=== PATIENT | male | born 1980 | race Caucasian/White ===

== ENCOUNTER 2020-04-19 18:21 | Inpatient (IN) | payer OTHER ==
[~2020-04-19] VITALS: Ht 175.3 cm; Wt 99.3 kg
--- NOTE | 2020-04-19 18:51 | NUR ---
RT AT BEDSIDE. PATIENT PLACED ON 40L/100 VAPOTHERM, 15 NRB
[2020-04-19] MEDS ORDERED: DEXAMETHASONE 10MG/ML PF INJ IV SCH (19:00)
[2020-04-19] MEDS ORDERED: ACETAMINOPHEN 325 MG TAB PO ONE (19:00)
[2020-04-19 19:18] LABS: BASOPHILS % 0.3 % (0.0-1.0); EOSINOPHILS # (AUTO) 0.1 (0.0-0.4); EOSINOPHILS % 0.4 % (0.0-6.0); HEMATOCRIT 47.2 % (38.2-49.6); HEMOGLOBIN 15.6 g/dL (14.0-18.0); LYMPHOCYTES # (AUTO) 0.5 (1.0-3.2); MEAN CORPUSCULAR HEMOGLOBIN 27.5 pg (28-32); MEAN CORPUSCULAR HGB CONC 33.1 g/dL (31-35); MEAN CORPUSCULAR VOLUME 83.2 fL (81-99); MONOCYTES # (AUTO) 0.4 (0.2-0.8); MONOCYTES % 2.9 % (4.4-11.3); NEUTROPHILS # (AUTO) 11.8 (2.1-6.9); NEUTROPHILS % 90.2 % (38.7-80.0); PLATELET COUNT 222 x10e3/uL (140-360); RED BLOOD COUNT 5.67 x10e6/uL (4.3-5.7); RED CELL DISTRIBUTION WIDTH 14.5 % (11.7-14.4)
[2020-04-19] MEDS: CEFTRIAXONE SOD 1 GM/NS 50 ML 50 ML IV SCH (19:20)
[2020-04-19] MEDS ORDERED: DEXAMETHASONE SOD PHOS 10 MG/1 ML VIAL ONE (19:23)
[2020-04-19 19:27] LABS: INR 0.98; PROTHROMBIN TIME 13.6 seconds (11.9-14.5)
[2020-04-19 19:28] LABS: PARTIAL THROMBOPLASTIN TIME 28.3 seconds (23.8-35.5)
[2020-04-19] MEDS ORDERED: LORAZEPAM INJ 2 MG/ML VIAL IV ONE (19:30)
--- NOTE | 2020-04-19 19:30 | Emergency Department Note ---
History of Present Illnes History of Present Illness Chief Complaint: COVID PUI History of Present Illness This is a 40 year old male sob x 2 days progressively getting recently around cousin who is covid (+) arrived via ems o2 sat 78% on 15l nrb respiratory called right away for vapotherm pt diabetic per ems bs 350 c/o muscle aches, chills, and cough . 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 Any updates have been documented here. Past Medical History Recent Fever: No Clinical Suspicion of Infectio: Yes New/Unexplained Change in Ment: No Past Medical History: Diabetes, Anxiety Past Surgical History: None Social History Smoking Cessation: Former smoker Counseling Performed: No Alcohol Use: None Any Illegal Drug Use: No Physically hurt or threatened: No Family History Family history of heart diseas: No Other family history HTN,DM Other Any Pre-Existing Lines (PICC,: No Review of Systems Review of Systems Constitutional: Reports as per HPI EENTM: Reports no symptoms Cardiovascular: Reports no symptoms Respiratory: Reports as per HPI Gastrointestinal: Reports no symptoms Genitourinary: Reports no symptoms Musculoskeletal: Reports no symptoms Integumentary: Reports no symptoms Neurological: Reports no symptoms Psychological: Reports no symptoms Endocrine: Reports no symptoms Hematological/Lymphatic: Reports no symptoms Physical Exam Related Data Allergies: Coded Allergies: No Known Allergies (Unverified , 04/19/20) Triage Vital Signs Vital Signs Date Time Temp Pulse Resp B/P (MAP) Pulse Ox O2 Delivery O2 Flow Rate FiO2 04/19/20 18:26 98.0 124 28 118/77 78 Non-Rebreather 15.0 Vital signs reviewed: Yes Physical Exam CONSTITUTIONAL Constitutional: Present well-developed, Present well-nourished HENT HENT: Present normocephalic, Present atraumatic, Present oropharynx clear/moist, Present nose normal HENT L/R: Present left ext ear normal, Present right ext ear normal EYES Eyes: Reports PERRL, Reports conjunctivae normal NECK Neck: Present ROM normal PULMONARY Pulmonary: Present breath sounds normal, Present respiratory distress (TACHYPNIC RR 30), Present rhonchi (DIFFUSE) CARDIOVASCULAR Cardiovascular: Present regular rhythm, Present heart sounds normal, Present capillary refill normal, Present tachycardia (120) GASTROINTESTINAL Abdominal: Present soft, Present nontender, Present bowel sounds normal GENITOURINARY Genitourinary: Present exam deferred SKIN Skin: Present warm, Present dry MUSCULOSKELETAL Musculoskeletal: Present ROM normal NEUROLOGICAL Neurological: Present alert, Present oriented x 3, Present no gross motor or sensory deficits PSYCHOLOGICAL Psychological: Present mood/affect normal, Present judgement normal Results Laboratory Result Diagram: 04/19/20 1848 Laboratory Laboratory Tests Test 04/19/20 18:58 04/19/20 18:48 White Blood Count 13.04 x10e3/uL (4.8-10.8) Red Blood Count 5.67 x10e6/uL (4.3-5.7) Hemoglobin 15.6 g/dL (14.0-18.0) Hematocrit 47.2 % (38.2-49.6) Mean Corpuscular Volume 83.2 fL (81-99) Mean Corpuscular Hemoglobin 27.5 pg (28-32) Mean Corpuscular Hemoglobin Concent 33.1 g/dL (31-35) Red Cell Distribution Width 14.5 % (11.7-14.4) Platelet Count 222 x10e3/uL (140-360) Neutrophils (%) (Auto) 90.2 % (38.7-80.0) Lymphocytes (%) (Auto) 4.0 % (18.0-39.1) Monocytes (%) (Auto) 2.9 % (4.4-11.3) Eosinophils (%) (Auto) 0.4 % (0.0-6.0) Basophils (%) (Auto) 0.3 % (0.0-1.0) Neutrophils # (Auto) 11.8 (2.1-6.9) Lymphocytes # (Auto) 0.5 (1.0-3.2) Monocytes # (Auto) 0.4 (0.2-0.8) Eosinophils # (Auto) 0.1 (0.0-0.4) Basophils # (Auto) 0.0 (0.0-0.1) Absolute Immature Granulocyte (auto 0.29 x10e3/uL (0-0.1) Prothrombin Time 13.6 seconds (11.9-14.5) Prothromb Time International Ratio 0.98 Activated Partial Thromboplast Time 28.3 seconds (23.8-35.5) Sodium Level 135 mmol/L (136-145) Potassium Level 4.5 mmol/L (3.5-5.1) Chloride Level 99 mmol/L (98-107) Carbon Dioxide Level 18 mmol/L (22-29) Anion Gap 22.5 mmol/L (8-16) Blood Urea Nitrogen 18 mg/dL (7-26) Creatinine 1.33 mg/dL (0.72-1.25) Estimat Glomerular Filtration Rate 60 ML/MIN (60-) BUN/Creatinine Ratio 14 (6-25) Glucose Level 279 mg/dL (74-118) Calcium Level 9.2 mg/dL (8.4-10.2) Total Bilirubin 1.0 mg/dL (0.2-1.2) Aspartate Amino Transf (AST/SGOT) 93 IU/L (5-34) Alanine Aminotransferase (ALT/SGPT) 63 IU/L (0-55) Alkaline Phosphatase 149 IU/L (40-150) Total Protein 7.6 g/dL (6.5-8.1) Albumin 3.0 g/dL (3.5-5.0) Globulin 4.6 g/dL (2.3-3.5) Albumin/Globulin Ratio 0.7 (0.8-2.0) Laboratory Tests Test 04/19/20 18:58 04/19/20 18:48 White Blood Count 13.04 x10e3/uL (4.8-10.8) Red Blood Count 5.67 x10e6/uL (4.3-5.7) Hemoglobin 15.6 g/dL (14.0-18.0) Hematocrit 47.2 % (38.2-49.6) Mean Corpuscular Volume 83.2 fL (81-99) Mean Corpuscular Hemoglobin 27.5 pg (28-32) Mean Corpuscular Hemoglobin Concent 33.1 g/dL (31-35) Red Cell Distribution Width 14.5 % (11.7-14.4) Platelet Count 222 x10e3/uL (140-360) Neutrophils (%) (Auto) 90.2 % (38.7-80.0) Lymphocytes (%) (Auto) 4.0 % (18.0-39.1) Monocytes (%) (Auto) 2.9 % (4.4-11.3) Eosinophils (%) (Auto) 0.4 % (0.0-6.0) Basophils (%) (Auto) 0.3 % (0.0-1.0) Neutrophils # (Auto) 11.8 (2.1-6.9) Lymphocytes # (Auto) 0.5 (1.0-3.2) Monocytes # (Auto) 0.4 (0.2-0.8) Eosinophils # (Auto) 0.1 (0.0-0.4) Basophils # (Auto) 0.0 (0.0-0.1) Absolute Immature Granulocyte (auto 0.29 x10e3/uL (0-0.1) Lab results reviewed: Yes Procedures 12 Lead ECG Interpretation ECG Interpretation : ECG: ECG 1 Drencher: Interpreted by ED physician Date: Apr 19, 2020 Time: 19:59 Rhythm: sinus tachycardia Rate: tachycardia BPM: 118 QRS axis: normal ST segments normal: Yes T waves normal: Yes Other findings: no other findings Clinical Impression: dysrhythmia - atrial (SINUS TACHYCARDIA O/W NOMRAL EKG) Critical Care Time Total Critical Care Time (min): 31 Critcal care necessary due to: respiratory failure Critcal care time spent by me: develop tx plan w patient/surrogate, discussion w consultants, discussion w primary provider, interpret cardiac output measures, evaluation patient response to tx, examination of patient, obtaining hx from patient/surrogate, order/perform tx or interventions, order/review laboratory studies, order/review radiographic studies, pulse oximetry, re-evaluation of patient condition Assessment & Plan Medical Decision Making [facility] PT WITH SOB, HYPOXIA AND COVID EXPOSURE OXYGEN SATURATION 78% ON 15 L NR, PLACE ON VAPO THERM 40LPM FIO2 100% OXYGEN SATURATION NOW 94%, rr 30 CBC, CMP, BLOOD CULTURE, CXR, EKG, CARDIAC ENZYMES ORDERED TO EVAL FOR PNEUMONIA, MYOCARDIAL INFARCTION, ELECTROLYTE ABNORMALITY ROCEPHIN 1 GRAM IV ORDERED ZITHROMAX 500 MG IV ORDERED ATIVAN 0.5 MG IV ORDERED (FOR PT'S ANXIETY) TYLENOL 975 MG PO ORDERED DEXAMETHASONE 6 MG IV ORDERED I SPOKE WITH DR WALKER, DR BONILLA AND LEFT A MESSAGE FOR DR PATTERSON Assessment & Plan Final Impression: (1) Viral pneumonia (2) Hypoxemia requiring supplemental oxygen (3) COVID-19 Depart Disposition: ADMITTED Last Vital Signs Date Time Temp Pulse Resp B/P (MAP) Pulse Ox O2 Delivery O2 Flow Rate FiO2 04/19/20 18:26 98.0 124 28 118/77 78 Non-Rebreather 15.0 Medications in the ED Acetaminophen 975 mg ONCE ONCE PO ; Start 04/19/20 at 19:00; Stop 04/19/20 at 19:15; Status DC Ceftriaxone Sodium 50 ml @ 100 mls/hr Q24H IV ; Start 04/19/20 at 19:00; Stop 04/26/20 at 18:59 Azithromycin 250 ml @ 250 mls/hr Q24H IV ; Start 04/19/20 at 20:00; Stop 04/26/20 at 19:59 Dexamethasone Sodium Phosphate 6 mg Q24H IV ; Start 04/19/20 at 19:00; Stop 04/26/20 at 18:59 Dexamethasone Sodium Phosphate 10 mg STK-MED ONCE .ROUTE ; Start 04/19/20 at 19:23; Stop 04/19/20 at 19:16; Status DC Lorazepam 0.5 mg ONCE ONCE IV ; Start 04/19/20 at 19:30; Stop 04/19/20 at 19:31; Status LUCINDA WEINBERG MD Apr 19, 2020 19:30
--- NOTE | 2020-04-19 19:41 | Diagnostic Imaging Report ---
EXAMINATION: CHEST SINGLE (PORTABLE) INDICATION: ^Y ^SOB, POSSIBLE COVID, HYPOXIA ^[id number] ^1910 ^Y COMPARISON: None FINDINGS: TUBES and LINES: None. LUNGS: Perihilar peribronchial hazy opacity with more diffuse hazy opacity in the bilateral lungs worrisome for multifocal pneumonia. PLEURA: No pleural effusion or pneumothorax. HEART AND MEDIASTINUM: The cardiomediastinal silhouette is unremarkable. BONES AND SOFT TISSUES: No acute osseous lesion. Soft tissues are unremarkable. UPPER ABDOMEN: No free air under the diaphragm. IMPRESSION: Perihilar peribronchial hazy opacity with more diffuse hazy opacity in the bilateral lungs worrisome for multifocal pneumonia. Signed by: Dr. Sameer Barnes M.D. on 04/19/2020 7:37 PM
[2020-04-19] MEDS: AZITHROMYCIN 500MG/NS 250 ML 250 ML IV SCH (19:57)
[2020-04-19] MEDS ORDERED: DEXTROSE 50% SYRINGE 50 ML IV PRN (20:00)
[2020-04-19] MEDS ORDERED: SODIUM CHLORIDE FLUSH 10 ML SYR INJ PRN (20:00)
[2020-04-19] MEDS ORDERED: ONDANSETRON HCL INJ 2MG/ML 2ML 2 MG/ML VIAL IV PRN ×2 (20:00→20:15)
[2020-04-19 20:02] LABS: ALBUMIN/GLOBULIN RATIO 0.7 (0.8-2.0); ANION GAP 22.5 mmol/L (8-16); CALCIUM 9.2 mg/dL (8.4-10.2); CREATININE, SERUM 1.33 mg/dL (0.72-1.25); POTASSIUM 4.5 mmol/L (3.5-5.1)
[2020-04-19] MEDS ORDERED: SODIUM CHLORIDE 0.9% 1000ML 1,000 ML IV ONE (20:15)
[2020-04-19] MEDS ORDERED: ZOLPIDEM TARTRATE 5 MG TAB PO PRN (20:15)
[2020-04-19] MEDS ORDERED: DEXMEDETOMIDINE 200MCG/NS 50ML 50 ML IV PRN (20:15)
[2020-04-19] MEDS ORDERED: HYDROCODONE/CHLORPHENIRAMINE 5 ML LIQCR PO PRN (20:30)
[2020-04-19 20:31] LABS: CREATINE KINASE MB 0.6 ng/mL (0-5.0)
[2020-04-19] MEDS: INSULIN REGULAR, HUMAN 100 UNIT/1 ML 3ML VIAL SQ SCH (20:37)
--- NOTE | 2020-04-19 20:41 | Consultation ---
DATE OF CONSULTATION: Pulmonary Critical Care Consultation CHIEF COMPLAINT: Dyspnea and cough. HISTORY OF PRESENT ILLNESS: The patient is a 40-year-old man. He has a history of diabetes, but does not require insulin. He reports dyspnea and cough for 2 days. He feels short of breath. He has noted some fevers. He does not complain of chest pain. He has no nausea or vomiting. PAST MEDICAL HISTORY: 1. Diabetes. 2. No prior history of asthma. 3. No prior heart problems. PAST SURGICAL HISTORY: The patient denies any prior surgical history. ALLERGIES: NO KNOWN DRUG ALLERGIES. FAMILY HISTORY: Noncontributory. REVIEW OF SYSTEMS: The patient has some fevers. There is no headache. He has no neck pain. He is not having any sore throat. He has no glandular swelling. He has no chest pain. He does have some cough. He has some dyspnea. He has no abdominal pain. He has no nausea or vomiting. He has no leg swelling. PHYSICAL EXAMINATION: VITAL SIGNS: The blood pressure is 122/80, saturation is 95% on Vapotherm at 40 L with 100% FiO2. His heart rate is 122. HEENT: Shows no facial swelling or erythema. CARDIAC: Reveals regular rate and rhythm with normal S1, S2. LUNGS: Auscultation of lungs reveals rhonchorous breath sounds bilaterally. There is no wheezing. ABDOMEN: Soft, nontender. There is no rebound or guarding. EXTREMITIES: Shows no leg edema or calf tenderness. There is no cyanosis or clubbing. SKIN: Shows no rashes. NEUROLOGICAL: Shows no focal abnormalities. LABORATORY DATA: BUN to creatinine ratio is 18 to 1.33. Sodium is 138 and the carbon dioxide is 18 with a chloride of 99. He has an increased anion gap of 20. The AST is 93 and the ALT is 63. Albumin is 3.0. White blood cell count is 13 and hemoglobin is 15.6. The platelet count is 222. RADIOGRAPHIC DATA: Chest x-ray shows perihilar hazy opacities worrisome for multifocal pneumonia. IMPRESSION: 1. Acute respiratory failure. 2. Viral pneumonia and COVID-19 infection. 3. Diabetes. 4. Acute kidney injury. 5. Tachycardia. PLAN: 1. Continue Vapotherm. 2. Judicious use of IV fluids with repeat creatinine tomorrow. 3. Monitor and control blood sugars closely. 4. Zithromax and Rocephin. 5. Dexamethasone. 6. The patient should be a good candidate for remdesivir since he has only been sick 2 to 3 days. 7. Lovenox. MD JOSE Feliz/SERGIO /[id number]
[2020-04-19] MEDS: ENOXAPARIN SOD INJ 40 MG/0.4 ML SYR SC SCH (21:12)
[2020-04-19 21:30] VITALS: BP 119/105
[2020-04-19 21:40] VITALS: BP 119/105
[2020-04-19 22:00] VITALS: BP 99/72
--- NOTE | 2020-04-19 22:59 | NUR ---
infectious disease consultation pATIENT CURRENTLY THE INTENSIVE CARE UNIT pATIENT HAD NO SHORTNESS OF BREATH AND COUGH WHICH ARE FOR 2 DAYS The patient is a 40-year-old man. He has a history of diabetes, but does not require insulin. He reports dyspnea and cough for 2 days. He feels short of breath. He has noted some fevers. He does not complain of chest pain. He has no nausea or vomiting. PAST MEDICAL HISTORY: 1. Diabetes. 2. No prior history of asthma. 3. No prior heart problems. PAST SURGICAL HISTORY: The patient denies any prior surgical history. ALLERGIES: NO KNOWN DRUG ALLERGIES. FAMILY HISTORY: Noncontributory. REVIEW OF SYSTEMS: The patient has some fevers. There is no headache. He has no neck pain. He is not having any sore throat. He has no glandular swelling. He has no chest pain. He does have some cough. He has some dyspnea. He has no abdominal pain. He has no nausea or vomiting. He has no leg swelling. hIS PHYSICAL EXAMINATION CURRENTLY ALERT ORIENTED DOES NOT SEEM TO BE IN ACUTE DISTRESS WITH VITALS STABLE AFEBRILE heent NORMOCEPHALIC NOT PROTECTED NECK SUPPLE NO jvd NO VAGINAL THYROMEGALY CHEST FEW CRACKLES HEART AT REST TO A SOFT bOSTON PRESENT WITH REDUCTION DID NOT GIVE A SKIN RASH IMPRESSION SEPSIS ON ADMISSION THE SPELLED FAILURE COVID 19 rESPIRATORY FAILURE ACUTE KIDNEY INJURY POSSIBLY DEHYDRATION rOCEPHIN 2 G DAILY FOR 5 DAYS zITHROMAX AND 5 G DAILY FOR 3 DAYS dECADRON 6 MG DAILY FOR 10 DAYS lOVENOX 0.5 G/KG EVERY 12 HOURS. PATIENT TO BE IN ISOLATION FOR 20 DAYS dISCUSSED WITH THE PATIENT ABOUT RMZV HE IS AWARE THAT IS STILL INVESTIGATIONAL DRUG THAT fda APPROVED WITH USING EMERGENCY NEED TO INPATIENT WITH cOVID 19 FAX WAS DISCUSSED WITH THE PATIENT IS STILL IN THE LUNGS WITH ACUTE RENAL FAILURE AND WHAT TO WATCH HIM OVERNIGHT AFEBRILE IN THE MORNING WILL OFFER TO HIM
[2020-04-19 23:00] VITALS: BP 133/92
[2020-04-20] VITALS (26 sets, daily range): BP systolic 83–148; BP diastolic 56–100
[2020-04-20] MEDS ORDERED: ESCITALOPRAM OX20 MG PO (00:57)
[2020-04-20] MEDS ORDERED: SIMVASTATIN40 MG PO (00:57)
[2020-04-20] MEDS ORDERED: B-121000 MC1 PO (00:57)
[2020-04-20] MEDS ORDERED: CLONAZEPAM0.5 MG PO (00:57)
[2020-04-20] MEDS ORDERED: VYVANSE30 MG PO (00:57)
[2020-04-20] MEDS ORDERED: INVOKAMET XR 51 EAC1 PO (00:57)
[2020-04-20] MEDS ORDERED: DEXTROAMP-AMPHE10 M1 PO (00:57)
[2020-04-20 05:41] LABS: ABG HCO3 20 mmol/L (22-26); ABG PCO2 31 mmHg (35-45); ABG PO2 34 mmHg (80-105)
[2020-04-20 06:54] LABS: BASOPHILS # (AUTO) 0.1 (0.0-0.1); BASOPHILS % 0.5 % (0.0-1.0); HEMOGLOBIN 15.1 g/dL (14.0-18.0); LYMPHOCYTES # (AUTO) 1.1 (1.0-3.2); LYMPHOCYTES % 8.9 % (18.0-39.1); MEAN CORPUSCULAR HEMOGLOBIN 27.2 pg (28-32); MEAN CORPUSCULAR HGB CONC 32.8 g/dL (31-35); MEAN CORPUSCULAR VOLUME 82.7 fL (81-99); MONOCYTES # (AUTO) 0.5 (0.2-0.8); MONOCYTES % 3.7 % (4.4-11.3); NEUTROPHILS # (AUTO) 10.4 (2.1-6.9); NEUTROPHILS % 84.2 % (38.7-80.0); PLATELET COUNT 239 x10e3/uL (140-360); RED BLOOD COUNT 5.56 x10e6/uL (4.3-5.7); RED CELL DISTRIBUTION WIDTH 14.4 % (11.7-14.4)
--- NOTE | 2020-04-20 07:23 | NUR ---
pt transfered from Er around 2129. plan of care discussed. encourage pt to prone self. pt was non complaint. pt desat to the 80's when not in the prone position.
[2020-04-20 07:27] LABS: ALBUMIN 2.8 g/dL (3.5-5.0); ALBUMIN/GLOBULIN RATIO 0.6 (0.8-2.0); ANION GAP 17.3 mmol/L (8-16); CALCIUM 9.3 mg/dL (8.4-10.2); CREATININE, SERUM 1.41 mg/dL (0.72-1.25); POTASSIUM 5.3 mmol/L (3.5-5.1)
[2020-04-20 07:45] LABS: CREATINE KINASE MB 1.1 ng/mL (0-5.0)
[2020-04-20] MEDS: ENOXAPARIN SOD INJ 40 MG/0.4 ML SYR SC SCH ×2 (09:00→20:37)
--- NOTE | 2020-04-20 11:03 | Progress Note ---
DATE: SUBJECTIVE: The patient is still on a Vapotherm at 40 L with 100% FiO2 as well as a non-rebreather. He received 1 L of fluid yesterday and appears slightly more comfortable. He is unable to lie in a prone position. He says the non-rebreather is making him claustrophobic. PHYSICAL EXAMINATION: VITAL SIGNS: The patient is afebrile. The blood pressure is 110/75 and the saturation is 92%. The respiratory rate is in the mid 20s. HEENT: No facial swelling or erythema. LYMPHATIC: No submandibular, cervical, or supraclavicular adenopathy. CARDIAC: Regular rate and rhythm with normal S1, S2. LUNGS: Auscultation of lungs reveals rhonchorous breath sounds bilaterally. There is no wheezing. ABDOMEN: Soft, nontender. There is no rebound or guarding. EXTREMITIES: No leg edema or calf tenderness. There is no cyanosis or clubbing. SKIN: No rashes. NEUROLOGICAL: No focal abnormalities. LABORATORY DATA: White blood cell count is 12.3 and hemoglobin is 15.1. The platelet count is 239. The BUN to creatinine ratio is 31 to 1.4 and the potassium is 5.3. Albumin is 2.8. RADIOGRAPHIC DATA: Chest x-ray shows bilateral infiltrates. IMPRESSION: 1. Acute respiratory failure. 2. Viral pneumonia and coronavirus disease-19 infection. 3. Diabetes. 4. Acute kidney injury. PLAN: 1. Continue IV hydration. 2. Continue Vapotherm with 100% non-rebreather, was superimposed. 3. Continue to monitor and control blood sugars closely. 4. Await COVID-19 testing. 5. The patient should also have HIV testing and a CD4 count, because he is severely lymophenic on his peripheral smear. This is inconsistent with COVID. 6. Continue to monitor creatinine. 7. Serum ketones and urinalysis are pending. 8. Lovenox. 9. Case discussed with the nursing staff, Respiratory, and patient. Greater than 35 minutes in direct critical care time. Tomi Vizcarra MD [facility]/MODL /[id number]
[2020-04-20] MEDS: INSULIN REGULAR, HUMAN 100 UNIT/1 ML 3ML VIAL SQ SCH ×3 (12:15→20:41)
[2020-04-20] MEDS ORDERED: LIDOCAINE HCL 2% LOCAL 20 ML VIAL ONE (13:26)
[2020-04-20 13:34] LABS: CREATINE KINASE MB 1.8 ng/mL (0-5.0)
[2020-04-20] MEDS ORDERED: LORAZEPAM 0.5 MG TAB PO PRN (14:00)
[2020-04-20 14:07] LABS: HIV 1&2 AB SCREEN NON-REACTIVE (NONREACTIVE)
[2020-04-20] MEDS ORDERED: FUROSEMIDE INJ 10 MG/ML 2 ML VIAL IV ONE (14:30)
[2020-04-20] MEDS: ASCORBIC ACID 500 MG TAB PO SCH (17:00)
[2020-04-20] MEDS ORDERED: SODIUM CHLORIDE 0.9% 1000ML 1,000 ML ONE ×2 (17:37→21:42)
--- NOTE | 2020-04-20 18:14 | NUR ---
patient not voided today shift. notified dr. nichols. bladder scan residual 615ml. pt does not want catherization and wants to attempt to void on his own. encourage him to void.
[2020-04-20] MEDS ORDERED: SODIUM CHLORIDE 0.9% 1000ML 1,000 ML IV ONE (18:30)
--- NOTE | 2020-04-20 20:07 | History and Physical ---
CHIEF COMPLAINT: Cough, congestion, and fever. HISTORY OF PRESENT ILLNESS: This is a 40-year-old male with a history of ADHD, anxiety, comes into the ED with complaints of cough, congestion, fever, ongoing for the last 3-4 days. The patient was found to have COVID-19 pneumonia here positive in the hospital. The patient is requiring significant amount of oxygen. He is on a non-rebreather on high-flow oxygen. Currently in the ICU. The patient was seen and evaluated in the ER by the ER physician as well as a Pulmonary Critical Care. The patient was very hypoxic on admission and was taken straight to the ICU for close evaluation and monitoring. The patient's COVID-19 was positive. The patient reports there was some sick contacts, but he was not told they had coronavirus. He reports only cough, congestion and some subjective fever for the last days. No chest pain. The patient was seen and evaluated at bedside in the ICU. He is currently doing well with no other issues at this time. REVIEW OF SYSTEMS: Pertinent positive cough, congestion and fever. The rest of 14-point review of systems are reviewed with the patient and are negative. ALLERGIES: NO KNOWN DRUG ALLERGIES. HOME MEDICATIONS: 1. Clonazepam, vitamin B12. 2. He takes Adderall, Vyvanse. 3. Invokamet XR mg one tablet every 24 hours. 4. Citalopram. 5. Simvastatin. PAST MEDICAL HISTORY: Depression, anxiety, ADHD, diabetes, and hyperlipidemia. PAST SURGICAL HISTORY: Reports none. FAMILY HISTORY: Hypertension, diabetes. SOCIAL HISTORY: No drugs. No alcohol. Does not smoke. Good social support. PHYSICAL EXAMINATION: VITAL SIGNS: Temperature is 98.8, pulse 67, respiratory rate is 34, blood pressure is 110/75, and his pulse ox is 92%. He is on a non-rebreather and high-flow oxygen. GENERAL: Not in acute distress. Alert, oriented x3. Cooperative on examination. HEENT: Head is normocephalic and atraumatic. Eyes; pupils are equal, round, and reactive to light bilaterally. Extraocular movements are intact bilaterally. NECK: Supple. Good range of motion. Throat, no evidence of erythema or exudate in the posterior pharynx. Has poor dentition. PULMONARY: He does have some decreased breath sounds with some crackles. He has a high-flow oxygen and on a non-rebreather. CARDIOVASCULAR: Positive S1, S2. No murmurs, rubs, or gallops appreciated. ABDOMEN: Soft, nontender, nondistended to palpation. Bowel sounds are present. MUSCULOSKELETAL: Strength is 5/5 throughout. No evidence of any muscle deficits on examination. No weakness appreciated. NEUROLOGIC: Cranial nerves 2 through 12 grossly intact. No evidence of any neurological deficits on exam. SKIN: Intact. Warm to touch. Good cap refill. PSYCHIATRIC: Normal affect and mood. EXTREMITIES: No edema. Good range of motion throughout. LABORATORY DATA: White count is 12.3, hemoglobin 15, hematocrit 46, platelets of 239. Coagulation PT 13, INR 0.9, APTT 28. Chemistry; sodium 136, potassium is 5.3, chloride 102, bicarbonate 22, anion gap of 17, BUN is 31, creatinine is 1.41, glucose was 309. Hemoglobin A1c 9.8, calcium is 9.3, total bilirubin is 0.6, AST 71, ALT 57, alkaline phosphatase 140. His troponins are 0.03. His albumin is 2.8. CD4 count is pending. Serology; coronavirus was positive. The antibodies for HIV are all pending. Microbiology; blood cultures are pending. IMAGING STUDIES: Chest x-ray shows peribronchial hazy opacity with more diffuse hazy opacity in the bilateral lungs worrisome for multifocal pneumonia. IMPRESSION: 1. Coronavirus disease pneumonia with underlying acute respiratory distress. 2. Type 2 diabetes. 3. Viral pneumonia secondary to coronavirus. 4. Acute kidney injury with mild hyperkalemia. PLAN: At this time, the patient is being treated for coronavirus disease. He is in the ICU on high-flow and non-rebreather. He is on IV steroids. He is on antibiotics with Rocephin and azithromycin as well as vitamin supplements. We will restart all home medications except for the Ativan, which I am concerned restarting that since he is on significant amount of oxygen which can cause some respiratory issues. The patient is in agreement, he will let me know if he has any kind of anxiety issues, which we can restart. Put on Lovenox for DVT prophylaxis. Heart healthy diet. Give Lasix 20 mg IV one for mild hyperkalemia. Otherwise, we will continue same plan of care and monitor very closely. The patient is very sick. He is in critical condition. The patient is opting against intubation, but at some point if he continues at this current rate, he will likely need to be intubated. MD JIMMY Walls/SERGIO /[id number]
[2020-04-20] MEDS: SIMVASTATIN 40 MG TAB PO SCH (20:33)
[2020-04-20] MEDS: CEFTRIAXONE SOD 1 GM/NS 50 ML 50 ML IV SCH (20:33)
[2020-04-20] MEDS: DEXAMETHASONE SOD PHOS INJ 4 MG/ML VIAL IV SCH (20:33)
[2020-04-20] MEDS: AZITHROMYCIN 500MG/NS 250 ML 250 ML IV SCH (20:33)
[2020-04-20 20:37] LABS: BILIRUBIN,URINE 1+ (NEGATIVE); CLARITY,URINE SL CLOUDY (CLEAR); COLOR,URINE YELLOW (YELLOW); KETONES,URINE 1+ (NEGATIVE); LEUKOCYTE ESTERASE ,URINE NEGATIVE (NEGATIVE); NITRITE,URINE NEGATIVE (NEGATIVE); PROTEIN,URINE DIPSTICK 2+ (NEGATIVE); URINE UROBILINOGEN 1 mg/dL (0.2 - 1)
[2020-04-20 20:46] LABS: BACTERIA,URINE MANY /HPF; EPITHELIAL CELLS,URINE FEW /LPF; TRANSITIONAL EPI CELLS,URINE FEW
--- NOTE | 2020-04-20 20:52 | Operative Report ---
DATE OF PROCEDURE: SURGEON: Tomi Vizcarra MD PROCEDURE: Central line placement under ultrasound guidance. PREOPERATIVE DIAGNOSES: Diabetes, dehydration and coronavirus disease-19. POSTOPERATIVE DIAGNOSES: Diabetes, dehydration and coronavirus disease-19. CONSENT: Consent was obtained from the patient. ANESTHESIA: 1% lidocaine. DESCRIPTION OF PROCEDURE: The patient was placed in the supine position. The right groin was prepped sterilely with chlorhexidine. A full length sterile drape, sterile gown, sterile gloves, and sterile mask were used. An ultrasound machine was used to locate the right femoral vein. The skin was anesthetized with 1% lidocaine. The femoral vein was then cannulated under direct visualization with a 16-gauge needle. A wire was passed through the needle and a dilator was used to open the skin. A triple-lumen catheter was then passed over the wire by the Seldinger technique. All the ports flushed. COMPLICATIONS: None. ESTIMATED BLOOD LOSS: None. Tomi Vizcarra MD [facility]/MODL /[id number]
[2020-04-20] MEDS ORDERED: MELATONIN 5 MG TABLET PO PRN (21:00)
[2020-04-20] MEDS ORDERED: INSULIN GLARGINE 100 UNITS/ML VIAL SQ SCH (21:00)
[2020-04-20] MEDS ORDERED: REMDESIVIR 200MG/NS 100ML 200 MG in SODIUM CHLORIDE 0.9% 100 ML 100 ML IV ONE (21:00)
[2020-04-20] MEDS ORDERED: PROPOFOL IV EMULSION 10MG/ML 100 ML ONE (21:50)
--- NOTE | 2020-04-20 22:02 | Diagnostic Imaging Report ---
EXAMINATION: CHEST SINGLE (PORTABLE) INDICATION: S/P INTUBATION COMPARISON: Chest radiograph 04-19-2020. FINDINGS: The right lateral hemithorax is partially excluded from the [id number]. TUBES and LINES: Interval intubation, the ET tube terminates 5.1 cm above the eulogio. LUNGS: Increasing bilateral diffuse left greater than right airspace opacities. PLEURA: Small left pleural effusion. No pneumothorax. HEART AND MEDIASTINUM: The cardiomediastinal silhouette is mildly enlarged. BONES AND SOFT TISSUES: No acute osseous lesion. Soft tissues are unremarkable. UPPER ABDOMEN: No free air under the diaphragm. IMPRESSION: Increasing bilateral diffuse opacities, compatible with multifocal pneumonia, possibly with superimposed pulmonary edema. Signed by: Dr. Patience Pettit MD on 04/20/2020 9:59 PM
[2020-04-20 22:12] LABS: ABG PCO2 51 mmHg (35-45); ABG PH 7.14 (7.35-7.45); ABG PO2 30 mmHg (80-105)
[2020-04-20 22:13] LABS: ABG HCO3 19 mmol/L (22-26); ABG TCO2 20
--- NOTE | 2020-04-20 22:17 | Progress Note ---
DATE: SUBJECTIVE: Hipolito is a 40-year-old, who have history of diabetes mellitus. The patient comes in with 2 days history of shortness of breath, getting progressively worse. The patient is being admitted. PHYSICAL EXAMINATION: GENERAL: He is currently alert. VITAL SIGNS: Stable, currently afebrile. HEENT: Not icteric. NECK: Supple. CHEST: Clear. HEART: S1 and S2. No murmur. ABDOMEN: Soft. IMPRESSION: COVID-19, sepsis, respiratory failure, acute kidney injury. We will give him remdesivir. Continue with Vapotherm as ordered. We will follow. MD KATIE Morales/MODL /[id number]
[2020-04-21] VITALS (16 sets, daily range): BP systolic 92–107; BP diastolic 60–73
[2020-04-21] MEDS ORDERED: FENTANYL CITRATE INJ 2,000 MCG in SODIUM CHLORIDE 0.9% 250ML 210 ML IV PRN (00:15)
[2020-04-21] MEDS ORDERED: MIDAZOLAM HCL 50 MG in SODIUM CHLORIDE 0.9% 100 ML 90 ML IV PRN (00:15)
[2020-04-21] MEDS ORDERED: PROPOFOL IV EMULSION 10 MG/ML 50 ML VIAL IV PRN (00:15)
--- NOTE | 2020-04-21 01:34 | Diagnostic Imaging Report ---
Exam: KUB -one view Clinical History: Verification of NG tube placement. Comparison: Chest radiograph 04-20-2020. Findings/Impression: Limited portable radiograph of the upper abdomen. Enteric tube terminates in the distal stomach, the side port is below the GE junction. Bowel gas pattern is nonspecific. No evidence of pneumoperitoneum. Please refer to prior chest radiograph for details of intrathoracic findings. Signed by: Dr. Patience Pettit MD on 04/21/2020 1:31 AM
[2020-04-21] MEDS: FENTANYL 2000MCG/NS 250 250 ML IV PRN ×2 (03:52→11:44)
[2020-04-21 04:37] LABS: ABG HCO3 22 mmol/L (22-26); ABG PCO2 51 mmHg (35-45); ABG PH 7.25 (7.35-7.45); ABG PO2 246 mmHg (80-105); ABG TCO2 24
[2020-04-21 05:21] LABS: ANION GAP 14.9 mmol/L (8-16); BLOOD UREA NITROGEN 40 mg/dL (7-26); BUN/CREATININE RATIO 47 (6-25); CARBON DIOXIDE 17 mmol/L (22-29); CHLORIDE 112 mmol/L (98-107); CREATININE, SERUM 0.86 mg/dL (0.72-1.25); EST GLOMERULAR FILTRATION RATE > 60 ML/MIN (60-); GLUCOSE 274 mg/dL (74-118); POTASSIUM 4.9 mmol/L (3.5-5.1); SODIUM 139 mmol/L (136-145)
[2020-04-21 05:22] LABS: CALCIUM 6.6 mg/dL (8.4-10.2)
[2020-04-21] MEDS: MIDAZOLAM HCL 5MG/ML 10ML VIAL 100 ML IV PRN ×3 (06:51→18:06)
[2020-04-21] MEDS: INSULIN REGULAR, HUMAN 100 UNIT/1 ML 3ML VIAL SQ SCH (08:41)
[2020-04-21] MEDS ORDERED: ESCITALOPRAM OXALATE 10 MG TAB PO SCH (09:00)
[2020-04-21] MEDS ORDERED: NON-FORMULARY MEDICATION (Escitalopram Oxalate 20 MG) PO SCH (09:00)
--- NOTE | 2020-04-21 09:25 | Diagnostic Imaging Report ---
EXAMINATION: CHEST SINGLE (PORTABLE) INDICATION: Decreased breath sounds COMPARISON: Chest radiograph 04/20/2020 FINDINGS: LINES/TUBES:Endotracheal tube terminates 5 cm above the eulogio. Enteric tube projects below the diaphragm with tip not visualized. EKG leads overlie the chest. LUNGS:The lung volumes are low. Unchanged bilateral lower lung airspace opacities. PLEURA:No pleural effusion or pneumothorax. MEDIASTINUM:The cardiomediastinal silhouette appears normal in size and shape. BONES/SOFT TISSUES:No acute osseous injury. ABDOMEN:No free air under the diaphragm. IMPRESSION: No significant interval change. Signed by: Gilberto Soto MD on 04/21/2020 9:22 AM
[2020-04-21] MEDS ORDERED: DEXTROSE 50% SYRINGE 50 ML IV PRN (09:45)
--- NOTE | 2020-04-21 09:45 | Operative Report ---
DATE OF PROCEDURE: SURGEON: Tomi Vizcarra MD PROCEDURE: Radial arterial line under ultrasound guidance. PREOPERATIVE DIAGNOSIS: Respiratory failure. POSTOPERATIVE DIAGNOSIS: Respiratory failure. CONSENT: Consent was obtained from the patient. ANESTHESIA: The patient was on Versed and fentanyl at the time of the procedure. PROCEDURE IN DETAIL: The left wrist was prepped sterilely with chlorhexidine. A sterile drape, sterile gown, and sterile mask were used. An ultrasound machine was used to locate the radial artery. The radial artery was cannulated under direct visualization with a 20-gauge needle. A wire was passed through the needle and a 20-gauge catheter was passed over the wire by the Seldinger technique. There was good blood return and an arterial waveform. COMPLICATIONS: None. ESTIMATED BLOOD LOSS: None. Tomi Vizcarra MD H/MODL /[id number]
--- NOTE | 2020-04-21 10:41 | Progress Note ---
DATE: Pulmonary/Critical Care Progress Note SUBJECTIVE: The patient was intubated emergently late last night. He is now on a PRVC mode of ventilation. He is on Versed at 10 mg as well as fentanyl at 200 mcg. OBJECTIVE: VITAL SIGNS: The patient is afebrile. The blood pressure is 105/62, saturation is 100%. He is on a PRVC at a rate of 30 with a tidal volume of 390 and FiO2 of 90%. His PEEP is set at 16. GENERAL: He has an oral endotracheal tube. He has a nasogastric tube. HEENT: Shows no facial swelling or erythema. CARDIAC: Reveals regular rate and rhythm with normal S1 and S2. LUNGS: Auscultation of lungs reveals crackles at the bases. There is no wheezing. ABDOMEN: Soft and nontender. There is no rebound or guarding. EXTREMITIES: Shows no leg edema or calf tenderness. There is no cyanosis or clubbing. SKIN: Shows no rashes. NEUROLOGICAL: Shows no focal abnormalities. The patient is sedated. LABORATORY DATA: White blood cell count is 12.33, hemoglobin is 15.1. BUN to creatinine ratio is 40 to 0.86 and the carbon dioxide is 17. Blood sugars are 224 to 274. RADIOGRAPHIC DATA: Chest x-ray shows bilateral opacities. IMPRESSION: 1. Acute respiratory failure. 2. Viral pneumonia and COVID-19 infection. 3. Diabetes. 4. Acute kidney injury. 5. Metabolic acidosis. PLAN: 1. The patient will begin rocuronium in addition to Versed and fentanyl. 2. Continue current ventilator settings and monitor the ABGs. 3. Begin enteral feedings. 4. Insulin drip. 5. Continue dexamethasone. 6. Continue antibiotics. 7. Case discussed with nightshift nursing, dayshift nursing, rapid response team, Internal Medicine, Infectious Disease, and family. Greater than 35 minutes in direct critical care time apart from any procedures performed. Tomi Vizcarra MD [facility]/MODL /[id number]
[2020-04-21] MEDS: ZINC SULFATE 220 MG CAP PO SCH (11:25)
[2020-04-21] MEDS: ENOXAPARIN SOD INJ 40 MG/0.4 ML SYR SC SCH ×2 (11:25→20:30)
[2020-04-21] MEDS: ROCURONIUM BROMIDE 250 MG in SODIUM CHLORIDE 0.9% 250ML 225 ML IV SCH ×2 (11:25→18:18)
[2020-04-21] MEDS: ASCORBIC ACID 500 MG TAB PO SCH ×2 (11:25→18:18)
--- NOTE | 2020-04-21 12:23 | NUR ---
ORDER RECEIVED FOR TRANSFER TO [facility]. CALL TO PT'S MOTHER; JOSE MARINA, @ [phone] TO DISCUSS CHOICE. STATES SHE HAD SPOKEN W DR BONILLA AND WAS OK W TRANSFER TO [facility]. CHOICE LETTER WAS SIGNED AND MOT INITIATED. CALL TO [facility] @ [phone]. SPOKE W MARTHA. STATES THEY ARE ON [employer] DIVERSION AT THIS TIME. CALL TO DR. BONILLA @ [phone]. LEFT CALL BACK INFO W ANSWERING SERVICE.
[2020-04-21] MEDS ORDERED: CALCIUM GLUCONATE 10% INJ 9.3 MEQ in SODIUM CHLORIDE 0.9% 100 ML 100 ML IV ONE (14:15)
--- NOTE | 2020-04-21 14:22 | NUR ---
this is infectious disease progress note Patient seen and examined events noted discuss the medical team at length discussed with the mother at length time spent almost more 1 hour Patient is intubated overnight is currently on a ventilator and sedated he patient was intubated emergently late last night. He is now on a PRVC mode of ventilation. He is on Versed at 10 mg as well as fentanyl at 200 mcg. OBJECTIVE: VITAL SIGNS: The patient is afebrile. The blood pressure is 105/62, saturation is 100%. He is on a PRVC at a rate of 30 with a tidal volume of 390 and FiO2 of 90%. His PEEP is set at 16. GENERAL: He has an oral endotracheal tube. He has a nasogastric tube. HEENT: Shows no facial swelling or erythema. CARDIAC: Reveals regular rate and rhythm with normal S1 and S2. LUNGS: Auscultation of lungs reveals crackles at the bases. There is no wheezing. ABDOMEN: Soft and nontender. There is no rebound or guarding. EXTREMITIES: Shows no leg edema or calf tenderness. There is no cyanosis or clubbing. SKIN: Shows no rashes. NEUROLOGICAL: Shows no focal abnormalities. The patient is sedated. LABORATORY DATA: White blood cell count is 12.33, hemoglobin is 15.1. BUN to creatinine ratio is 40 to 0.86 and the carbon dioxide is 17. Blood sugars are 224 to 274. RADIOGRAPHIC DATA: Chest x-ray shows bilateral opacities. IMPRESSION: 1. Acute respiratory failure. 2. Viral pneumonia and COVID-19 infection. 3. Diabetes. 4. Acute kidney injury. 5. Metabolic acidosis. PLAN: rmzv will be DC'd is not recommended for patient who is intubated We will try convalescent plasma discussed with the mother at length and she understand its still investigational start the process will give when available Continue with supportive care 1. The patient will begin rocuronium in addition to Versed and fentanyl. 2. Continue current ventilator settings and monitor the ABGs. 3. Begin enteral feedings. 4. Insulin drip. 5. Continue dexamethasone. 6. Continue antibiotics. discussed with medical team at length
[2020-04-21] MEDS: INSULIN REGULAR, HUMAN 3ML VL 100 UNIT in SODIUM CHLORIDE 0.9% 100 ML IV SCH ×4 (16:40→20:31)
--- NOTE | 2020-04-21 18:49 | Progress Note ---
DATE: 04/21/2020 Medicine Progress Note SUBJECTIVE: The patient decompensated overnight, requiring intubation. The patient is now intubated on a mechanical ventilator. I spoke with Pulmonary already. PHYSICAL EXAMINATION: VITAL SIGNS: Temperature 100.4, pulse 62, respiratory rate is 33, blood pressure 109/65 on art line. He is 100% on mechanical ventilator. GENERAL: Intubated and sedated. PULMONARY: Intubated and sedated. CARDIOVASCULAR: Positive S1, S2. No murmurs, rubs, or gallops appreciated. ABDOMEN: Soft, nondistended, nontender to palpation. Bowel sounds present. MUSCULOSKELETAL: Unable to assess. He is sedated. NEUROLOGIC: Sedated. SKIN: Intact. Warm to touch. Good cap refill. EXTREMITIES: No edema. Good range of motion throughout. LABORATORY DATA: Labs show white count was 12.3, hemoglobin 15, hematocrit is 46, platelets of 239. Chemistry; sodium 139, potassium is 4.9, chloride 112, bicarb 17, anion gap of 14, BUN is 40, creatinine is 0.86, glucose is 274. Calcium is corrected is 7.8. Glucose level still elevated. HIV panel was nonreactive. MICROBIOLOGY: Blood cultures x2 no growth today. DIAGNOSTIC STUDIES: Abdominal x-ray shows bowel gas pattern. No evidence of pneumoperitoneum. He does have an enteric tube in place in the distal stomach. Chest x-ray was negative. IMPRESSION: 1. Acute respiratory failure secondary to coronavirus disease-19 pneumonia, now intubated on a mechanical ventilator. 2. Type 2 diabetes. 3. Viral pneumonia secondary to coronavirus. 4. Acute kidney injury with mild hyperkalemia. 5. Hypocalcemia. PLAN: At this time, the patient is now intubated, sedated, being managed by Pulmonary Critical Care. The patient decompensated last night requiring intubation. We will continue with antibiotics, steroids, vitamin supplements. As for his diabetes, we are going to insert on insulin drip as per recommendations by Pulmonary Critical Care. His labs; his electrolytes are improved. His potassium is better. Put on Lovenox for DVT prophylaxis. The patient is very ill. He is in critical condition. We will continue to follow with the rest of the consultants. We will replace with 2 g calcium gluconate of calcium. Jiries S Dahu, MD [facility]/SERGIO /[id number]
[2020-04-21] MEDS ORDERED: HEPARIN SOD/SOD CHLORIDE 1,000 ML IV PRN (20:00)
[2020-04-21] MEDS: DEXAMETHASONE SOD PHOS INJ 4 MG/ML VIAL IV SCH (20:30)
[2020-04-21] MEDS: SIMVASTATIN 40 MG TAB PO SCH (20:30)
[2020-04-21] MEDS: CEFTRIAXONE SOD 1 GM/NS 50 ML 50 ML IV SCH (20:40)
[2020-04-21 20:54] LABS: ABG HCO3 24 mmol/L (22-26); ABG PCO2 54 mmHg (35-45); ABG PH 7.26 (7.35-7.45); ABG PO2 86 mmHg (80-105)
[2020-04-21 20:55] LABS: ABG TCO2 26
[2020-04-21] MEDS ORDERED: REMDESIVIR 100MG/NS 100ML 100 MG in SODIUM CHLORIDE 0.9% 100 ML 100 ML IV SCH (21:00)
[2020-04-21] MEDS: AZITHROMYCIN 500MG/NS 250 ML 250 ML IV SCH (21:34)
--- NOTE | 2020-04-21 21:42 | NUR ---
per reports from Danyel TAYLOR, patient will get Plasma transfusion but there is no order, called and left a message to dr Krishnamurthy, to clarify the order. awaiting for call back.
--- NOTE | 2020-04-21 22:32 | NUR ---
dr Krishnamurthy called back, orders received and carried out.
[2020-04-22] VITALS (23 sets, daily range): BP systolic 96–130; BP diastolic 61–113
[2020-04-22] MEDS: INSULIN REGULAR, HUMAN 3ML VL 100 UNIT in SODIUM CHLORIDE 0.9% 100 ML IV SCH ×6 (00:21→20:25)
[2020-04-22] MEDS: MIDAZOLAM HCL 5MG/ML 10ML VIAL 100 ML IV PRN ×3 (00:29→21:11)
[2020-04-22] MEDS: FENTANYL 2000MCG/NS 250 250 ML IV PRN ×2 (05:16→23:06)
[2020-04-22 05:17] LABS: BASOPHILS # (AUTO) 0.1 (0.0-0.1); BASOPHILS % 0.5 % (0.0-1.0); HEMATOCRIT 42.2 % (38.2-49.6); LYMPHOCYTES # (AUTO) 1.4 (1.0-3.2); LYMPHOCYTES % 9.8 % (18.0-39.1); MEAN CORPUSCULAR HEMOGLOBIN 27.4 pg (28-32); MEAN CORPUSCULAR HGB CONC 30.8 g/dL (31-35); MEAN CORPUSCULAR VOLUME 88.8 fL (81-99); MONOCYTES # (AUTO) 0.7 (0.2-0.8); MONOCYTES % 4.8 % (4.4-11.3); NEUTROPHILS # (AUTO) 11.1 (2.1-6.9); NEUTROPHILS % 79.9 % (38.7-80.0); PLATELET COUNT 155 x10e3/uL (140-360); RED BLOOD COUNT 4.75 x10e6/uL (4.3-5.7); RED CELL DISTRIBUTION WIDTH 15.1 % (11.7-14.4)
[2020-04-22 05:41] LABS: ALANINE AMINOTRANSFERASE 42 IU/L (0-55); ALBUMIN 2.4 g/dL (3.5-5.0); ALBUMIN/GLOBULIN RATIO 0.7 (0.8-2.0); ALKALINE PHOSPHATASE 111 IU/L (40-150); ANION GAP 12.8 mmol/L (8-16); BLOOD UREA NITROGEN 39 mg/dL (7-26); BUN/CREATININE RATIO 43 (6-25); CALCIUM 7.9 mg/dL (8.4-10.2); CARBON DIOXIDE 24 mmol/L (22-29); CHLORIDE 113 mmol/L (98-107); EST GLOMERULAR FILTRATION RATE > 60 ML/MIN (60-); GLUCOSE 127 mg/dL (74-118); POTASSIUM 4.8 mmol/L (3.5-5.1); SODIUM 145 mmol/L (136-145)
--- NOTE | 2020-04-22 07:04 | Diagnostic Imaging Report ---
EXAMINATION: CHEST SINGLE (PORTABLE) INDICATION: Respiratory failure. COMPARISON: Chest radiograph 04/21/2020 FINDINGS: LINES/TUBES: Endotracheal tube and enteric tube are unchanged. Overlying EKG leads. LUNGS: Decreased bilateral lower lung airspace opacities. Interval increase in lung volumes. PLEURA:No pleural effusion or pneumothorax. MEDIASTINUM:The cardiomediastinal silhouette appears normal in size and shape. BONES/SOFT TISSUES:No acute osseous injury. ABDOMEN:No free air under the diaphragm. IMPRESSION: Decreased bilateral airspace opacities, compatible with multifocal pneumonia, possibly with superimposed pulmonary edema. Lines and tubes as above. No pneumothorax. Signed by: Dr. Patience Pettit MD on 04/22/2020 7:00 AM
[2020-04-22 08:08] LABS: ANISOCYTOSIS SLIGHT; LYMPHOCYTES % (MANUAL) 9 % (19-48); MONOCYTES % (MANUAL) 4 % (3.4-9.0); MYELOCYTES % (MANUAL) 1 % (0-0); NEUTROPHILS % (MANUAL) 86 % (40-74); PLATELET ESTIMATE ADEQUATE; PLATELET MORPHOLOGY COMMENT NORMAL; RBC MORPHOLOGY COMMENT NORMAL
--- NOTE | 2020-04-22 08:31 | NUR ---
RECEIVED CALL BACK FROM DR. BONILLA. STATES HE ONLY WANTS [facility]. INFORMED THEY WERE ON [employer] DIVERSION.
[2020-04-22] MEDS ORDERED: VECURONIUM BROMIDE FOR INJ 20 MG VIAL ONE (09:16)
[2020-04-22] MEDS ORDERED: SUCCINYLCHOLINE CHLORIDE 20 MG/ML 10ML VIAL ONE (09:16)
[2020-04-22] MEDS ORDERED: MIDAZOLAM HCL 2 MG/2 ML VIAL ONE (09:16)
[2020-04-22] MEDS ORDERED: ETOMIDATE 40 MG/ 20ML VIAL IV ONE (09:16)
[2020-04-22] MEDS ORDERED: WATER STERILE 10 ML VIAL ONE (09:16)
[2020-04-22] MEDS ORDERED: EPINEPHRINE HCL 1:1000 1ML 1 MG/ML AMP ONE (09:16)
[2020-04-22 09:27] LABS: ABG PCO2 43 mmHg (35-45); ABG PH 7.32 (7.35-7.45); ABG PO2 72 mmHg (80-105)
[2020-04-22 09:28] LABS: ABG HCO3 22 mmol/L (22-26)
[2020-04-22] MEDS: ZINC SULFATE 220 MG CAP PO SCH (10:38)
[2020-04-22] MEDS: ASCORBIC ACID 500 MG TAB PO SCH ×2 (10:38→17:35)
--- NOTE | 2020-04-22 12:21 | Progress Note ---
DATE: SUBJECTIVE: The patient was started on an insulin drip. He has also received additional fluids. He remains on mechanical ventilation. He is on a PRVC mode of ventilation at a rate of 30 with a tidal volume of 410 and a FiO2 of 60%. His PEEP is set at 14. He is receiving enteral feedings. PHYSICAL EXAMINATION: VITAL SIGNS: The blood pressure is now 98/71, saturations in the mid 90s. The heart rate is 60. HEENT: No facial swelling or erythema. There is a nasogastric tube. There is an oral endotracheal tube. CARDIAC: Regular rate and rhythm with normal S1, S2. LUNGS: Auscultation of lungs reveals rhonchorous breath sounds bilaterally. There is no wheezing. ABDOMEN: Soft, nontender. There is no rebound or guarding. EXTREMITIES: No leg edema or calf tenderness. There is no cyanosis or clubbing. SKIN: No rashes. NEUROLOGICAL: No focal abnormalities. LABORATORY DATA: White blood cell count is 13.9, hemoglobin is 13. The platelet count is 155. The BUN to creatinine ratio is 39 to 0.9. Other electrolytes are within normal limits. Albumin is 2.4. RADIOGRAPHIC DATA: Chest x-ray shows bilateral infiltrates. IMPRESSION: 1. Acute respiratory failure. 2. Viral pneumonia and coronavirus disease-19 infection. 3. Diabetes. 4. Acute kidney injury. 5. Metabolic acidosis. PLAN: 1. Continue rocuronium along with Versed and fentanyl. 2. Continue current ventilator settings and monitor ABGs. 3. Continue enteral feedings. 4. Insulin drip. 5. Complete dexamethasone. 6. Complete antibiotics. 7. Case discussed with nursing staff, Respiratory, Infectious Disease, and Internal Medicine. Greater than 35 minutes in direct critical care time. Toim Vizcarra MD [facility]/MODL /[id number]
--- NOTE | 2020-04-22 15:34 | Progress Note ---
DATE: 04/22/2020 Medicine Progress Note SUBJECTIVE: The patient is still intubated. No overnight events. PHYSICAL EXAMINATION: VITAL SIGNS: Temperature is 98.7, pulse 60, respiratory rate is 30, blood pressure 98/71, and pulse ox 97% on mechanical ventilator. GENERAL: Intubated and sedated. PULMONARY: Intubated and sedated. CARDIOVASCULAR: Positive S1 and S2. No murmurs, rubs, or gallops appreciated. ABDOMEN: Soft, nondistended, and nontender to palpation. Bowel sounds present. MUSCULOSKELETAL: Unable to assess. He is intubated. NEUROLOGIC: Intubated and sedated. SKIN: Intact. Warm to touch. Good cap refill. LABORATORY FINDINGS: Show white count 13.9, hemoglobin 13, hematocrit is 42, and platelets of 155. Chemistry; sodium 145, potassium 4.8, chloride 113, bicarb 24, anion gap of 12, BUN is 39, creatinine is 0.9, and glucose is 127. Blood cultures, no growth to date. IMPRESSION: 1. Acute respiratory failure secondary to coronavirus-19 pneumonia, now intubated on a mechanical ventilator. 2. Type 2 diabetes. 3. Viral pneumonia secondary to coronavirus. 4. Acute kidney injury with mild hyperkalemia-resolved. 5. Hypocalcemia-resolved. PLAN: At this time, the patient maintained to be intubated and sedated, being managed by Pulmonary Critical Care on mechanical ventilator. He continues with steroids, antibiotics, and vitamin supplements. His sugars are much improved. We will continue to monitor very closely. He is on Lovenox for DVT prophylaxis. We will continue same plan of care. Discussed plan of care with consultants. MD JIMMY Walls/SERGIO /[id number]
[2020-04-22] MEDS: REMDESIVIR 100MG/NS 100ML 100 MG in SODIUM CHLORIDE 0.9% 100 ML 100 ML IV SCH (17:31)
[2020-04-22] MEDS: ENOXAPARIN SOD INJ 40 MG/0.4 ML SYR SC SCH ×2 (17:35→21:33)
[2020-04-22] MEDS: CEFTRIAXONE SOD 1 GM/NS 50 ML 50 ML IV SCH (19:36)
[2020-04-22] MEDS: DEXAMETHASONE SOD PHOS INJ 4 MG/ML VIAL IV SCH (19:37)
--- NOTE | 2020-04-22 19:40 | NUR ---
went to lab to brain picker plasma but its not ready. awaiting for lab to call for the next Plasma bag to be ready.
--- NOTE | 2020-04-22 20:00 | Progress Note ---
DATE: SUBJECTIVE: The patient remains in intensive care unit. This is day #3. He remains on a ventilator, this is day #2. LABORATORY DATA: Reviewed. His cultures are negative. His white count is 13.9, hemoglobin 13. Sodium 145, potassium 4.8, creatinine 0.9. HEENT: Not icteric. NECK: Supple. CHEST: Clear crackles. HEART: S1, S2. No murmur. ABDOMEN: Soft. IMPRESSION: Respiratory failure, coronavirus disease 2019, diabetes mellitus. Continue dexamethasone, azithromycin, Rocephin as ordered. Remdesivir, we finished a course. He seems to be slightly better. We will get convalescent plasma also. Discussed with the family and his brother. MD KATIE Morales/MODL /[id number]
[2020-04-22] MEDS: AZITHROMYCIN 500MG/NS 250 ML 250 ML IV SCH (20:14)
[2020-04-22] MEDS: SIMVASTATIN 40 MG TAB PO SCH (21:33)
[2020-04-22] MEDS ORDERED: SODIUM CHLORIDE 0.9% 250ML 250 ML ONE (22:53)
[2020-04-23] VITALS (24 sets, daily range): BP systolic 101–155; BP diastolic 63–80
[2020-04-23] MEDS: INSULIN REGULAR, HUMAN 3ML VL 100 UNIT in SODIUM CHLORIDE 0.9% 100 ML IV SCH ×6 (00:14→20:25)
[2020-04-23] MEDS: ROCURONIUM BROMIDE 250 MG in SODIUM CHLORIDE 0.9% 250ML 225 ML IV SCH ×3 (01:03→16:50)
[2020-04-23] MEDS: MIDAZOLAM HCL 5MG/ML 10ML VIAL 100 ML IV PRN ×4 (02:10→18:39)
[2020-04-23] MEDS: FENTANYL 2000MCG/NS 250 250 ML IV PRN ×2 (06:09→20:51)
[2020-04-23] MEDS: ENOXAPARIN SOD INJ 40 MG/0.4 ML SYR SC SCH ×2 (09:01→20:51)
[2020-04-23] MEDS: ZINC SULFATE 220 MG CAP PO SCH (09:01)
[2020-04-23] MEDS: ASCORBIC ACID 500 MG TAB PO SCH ×2 (09:01→17:03)
[2020-04-23 09:41] LABS: ABG HCO3 23 mmol/L (22-26); ABG PCO2 44 mmHg (35-45); ABG PH 7.33 (7.35-7.45); ABG PO2 80 mmHg (80-105)
[2020-04-23] MEDS: REMDESIVIR 100MG/NS 100ML 100 MG in SODIUM CHLORIDE 0.9% 100 ML 100 ML IV SCH (14:00)
--- NOTE | 2020-04-23 15:24 | Progress Note ---
DATE: Medicine Progress Note SUBJECTIVE: The patient is still intubated. He is on FiO2 of 60%, PEEP of 14. LABORATORY DATA: CBC; white count was 13, hemoglobin 13, hematocrit 42, and platelets 155. Chemistry; none today. MICROBIOLOGY: Blood cultures no growth. IMAGING STUDIES: Nothing new. PHYSICAL EXAMINATION: VITAL SIGNS: Temperature is 99.1, pulse 63, respiratory rate 30, blood pressure was 122/75, pulse ox 93%. He is on a mechanical ventilator. GENERAL: Intubated and sedated. CARDIOVASCULAR: Positive S1, S2. No murmurs, rubs, or gallops appreciated. ABDOMEN: Soft, nondistended, nontender to palpation. Bowel sounds present. PULMONARY: He is intubated and sedated. MUSCULOSKELETAL: Unable to assess. NEUROLOGIC: Unable to assess. SKIN: Intact. Warm to touch. Good cap refill. EXTREMITIES: No edema appreciated. IMPRESSION: 1. Acute respiratory failure secondary to coronavirus pneumonia, now intubated on a mechanical ventilator. 2. Type 2 diabetes. 3. Viral pneumonia secondary to coronavirus. 4. Acute kidney injury with mild hyperkalemia-resolved. 5. Hypocalcemia-resolved. PLAN: At this time, the patient is intubated and sedated. He is on steroids, antibiotics, and vitamin supplements. Pulmonary Critical Care and ID are following. His glucose levels are much improved. Get a.m. labs. He is on Lovenox for DVT prophylaxis. Continue to follow with the rest of the consultants. MD JIMMY Walls/MODL /[id number]
--- NOTE | 2020-04-23 15:34 | NUR ---
Nutrition Intervention Note RD Recommendation(s) for Physician: -Recommend modifying tube feeding to Vital AF 1.2 @ goal rate of 65 mL/hr (provides 1872 kcal, 117 g protein) Water flushes/fluid management per MD Plan of Care: RD following, monitoring for tolerance and adequacy Nutrition reason for involvement: enteral nutrition RD Assessment (04/23/20) Pt is a 40 year old male admitted with COVID-19, hypoxemia, and viral pneumonia. Pt was intubated and tube feedings were started. Unable to obtain nutrition history at this time and there are no previous weights in chart. Tube feed recommendations provided. Will continue to monitor. Principal Problems/Diagnoses: COVID-19, hypoxemia, and viral pneumonia PMH: Depression, anxiety, ADHD, diabetes, and hyperlipidemia I/O: 3350/1375 GI: round, distended abdomen Skin: no pressure ulcers noted Labs: (04/22) Na 145, K 4.8, BUN 39, Cr 0.90, Glu 127, Ca 7.9 Meds: zinc sulfate, vitamin C, fentanyl, rocuronium, insulin, antibiotic, dexmethasone, propofol PRN, zofra Ht: 69 inches Wt: 233 lbs BMI: 34.4 kg/m2 IBW: 160 lbs Malnutrition Evaluation (04/23/20) Unable to assess. Will re-evaluate at follow-up as appropriate. Nutrition Prescription (Diet Order): Glucerna 1.2 @ 20 mL/hr Estimated Nutritional Needs: 7656-9079 calories/day (22-25 kcal/kg IBW) 109-145 g protein/day (1.5-2 g pro/kg IBW) Diet Adequacy: Not meeting calorie needs, Not meeting protein needs Tolerance: Tolerance pending Diet Education Needs Assessment: Diet education not indicated, pt is intubated Nutrition Care Level: moderate Nutrition Diagnosis: Inadequate oral intake related to respiratory failure/mechanical ventilation as evidenced by pt requiring enteral nutrition. Goal: Patient will meet 75-100% of estimated needs by follow up Progress: N/A Interventions: -Composition, Rate, Route, Recommended Modifications Monitoring/Evaluation: -Total energy intake, Total protein intake, Formula/Solution, Prescription medication, Weight change Signed: Teri Ferris, RD, LD
--- NOTE | 2020-04-23 17:01 | NUR ---
he patient is still intubated. He is on FiO2 of 60%, PEEP of 14. LABORATORY DATA: CBC; white count was 13, hemoglobin 13, hematocrit 42, and platelets 155. Chemistry; none today. MICROBIOLOGY: Blood cultures no growth. IMAGING STUDIES: Nothing new. PHYSICAL EXAMINATION: VITAL SIGNS: Temperature is 99.1, pulse 63, respiratory rate 30, blood pressure was 122/75, pulse ox 93%. He is on a mechanical ventilator. GENERAL: Intubated and sedated. CARDIOVASCULAR: Positive S1, S2. No murmurs, rubs, or gallops appreciated. ABDOMEN: Soft, nondistended, nontender to palpation. Bowel sounds present. PULMONARY: He is intubated and sedated. MUSCULOSKELETAL: Unable to assess. NEUROLOGIC: Unable to assess. SKIN: Intact. Warm to touch. Good cap refill. EXTREMITIES: No edema appreciated. IMPRESSION: 1. Acute respiratory failure secondary to coronavirus pneumonia, now intubated on a mechanical ventilator. 2. Type 2 diabetes. 3. Viral pneumonia secondary to coronavirus. 4. Acute kidney injury with mild hyperkalemia-resolved. 5. Hypocalcemia-resolved.[id number]
--- NOTE | 2020-04-23 18:10 | Progress Note ---
DATE: Pulmonary Critical Care Progress Note SUBJECTIVE: The patient is now sedated. He is on Versed and fentanyl as well as rocuronium. He has a feeding tube in place and is receiving enteral feedings as well as free water. He remains on a PRVC mode of ventilation at a rate of 28 with a tidal volume of 410 and FiO2 of 60%. His PEEP is set at 14. OBJECTIVE: VITAL SIGNS: Blood pressure is 119/65, saturation is 96%, the pulse is 78. HEENT: Shows no facial swelling or erythema. CARDIAC: Reveals regular rate and rhythm with normal S1 and S2. LUNGS: Auscultation of lungs is rhonchorous breath sounds bilaterally. There is no wheezing. ABDOMEN: Soft, nontender. There is no rebound or guarding. EXTREMITIES: Shows no leg edema or calf tenderness. There is no cyanosis or clubbing. SKIN: Shows no rashes. NEUROLOGICAL: Shows no focal abnormalities. LABORATORY DATA: BUN to creatinine ratio is 39 to 0.9. Other electrolytes are within normal limits. White blood cell count is 13.9. Hemoglobin is 13. RADIOGRAPHIC DATA: Chest x-ray shows bilateral infiltrates. IMPRESSION: 1. Acute respiratory failure. 2. Viral pneumonia and COVID-19 infection. 3. Diabetes. 4. Acute kidney injury. 5. Metabolic acidosis. PLAN: 1. Continue rocuronium along with Versed and fentanyl. 2. Continue current ventilator settings and monitor ABGs. 3. Enteral feedings. 4. Insulin drip. 5. Complete dexamethasone. 6. Complete antibiotics. 7. Case discussed with nursing staff, mother, Respiratory, Infectious Disease, and Internal Medicine. Greater than 35 minutes in direct critical care time. Tomi Vizcarra MD [facility]/MODL /[id number]
--- NOTE | 2020-04-23 19:00 | Progress Note ---
DATE: SUBJECTIVE: This is a day #4 and the patient remains intubated and sedated. The patient did receive a convalescent plasma use a day. PHYSICAL EXAMINATION: GENERAL: Currently intubated and sedated. VITAL SIGNS: Stable, afebrile. HEENT: Normocephalic. NECK: Supple. CHEST: Crackles. HEART: S1 and S2. ABDOMEN: Soft. IMPRESSION: COVID-19, respiratory failure, status post Remdesivir, status post convalescent plasma. Continue Decadron. Continue with antibiotic and continue Lovenox. We will follow. MD KATIE Morales/SERGIO /[id number]
[2020-04-23] MEDS: PROPOFOL IV EMULSION 10MG/ML 100ML BTL IV PRN ×2 (19:45→20:26)
[2020-04-23] MEDS: CEFTRIAXONE SOD 1 GM/NS 50 ML 50 ML IV SCH (20:24)
[2020-04-23] MEDS: AZITHROMYCIN 500MG/NS 250 ML 250 ML IV SCH (20:51)
[2020-04-23] MEDS: SIMVASTATIN 40 MG TAB PO SCH (20:51)
[2020-04-23 21:28] LABS: ABG HCO3 26 mmol/L (22-26); ABG PCO2 57 mmHg (35-45); ABG PH 7.26 (7.35-7.45); ABG PO2 72 mmHg (80-105); ABG TCO2 27
[2020-04-23] MEDS: DEXAMETHASONE SOD PHOS INJ 4 MG/ML VIAL IV SCH (22:18)
[2020-04-23 22:21] LABS: BASOPHILS # (AUTO) 0.1 (0.0-0.1); BASOPHILS % 0.7 % (0.0-1.0); EOSINOPHILS % 0.1 % (0.0-6.0); HEMATOCRIT 41.4 % (38.2-49.6); HEMOGLOBIN 12.5 g/dL (14.0-18.0); LYMPHOCYTES # (AUTO) 1.2 (1.0-3.2); MEAN CORPUSCULAR HEMOGLOBIN 27.3 pg (28-32); MEAN CORPUSCULAR HGB CONC 30.2 g/dL (31-35); MEAN CORPUSCULAR VOLUME 90.4 fL (81-99); MONOCYTES # (AUTO) 1.3 (0.2-0.8); MONOCYTES % 6.3 % (4.4-11.3); NEUTROPHILS # (AUTO) 15.9 (2.1-6.9); NEUTROPHILS % 78.8 % (38.7-80.0); PLATELET COUNT 171 x10e3/uL (140-360); RED BLOOD COUNT 4.58 x10e6/uL (4.3-5.7); RED CELL DISTRIBUTION WIDTH 15.1 % (11.7-14.4)
[2020-04-23 22:39] LABS: ALANINE AMINOTRANSFERASE 131 IU/L (0-55); ALBUMIN 2.3 g/dL (3.5-5.0); ALBUMIN/GLOBULIN RATIO 0.7 (0.8-2.0); ALKALINE PHOSPHATASE 102 IU/L (40-150); ANION GAP 11.6 mmol/L (8-16); BLOOD UREA NITROGEN 26 mg/dL (7-26); BUN/CREATININE RATIO 33 (6-25); CALCIUM 7.4 mg/dL (8.4-10.2); CARBON DIOXIDE 23 mmol/L (22-29); CHLORIDE 113 mmol/L (98-107); CREATININE, SERUM 0.79 mg/dL (0.72-1.25); EST GLOMERULAR FILTRATION RATE > 60 ML/MIN (60-); GLUCOSE 177 mg/dL (74-118); POTASSIUM 4.6 mmol/L (3.5-5.1); SODIUM 143 mmol/L (136-145)
[2020-04-24] VITALS (27 sets, daily range): BP systolic 108–210; BP diastolic 58–109
[2020-04-24] MEDS: INSULIN REGULAR, HUMAN 3ML VL 100 UNIT in SODIUM CHLORIDE 0.9% 100 ML IV SCH ×6 (03:17→23:57)
[2020-04-24] MEDS: ROCURONIUM BROMIDE 250 MG in SODIUM CHLORIDE 0.9% 250ML 225 ML IV SCH ×2 (03:30→08:33)
[2020-04-24] MEDS: FENTANYL 2000MCG/NS 250 250 ML IV PRN ×3 (03:30→17:44)
[2020-04-24] MEDS: MIDAZOLAM HCL 5MG/ML 10ML VIAL 100 ML IV PRN ×4 (05:09→22:31)
[2020-04-24 05:20] LABS: BASOPHILS # (AUTO) 0.1 (0.0-0.1); BASOPHILS % 0.7 % (0.0-1.0); HEMATOCRIT 40.7 % (38.2-49.6); HEMOGLOBIN 12.4 g/dL (14.0-18.0); LYMPHOCYTES # (AUTO) 0.8 (1.0-3.2); MEAN CORPUSCULAR HEMOGLOBIN 27.5 pg (28-32); MEAN CORPUSCULAR HGB CONC 30.5 g/dL (31-35); MEAN CORPUSCULAR VOLUME 90.2 fL (81-99); MONOCYTES # (AUTO) 0.9 (0.2-0.8); MONOCYTES % 5.5 % (4.4-11.3); NEUTROPHILS # (AUTO) 13.4 (2.1-6.9); NEUTROPHILS % 79.3 % (38.7-80.0); PLATELET COUNT 178 x10e3/uL (140-360); RED BLOOD COUNT 4.51 x10e6/uL (4.3-5.7)
[2020-04-24 05:38] LABS: ALANINE AMINOTRANSFERASE 150 IU/L (0-55); ALBUMIN 2.3 g/dL (3.5-5.0); ALBUMIN/GLOBULIN RATIO 0.7 (0.8-2.0); ALKALINE PHOSPHATASE 104 IU/L (40-150); ANION GAP 12.1 mmol/L (8-16); BLOOD UREA NITROGEN 21 mg/dL (7-26); BUN/CREATININE RATIO 29 (6-25); CALCIUM 7.5 mg/dL (8.4-10.2); CARBON DIOXIDE 26 mmol/L (22-29); CHLORIDE 111 mmol/L (98-107); CREATININE, SERUM 0.73 mg/dL (0.72-1.25); EST GLOMERULAR FILTRATION RATE > 60 ML/MIN (60-); GLUCOSE 187 mg/dL (74-118); POTASSIUM 5.1 mmol/L (3.5-5.1); SODIUM 144 mmol/L (136-145)
[2020-04-24] MEDS: ENOXAPARIN SOD INJ 40 MG/0.4 ML SYR SC SCH ×2 (08:33→19:38)
[2020-04-24] MEDS: ASCORBIC ACID 500 MG TAB PO SCH ×2 (08:33→16:59)
[2020-04-24] MEDS: ZINC SULFATE 220 MG CAP PO SCH (08:33)
[2020-04-24] MEDS: PROPOFOL IV EMULSION 10MG/ML 100ML BTL IV PRN ×2 (08:34→16:06)
[2020-04-24 09:29] LABS: ABG HCO3 29 mmol/L (22-26); ABG PCO2 58 mmHg (35-45); ABG PH 7.31 (7.35-7.45); ABG PO2 190 mmHg (80-105)
[2020-04-24] MEDS: REMDESIVIR 100MG/NS 100ML 100 MG in SODIUM CHLORIDE 0.9% 100 ML 100 ML IV SCH (13:30)
--- NOTE | 2020-04-24 14:39 | Progress Note ---
DATE: Pulmonary Critical Care Progress Note SUBJECTIVE: The patient is currently on mechanical ventilation. He is on a PRVC mode of ventilation rate of 28 with a tidal volume of 410. His FiO2 is set at 60%. His PEEP is set at 14. He is on Versed at 8 mg as well as fentanyl at 300 mcg and propofol at 20. He has an NG tube in place and has been receiving enteral feedings. He is on an insulin drip at 2 units an hour. PHYSICAL EXAMINATION: VITAL SIGNS: The patient is afebrile. The blood pressure is 109/60, saturation is 100% on the above settings. His pulse is 65. HEENT: Shows no facial swelling or erythema. There is an oral endotracheal tube in place. LYMPHATIC: Shows no submandibular, cervical or supraclavicular adenopathy. CARDIAC: Reveals regular rate and rhythm with normal S1 and S2. LUNGS: Auscultation of lungs reveals rhonchorous breath sounds bilaterally. There is no wheezing. ABDOMEN: Soft, nontender. There is no rebound or guarding. EXTREMITIES: Shows no leg edema or calf tenderness. There is no cyanosis or clubbing. SKIN: Shows no rashes. NEUROLOGIC: Shows no focal abnormalities. LABORATORY DATA: White blood cell count is 16.9, hemoglobin is 12.4. The platelet count is 179. BUN to creatinine ratio is 21 to 0.73. The other electrolytes are within normal limits. AST is 116 and ALT is 150. Albumin is 2.3. IMPRESSION: 1. Acute respiratory failure. 2. Viral pneumonia and coronavirus disease-19 infection. 3. Diabetes. 4. Acute kidney injury. 5. Metabolic acidosis. PLAN: 1. Continue current ventilator settings. Monitor ABG. 2. Continue enteral feedings. 3. Wean insulin drip. 4. Complete dexamethasone. 5. Complete remdesivir. 6. Continue antibiotics. 7. The [facility]. 8. Case discussed with administration, family, Infectious Disease, and Internal Medicine. Greater than 35 minutes in direct critical care time. Tomi Vizcarra MD LM/MODL /[id number]
--- NOTE | 2020-04-24 15:34 | Progress Note ---
DATE: 04/24/2020 Medicine Progress Note SUBJECTIVE: The patient is intubated and sedated. He has improving oxygenation while his ABG looks good. He is in a prone position. PHYSICAL EXAMINATION: VITAL SIGNS: Temperature is 99.8, pulse 63, respiratory rate is 28, blood pressure 109/60, pulse ox 100%, he is on a mechanical ventilator. FiO2 at 60%. GENERAL: Intubated and sedated. PULMONARY: Intubated and sedated. CARDIOVASCULAR: Positive S1 and S2. No murmurs, rubs, or gallops appreciated. ABDOMEN: Soft, nondistended, and nontender to palpation. Bowel sounds present. MUSCULOSKELETAL: Unable to assess. NEUROLOGIC: Unable to assess. SKIN: Intact. Warm to touch. Good cap refill. EXTREMITIES: No edema appreciated. LABORATORY DATA: White count 16.9, hemoglobin 12, hematocrit 40, platelets of 178. Chemistry; sodium 144, potassium 5.1, chloride 111, bicarb 26, anion gap of 12, BUN is 21, creatinine 0.73, glucose is 187, calcium is 7.5, AST 116, ALT 150. IMPRESSION: 1. Acute respiratory failure secondary to coronavirus pneumonia, now intubated on a mechanical ventilator. 2. Type 2 diabetes. 3. Viral pneumonia secondary to coronavirus. 4. Acute kidney injury with mild hyperkalemia. 5. Hypocalcemia. PLAN: At this time, the patient is intubated and sedated on a mechanical ventilator. He is on steroids, antibiotics and vitamin supplements. His ABG seems to be much improved. We will monitor very closely. Pulmonary Critical Care and ID are following. Glucose is better. Get morning labs. Lovenox for DVT prophylaxis. Follow with the rest of the consultants. MD JIMMY Walls/MODL /[id number]
--- NOTE | 2020-04-24 16:28 | NUR ---
VITAL SIGNS: Temperature is 99.8, pulse 63, respiratory rate is 28, blood pressure 109/60, pulse ox 100%, he is on a mechanical ventilator. FiO2 at 60%. GENERAL: Intubated and sedated. PULMONARY: Intubated and sedated. CARDIOVASCULAR: Positive S1 and S2. No murmurs, rubs, or gallops appreciated. ABDOMEN: Soft, nondistended, and nontender to palpation. Bowel sounds present. MUSCULOSKELETAL: Unable to assess. NEUROLOGIC: Unable to assess. SKIN: Intact. Warm to touch. Good cap refill. EXTREMITIES: No edema appreciated. LABORATORY DATA: White count 16.9, hemoglobin 12, hematocrit 40, platelets of 178. Chemistry; sodium 144, potassium 5.1, chloride 111, bicarb 26, anion gap of 12, BUN is 21, creatinine 0.73, glucose is 187, c [id number]
--- NOTE | 2020-04-24 17:35 | Progress Note ---
DATE: SUBJECTIVE: Mr. Agrawal is getting better today, slowly weaning him down. Discussed with medical team. PHYSICAL EXAMINATION: GENERAL: Intubated and sedated. VITAL SIGNS: Stable. HEENT: Not icteric. NECK: Supple. CHEST: clear. LABORATORY DATA: His white count down to 16.9, hemoglobin 12. Sodium 144, potassium 5.1. IMPRESSION: 1. Respiratory failure. 2. Coronavirus disease 2019. 3. Diabetes mellitus. 4. Acute kidney injury. From Infectious Disease point of view, continue with treatment as ordered. We will follow. MD KATIE Morales/MODL /[id number]
[2020-04-24] MEDS: DEXAMETHASONE SOD PHOS INJ 4 MG/ML VIAL IV SCH (19:37)
[2020-04-24] MEDS: SIMVASTATIN 40 MG TAB PO SCH (19:38)
[2020-04-24] MEDS: CEFTRIAXONE SOD 1 GM/NS 50 ML 50 ML IV SCH (19:38)
[2020-04-24] MEDS ORDERED: HYDRALAZINE HCL 20 MG/ML VIAL IV STA (20:01)
[2020-04-24] MEDS ORDERED: HYDRALAZINE HCL 20 MG/ML VIAL ONE (20:09)
[2020-04-24] MEDS: AZITHROMYCIN 500MG/NS 250 ML 250 ML IV SCH (20:38)
--- NOTE | 2020-04-24 23:11 | Diagnostic Imaging Report ---
EXAMINATION: CHEST SINGLE (PORTABLE) INDICATION: Respiratory failure. Covid-19 COMPARISON: Chest radiograph 04/22/2020 FINDINGS: LINES/TUBES: Endotracheal tube with distal tip approximately 4.0 centimeters proximal to the eulogio. Enteric tube distal portion appears to extend below the diaphragm, however, not well visualized due to underpenetration. LUNGS:Redemonstration of increased density of the bilateral hemithoraces, with sparing of the right midlung, without significant change. PLEURA:No pleural effusion or pneumothorax. MEDIASTINUM:The cardiomediastinal silhouette appears normal in size and shape. BONES/SOFT TISSUES:No acute osseous injury. ABDOMEN:No free air under the diaphragm. IMPRESSION: No significant interval change. Signed by: Dr. King Austin M.D. on 04/24/2020 11:08 PM
[2020-04-25] VITALS (28 sets, daily range): BP systolic 102–199; BP diastolic 53–92
[2020-04-25] MEDS: FENTANYL 2000MCG/NS 250 250 ML IV PRN ×4 (00:29→20:12)
[2020-04-25] MEDS: ACETAMINOPHEN 325 MG TAB PO PRN (00:50)
[2020-04-25] MEDS: PROPOFOL IV EMULSION 10MG/ML 100ML BTL IV PRN ×4 (00:51→20:12)
[2020-04-25] MEDS: ROCURONIUM BROMIDE 250 MG in SODIUM CHLORIDE 0.9% 250ML 225 ML IV SCH (01:48)
[2020-04-25] MEDS: MIDAZOLAM HCL 5MG/ML 10ML VIAL 100 ML IV PRN ×5 (03:29→23:55)
[2020-04-25 05:05] LABS: BASOPHILS # (AUTO) 0.1 (0.0-0.1); BASOPHILS % 0.5 % (0.0-1.0); EOSINOPHILS % 0.1 % (0.0-6.0); HEMATOCRIT 38.4 % (38.2-49.6); HEMOGLOBIN 11.8 g/dL (14.0-18.0); LYMPHOCYTES # (AUTO) 0.6 (1.0-3.2); LYMPHOCYTES % 3.5 % (18.0-39.1); MEAN CORPUSCULAR HEMOGLOBIN 27.3 pg (28-32); MEAN CORPUSCULAR HGB CONC 30.7 g/dL (31-35); MEAN CORPUSCULAR VOLUME 88.9 fL (81-99); MONOCYTES # (AUTO) 0.8 (0.2-0.8); MONOCYTES % 4.8 % (4.4-11.3); NEUTROPHILS # (AUTO) 14.1 (2.1-6.9); NEUTROPHILS % 82.9 % (38.7-80.0); PLATELET COUNT 199 x10e3/uL (140-360); RED BLOOD COUNT 4.32 x10e6/uL (4.3-5.7); RED CELL DISTRIBUTION WIDTH 14.8 % (11.7-14.4)
[2020-04-25 05:26] LABS: ALANINE AMINOTRANSFERASE 144 IU/L (0-55); ALBUMIN 2.2 g/dL (3.5-5.0); ALBUMIN/GLOBULIN RATIO 0.7 (0.8-2.0); ALKALINE PHOSPHATASE 103 IU/L (40-150); ANION GAP 10.8 mmol/L (8-16); BLOOD UREA NITROGEN 19 mg/dL (7-26); BUN/CREATININE RATIO 26 (6-25); CALCIUM 7.4 mg/dL (8.4-10.2); CARBON DIOXIDE 28 mmol/L (22-29); CHLORIDE 108 mmol/L (98-107); CREATININE, SERUM 0.74 mg/dL (0.72-1.25); EST GLOMERULAR FILTRATION RATE > 60 ML/MIN (60-); GLUCOSE 172 mg/dL (74-118); MAGNESIUM 2.2 MG/DL (1.3-2.1); PHOSPHORUS 3.8 MG/DL (2.3-4.7); POTASSIUM 4.8 mmol/L (3.5-5.1); SODIUM 142 mmol/L (136-145)
[2020-04-25] MEDS: ZINC SULFATE 220 MG CAP PO SCH (08:18)
[2020-04-25] MEDS: ENOXAPARIN SOD INJ 40 MG/0.4 ML SYR SC SCH ×2 (08:18→20:03)
[2020-04-25] MEDS: ASCORBIC ACID 500 MG TAB PO SCH ×2 (08:18→16:09)
--- NOTE | 2020-04-25 10:46 | Progress Note ---
DATE: SUBJECTIVE: The patient is now on PRVC at a rate of 28 with the tidal volume of 410. His PEEP is set at 13 and his FiO2 is 50%. He is on Versed and fentanyl along with rocuronium. He is on enteral feedings. PHYSICAL EXAMINATION: VITAL SIGNS: Blood pressure is 107/57, saturation is 97%, and pulse is 61. HEENT: Shows no facial swelling or erythema. LYMPHATIC: Shows no submandibular, cervical, or supraclavicular adenopathy. CARDIAC: Reveals regular rate and rhythm with normal S1 and S2. LUNGS: Auscultation of lungs reveals crackles at the bases. There is no wheezing. ABDOMEN: Soft and nontender. There is no rebound or guarding. EXTREMITIES: Show no leg edema or calf tenderness. There is no cyanosis or clubbing. LABORATORY DATA: White blood cell count is 16.8, hemoglobin is 11.8, and platelet count is 199. BUN to creatinine ratio is 19 and 0.74. Other electrolytes are within normal limits. RADIOGRAPHIC DATA: Chest x-ray shows no interval change. IMPRESSION: 1. Acute respiratory failure. 2. Viral pneumonia and coronavirus disease 2019 infection. 3. Diabetes. 4. Metabolic acidosis. PLAN: 1. Stop rocuronium. 2. Continue ventilator settings and monitor ABG. Wean PEEP. 3. Continue enteral feedings. 4. Wean off insulin drip. 5. Complete remdesivir. 6. Complete dexamethasone. 7. Complete antibiotics. 8. Case discussed with mother. She does not want transfer to [facility] [place] at this time. 9. Case was also discussed with nursing, Respiratory, Internal Medicine, Infectious Disease, and administration. Greater than 35 minutes in direct critical care time. Tomi Vizcarra MD [facility]/MODL /[id number]
[2020-04-25] MEDS: REMDESIVIR 100MG/NS 100ML 100 MG in SODIUM CHLORIDE 0.9% 100 ML 100 ML IV SCH (13:10)
--- NOTE | 2020-04-25 15:43 | Progress Note ---
DATE: SUBJECTIVE: Mr. Agrawal is slightly better. He remains on the ventilator, but I reviewed his lab data as well as his vital signs. PHYSICAL EXAMINATION: GENERAL: Currently, intubated and sedated. VITAL SIGNS: Stable. Afebrile. HEENT: He is not icteric. NECK: Supple. CHEST: Clear. HEART: S1, S2. ABDOMEN: Soft. IMPRESSION: Respiratory failure, viral pneumonia, diabetes mellitus, seems to be getting better. Hopefully, he could be weaned on the vent until he continued to improve. Discussed with the medical team. We will follow. Continue plan as ordered. MD KATIE Morales/MODL /[id number]
[2020-04-25 16:54] LABS: ABG HCO3 29 mmol/L (22-26); ABG PCO2 48 mmHg (35-45); ABG PH 7.39 (7.35-7.45); ABG PO2 82 mmHg (80-105); ABG TCO2 30
[2020-04-25] MEDS: INSULIN REGULAR, HUMAN 3ML VL 100 UNIT in SODIUM CHLORIDE 0.9% 100 ML IV SCH ×2 (17:25)
--- NOTE | 2020-04-25 18:04 | Progress Note ---
DATE: 04/25/2020 Medicine Progress Note SUBJECTIVE: The patient is still intubated, still requiring significant amount of oxygen now. He is desaturating during my evaluation. PHYSICAL EXAMINATION: VITAL SIGNS: Temperature is 100, pulse 62, respiratory rate is 20, blood pressure 102/53, pulse ox 87% on mechanical ventilator. GENERAL: Intubated and sedated. CARDIOVASCULAR: Positive S1 and S2. No murmurs, rubs, or gallops appreciated. PULMONARY: Intubated and sedated. ABDOMEN: Soft, nondistended, and nontender to palpation. MUSCULOSKELETAL: Unable to assess. NEUROLOGIC: Unable to assess. SKIN: Intact. Warm to touch. Good cap refill. PSYCHIATRIC: Normal affect and mood. EXTREMITIES: He does have some edema, unable to assess anything else. LABORATORY FINDINGS: Show white count 16.9, hemoglobin 11.8, hematocrit 38, platelets of 199. Chemistry; sodium 142, potassium 4.8, chloride 108, bicarb 20, anion gap of 10, BUN is 19, creatinine 0.74, glucose 172. Urinalysis noted. MICROBIOLOGY: Blood culture no growth today. IMAGING STUDIES: Chest x-ray, no significant interval change. IMPRESSION: 1. Acute respiratory failure secondary to coronavirus pneumonia, intubated, sedated, now in a prone position. 2. Type 2 diabetes. 3. Viral pneumonia secondary to coronavirus. 4. Acute kidney injury with mild hyperkalemia. 5. Hypocalcemia-resolved. PLAN: At this time, patient is intubated, sedated on a mechanical ventilator, requiring a little bit more oxygen today. He is in a prone position. He is on steroids, antibiotics and vitamin supplements. Pulmonary Critical Care and ID are following. Appreciate their assistance on this case. Get morning labs. Lovenox for DVT prophylaxis. Follow with the rest of consultants. MD JIMMY Walls/MODL /[id number]
[2020-04-25] MEDS: DEXAMETHASONE SOD PHOS INJ 4 MG/ML VIAL IV SCH (20:02)
[2020-04-25] MEDS: CEFTRIAXONE SOD 1 GM/NS 50 ML 50 ML IV SCH (20:02)
[2020-04-25] MEDS: SIMVASTATIN 40 MG TAB PO SCH (20:03)
[2020-04-25] MEDS ORDERED: SODIUM CHLORIDE 0.9% 1000ML 1,000 ML ONE (20:42)
[2020-04-25] MEDS: AZITHROMYCIN 500MG/NS 250 ML 250 ML IV SCH (20:52)
[2020-04-25] MEDS: HYDRALAZINE HCL 20 MG/ML VIAL IV PRN (20:53)
--- NOTE | 2020-04-25 21:53 | NUR ---
CALLED TO NOTIFY DR WALKER ABOUT CONCERN OVER FACT THAT PT BP NOW FOR 2 NIGHTS IN A ROW HAS ELEVATED UP TO 200 SYSTOLIC RANGE AND TACHY AT 140S HR WHEN GETTING ROCEPHIN ANTIBIOTIC IV. PT WAS GIVEN HYDRALAZINE IV FOR BP BUT PT ALSO DESAT TO 85 O2 SAT WELL, RT IN THE ROOM WITH PT AT THIS TIME O2 % CHANGED FROM 60% TO 90%. DR WALKER ORDERED THE ROCEPHIN TO BE DISCONTINUED AND HE WOULD SPEAK WITH DR PATTERSON ABOUT IT TOMORROW. WILL CONT TO MONITOR.
[2020-04-26] VITALS (24 sets, daily range): BP systolic 109–131; BP diastolic 51–77
[2020-04-26] MEDS: FENTANYL 2000MCG/NS 250 250 ML IV PRN ×3 (02:22→18:37)
[2020-04-26] MEDS: PROPOFOL IV EMULSION 10MG/ML 100ML BTL IV PRN ×3 (02:46→21:17)
--- NOTE | 2020-04-26 03:00 | NUR ---
PATIENT'S MUNROE CATHETER COLLECTION BAG CHANGED, LARGE AMOUNTS OF SEDIMENT IN THE URINE. WILL CONT TO MONITOR.
[2020-04-26] MEDS: MIDAZOLAM HCL 5MG/ML 10ML VIAL 100 ML IV PRN ×3 (04:57→17:06)
[2020-04-26 04:59] LABS: BILIRUBIN,URINE NEGATIVE (NEGATIVE); CLARITY,URINE CLEAR (CLEAR); COLOR,URINE YELLOW (YELLOW); KETONES,URINE 1+ (NEGATIVE); LEUKOCYTE ESTERASE ,URINE NEGATIVE (NEGATIVE); NITRITE,URINE NEGATIVE (NEGATIVE); PROTEIN,URINE DIPSTICK TRACE (NEGATIVE)
[2020-04-26 05:01] LABS: BACTERIA,URINE FEW /HPF; EPITHELIAL CELLS,URINE FEW /LPF
[2020-04-26 05:04] LABS: BASOPHILS # (AUTO) 0.1 (0.0-0.1); BASOPHILS % 0.5 % (0.0-1.0); EOSINOPHILS % 0.1 % (0.0-6.0); HEMATOCRIT 35.9 % (38.2-49.6); HEMOGLOBIN 11.6 g/dL (14.0-18.0); LYMPHOCYTES # (AUTO) 0.6 (1.0-3.2); LYMPHOCYTES % 3.4 % (18.0-39.1); MEAN CORPUSCULAR HEMOGLOBIN 29.4 pg (28-32); MEAN CORPUSCULAR HGB CONC 32.3 g/dL (31-35); MEAN CORPUSCULAR VOLUME 91.1 fL (81-99); MONOCYTES # (AUTO) 0.6 (0.2-0.8); MONOCYTES % 3.8 % (4.4-11.3); NEUTROPHILS # (AUTO) 14.2 (2.1-6.9); NEUTROPHILS % 84.3 % (38.7-80.0); PLATELET COUNT 212 x10e3/uL (140-360); RED BLOOD COUNT 3.94 x10e6/uL (4.3-5.7); RED CELL DISTRIBUTION WIDTH 17.1 % (11.7-14.4)
[2020-04-26 05:33] LABS: INR 1.13; PROTHROMBIN TIME 15.1 seconds (11.9-14.5)
[2020-04-26 05:37] LABS: ALANINE AMINOTRANSFERASE 135 IU/L (0-55); ALBUMIN/GLOBULIN RATIO 0.6 (0.8-2.0); ALKALINE PHOSPHATASE 109 IU/L (40-150); ANION GAP 11.7 mmol/L (8-16); BLOOD UREA NITROGEN 21 mg/dL (7-26); BUN/CREATININE RATIO 29 (6-25); CALCIUM 7.6 mg/dL (8.4-10.2); CARBON DIOXIDE 27 mmol/L (22-29); CHLORIDE 109 mmol/L (98-107); CREATININE, SERUM 0.73 mg/dL (0.72-1.25); EST GLOMERULAR FILTRATION RATE > 60 ML/MIN (60-); GLUCOSE 171 mg/dL (74-118); POTASSIUM 4.7 mmol/L (3.5-5.1); SODIUM 143 mmol/L (136-145)
--- NOTE | 2020-04-26 06:19 | Diagnostic Imaging Report ---
EXAMINATION: CHEST SINGLE (PORTABLE) INDICATION: Respiratory failure. Covid-19 COMPARISON: Chest radiograph 04/24/2020 FINDINGS: LINES/TUBES: Endotracheal tube with distal tip approximately 3.6 centimeters proximal to the eulogio. Enteric tube distal portion appears to extend below the diaphragm, however, not well visualized due to underpenetration. LUNGS:Redemonstration of increased density of the bilateral hemithoraces, with sparing of the right midlung, with increase in the right lower lobe with obscuration of the right hemidiaphragm. PLEURA: Right pleural effusion. No pneumothorax. MEDIASTINUM:The cardiomediastinal silhouette appears normal in size and shape. BONES/SOFT TISSUES:No acute osseous injury. ABDOMEN:No free air under the diaphragm. IMPRESSION: Redemonstration of bilateral patchy airspace disease, with increased consolidation in the right lower lobe. Signed by: Dr. King Austin M.D. on 04/26/2020 6:15 AM
[2020-04-26 07:22] LABS: LYMPHOCYTES % (MANUAL) 2 % (19-48); METAMYELOCYTES % (MANUAL) 1 % (0-0); MONOCYTES % (MANUAL) 3 % (3.4-9.0); MYELOCYTES % (MANUAL) 1 % (0-0); NEUTROPHILS % (MANUAL) 93 % (40-74)
[2020-04-26 07:23] LABS: ANISOCYTOSIS SLIGHT; PLATELET ESTIMATE ADEQUATE; PLATELET MORPHOLOGY COMMENT NORMAL; RBC MORPHOLOGY COMMENT NORMAL
[2020-04-26 07:58] LABS: ABG HCO3 28 mmol/L (22-26); ABG PCO2 41 mmHg (35-45); ABG PH 7.44 (7.35-7.45); ABG PO2 103 mmHg (80-105); ABG TCO2 29
[2020-04-26] MEDS: ENOXAPARIN SOD INJ 40 MG/0.4 ML SYR SC SCH ×2 (08:34→20:59)
[2020-04-26] MEDS: ZINC SULFATE 220 MG CAP PO SCH (08:34)
[2020-04-26] MEDS: ASCORBIC ACID 500 MG TAB PO SCH ×2 (08:34→17:03)
[2020-04-26] MEDS: FUROSEMIDE INJ 10 MG/ML 4 ML VIAL IV SCH ×2 (08:52→20:58)
--- NOTE | 2020-04-26 09:06 | Progress Note ---
DATE: Pulmonary Critical Care Progress Note SUBJECTIVE: The patient is still on Versed 10 and fentanyl at 300 along with propofol 25. He is on a PRVC mode of ventilation, rate of 28 with a tidal volume of 410. The FiO2 is set at 60% and PEEP is set 12. OBJECTIVE: VITAL SIGNS: Blood pressure is 116/64, saturation is 96%. HEENT: No facial swelling or erythema. LYMPHATIC: No submandibular, cervical, or supraclavicular adenopathy. CARDIAC: Regular rate and rhythm with normal S1, S2. LUNGS: Auscultation of lungs reveals crackles at the bases. There is no wheezing. ABDOMEN: Soft, nontender. There is no rebound or guarding. EXTREMITIES: 1 to 2+ leg edema. LABORATORY DATA: White blood cell count is 16.7, hemoglobin is 11.6, and platelet count is 212. BUN to creatinine ratio is 21 to 0.73. The other electrolytes are within normal limits. Albumin is 2. RADIOGRAPHIC DATA: Chest x-ray shows patchy bilateral airspace disease. IMPRESSION: 1. Acute respiratory failure. 2. Viral pneumonia and coronavirus disease-19 infection. 3. Diabetes. 4. Fluid overload. PLAN: 1. Begin Lasix today with albumin. 2. Wean sedation. MRSA will be decreased to 7 and fentanyl will be decreased to 200. 3. Continue current ventilator settings. 4. Continue enteral feedings. 5. Wean off insulin drip. 6. Complete dexamethasone. 7. Complete remdesivir. 8. Complete antibiotics. Case discussed with Respiratory, nursing, Internal Medicine, and Infectious Disease. Greater than 35 minutes in direct critical care time. Tomi Vizcarra MD [facility]/MODL /[id number]
[2020-04-26] MEDS ORDERED: ALBUMIN 25% 25GM 100ML 0.25 GM/ML BTL IV SCH (12:00)
[2020-04-26] MEDS: ALBUMIN 25% 12.5GM 50ML 100 ML IV SCH ×3 (12:51→23:26)
--- NOTE | 2020-04-26 17:19 | Progress Note ---
DATE: SUBJECTIVE: Mr. Agrawal remains in intensive care unit intubated, but I discussed the case with Critical Care and the medical team. He seems to be slightly better on the current choice of care. LABORATORY DATA: His lab also noted white count 16.7, hemoglobin 11. Sodium 143, potassium 4.3, creatinine 0.73. IMPRESSION: Respiratory failure, coronavirus disease-19, diabetes mellitus. Continue anticoagulation. Continue to DC azithromycin. DC antibiotic. Status post remdesivir. Continue to wean the patient as ordered. MD KATIE Morales/MODL /[id number]
[2020-04-26] MEDS: SIMVASTATIN 40 MG TAB PO SCH (20:59)
[2020-04-26] MEDS: INSULIN REGULAR, HUMAN 3ML VL 100 UNIT in SODIUM CHLORIDE 0.9% 100 ML IV SCH ×4 (21:34→23:59)
--- NOTE | 2020-04-26 23:40 | Progress Note ---
DATE: 04/26/2020 Medicine Progress Note SUBJECTIVE: The patient is still intubated, but his oxygen requirement is decreasing. He is actually improving today. PHYSICAL EXAMINATION: VITAL SIGNS: Temperature is 99.2, pulse 62, respiratory rate is 28, and blood pressure 112/69. He was saturating during my evaluation approximately 98% on a mechanical ventilator. GENERAL: Intubated and sedated. PULMONARY: Intubated and sedated. CARDIOVASCULAR: Positive S1 and S2. No murmurs, rubs, or gallops appreciated. GI: Abdomen is soft, nondistended, and nontender to palpation. Bowel sounds present. MUSCULOSKELETAL: Unable to assess. NEUROLOGIC: Unable to assess. SKIN: Intact, warm to touch. Good cap refill. EXTREMITIES: No edema appreciated. LABORATORY FINDINGS: White count 16.7, hemoglobin 11.6, hematocrit 36, and platelets of 212. Chemistry; sodium 143, potassium is 4.7, chloride 109, bicarb 27, anion gap of 11, BUN 21, creatinine 0.73. LFTs noted. MICROBIOLOGY: Blood cultures no growth. Urine cultures are pending. DIAGNOSTIC STUDIES: Chest x-ray this morning still shows bilateral patchy airspace disease with increased consolidation in the right lower lobe. IMPRESSION: 1. Acute respiratory failure secondary to coronavirus pneumonia, intubated and sedated in a prone position. 2. Type 2 diabetes. 3. Viral pneumonia secondary to Coronavirus. 4. Acute kidney injury-resolved. 5. Hypocalcemia-resolved. PLAN: At this time, the patient's requirement for oxygen has decreased. He is still on a mechanical ventilator. We will continue prone positioning, steroids, antibiotics and vitamin supplements. Pulmonary Critical Care and ID are following very closely. Get morning labs. Lovenox for DVT prophylaxis. He is still in critical condition in the ICU. MD JIMMY Walls/MODL /[id number]
[2020-04-27] VITALS (25 sets, daily range): BP systolic 113–147; BP diastolic 59–85
[2020-04-27] MEDS: PROPOFOL IV EMULSION 10MG/ML 100ML BTL IV PRN ×4 (01:19→22:30)
[2020-04-27] MEDS: INSULIN REGULAR, HUMAN 3ML VL 100 UNIT in SODIUM CHLORIDE 0.9% 100 ML IV SCH ×2 (04:51)
[2020-04-27] MEDS: FENTANYL 2000MCG/NS 250 250 ML IV PRN ×2 (04:55→21:45)
[2020-04-27 05:08] LABS: BASOPHILS % 0.2 % (0.0-1.0); EOSINOPHILS # (AUTO) 0.2 (0.0-0.4); EOSINOPHILS % 1.1 % (0.0-6.0); HEMATOCRIT 35.3 % (38.2-49.6); LYMPHOCYTES # (AUTO) 1.2 (1.0-3.2); LYMPHOCYTES % 7.3 % (18.0-39.1); MEAN CORPUSCULAR HEMOGLOBIN 27.6 pg (28-32); MEAN CORPUSCULAR HGB CONC 31.2 g/dL (31-35); MEAN CORPUSCULAR VOLUME 88.7 fL (81-99); MONOCYTES # (AUTO) 0.7 (0.2-0.8); MONOCYTES % 4.4 % (4.4-11.3); NEUTROPHILS # (AUTO) 13.2 (2.1-6.9); NEUTROPHILS % 80.6 % (38.7-80.0); PLATELET COUNT 292 x10e3/uL (140-360); RED BLOOD COUNT 3.98 x10e6/uL (4.3-5.7); RED CELL DISTRIBUTION WIDTH 14.6 % (11.7-14.4)
[2020-04-27 05:33] LABS: ALANINE AMINOTRANSFERASE 101 IU/L (0-55); ALBUMIN 2.8 g/dL (3.5-5.0); ALBUMIN/GLOBULIN RATIO 0.9 (0.8-2.0); ALKALINE PHOSPHATASE 95 IU/L (40-150); ANION GAP 11.7 mmol/L (8-16); BLOOD UREA NITROGEN 24 mg/dL (7-26); BUN/CREATININE RATIO 32 (6-25); CALCIUM 7.9 mg/dL (8.4-10.2); CARBON DIOXIDE 28 mmol/L (22-29); CHLORIDE 106 mmol/L (98-107); CREATININE, SERUM 0.75 mg/dL (0.72-1.25); EST GLOMERULAR FILTRATION RATE > 60 ML/MIN (60-); GLUCOSE 113 mg/dL (74-118); POTASSIUM 3.7 mmol/L (3.5-5.1); SODIUM 142 mmol/L (136-145)
[2020-04-27 07:37] LABS: BAND NEUTROPHILS % (MANUAL) 1 %; LYMPHOCYTES % (MANUAL) 8 % (19-48); MONOCYTES % (MANUAL) 6 % (3.4-9.0); MYELOCYTES % (MANUAL) 3 % (0-0); NEUTROPHILS % (MANUAL) 82 % (40-74)
[2020-04-27 07:38] LABS: ANISOCYTOSIS SLIGHT; PLATELET ESTIMATE ADEQUATE; RBC MORPHOLOGY COMMENT NORMAL
[2020-04-27 07:39] LABS: LARGE PLATELETS FEW; PLATELET MORPHOLOGY COMMENT RARE EDTA CLUMPING
[2020-04-27] MEDS: MIDAZOLAM HCL 5MG/ML 10ML VIAL 100 ML IV PRN ×4 (07:45→19:17)
[2020-04-27] MEDS: FUROSEMIDE INJ 10 MG/ML 4 ML VIAL IV SCH ×2 (08:13→20:00)
[2020-04-27] MEDS: ZINC SULFATE 220 MG CAP PO SCH (08:13)
[2020-04-27] MEDS: ASCORBIC ACID 500 MG TAB PO SCH ×2 (08:13→16:41)
[2020-04-27] MEDS ORDERED: ROCURONIUM BROMIDE 10 MG/ML 5ML VIAL IV STA (08:27)
[2020-04-27 08:39] LABS: ABG HCO3 28 mmol/L (22-26); ABG PCO2 42 mmHg (35-45); ABG PH 7.43 (7.35-7.45); ABG PO2 90 mmHg (80-105); ABG TCO2 29
[2020-04-27] MEDS ORDERED: PROPOFOL IV EMULSION 100 ML IV ONE ×3 (09:26→22:40)
[2020-04-27] MEDS: ROCURONIUM BROMIDE 250 MG in SODIUM CHLORIDE 0.9% 250ML 225 ML IV SCH (09:48)
[2020-04-27] MEDS: DEXAMETHASONE SOD PHOS INJ 4 MG/ML VIAL IV SCH (11:43)
[2020-04-27] MEDS: VANCOMYCIN 1GM/NS 250 ML 250 ML IV SCH ×2 (11:44→22:27)
--- NOTE | 2020-04-27 12:19 | Progress Note ---
DATE: SUBJECTIVE: The patient is now in the prone position. He has received Lasix and has been negative over a L in the past 24 hours. He remains on a PRVC mode of ventilation at a rate of 28 with tidal volume of 400 and FiO2 of 60%. His PEEP is set at 14. He is on Versed and fentanyl as well as low-dose propofol. He is also on low-dose rocuronium. PHYSICAL EXAMINATION: VITAL SIGNS: The blood pressure is 147/71 and saturation is 96%. The heart rate is 104. He is on a current ventilator settings. HEENT: No facial swelling or erythema. There is no oral endotracheal tube. There is a nasogastric feeding tube. CARDIAC: Regular rate and rhythm with normal S1, S2. LUNGS: Auscultation of lungs reveals rhonchorous breath sounds bilaterally. There is no wheezing. ABDOMEN: Soft, nontender. There is no rebound or guarding. EXTREMITIES: No leg edema or calf tenderness. There is no cyanosis or clubbing. SKIN: No rashes. NEUROLOGICAL: The patient to be sedated and paralyzed. LABORATORY DATA: Blood gases 7.43, 42, 90, and 28. BUN to creatinine ratio is normal. The other electrolytes are within normal limits. The albumin is 2.8. The hemoglobin is 11 and white blood cell count is 16.35. The platelet count is 292. RADIOGRAPHIC DATA: Chest x-ray shows bilateral opacities. IMPRESSION: 1. Acute respiratory failure. 2. Viral pneumonia and coronavirus disease-19 infection. 3. Diabetes. 4. Fluid overload. PLAN: 1. Continue ventilation in the prone position. 2. Continue Lasix. 3. Continue Versed and fentanyl. Taper off rocuronium and propofol. 4. Continue insulin drip. 5. Continue enteral feedings. 6. Complete dexamethasone and remdesivir. 7. Complete antibiotics. 8. Case discussed with Respiratory, terminal superintendent nursing, dayshift nursing, administration, family, and Infectious Disease. Greater than 35 minutes in direct critical care time. Tomi Vizcarra MD [facility]/MODL /[id number]
--- NOTE | 2020-04-27 12:43 | Progress Note ---
DATE: 04/27/2020 Medicine Progress Note SUBJECTIVE: The patient's oxygen requirement is much decreased. He is in the prone position. No overnight events. PHYSICAL EXAMINATION: VITAL SIGNS: Temperature is 99.7, pulse 75, respiratory rate is 20, blood pressure is 147/71, and pulse ox 95% on mechanical ventilator. GENERAL: Intubated and sedated. PULMONARY: Intubated and sedated. CARDIOVASCULAR: Positive S1 and S2. No murmurs, rubs, or gallops appreciated. ABDOMEN: Soft, nondistended, and nontender to palpation. Bowel sounds present. MUSCULOSKELETAL: Unable to assess. NEUROLOGIC: Unable to assess. SKIN: Intact. Warm to touch. Good cap refill. PSYCHIATRIC: Unable to assess. LABORATORY DATA: Show white count 16.3, hemoglobin 11, hematocrit is 35, and platelets of 292. Chemistry; sodium 142, potassium 3.7, chloride 106, bicarb 20, anion gap of 11, BUN is 24, and creatinine is 0.75. IMAGING STUDIES: Chest x-ray this morning shows re-demonstration of bilateral patchy airspace disease with increased consolidation in the right lower lobe. IMPRESSION: 1. Acute respiratory failure secondary to coronavirus pneumonia, intubated and sedated and prone position. 2. Type 2 diabetes. 3. Viral pneumonia secondary to coronavirus. 4. Acute kidney injury-resolved. 5. Hypocalcemia-resolved. PLAN: At this time, he is requiring less oxygenation. He is in the prone position. Continue with chemical ventilator being managed by Pulmonary Critical Care. We will continue with prone positioning, steroids, antibiotics, vitamin supplements. Pulmonary Critical Care and ID are following very closely. Get morning labs. Lovenox for DVT prophylaxis. He is still in the ICU under critical condition. MD JIMMY Walls/MODL /[id number]
--- NOTE | 2020-04-27 12:43 | NUR ---
ASSESSMENT: Spiritual distress Oncology Transplant Network Manager called pt's mom, Oxana Soto, to provided emotional/spiritual support. Pt's mom worried but thankful for people "who let me talk to him" and "lots of family support." Pt's mom states his hospitalization has been "a roller coaster ride." Intervention: Provided empathic listening and prayer. Provided information on how to reach still operator helper, if needed. Outcome: Pt's mom expressed appreciation for support. Will follow as able. MARIANNA LAW Oncology Transplant Network Manager Spiritual Care Department O: [phone]
[2020-04-27] MEDS ORDERED: POTASSIUM CHLORIDE 20MEQ/15ML UDC NG ONE (12:58)
[2020-04-27] MEDS: MEROPENEM 1GM 100 ML IV SCH ×2 (13:53→21:45)
--- NOTE | 2020-04-27 16:37 | NUR ---
PHYSICAL EXAMINATION: VITAL SIGNS: Temperature is 99.7, pulse 75, respiratory rate is 20, blood pressure is 147/71, and pulse ox 95% on mechanical ventilator. GENERAL: Intubated and sedated. PULMONARY: Intubated and sedated. CARDIOVASCULAR: Positive S1 and S2. No murmurs, rubs, or gallops appreciated. ABDOMEN: Soft, nondistended, and nontender to palpation. Bowel sounds present. MUSCULOSKELETAL: Unable to assess. NEUROLOGIC: Unable to assess. SKIN: Intact. Warm to touch. Good cap refill. PSYCHIATRIC: Unable to assess. LABORATORY DATA: Show white count 16.3, hemoglobin 11, hematocrit is 35, and platelets of 292. Chemistry; sodium 142, potassium 3.7, chloride 106, bicarb 20, anion gap of 11, BUN is 24, and creatinine is 0.75. IMAGING STUDIES: Chest x-ray this morning shows re-demonstration of bilateral patchy airspace disease with [id number]
[2020-04-27 19:23] LABS: ABG PCO2 50 mmHg (35-45); ABG PH 7.37 (7.35-7.45); ABG PO2 147 mmHg (80-105)
[2020-04-27 19:24] LABS: ABG HCO3 29 mmol/L (22-26); ABG TCO2 31
--- NOTE | 2020-04-27 20:05 | Progress Note ---
DATE: SUBJECTIVE: Mr. Agrawal remains in Intensive Care Unit, intubated and sedated. He seemed to get worse today. He is in prone position. OBJECTIVE: GENERAL: Intubated and sedated. VITAL SIGNS: Stable, currently afebrile. HEENT: He is not icteric. NECK: Supple. CHEST: Crackles bilateral. HEART: S1, S2. ABDOMEN: Soft. LABORATORY DATA: Reviewed. IMPRESSION: 1. COVID-19, respiratory failure. 2. Diabetes mellitus. 3. Acute kidney injury, currently on meropenem and vancomycin, day #8. Dexamethasone continue as ordered. Continue with anticoagulation. Mayda Krishnamurthy MD [facility]/MODL /[id number]
[2020-04-27] MEDS: SIMVASTATIN 40 MG TAB PO SCH (20:07)
[2020-04-28] VITALS (12 sets, daily range): BP systolic 116–177; BP diastolic 57–112
[2020-04-28] MEDS: INSULIN REGULAR, HUMAN 3ML VL 100 UNIT in SODIUM CHLORIDE 0.9% 100 ML IV SCH ×2 (00:30)
[2020-04-28] MEDS: ROCURONIUM BROMIDE 250 MG in SODIUM CHLORIDE 0.9% 250ML 225 ML IV SCH ×4 (00:30→20:00)
[2020-04-28] MEDS: MIDAZOLAM HCL 5MG/ML 10ML VIAL 100 ML IV PRN ×3 (00:36→21:24)
[2020-04-28] MEDS ORDERED: FENTANYL CITRATE INJ 2,000 MCG in SODIUM CHLORIDE 0.9% 250ML 210 ML IV PRN ×2 (04:45→10:45)
[2020-04-28] MEDS ORDERED: MIDAZOLAM HCL 50 MG in SODIUM CHLORIDE 0.9% 100 ML 90 ML IV PRN (04:45)
[2020-04-28 05:24] LABS: BASOPHILS # (AUTO) 0.1 (0.0-0.1); BASOPHILS % 0.3 % (0.0-1.0); EOSINOPHILS # (AUTO) 0.1 (0.0-0.4); EOSINOPHILS % 0.5 % (0.0-6.0); HEMATOCRIT 35.6 % (38.2-49.6); HEMOGLOBIN 11.5 g/dL (14.0-18.0); LYMPHOCYTES # (AUTO) 0.7 (1.0-3.2); MEAN CORPUSCULAR HEMOGLOBIN 29.9 pg (28-32); MEAN CORPUSCULAR HGB CONC 32.3 g/dL (31-35); MEAN CORPUSCULAR VOLUME 92.5 fL (81-99); MONOCYTES # (AUTO) 0.8 (0.2-0.8); MONOCYTES % 4.7 % (4.4-11.3); NEUTROPHILS # (AUTO) 15.6 (2.1-6.9); NEUTROPHILS % 87.5 % (38.7-80.0); PLATELET COUNT 231 x10e3/uL (140-360); RED BLOOD COUNT 3.85 x10e6/uL (4.3-5.7); RED CELL DISTRIBUTION WIDTH 17.5 % (11.7-14.4)
[2020-04-28 05:45] LABS: ALANINE AMINOTRANSFERASE 82 IU/L (0-55); ALBUMIN 2.4 g/dL (3.5-5.0); ALBUMIN/GLOBULIN RATIO 0.6 (0.8-2.0); ALKALINE PHOSPHATASE 90 IU/L (40-150); ANION GAP 11.3 mmol/L (8-16); BLOOD UREA NITROGEN 19 mg/dL (7-26); BUN/CREATININE RATIO 28 (6-25); CALCIUM 7.6 mg/dL (8.4-10.2); CARBON DIOXIDE 31 mmol/L (22-29); CHLORIDE 105 mmol/L (98-107); CREATININE, SERUM 0.67 mg/dL (0.72-1.25); EST GLOMERULAR FILTRATION RATE > 60 ML/MIN (60-); GLUCOSE 108 mg/dL (74-118); POTASSIUM 4.3 mmol/L (3.5-5.1); SODIUM 143 mmol/L (136-145)
[2020-04-28] MEDS: MEROPENEM 1GM 100 ML IV SCH ×3 (06:00→21:25)
[2020-04-28] MEDS ORDERED: PROPOFOL IV EMULSION 100 ML IV ONE (06:21)
[2020-04-28] MEDS: PROPOFOL IV EMULSION 10MG/ML 100ML BTL IV PRN (06:30)
[2020-04-28 07:29] LABS: ABG HCO3 33 mmol/L (22-26); ABG PCO2 66 mmHg (35-45); ABG PH 7.31 (7.35-7.45); ABG PO2 117 mmHg (80-105); ABG TCO2 35
[2020-04-28] MEDS: ZINC SULFATE 220 MG CAP PO SCH (08:50)
[2020-04-28] MEDS: ASCORBIC ACID 500 MG TAB PO SCH ×2 (08:50→17:07)
[2020-04-28] MEDS: DEXAMETHASONE SOD PHOS INJ 4 MG/ML VIAL IV SCH (08:50)
[2020-04-28] MEDS: HYDRALAZINE HCL 20 MG/ML VIAL IV PRN (10:23)
[2020-04-28] MEDS: FENTANYL 2000MCG/NS 250 250 ML IV PRN ×2 (11:18→21:23)
[2020-04-28] MEDS: VANCOMYCIN 1GM/NS 250 ML 250 ML IV SCH ×2 (11:22→23:24)
--- NOTE | 2020-04-28 12:08 | Progress Note ---
DATE: SUBJECTIVE: The patient has been in the prone position overnight. He is oxygenating better and his FiO2 is down to 45% with 12 of PEEP. His saturations remained in the high 90s. He remains on Versed and fentanyl as well as propofol and rocuronium. He is receiving enteral feedings. PHYSICAL EXAMINATION: VITAL SIGNS: The blood pressure is 177/91 and heart rate is 110-120. HEENT: No facial swelling or erythema. There is an oral endotracheal tube. LYMPHATIC: No submandibular, cervical, or supraclavicular adenopathy. CARDIAC: Regular rate and rhythm with normal S1, S2. LUNGS: Auscultation of lungs reveals crackles at the bases. There is no wheezing. There is a PICC line in place as well as an arterial line. ABDOMEN: Soft, nontender. There is no rebound or guarding. EXTREMITIES: No leg or calf tenderness. LABORATORY DATA: Blood gas is 7.31, 66 and 117. Carbon dioxide is 33. The BUN to creatinine ratio is 19 to 0.67. Other electrolytes are within normal limits and the albumin is 2.4. IMPRESSION: 1. Acute respiratory failure. 2. Viral pneumonia and coronavirus disease-19. 3. Diabetes. PLAN: 1. Place the patient back in the supine position. 2. Continue to monitor ABGs and adjust ventilator as tolerated. 3. Continue insulin drip. 4. Continue dexamethasone. 5. Complete antibiotics. 6. Continue enteral feedings. Greater than 35 minutes in direct critical care time. Tomi Vizcarra MD [facility]/MODL /[id number]
--- NOTE | 2020-04-28 14:43 | Diagnostic Imaging Report ---
EXAM: CHEST SINGLE (PORTABLE) DATE: 04/28/2020 2:10 PM INDICATION: Respiratory failure COMPARISON: 04/26/2020 FINDINGS/IMPRESSION: Endotracheal tube identified in stable position. Enteric tube noted coursing below the diaphragm. Again identified are patchy airspace opacities within the lungs bilaterally, more prominent on the left. Findings are slightly progressed from the prior examination from 04/26/2020. There is no evidence for pneumothorax or significant volume pleural effusion. The cardiomediastinal silhouette is stable in appearance. No acute osseous abnormality is identified. Signed by: Dr. Doni Waters MD on 04/28/2020 2:39 PM
--- NOTE | 2020-04-28 15:20 | NUR ---
Nutrition Intervention Note RD Recommendation(s) for Physician: -Recommend modifying tube feeding to Vital AF 1.2 @ goal rate of 65 mL/hr (provides 1872 kcal, 117 g protein) Water flushes/fluid management per MD Plan of Care: RD following, monitoring for tolerance and adequacy, tube feed recommendation Nutrition reason for involvement: follow up RD Assessment 04/28: Follow up. Pt remains intubated. RN reports pts tube feed rate is at 15 mL/hr at this time and that pt is in the prone position. Current recommendations remain appropriate. Will continue to monitor. (04/23/20) Pt is a 40 year old male admitted with COVID-19, hypoxemia, and viral pneumonia. Pt was intubated and tube feedings were started. Unable to obtain nutrition history at this time and there are no previous weights in chart. Tube feed recommendations provided. Will continue to monitor. Principal Problems/Diagnoses: COVID-19, hypoxemia, and viral pneumonia PMH: Depression, anxiety, ADHD, diabetes, and hyperlipidemia I/O: 2547/4800 GI: large abdomen, last recorded BM 04/20 Skin: no pressure ulcers noted Labs: (04/28) Na 143, K 4.2, BUN 19, Cr 0.67, Glu 108, Ca 7.6 (04/22) Na 145, K 4.8, BUN 39, Cr 0.90, Glu 127, Ca 7.9 Meds: antibiotics, fentanyl, rocuronium, dexmethasone, zinc sulfate, vitamin C, insulin, propofol PRN, zofran Ht: 69 inches Wt: 233 lbs BMI: 34.4 kg/m2 IBW: 160 lbs Malnutrition Evaluation (04/23/20) Unable to assess. Will re-evaluate at follow-up as appropriate. Nutrition Prescription (Diet Order): Glucerna 1.2 @ 50 mL/hr (provides 1440 kcal, 72 g protein) infusing at 15 mL/hr per RN Estimated Nutritional Needs: 0510-9246 calories/day (22-25 kcal/kg IBW) 109-145 g protein/day (1.5-2 g pro/kg IBW) Diet Adequacy: Not meeting calorie needs, Not meeting protein needs Tolerance: tolerating TF Diet Education Needs Assessment: Diet education not indicated, pt is intubated Nutrition Care Level: moderate Nutrition Diagnosis: Inadequate oral intake related to respiratory failure/mechanical ventilation as evidenced by pt requiring enteral nutrition. Goal: Patient will meet 75-100% of estimated needs by follow up Progress: progressing Interventions: -Composition, Rate, Route, Recommended Modifications Monitoring/Evaluation: -Total energy intake, Total protein intake, Formula/Solution, Prescription medication, Weight change Signed: Teri Ferris RD, LD
--- NOTE | 2020-04-28 18:11 | NUR ---
he patient has been in the prone position overnight. He is oxygenating better and his FiO2 is down to 45% with 12 of PEEP. His saturations remained in the high 90s. He remains on Versed and fentanyl as well as propofol and rocuronium. He is receiving enteral feedings. PHYSICAL EXAMINATION: VITAL SIGNS: The blood pressure is 177/91 and heart rate is 110-120. HEENT: No facial swelling or erythema. There is an oral endotracheal tube. LYMPHATIC: No submandibular, cervical, or supraclavicular adenopathy. CARDIAC: Regular rate and rhythm with normal S1, S2. LUNGS: Auscultation of lungs reveals crackles at the bases. There is no wheezing. There is a PICC line in place as well as an arterial line. ABDOMEN: Soft, nontender. There is no rebound or guarding. EXTREMITIES: No leg or calf tenderness. LABORATORY DATA: Blood gas is 7.31, 66 and 117. Carbon dioxide is 33. The BUN to creatinine ratio is 19 to 0.67. Other electrolytes are within normal limits and the albumin is 2.4. [id number]
[2020-04-28 19:53] LABS: ABG PH 7.33 (7.35-7.45)
[2020-04-28 19:54] LABS: ABG HCO3 28 mmol/L (22-26); ABG PCO2 52 mmHg (35-45); ABG PO2 67 mmHg (80-105); ABG TCO2 29
--- NOTE | 2020-04-28 20:05 | Progress Note ---
DATE: SUBJECTIVE: Mr. Agrawal remains in the Intensive Care Unit. He seems slightly better today. Discussed with Medical team. PHYSICAL EXAMINATION: GENERAL: Currently, intubated. VITAL SIGNS: Stable. HEENT: He is not icteric. NECK: Supple. CHEST: Few crackles. HEART: S1, S2. ABDOMEN: Soft. LABORATORY DATA: Reviewed. Chart reviewed. IMPRESSION: 1. COVID-19, respiratory failure. 2. Diabetes mellitus. 3. Obesity. PLAN: Continue to wean as ordered, currently on meropenem and vancomycin, started on 04/27, to finish 7 days. MD KATIE Morales/SERGIO /[id number]
--- NOTE | 2020-04-28 20:35 | NUR ---
Pt hypertensive with systolic in the 200's and tachycardic at 140's. Dr. Vizcarra called at this time and made aware. Verbal Orders to increase propofol to a max of 100 mcg/kg/min.
[2020-04-28] MEDS ORDERED: PROPOFOL IV EMULSION 10MG/ML 100 ML ONE (20:45)
[2020-04-28] MEDS: SIMVASTATIN 40 MG TAB PO SCH (21:25)
[2020-04-28] MEDS ORDERED: PROPOFOL IV EMULSION 10MG/ML 200 ML ONE (23:18)
[2020-04-28] MEDS: PROPOFOL IV EMULSION 100 ML IV PRN (23:24)
--- NOTE | 2020-04-28 23:56 | Progress Note ---
DATE: 04/28/2020 Medicine Progress Note SUBJECTIVE: The patient was evaluated approximately 2:00 p.m. this afternoon. The patient is still intubated. His oxygen requirement is decreasing. He is doing much better from an oxygenation standpoint. PHYSICAL EXAMINATION: VITAL SIGNS: Temperature is 99.1, pulse was 71, respiratory rate 23, blood pressure was 154/92, 98% pulse ox mechanical ventilator, FiO2 of 45%. GENERAL: He is intubated and sedated. PULMONARY: Intubated and sedated. CARDIOVASCULAR: Positive S1, S2. No murmurs, rubs, or gallops. ABDOMEN: Soft, nondistended, and nontender to palpation. Bowel sounds are present. MUSCULOSKELETAL: Unable to assess. NEUROLOGIC: He is sedated. SKIN: Intact warm to touch. Good cap refill. EXTREMITIES: Trace edema appreciated. LABORATORY DATA: White count 17, hemoglobin 11, hematocrit is 35, platelets of 231. Chemistry; sodium 143, potassium 4.3, chloride 105, bicarb 31, anion gap of 11. BUN is 19, creatinine 0.67. Microbiology, nothing new. All cultures were negative. IMAGING STUDIES: Chest x-ray this morning still showed patchy airspace opacities throughout bilaterally. IMPRESSION: 1. Acute respiratory failure secondary to coronavirus. He is intubated and sedated, now improving. 2. Type 2 diabetes. 3. Viral pneumonia secondary to Coronavirus. 4. Acute kidney injury. 5. Hypocalcemia-resolved. PLAN: At this time, the patient oxygenation requirement is decreasing and oxygen requirement is improving. He is still on a mechanical ventilator. Pulmonary Critical Care is following. The patient is on steroids, antibiotics, and vitamin supplements. Pulmonary Critical Care and ID are following. He is on Lovenox for DVT prophylaxis. Still in the ICU in critical condition. Get morning labs. Discussed plan of care with nursing staff. MD JIMMY Walls/MODL /[id number]
[2020-04-29] VITALS (12 sets, daily range): BP systolic 94–133; BP diastolic 47–80
[2020-04-29] MEDS: PROPOFOL IV EMULSION 100 ML IV PRN ×2 (01:32→03:00)
[2020-04-29] MEDS: MIDAZOLAM HCL 5MG/ML 10ML VIAL 100 ML IV PRN ×2 (01:45→23:58)
[2020-04-29] MEDS: ROCURONIUM BROMIDE 250 MG in SODIUM CHLORIDE 0.9% 250ML 225 ML IV SCH (01:46)
[2020-04-29] MEDS ORDERED: PROPOFOL IV EMULSION 10MG/ML 100 ML ONE ×3 (03:03→09:50)
[2020-04-29 04:10] LABS: BASOPHILS % 0.1 % (0.0-1.0); EOSINOPHILS # (AUTO) 0.1 (0.0-0.4); EOSINOPHILS % 0.5 % (0.0-6.0); HEMATOCRIT 33.7 % (38.2-49.6); HEMOGLOBIN 10.4 g/dL (14.0-18.0); LYMPHOCYTES % 6.7 % (18.0-39.1); MEAN CORPUSCULAR HEMOGLOBIN 27.3 pg (28-32); MEAN CORPUSCULAR HGB CONC 30.9 g/dL (31-35); MEAN CORPUSCULAR VOLUME 88.5 fL (81-99); MONOCYTES % 6.9 % (4.4-11.3); NEUTROPHILS # (AUTO) 12.3 (2.1-6.9); NEUTROPHILS % 83.8 % (38.7-80.0); PLATELET COUNT 334 x10e3/uL (140-360); RED BLOOD COUNT 3.81 x10e6/uL (4.3-5.7); RED CELL DISTRIBUTION WIDTH 14.6 % (11.7-14.4)
[2020-04-29] MEDS: INSULIN REGULAR, HUMAN 3ML VL 100 UNIT in SODIUM CHLORIDE 0.9% 100 ML IV SCH ×2 (04:16)
[2020-04-29 04:26] LABS: ALANINE AMINOTRANSFERASE 59 IU/L (0-55); ALBUMIN 2.2 g/dL (3.5-5.0); ALBUMIN/GLOBULIN RATIO 0.7 (0.8-2.0); ALKALINE PHOSPHATASE 91 IU/L (40-150); ANION GAP 10.4 mmol/L (8-16); BLOOD UREA NITROGEN 23 mg/dL (7-26); BUN/CREATININE RATIO 34 (6-25); CARBON DIOXIDE 29 mmol/L (22-29); CHLORIDE 109 mmol/L (98-107); CREATININE, SERUM 0.67 mg/dL (0.72-1.25); EST GLOMERULAR FILTRATION RATE > 60 ML/MIN (60-); GLUCOSE 197 mg/dL (74-118); POTASSIUM 4.4 mmol/L (3.5-5.1); SODIUM 144 mmol/L (136-145)
[2020-04-29] MEDS: MEROPENEM 1GM 100 ML IV SCH ×2 (05:27→14:28)
[2020-04-29] MEDS: ASCORBIC ACID 500 MG TAB PO SCH ×2 (08:30→14:28)
[2020-04-29] MEDS: DEXAMETHASONE SOD PHOS INJ 4 MG/ML VIAL IV SCH (08:30)
[2020-04-29] MEDS: ZINC SULFATE 220 MG CAP PO SCH (08:30)
--- NOTE | 2020-04-29 08:42 | Diagnostic Imaging Report ---
X-ray chest AP portable History: Respiratory failure Comparison: 04/26/2020 Findings: Endotracheal tube in good position at thoracic inlet. Nasogastric tube seen coursing on the expected path in a good position. Cardiomediastinal silhouette is accentuated. No definite pleural effusion. No pneumothorax. Bilateral lung infiltrates, most pronounced in the right middle and lower lung zones and in a heterogeneous distribution the entire left lung consistent with interstitial and airspace disease. Overall these have slightly worsened in the left lung compared with the previous exam. No acute bony changes. Upper abdomen unremarkable. Impression: Worsening of pulmonary infiltrates especially in the left lung. Signed by: Ty Bowden MD on 04/29/2020 8:39 AM
[2020-04-29 09:39] LABS: ABG HCO3 29 mmol/L (22-26); ABG PCO2 45 mmHg (35-45); ABG PH 7.42 (7.35-7.45); ABG PO2 80 mmHg (80-105); ABG TCO2 31
[2020-04-29] MEDS ORDERED: DEXTROSE 50% SYRINGE 50 ML IV PRN (13:00)
[2020-04-29] MEDS ORDERED: PROPOFOL IV EMULSION 10MG/ML 200 ML ONE (13:00)
[2020-04-29] MEDS ORDERED: FUROSEMIDE INJ 10 MG/ML 4 ML VIAL IV ONE (13:30)
[2020-04-29] MEDS: VANCOMYCIN 1GM/NS 250 ML 250 ML IV SCH (13:33)
[2020-04-29] MEDS ORDERED: FUROSEMIDE INJ 10 MG/ML 4 ML VIAL ONE (13:43)
--- NOTE | 2020-04-29 14:19 | Progress Note ---
DATE: Pulmonary Critical Care Progress Note SUBJECTIVE: The patient is now in a supine position. The rocuronium has been held. He is being continued on propofol at 100 mcg along with Versed at 10 mg and fentanyl at 300. His PEEP is decreased to 10 and his FiO2 is 50%. His rate is set at 24. His tidal volume is 450. PHYSICAL EXAMINATION: VITAL SIGNS: The patient is afebrile. The blood pressure is 99/58 and saturation is 96% and the pulse is 66. HEENT: No facial swelling or erythema. The oropharynx is normal. There is no oral endotracheal tube. CARDIAC: Regular rate and rhythm with normal S1, S2. LUNGS: Auscultation of lungs reveals rhonchorous breath sounds bilaterally. There is no wheezing. ABDOMEN: Soft, nontender. There is no rebound or guarding. EXTREMITIES: 1 to 2+ leg edema. LABORATORY DATA: BUN to creatinine ratio is normal. Blood sugars are 200-215. White blood cell count is 14.7, hemoglobin is 10.4, and the platelet count is 334. RADIOGRAPHIC DATA: Bilateral infiltrates. IMPRESSION: 1. Acute respiratory failure. 2. Viral pneumonia and coronavirus disease-19 infection. 3. Diabetes. 4. Hypertension. PLAN: 1. Continue current ventilator settings and monitor ABG. 2. Wean sedation as tolerated. 3. Transition from insulin drip to subcutaneous insulin. 4. Complete dexamethasone. 5. Continue Lovenox. 6. Continue enteral feedings. 7. Complete antibiotics. 8. Case discussed with Respiratory, nursing, Infectious Disease, and Internal Medicine. Greater than 35 minutes in direct critical care time. Tomi Vizcarra MD [facility]/MODL /[id number]
[2020-04-29] MEDS ORDERED: INSULIN REGULAR, HUMAN 100 UNIT/1 ML 3ML VIAL SQ SCH (16:30)
[2020-04-29] MEDS: ALBUMIN 25% 25GM 100ML 100 ML IV SCH (16:32)
--- NOTE | 2020-04-29 17:56 | NUR ---
he patient is now in a supine position. The rocuronium has been held. He is being continued on propofol at 100 mcg along with Versed at 10 mg and fentanyl at 300. His PEEP is decreased to 10 and his FiO2 is 50%. His rate is set at 24. His tidal volume is 450. PHYSICAL EXAMINATION: VITAL SIGNS: The patient is afebrile. The blood pressure is 99/58 and saturation is 96% and the pulse is 66. HEENT: No facial swelling or erythema. The oropharynx is normal. There is no oral endotracheal tube. CARDIAC: Regular rate and rhythm with normal S1, S2. LUNGS: Auscultation of lungs reveals rhonchorous breath sounds bilaterally. There is no wheezing. ABDOMEN: Soft, nontender. There is no rebound or guarding. EXTREMITIES: 1 to 2+ leg edema. LABORATORY DATA: BUN to creatinine ratio is normal. Blood sugars are 200-215. White blood cell count is 14.7, hemoglobin is 10.4, and the platelet count is 334. RADIOGRAPHIC DATA: Bilateral infiltrates. [id number]
[2020-04-29] MEDS ORDERED: ALBUMIN 25% 25GM 100ML 0.25 GM/ML BTL IV SCH (18:00)
[2020-04-29] MEDS: INSULIN REGULAR, HUMAN 100 UNIT/1 ML 3ML VIAL SQ SCH (18:29)
[2020-04-29 20:22] LABS: ABG PCO2 42 mmHg (35-45); ABG PH 7.47 (7.35-7.45)
[2020-04-29 20:23] LABS: ABG HCO3 31 mmol/L (22-26); ABG PO2 73 mmHg (80-105); ABG TCO2 32
[2020-04-29] MEDS: ENOXAPARIN SOD INJ 40 MG/0.4 ML SYR SC SCH (20:45)
[2020-04-29] MEDS: SIMVASTATIN 40 MG TAB PO SCH (20:45)
[2020-04-29] MEDS: PROPOFOL IV EMULSION 10MG/ML 100 ML IV PRN ×2 (20:46→22:00)
--- NOTE | 2020-04-29 23:32 | Progress Note ---
DATE: SUBJECTIVE: Mr. Agrawal is in intensive care unit, being slowly weaned off the ventilator. PHYSICAL EXAMINATION: GENERAL: He is intubated, sedated, obese. VITAL SIGNS: Stable, afebrile. HEENT: He is not icteric. Neck: Supple. CHEST: A few crackles. HEART: S1, S2. ABDOMEN: Soft. IMPRESSION: Respiratory failure, coronavirus disease-19, obesity. Slowly being weaned. Discussed with the medical team. We will follow. Continue plan as ordered. MD KATIE Morales/MODL /[id number]
--- NOTE | 2020-04-29 23:33 | Progress Note ---
DATE: 04/29/2020 Medicine Progress Note SUBJECTIVE: The patient was seen and evaluated at approximately 1:15 this afternoon. The patient is doing better. He is still intubated. His demand of oxygen requirement is decreasing. PHYSICAL EXAMINATION: VITAL SIGNS: Temperature was 98.7, pulse 66, respiratory rate is 26, blood pressure 110/57, and he is 95% pulse ox mechanical ventilator. GENERAL: He is intubated and sedated. PULMONARY: Intubated and sedated. CARDIOVASCULAR: Positive S1 and S2. No murmurs, rubs, or gallops appreciated. ABDOMEN: Soft, nondistended, and nontender to palpation. Bowel sounds present. MUSCULOSKELETAL: Unable to assess. NEUROLOGIC: Unable to assess. SKIN: Intact. Warm to touch. Good cap refill. EXTREMITIES: No edema. Good range of motion throughout. LABORATORY DATA: Show white count 14.6, hemoglobin 10.4, hematocrit is 33.7, and platelets of 334. Chemistry; sodium 144, potassium 4.4, chloride 109, bicarb 29, anion gap of 10, BUN is 23, creatinine is 0.67, glucose is 197, and calcium is 8. LFTs are noted. MICROBIOLOGY: None. IMAGING STUDIES: Noted. IMPRESSION: 1. Acute respiratory failure secondary to coronavirus, intubated, sedated. 2. Type 2 diabetes. 3. Viral pneumonia secondary to coronavirus. 4. Acute kidney injury. 5. Hypocalcemia. PLAN: At this time, the patient's oxygenation requirement is decreasing, still intubated on sedation. Pulmonary Critical Care is following. He is on steroids, antibiotics, and vitamin supplements. ID is following. Lovenox for DVT prophylaxis. Still in ICU in critical condition. A.m. labs. MD JIMMY Walls/MODL /[id number]
[2020-04-30] VITALS (10 sets, daily range): BP systolic 106–155; BP diastolic 52–88
[2020-04-30] MEDS: VANCOMYCIN 1GM/NS 250 ML 250 ML IV SCH ×2 (00:07→12:27)
[2020-04-30] MEDS: MEROPENEM 1GM 100 ML IV SCH ×4 (00:07→21:49)
[2020-04-30] MEDS: FENTANYL 2000MCG/NS 250 250 ML IV PRN ×4 (00:08→21:29)
[2020-04-30] MEDS: INSULIN GLARGINE 100 UNITS/ML VIAL SQ SCH ×2 (02:13→21:33)
[2020-04-30] MEDS: ALBUMIN 25% 25GM 100ML 100 ML IV SCH (02:14)
[2020-04-30] MEDS: INSULIN REGULAR, HUMAN 100 UNIT/1 ML 3ML VIAL SQ SCH ×4 (02:14→18:14)
[2020-04-30] MEDS: PROPOFOL IV EMULSION 10MG/ML 100 ML IV PRN ×5 (02:16→21:49)
[2020-04-30 05:15] LABS: BASOPHILS % 0.2 % (0.0-1.0); EOSINOPHILS # (AUTO) 0.1 (0.0-0.4); EOSINOPHILS % 0.8 % (0.0-6.0); HEMATOCRIT 35.8 % (38.2-49.6); HEMOGLOBIN 10.9 g/dL (14.0-18.0); LYMPHOCYTES # (AUTO) 1.4 (1.0-3.2); LYMPHOCYTES % 8.6 % (18.0-39.1); MEAN CORPUSCULAR HEMOGLOBIN 27.4 pg (28-32); MEAN CORPUSCULAR HGB CONC 30.4 g/dL (31-35); MEAN CORPUSCULAR VOLUME 89.9 fL (81-99); MONOCYTES # (AUTO) 1.3 (0.2-0.8); MONOCYTES % 7.7 % (4.4-11.3); NEUTROPHILS # (AUTO) 13.4 (2.1-6.9); NEUTROPHILS % 80.9 % (38.7-80.0); PLATELET COUNT 248 x10e3/uL (140-360); RED BLOOD COUNT 3.98 x10e6/uL (4.3-5.7); RED CELL DISTRIBUTION WIDTH 14.5 % (11.7-14.4)
[2020-04-30 05:36] LABS: ALANINE AMINOTRANSFERASE 41 IU/L (0-55); ALKALINE PHOSPHATASE 84 IU/L (40-150); BLOOD UREA NITROGEN 23 mg/dL (7-26); BUN/CREATININE RATIO 33 (6-25); CALCIUM 8.1 mg/dL (8.4-10.2); CARBON DIOXIDE 30 mmol/L (22-29); CHLORIDE 105 mmol/L (98-107); EST GLOMERULAR FILTRATION RATE > 60 ML/MIN (60-); GLUCOSE 128 mg/dL (74-118); SODIUM 143 mmol/L (136-145)
--- NOTE | 2020-04-30 08:47 | Diagnostic Imaging Report ---
Examination: Single AP view of the chest. COMPARISON: 04/29/2020 INDICATION: Respiratory failure DISCUSSION: Endotracheal tube and enteric tube are unchanged in position. Interval worsening multifocal consolidations involving the lingula, bilateral lower lobes, and right middle lobe. No pneumothorax or sizable pleural effusion. Stable cardiomediastinal contour. No acute osseous abnormalities. IMPRESSION: Stable position of support lines and tubes. Worsening multifocal pneumonia relative to 04/29/2020. Signed by: Dr. Nicola Pickens M.D. on 04/30/2020 8:44 AM
[2020-04-30] MEDS: ZINC SULFATE 220 MG CAP PO SCH (08:50)
[2020-04-30] MEDS: ASCORBIC ACID 500 MG TAB PO SCH ×2 (08:50→18:07)
[2020-04-30] MEDS: DEXAMETHASONE SOD PHOS INJ 4 MG/ML VIAL IV SCH (08:50)
[2020-04-30] MEDS: ENOXAPARIN SOD INJ 40 MG/0.4 ML SYR SC SCH (08:50)
--- NOTE | 2020-04-30 10:23 | Progress Note ---
DATE: Pulmonary Critical Care Progress Note The patient has remained in the supine position for the last 24 hours. His oxygenation requirement has increased from 45% to 75%. He continues on Versed and fentanyl as well as propofol. He is afebrile. PHYSICAL EXAMINATION: VITAL SIGNS: He is currently on a PRVC at a rate of 26 with tidal volume of 440. His PEEP is set at 10 and his FiO2 is set at 75%. Blood pressure is 126/52 and the pulse is 78. Saturation is 93%. HEENT: Shows no facial swelling or erythema. The oropharynx is normal. There is an endotracheal tube in good position. LYMPHATIC: Shows no submandibular, cervical, or supraclavicular adenopathy. CARDIAC: Reveals regular rate and rhythm with normal S1 and S2. LUNGS: Auscultation of lungs reveals rhonchorous breath sounds bilaterally. There is no wheezing. ABDOMEN: Soft and nontender. There is no rebound or guarding. EXTREMITIES: Shows 1 to 2+ leg edema. LABORATORY DATA: White blood cell count is 16.5, hemoglobin is 10.9, and the platelet count is 248. BUN to creatinine ratio is 23 to 0.7. Other electrolytes within normal limits. The albumin is 3. IMPRESSION: 1. Acute respiratory failure. 2. Viral pneumonia and COVID-19 infection. 3. Diabetes. 4. Hypoalbuminemia. 5. Hypertension. PLAN: 1. Place the patient back in the prone position. 2. Continue Versed and fentanyl along with propofol. 3. Continue subcutaneous insulin. 4. Complete dexamethasone. 5. Lovenox. 6. Continue enteral feedings. 7. Continue current antibiotics. 8. Give additional Lasix today. 9. Case discussed with Respiratory, nursing, Infectious Disease, and Internal Medicine. Greater than 35 minutes in direct critical care time. Tomi Vizcarra MD [facility]/MODL /[id number]
[2020-04-30 11:16] LABS: ABG HCO3 30 mmol/L (22-26); ABG PCO2 48 mmHg (35-45); ABG PH 7.41 (7.35-7.45); ABG PO2 93 mmHg (80-105); ABG TCO2 31
[2020-04-30] MEDS: FUROSEMIDE INJ 10 MG/ML 4 ML VIAL IV SCH ×2 (12:27→21:31)
--- OUTSIDE RECORDS SUMMARY | 2020-04-30 14:10 | XMS REPORT | Summary of Care ---
Author Author [facility] Address Unknown Phone Unavailable Encounter HQ Debbyntr_alirochelle(FIN) [id number] Date(s): 01/03/18 - 01/04/[address] [place] [address]- [phone] Vital Signs No data available for this section Problem List Condition Effective Dates Status Health Status Informan t Anxiety(Confirmed) Resolved Chronic Active anxiety(Confirmed) Attention deficit Active disorder(Confirmed) Elevated BP without Active diagnosis of hypertension(Confirm ed) Panic disorder with Active agoraphobia and mild panic attacks(Confirmed) Type 2 diabetes Active mellitus without complications(Confir med) Allergies, Adverse Reactions, Alerts Substance Reaction Severity Status NKFA Active NKDA Active Medications No data available for this section Results No data available for this section Immunizations No data available for this section Procedures No data available for this section Social History Social History Type Response Alcohol Current, Type Wine, Liquor. Frequency: 3-5 times per week. Smoking Status Never smoker; Ready to cuenca ge: No; Concerns about tobacco use in household: No; Exposure to Tobacco Smoke None; Cig arette Smoking Last 365 Days No; Reg Smoking Cessation Counseling No entered on: 01/30/18 Assessment and Plan No data available for this section
--- OUTSIDE RECORDS SUMMARY | 2020-04-30 14:10 | XMS REPORT | Continuity of Care Document ---
Author Author [facility] [employer] Address Unknown Phone Unavailable Care Team Providers Care Product Design Manager Name Role Phone [employer] Unavailable Un available Problems Problem Status Onset Date Classification Date Reported Comments Source Anxiety (finding) Resolved Problem 01/09/2020 [facility] Obesity (disorder) Active Problem 01/16/2018 [facility] Chronic anxiety (finding) Acti ve Problem 07/2020 [facility] Disorders of attention and motor control (disorder) Active Problem 01/09/2020 [facility] Elevated blood-pressure reading without diagnosis of hypertension (finding) Active Problem 01/09/2020 [facility] Panic disorder with agoraphobia AND mild panic attacks (disorder) Active Prob mario 01/09/2020 [facility] Diabetes mellitus type 2 (disorder) Active Problem 07/2020 [facility] Medications Medication Details Route Status Patient Instructions Ordering Provider Order Date Source Clonazepam 0.5 MG Oral Tablet [Klonopin] See Instructions, PRN Anxiety, 1 tab PO qd prn severe anxiety, # 20 tab, 0 Refill(s) Active 01/30/2018 [facility] 3 ML liraglutide 6 MG/ML Prefilled Syringe [Victoza] 1.8 mg, SUB-Q, Daily, # 6 mL, 5 Refill(s), Pharmacy: [facility] [id number] Active 01/30/2018 [facility] Clonazepam 0.5 MG Oral Tablet [Klonopin] See Instructions, PRN Anxiety, 1 tab PO as needed for anxiety, # 20 tab, 0 Refill(s) Inactive 01/30/2018 [facility] atomoxetine 40 mg oral capsule 40 mg = 1 cap, PO, QAM, # 30 cap, 5 Refill(s), Pharmacy: [facility] [id number] Active 01/30/2018 [facility] 24 HR canagliflozin 50 MG / Metformin hy drochloride 1000 MG Extended Release Oral Tablet [Invokamet] 1 tab, PO, Daily, # 30 tab, 5 Refill(s), Pharmacy: [facility] [id number] Active 01/30/2018 [facility] DULoxetine 60 mg oral delayed release capsule 60 mg = 1 cap, PO, Daily, # 30 cap, 3 Refill(s), Pharmacy: [facility] [id number] Active 01/30/2018 [facility] atomoxetine 40 mg oral capsule 40 mg = 1 cap, PO, QAM, # 90 cap, 0 Refill(s) Inactive 01/30/2018 [facility] 24 HR canagliflozin 50 MG / Metformin hy drochloride 1000 MG Extended Release Oral Tablet [Invokamet] 1 tab, PO, Daily, # 90 tab, 0 Refill(s) Inactive 01/30/2018 [facility] Clonazepam 0.5 MG Oral Tablet [Klonopin] See Instructions, PRN Anxiety, 1 tab PO as needed for anxiety, # 20 tab, 0 Refill(s) Active 10/10/2017 [facility] escitalopram 20 mg oral tablet 20 mg = 1 tab, PO, Daily, # 90 tab, 0 Refill(s), [id number] Active 10/10/2017 [facility] 24 HR canagliflozin 50 MG / Metformin hy drochloride 1000 MG Extended Release Oral Tablet 2 tab, PO, QAM, # 180 tab, 0 Refill(s), [facility] [id number] Active 10/10/2017 [facility] 3 ML liraglutide 6 MG/ML Prefilled Syringe [Victoza] 1.2 mg, SUB-Q, Daily, # 6 mL, 3 Refill(s), [facility] [id number] Active 10/10/2017 [facility] Allergies, Adverse Reactions, Alerts Substance Category Reaction Severity Reaction type Status Date Reported Comments Source NKFA Assertion Food allergy Active [facility] No Known Medication Allergies Assertion Drug aller gy [facility] Immunizations No Data Provided for This Section Results No Data Provided for This Section Pathology Reports No Data Provided for This Section Diagnostic Reports No Data Provided for This Section Consultation Notes No Data Provided for This Section Discharge Summaries No Data Provided for This Section History and Physicals No Data Provided for This Section Vital Signs Vital Sign Value Date Comments Source Weight 115.256 01/30/2018 [facility] BMI Calculated 36.46 01/30/2018 [facility] Height 177.8 cm 01/30/2018 [facility] Systolic (mm Hg) 147 01/30/2018 [facility] Diastolic (mm Hg) 100 01/30/[facility] Heart Rate 93 01/30/2018 [facility] Temperature Oral (F) 97.9 F 01/30/2018 [facility] BMI Calculated 36 10/10/2017 [facility] Height 177.8 cm 10/10/2017 [facility] Weight 113.807 10/10/2017 [facility] Systolic (mm Hg) 136 10/10/2017 [facility] Diastolic (mm Hg) 92 10/10/2017 [facility] Heart Rate 96 10/10/2017 [facility] Temperature Oral (F) 98.4 F 10/10/2017 [facility] Encounters Location Location Details Encounter Type Encounter Number Reason For Visit Attending Provider ADM Date DC Date Status Source Outpatient [id number] CHAPARRO ANAYA 11/08/2015 Active [facility] Outpatient [id number] ABRAR ISMAIL 11/17/2016 Active [facility] Outpatient [id number] ABRAR ISMAIL 12/07/2016 [facility] [id number] ABRAR ISMAIL 12/08/2016 [facility] [id number] ABRAR ISMAIL 03/08/2017 Active [facility] Out[facility] [id number] ABRAR ISMAIL 04/17/2017 Active [facility] [id number] ABRAR ISMAIL 05/01/2017 [facility] [id number] ABRAR ISMAIL 08/10/2017 Active [facility] Phone Message [id number] 09/04/2017 09/06/2017 [facility] Outpatient [id number] ABRAR ISMAIL 10/10/2017 Active [facility] Outpatient [id number] Chaparro Anaya 10/10/2017 10/11/2017 Medical Group [facility] Phone Message [id number] 01/03/2018 01/05/2018 [facility] Outpatient [id number] RINKU SANCHEZHL 01/30/2018 Active [facility] Outpatient [id number] Rinku Gallagher 01/30/2018 01/31/2018 [facility] Outpatient [id number] RINKU GALLAGHER 01/31/2018 Active [facility] Ambulatory Pre-Reg [id number] [facility] 01/31/2018 01/31/2018 [facility] Outpatient [id number] [facility] 02/27/2018 Active [facility] Phone Message [id number] 03/22/2018 03/24/2018 Medical [facility] Phone Message [id number] 04/29/2018 05/01/2018 [facility] Outpatient [id number] [facility] 01/07/2020 Active [facility] Ambulatory Pre-Reg [id number] [facility] 01/07/2020 01/07/2020 [facility] Procedures No Data Provided for This Section Assessment and Plan No Data Provided for This Section Plan of Care No Data Provided for This Section Social History Social History Date Source Social History TypeResponse Alcohol Current, Type Wine, Liquor. Frequency: 3-5 times per week. Smoking Status Never smoker; Ready to change: No; Concerns about tobacco use in household: No; Exposure to Tobacco Smoke None; Cigarette Smoking Last 365 Days No; Reg Smoking Cessation Counseling No entered on: 01/30/18 01/30/2018 [facility] Family History No Data Provided for This Section Advance Directives No Data Provided for This Section Functional Status No Data Provided for This Section
--- OUTSIDE RECORDS SUMMARY | 2020-04-30 14:10 | XMS REPORT | Summary of Care ---
Author Author [facility] Address Unknown Phone Unavailable Encounter HQ Debbyntr_laura(FIN) [id number] Date(s): 04/29/18 - 04/30/[address] [place] [address]- [phone] Vital Signs No data available for this [...]
--- OUTSIDE RECORDS SUMMARY | 2020-04-30 14:10 | XMS REPORT | Summary of Care ---
Author [facility] Address Unknown Phone Unavailable Encounter HQ Katarina_laura(FIN) [id number] Date(s): 10/10/17 - 10/10/17 [facility] [address] [place], [place] [address]754 [phone] Discharge Disposition: Home or Self Care Attending Physician: Jakob Anaya DO Vital Signs Most recent to 1 oldest [Reference Range]: Height 177.8 cm (10/10/17 10:31 AM) Temperature Oral 98.4 DegF [96.4-99.1 DegF] (10/10/17 10:31 AM) Blood Pressure 136/92 mmHg [90-140/60-90 mmHg] (10/10/17 10:31 AM) Peripheral Pulse 96 bpm Rate [60-100 bpm] (10/10/17 10:31 AM) Weight 113.807 kg (10/10/17 10:31 AM) Body Mass Index 36 m2 (10/10/17 10:31 AM) Problem List Condition Effective Dates Status Health Status Informan t Anxiety(Confirmed) Resolved Obesity(Confirmed) Active Allergies, Adverse Reactions, Alerts Substance Reaction Severity Status NKDA Active Medications canagliflozin-metformin 50 mg-1000 mg oral tablet, extended release 2 tab, PO, QAM, # 180 tab, 0 Refill(s), Pharmacy: [facility] [id number] Start Date: 10/10/17 Stop Date: 01/08/18 Status: Ordered escitalopram 20 mg oral tablet 20 mg = 1 tab, PO, Daily, # 90 tab, 0 Refill(s), Pharmacy: [facility] [id number] Start Date: 10/10/17 Stop Date: 01/08/18 Status: Ordered KlonoPIN 0.5 mg oral tablet See Instructions, PRN Anxiety, 1 tab PO as needed for anxiety, # 20 tab, 0 Refil l(s) Start Date: 10/10/17 Status: Ordered Victoza 18 mg/3 mL subcutaneous injection 1.2 mg, SUB-Q, Daily, # 6 mL, 3 Refill(s), Pharmacy: [facility] [id number] Start Date: 10/10/17 Status: Ordered Results No data available for this section Immunizations No data available for this section Procedures No data available for this section Social History Social History Type Response Smoking Status Never smoker; Ready to cuenca ge: No; Concerns about tobacco use in household: No; Exposure to Tobacco Smoke None; Cig arette Smoking Last 365 Days No; Reg Smoking Cessation Counseling No entered on: 10/10/17 Assessment and Plan No data available for this section
--- OUTSIDE RECORDS SUMMARY | 2020-04-30 14:10 | XMS REPORT | Summary of Care ---
Author Author [facility] Organization [facility] Address Unknown Phone Unavailable Encounter MOUSTAPHA Mascorro(FANTASMA) [id number] Date(s): 01/30/18 - 01/30/[address] [place] [address]- [phone] Discharge Disposition: Home or Self Care Attending Physician: Eduardo Bah MD Vital Signs Most recent to 1 oldest [Reference Range]: Height 177.8 cm (01/30/18 8:54 AM) Temperature Oral 97.9 DegF [96.4-99.1 DegF] (01/30/18 8:54 AM) Blood Pressure 147/100 mmHg [90-140/60-90 mmHg] *HI* (01/30/18 8:54 AM) Peripheral Pulse 93 bpm Rate [60-100 bpm] (01/30/18 8:54 AM) Weight 115.256 kg (01/30/18 8:54 AM) Body Mass Index 36.46 m2 (01/30/18 8:54 AM) Problem List Condition Effective Dates Status Health Status Informan t Anxiety(Confirmed) Resolved Chronic Active anxiety(Confirmed) Attention deficit Active disorder(Confirmed) Elevated BP without Active diagnosis of hypertension(Confirm ed) Panic disorder with Active agoraphobia and mild panic attacks(Confirmed) Type 2 diabetes Active mellitus without complications(Confir med) Allergies, Adverse Reactions, Alerts Substance Reaction Severity Status NKFA Active NKDA Active Medications atomoxetine 40 mg oral capsule 40 mg = 1 cap, PO, QAM, # 30 cap, 5 Refill(s), Pharmacy: [facility] [id number] Start Date: 01/30/18 Status: Ordered atomoxetine 40 mg oral capsule 40 mg = 1 cap, PO, QAM, # 90 cap, 0 Refill(s) Start Date: 01/30/18 Stop Date: 01/30/18 Status: Discontinued DULoxetine 60 mg oral delayed release capsule 60 mg = 1 cap, PO, Daily, # 30 cap, 3 Refill(s), Pharmacy: [facility] [id number] Start Date: 01/30/18 Status: Ordered Invokamet XR 50 mg-1000 mg oral tablet, extended release 1 tab, PO, Daily, # 30 tab, 5 Refill(s), Pharmacy: [facility] [id number] Start Date: 01/30/18 Status: Ordered Invokamet XR 50 mg-1000 mg oral tablet, extended release 1 tab, PO, Daily, # 90 tab, 0 Refill(s) Start Date: 01/30/18 Stop Date: 01/30/18 Status: Discontinued KlonoPIN 0.5 mg oral tablet See Instructions, PRN Anxiety, 1 tab PO as needed for anxiety, # 20 tab, 0 Refil l(s) Start Date: 01/30/18 Stop Date: 01/30/18 Status: Discontinued KlonoPIN 0.5 mg oral tablet See Instructions, PRN Anxiety, 1 tab PO qd prn severe anxiety, # 20 tab, 0 Refil l(s) Start Date: 01/30/18 Status: Ordered Victoza 18 mg/3 mL subcutaneous injection 1.8 mg, SUB-Q, Daily, # 6 mL, 5 Refill(s), Pharmacy: [facility] [id number] Start Date: 01/30/18 Status: Ordered Results No data available for [...]
--- OUTSIDE RECORDS SUMMARY | 2020-04-30 14:10 | XMS REPORT | Summary of Care ---
Author Author [facility] Address Unknown Phone Unavailable Encounter HQ Debbyntr_alirochelle(FIN) [id number] Date(s): 03/22/18 - 03/23/[address] [place] [address]- [phone] Vital Signs No data available for this [...] Status NKFA Active NKDA Active Medications No Known Medications Results No data available for this section [...]
--- OUTSIDE RECORDS SUMMARY | 2020-04-30 14:10 | XMS REPORT | Summary of Care ---
Author Author [facility] Address Unknown Phone Unavailable Encounter HQ Encntr_alias(FIN) [id number] Date(s): 09/04/17 - 09/05/17 [facility] [address] [place], [place] [address]563 [phone] Vital Signs No data available for this section Problem List Condition Effective Dates Status Health Status Informan t Anxiety(Confirmed) Resolved Obesity(Confirmed) Active Allergies, Adverse Reactions, Alerts Substance Reaction Severity Status NKDA Active Medications No data available for this section Results No data available for this section Immunizations No data available for this section Procedures No data available for this section Social History Social History Type Response Smoking Status Never smoker; Exposure to T obacco Smoke None; Cigarette Smoking Last 365 Days No; Reg Smoking Cessation Counseli ng No Assessment and Plan No data available for this section
--- OUTSIDE RECORDS SUMMARY | 2020-04-30 14:10 | XMS REPORT | Summary of Care ---
Author Author [facility] Address Unknown Phone Unavailable Encounter HQ Robertr_laura(FIN) [id number] Date(s): 01/07/20 - 01/07/20 [place] [address]- [phone] Attending Physician: Eduardo Bah MD Vital Signs No data available for this section Problem List Condition Effective Dates Status Health Status Informan t Anxiety(Confirmed) Resolved Chronic Active anxiety(Confirmed) Attention deficit Active disorder(Confirmed) Elevated BP without Active diagnosis of hypertension(Confirm ed) Panic disorder with Active agoraphobia and mild panic attacks(Confirmed) Type 2 diabetes Active mellitus without complications(Confir med) Allergies, Adverse Reactions, Alerts No Known Medication Allergies Substance Reaction Severity Status NKFA Active Medications No data available for this [...]
--- OUTSIDE RECORDS SUMMARY | 2020-04-30 14:10 | XMS REPORT | Summary of Care ---
Author Author [facility] Organization [facility] Address Unknown Phone Unavailable Encounter MOUSTAPHA Mascorro(FANTASMA) [id number] Date(s): 01/30/18 - 01/30/[address] [place] [address]- [phone] Discharge Disposition: Home or Self Care Attending [...] QAM, # 30 cap, 5 Refill(s), Pharmacy: [facility] [id number] Start Date: 01/30/18 Status: Ordered atomoxetine 40 mg oral capsule 40 mg = 1 cap, PO, QAM, # 90 cap, 0 Refill(s) Start Date: 01/30/18 Stop Date: 01/30/18 Status: Discontinued DULoxetine 60 mg oral delayed release capsule 60 mg = 1 cap, PO, Daily, # 30 cap, 3 Refill(s), Pharmacy: [facility] [id number] Start Date: 01/30/18 Status: Ordered Invokamet XR 50 mg-1000 mg oral tablet, extended release 1 tab, PO, Daily, # 30 tab, 5 Refill(s), Pharmacy: [facility] [id number] Start Date: 01/30/18 Status: Ordered Invokamet XR [...] Daily, # 6 mL, 5 Refill(s), Pharmacy: [facility] [id number] Start Date: 01/30/18 Status: Ordered Results No [...]
--- OUTSIDE RECORDS SUMMARY | 2020-04-30 14:10 | XMS REPORT | Summary of Care ---
Author Author [facility] Address Unknown Phone Unavailable Encounter HQ Katarina_laura(FIN) [id number] Date(s): 10/10/17 - 10/10/17 [facility] [address] [place], [place] [address]799 [phone] Discharge Disposition: Home or Self Care Attending [...] QAM, # 180 tab, 0 Refill(s), Pharmacy: [facility] [id number] Start Date: 10/10/17 Stop Date: 01/08/18 Status: Ordered escitalopram 20 mg oral tablet 20 mg = 1 tab, PO, Daily, # 90 tab, 0 Refill(s), Pharmacy: [facility] [id number] Start Date: 10/10/17 Stop Date: 01/08/18 Status: Ordered KlonoPIN 0.5 mg oral tablet See Instructions, PRN Anxiety, 1 tab PO as needed for anxiety, # 20 tab, 0 Refil l(s) Start Date: 10/10/17 Status: Ordered Victoza 18 mg/3 mL subcutaneous injection 1.2 mg, SUB-Q, Daily, # 6 mL, 3 Refill(s), Pharmacy: [facility] [id number] Start Date: 10/10/17 Status: Ordered Results No [...]
--- OUTSIDE RECORDS SUMMARY | 2020-04-30 14:10 | XMS REPORT | Summary of Care ---
Author Author [facility] Address Unknown Phone Unavailable Encounter HQ Robertr_laura(FIN) [id number] Date(s): 01/31/18 - 01/31/[address], [address] [place] [address]- [phone] Attending Physician: Eduardo Bah MD Vital Signs [...]
--- NOTE | 2020-04-30 16:50 | NUR ---
progress note seen and examined event noted Mr. Agrawal remains in the Intensive Care Unit. He seems slightly better today. Discussed with Medical team. The patient has remained in the supine position for the last 24 hours. His oxygenation requirement has increased from 45% to 75%. He continues on Versed and fentanyl as well as propofol. He is afebrile. PHYSICAL EXAMINATION: VITAL SIGNS: He is currently on a PRVC at a rate of 26 with tidal volume of 440. His PEEP is set at 10 and his FiO2 is set at 75%. Blood pressure is 126/52 and the pulse is 78. Saturation is 93%. HEENT: Shows no facial swelling or erythema. The oropharynx is normal. There is an endotracheal tube in good position. LYMPHATIC: Shows no submandibular, cervical, or supraclavicular adenopathy. CARDIAC: Reveals regular rate and rhythm with normal S1 and S2. LUNGS: Auscultation of lungs reveals rhonchorous breath sounds bilaterally. There is no wheezing. ABDOMEN: Soft and nontender. There is no rebound or guarding. EXTREMITIES: Shows 1 to 2+ leg edema. LABORATORY DATA: White blood cell count is 16.5, hemoglobin is 10.9, and the platelet count is 248. BUN to creatinine ratio is 23 to 0.7. Other electrolytes within normal limits. The albumin is 3. IMPRESSION: 1. Acute respiratory failure. 2. Viral pneumonia and COVID-19 infection. 3. Diabetes. 4. Hypoalbuminemia. IMPRESSION: 1. COVID-19, respiratory failure. 2. Diabetes mellitus. 3. Obesity. cont as ordered seems better
[2020-04-30] MEDS: MIDAZOLAM HCL 5MG/ML 10ML VIAL 100 ML IV PRN (20:15)
[2020-04-30] MEDS: SIMVASTATIN 40 MG TAB PO SCH (21:32)
--- NOTE | 2020-04-30 23:26 | Progress Note ---
DATE: 04/30/2020 Medicine Progress Note SUBJECTIVE: The patient is improving on a daily basis. He is still intubated, though no issues. No overnight events. PHYSICAL EXAMINATION: VITAL SIGNS: His temperature is 98.6, pulse 65, respiratory rate is 24, blood pressure is 125/65, he is 94% on O2 saturation on the mechanical ventilator, working on weaning him down. GENERAL: Intubated and sedated. PULMONARY: Intubated and sedated. CARDIOVASCULAR: Positive S1 and S2. No murmurs, rubs, or gallops appreciated. ABDOMEN: Soft, nondistended, nontender to palpation. Bowel sounds present. MUSCULOSKELETAL: Unable to assess. NEUROLOGICAL: Unable to assess. SKIN: Intact, warm to touch. Good cap refill. EXTREMITIES: No edema appreciated. LABORATORY DATA: Labs show CBC; white count elevated at 16.5, hemoglobin 10.9, hematocrit is 35, and platelets of 248. Chemistry reviewed and stable. MICROBIOLOGY: Blood and urine cultures no growth. Sputum cultures were collected. IMAGING STUDIES: This morning, chest x-ray shows worsening multifocal pneumonia. IMPRESSION: 1. Acute respiratory failure secondary to coronavirus pneumonia, intubated and sedated. 2. Type 2 diabetes. 3. Viral pneumonia secondary to coronavirus. 4. Acute kidney injury. 5. Hypocalcemia. PLAN: At this time, the oxygen requirement was increased overnight, but now we are in the process of decreasing it. He is stable. He is on sedation. He is still intubated and sedated. He is on steroids, antibiotics, and vitamin supplements. Get morning labs. Pulmonary Critical Care and ID are following. Lovenox for DVT prophylaxis. Still in the ICU in critical condition. MD JIMMY Walls/MODL /[id number]
[2020-05-01] VITALS (14 sets, daily range): BP systolic 112–163; BP diastolic 54–89
[2020-05-01] MEDS: ENOXAPARIN SOD INJ 40 MG/0.4 ML SYR SC SCH ×3 (00:28→21:00)
[2020-05-01] MEDS: VANCOMYCIN 1GM/NS 250 ML 250 ML IV SCH ×2 (00:28→12:31)
[2020-05-01] MEDS: MIDAZOLAM HCL 5MG/ML 10ML VIAL 100 ML IV PRN ×2 (01:11→06:21)
[2020-05-01] MEDS: PROPOFOL IV EMULSION 10MG/ML 100 ML IV PRN ×3 (02:56→22:10)
[2020-05-01] MEDS: FENTANYL 2000MCG/NS 250 250 ML IV PRN (04:55)
[2020-05-01] MEDS: MEROPENEM 1GM 100 ML IV SCH ×3 (05:20→22:00)
[2020-05-01 05:22] LABS: BASOPHILS % 0.3 % (0.0-1.0); EOSINOPHILS # (AUTO) 0.2 (0.0-0.4); HEMATOCRIT 32.1 % (38.2-49.6); HEMOGLOBIN 10.1 g/dL (14.0-18.0); LYMPHOCYTES # (AUTO) 1.5 (1.0-3.2); MEAN CORPUSCULAR HEMOGLOBIN 27.4 pg (28-32); MEAN CORPUSCULAR HGB CONC 31.5 g/dL (31-35); MONOCYTES # (AUTO) 1.1 (0.2-0.8); NEUTROPHILS # (AUTO) 12.3 (2.1-6.9); NEUTROPHILS % 80.5 % (38.7-80.0); PLATELET COUNT 369 x10e3/uL (140-360); RED BLOOD COUNT 3.69 x10e6/uL (4.3-5.7); RED CELL DISTRIBUTION WIDTH 14.3 % (11.7-14.4)
[2020-05-01] MEDS: INSULIN REGULAR, HUMAN 100 UNIT/1 ML 3ML VIAL SQ SCH ×4 (06:00→18:40)
[2020-05-01 06:22] LABS: ALANINE AMINOTRANSFERASE 33 IU/L (0-55); ALBUMIN 2.6 g/dL (3.5-5.0); ALBUMIN/GLOBULIN RATIO 0.8 (0.8-2.0); ALKALINE PHOSPHATASE 90 IU/L (40-150); ANION GAP 10.7 mmol/L (8-16); BLOOD UREA NITROGEN 19 mg/dL (7-26); BUN/CREATININE RATIO 32 (6-25); CARBON DIOXIDE 29 mmol/L (22-29); CHLORIDE 104 mmol/L (98-107); EST GLOMERULAR FILTRATION RATE > 60 ML/MIN (60-); GLUCOSE 120 mg/dL (74-118); POTASSIUM 3.7 mmol/L (3.5-5.1); SODIUM 140 mmol/L (136-145)
[2020-05-01] MEDS: DEXAMETHASONE SOD PHOS INJ 4 MG/ML VIAL IV SCH (10:09)
[2020-05-01] MEDS: ASCORBIC ACID 500 MG TAB PO SCH ×2 (10:09→18:38)
[2020-05-01] MEDS: FUROSEMIDE INJ 10 MG/ML 4 ML VIAL IV SCH (10:09)
[2020-05-01] MEDS: ZINC SULFATE 220 MG CAP PO SCH (10:09)
[2020-05-01] MEDS ORDERED: HEPARIN SOD/SOD CHLORIDE 1,000 ML IV SCH (10:15)
--- NOTE | 2020-05-01 10:43 | Progress Note ---
DATE: SUBJECTIVE: The patient remains in the prone position. He is on Versed at 10 mg along with fentanyl at 300 mcg and propofol at 5. The patient remains on the PRVC mode of ventilation at a rate of 26 with a tidal volume of 370, PEEP of 12 and FiO2 of 70%. PHYSICAL EXAMINATION: VITAL SIGNS: Blood pressure is 115/55. Pulse is 58. His saturation is 98%. HEENT: Shows no facial swelling or erythema. LYMPHATIC: Shows no submandibular, cervical, or supraclavicular adenopathy. CARDIAC: Reveals regular rate and rhythm with normal S1 and S2. LUNGS: Auscultation of lungs reveals crackles at the bases. There is no wheezing. ABDOMEN: Soft and nontender. There is no rebound or guarding. EXTREMITIES: Shows no leg edema or calf tenderness. There is no cyanosis or clubbing. SKIN: Shows no rashes. NEUROLOGICAL: Shows no focal abnormalities. LABORATORY DATA: BUN to creatinine ratio is normal. Other electrolytes are within normal limits. White blood cell count is 15.3, hemoglobin is 10.1. Platelet count is 369. ABGs; 7.41, 48, 93 and 30. RADIOGRAPHIC DATA: Chest x-ray shows bilateral infiltrates. IMPRESSION: 1. Acute respiratory failure. 2. Viral pneumonia and COVID-19 infection. 3. Diabetes. 4. Hypertension. 5. Hypoalbuminemia. PLAN: 1. Continue to wean Versed and fentanyl. Continue propofol. 2. Continue subcutaneous insulin. 3. Complete dexamethasone. 4. Lovenox. 5. Enteral feedings. 6. Complete current antibiotics. 7. Continue PRVC mode of ventilation and monitor ABGs. 8. The patient to receive additional Lasix today. 9. Case discussed with Respiratory, nursing, Infectious Disease, and Internal Medicine. Greater than 35 minutes in direct critical care time. Tomi Vizcarra MD [facility]/JOSÉ LUISL /[id number]
[2020-05-01 10:55] LABS: ABG HCO3 32 mmol/L (22-26); ABG PCO2 43 mmHg (35-45); ABG PH 7.48 (7.35-7.45); ABG PO2 156 mmHg (80-105); ABG TCO2 34
[2020-05-01] MEDS ORDERED: POTASSIUM CHLORIDE 20MEQ/15ML UDC NG ONE (11:00)
--- NOTE | 2020-05-01 18:37 | NUR ---
SUBJECTIVE: The patient is improving on a daily basis. He is still intubated, though no issues. No overnight events. PHYSICAL EXAMINATION: VITAL SIGNS: stable GENERAL: Intubated and sedated. PULMONARY: Intubated and sedated. CARDIOVASCULAR: Positive S1 and S2. No murmurs, rubs, or gallops appreciated. ABDOMEN: Soft, nondistended, nontender to palpation. Bowel sounds present. MUSCULOSKELETAL: Unable to assess. NEUROLOGICAL: Unable to assess. SKIN: Intact, warm to touch. Good cap refill. EXTREMITIES: No edema appreciated. LABORATORY DATA: Labs show CBC; white count elevated at 16.5, hemoglobin 10.9, hematocrit is 35, and platelets of 248. Chemistry reviewed and stable. MICROBIOLOGY: Blood and urine cultures no growth. Sputum cultures were collected. IMAGING STUDIES: reviewed IMPRESSION: 1. Acute respiratory failure secondary to coronavirus pneumonia, intubated and sedated. 2. Type 2 diabetes. 3. Viral pneumonia secondary to coronavirus. 4. Acute kidney injury. 5. Hypocalcemia. PLAN: intubated and sedated supportive care on PRVC, additional dose of lasix given on Merrem can d/c vanc suptum gram negative PT SEEN AND EVALUATED BY DR PATTERSON
[2020-05-01] MEDS: INSULIN GLARGINE 100 UNITS/ML VIAL SQ SCH (21:00)
[2020-05-01] MEDS: SIMVASTATIN 40 MG TAB PO SCH (21:00)
[2020-05-02] VITALS (14 sets, daily range): BP systolic 97–132; BP diastolic 55–70
[2020-05-02] MEDS: PROPOFOL IV EMULSION 10MG/ML 100 ML IV PRN ×4 (00:29→22:22)
[2020-05-02] MEDS: MIDAZOLAM HCL 5MG/ML 10ML VIAL 100 ML IV PRN ×3 (00:31→20:15)
[2020-05-02] MEDS: INSULIN REGULAR, HUMAN 100 UNIT/1 ML 3ML VIAL SQ SCH ×4 (00:31→18:55)
--- NOTE | 2020-05-02 01:56 | Progress Note ---
DATE: 05/01/2020 Medicine Progress Note SUBJECTIVE: The patient's oxygenation requirement has decreased. He is in the prone position during my evaluation. PHYSICAL EXAMINATION: VITAL SIGNS: Temperature is 97.4, pulse 54, respiratory rate is 26, blood pressure 118/57, and pulse ox 99%, he is on 70% FiO2. GENERAL: Intubated and sedated. PULMONARY: Intubated and sedated. CARDIOVASCULAR: Positive S1 and S2. No murmurs, rubs, or gallops. GI: Abdomen is soft, nondistended, and nontender to palpation. Bowel sounds present. MUSCULOSKELETAL: Unable to assess. NEUROLOGIC: Unable to assess. SKIN: Intact warm to touch. Good capillary refill. EXTREMITIES: No edema. Good range of motion throughout. LABORATORY DATA: White count 15.2, hemoglobin 10, hematocrit 32, and his platelets 369. Chemistries reviewed stable. Microbiology; sputum culture shows gram-negative bacilli, moderate amount. He is on antibiotics. IMAGING STUDIES: None. IMPRESSION: 1. Acute respiratory failure secondary to coronavirus pneumonia, intubated and sedated. 2. Type 2 diabetes. 3. Viral pneumonia secondary to coronavirus. 4. Acute kidney injury. 5. Electrolyte abnormalities. PLAN: At this time, his oxygen requirement is 70% FiO2. He is still intubated. He is in a prone position. Continue following with Pulmonary Critical Care and ID. He is on steroids, antibiotics, and vitamin supplements. Lovenox for DVT prophylaxis. CONDITION: He is in the ICU in critical condition. MD JIMMY Walls/MODL /[id number]
[2020-05-02] MEDS: FENTANYL 2000MCG/NS 250 250 ML IV PRN ×3 (03:01→22:21)
[2020-05-02 03:17] LABS: ABG PCO2 48 mmHg (35-45); ABG PH 7.42 (7.35-7.45); ABG PO2 93 mmHg (80-105)
[2020-05-02 03:18] LABS: ABG HCO3 31 mmol/L (22-26); ABG TCO2 32
[2020-05-02 05:57] LABS: BASOPHILS % 0.3 % (0.0-1.0); EOSINOPHILS # (AUTO) 0.2 (0.0-0.4); EOSINOPHILS % 1.1 % (0.0-6.0); HEMATOCRIT 31.6 % (38.2-49.6); LYMPHOCYTES # (AUTO) 1.7 (1.0-3.2); LYMPHOCYTES % 11.9 % (18.0-39.1); MEAN CORPUSCULAR HGB CONC 31.6 g/dL (31-35); MEAN CORPUSCULAR VOLUME 88.5 fL (81-99); MONOCYTES # (AUTO) 0.9 (0.2-0.8); MONOCYTES % 6.2 % (4.4-11.3); NEUTROPHILS # (AUTO) 11.4 (2.1-6.9); NEUTROPHILS % 78.8 % (38.7-80.0); PLATELET COUNT 370 x10e3/uL (140-360); RED BLOOD COUNT 3.57 x10e6/uL (4.3-5.7); RED CELL DISTRIBUTION WIDTH 14.1 % (11.7-14.4)
[2020-05-02] MEDS: MEROPENEM 1GM 100 ML IV SCH (06:00)
[2020-05-02 06:24] LABS: ALANINE AMINOTRANSFERASE 32 IU/L (0-55); ALBUMIN 2.3 g/dL (3.5-5.0); ALBUMIN/GLOBULIN RATIO 0.7 (0.8-2.0); ALKALINE PHOSPHATASE 88 IU/L (40-150); ANION GAP 10.9 mmol/L (8-16); BLOOD UREA NITROGEN 19 mg/dL (7-26); BUN/CREATININE RATIO 32 (6-25); CALCIUM 8.2 mg/dL (8.4-10.2); CARBON DIOXIDE 29 mmol/L (22-29); CHLORIDE 105 mmol/L (98-107); CREATININE, SERUM 0.59 mg/dL (0.72-1.25); EST GLOMERULAR FILTRATION RATE > 60 ML/MIN (60-); GLUCOSE 110 mg/dL (74-118); POTASSIUM 3.9 mmol/L (3.5-5.1); SODIUM 141 mmol/L (136-145)
[2020-05-02] MEDS: DEXAMETHASONE SOD PHOS INJ 4 MG/ML VIAL IV SCH (09:11)
[2020-05-02] MEDS: ASCORBIC ACID 500 MG TAB PO SCH ×2 (09:11→16:31)
[2020-05-02] MEDS: ZINC SULFATE 220 MG CAP PO SCH (09:11)
[2020-05-02] MEDS: ENOXAPARIN SOD INJ 40 MG/0.4 ML SYR SC SCH ×2 (09:11→21:00)
[2020-05-02 09:53] LABS: ABG HCO3 31 mmol/L (22-26); ABG PCO2 40 mmHg (35-45); ABG PH 7.49 (7.35-7.45); ABG PO2 156 mmHg (80-105); ABG TCO2 32
--- NOTE | 2020-05-02 12:58 | Progress Note ---
DATE: Pulmonary Critical Care Progress Note. SUBJECTIVE: The patient is now in the prone position. He is on mechanical ventilation at a rate of 24. His PEEP is set at 10 and his FiO2 is 55%. PHYSICAL EXAMINATION: VITAL SIGNS: Blood pressure is 105/64 and saturation is 98%. He is on the above ventilator settings. HEENT: Shows no facial swelling or erythema. LYMPHATIC: Shows no submandibular, cervical or supraclavicular adenopathy. CARDIAC: Reveals regular rate and rhythm with normal S1 and S2. LUNGS: Auscultation of lungs reveals crackles at the bases. There is no wheezing. ABDOMEN: Soft and nontender. There is no rebound or guarding. EXTREMITIES: Shows no leg edema or calf tenderness. There is no cyanosis or clubbing. SKIN: Shows no rashes. NEUROLOGICAL: Shows no focal abnormalities. The patient is currently sedated. LABORATORY DATA: Hemoglobin is 10 and white blood cell count is 14.5. The platelet count is 370. The BUN to creatinine ratio is normal. The other electrolytes are within normal limits and the albumin is 2.3. IMPRESSION: 1. Acute respiratory failure. 2. Viral pneumonia and COVID-19 infection. 3. Diabetes. 4. Hypertension. 5. Hypoalbuminemia. PLAN: 1. Place the patient back in the supine position. 2. Continue to wean Versed and fentanyl. Continue propofol. 3. Continue dexamethasone. 4. Lovenox. 5. Enteral feedings. 6. Complete antibiotics. 7. Additional Lasix as needed. Greater than 35 minutes in direct critical care time. Tomi Vizcarra MD [facility]/JOSÉ LUISL /[id number]
--- NOTE | 2020-05-02 13:21 | NUR ---
SUBJECTIVE: The patient is improving on a daily basis. He is still intubated, though no issues. No overnight events. PHYSICAL EXAMINATION: VITAL SIGNS: stable GENERAL: Intubated and sedated. PULMONARY: Intubated and sedated. CARDIOVASCULAR: Positive S1 and S2. No murmurs, rubs, or gallops appreciated. ABDOMEN: Soft, nondistended, nontender to palpation. Bowel sounds present. MUSCULOSKELETAL: Unable to assess. NEUROLOGICAL: Unable to assess. SKIN: Intact, warm to touch. Good cap refill. EXTREMITIES: No edema appreciated. LABORATORY DATA: Labs show CBC; white count elevated at 16.5, hemoglobin 10.9, hematocrit is 35, and platelets of 248. Chemistry reviewed and stable. MICROBIOLOGY: Blood and urine cultures no growth. Sputum cultures were collected. IMAGING STUDIES: reviewed IMPRESSION: 1. Acute respiratory failure secondary to coronavirus pneumonia, intubated and sedated. 2. Type 2 diabetes. 3. Viral pneumonia secondary to coronavirus. 4. Acute kidney injury. 5. Hypocalcemia. PLAN: intubated and sedated supportive care on PRVC, additional dose of lasix given changed to Uansyn given the final cultures PT SEEN AND EVALUATED BY DR PATTERSON
[2020-05-02] MEDS: AMPICILLIN SOD/SULBACTAM 3GM 100 ML IV SCH ×2 (13:36→20:00)
--- NOTE | 2020-05-02 16:19 | Progress Note ---
DATE: 05/02/2020 Medicine Progress Note SUBJECTIVE: The patient is doing much better today. He is requiring less oxygen; he is still intubated though. PHYSICAL EXAMINATION: VITAL SIGNS: Temperature is 97.4, pulse 75, respiratory rate 30, blood pressure 105/64, pulse ox 99%, he is on 30 L, FiO2 of 70%. GENERAL: He is intubated and sedated. PULMONARY: Intubated and sedated. CARDIOVASCULAR: Positive S1, S2. No murmurs, rubs, or gallops appreciated. ABDOMEN: Soft, nondistended, nontender to palpation. Bowel sounds present. MUSCULOSKELETAL: Unable to assess. He is sedated. NEUROLOGIC: Unable to assess. SKIN: Intact. Warm to touch. Good cap refill. EXTREMITIES: He has trace edema appreciated. LABORATORY DATA: Labs show CBC; reviewed shows a white count of 14, hemoglobin 10, hematocrit 31, and platelets of 370. Chemistry; sodium 141, potassium 3.9, chloride 105, bicarb 29, anion gap of 10, BUN is 19, creatinine 0.59, glucose is 110. Sputum culture shows Acinetobacter, which he is currently on ampicillin. IMPRESSION: 1. Acute respiratory failure, secondary to Coronavirus pneumonia, intubated and sedated. 2. Type 2 diabetes. 3. Viral pneumonia, secondary to coronavirus. 4. Positive sputum culture, Acinetobacter. 5. Acute kidney injury. 6. Electrolyte abnormalities. PLAN: At this time, he is still requiring significant amount of oxygen, but he is improving. He is still intubated and sedated, and occasional proning. He is on steroids, antibiotics, and vitamin supplements. He was started on ampicillin for underlying Acinetobacter, sputum culture. Pulmonary Critical Care and ID are following. Lovenox for DVT prophylaxis. CONDITION: ICU critical condition. MD JIMMY Walls/SERGIO /[id number]
--- NOTE | 2020-05-02 17:54 | Diagnostic Imaging Report ---
EXAMINATION: CHEST SINGLE (PORTABLE) INDICATION: Respiratory failure COMPARISON: Multiple prior chest x-rays including most recent on 04/30/2020. FINDINGS: TUBES and LINES: Endotracheal tube which terminates approximately 5 cm above the eulogio. Subdiaphragmatic enteric tube. LUNGS: Low lung volumes with patchy airspace opacities throughout both lungs. No significant interval change when compared to most recent prior examination. PLEURA: No pleural effusion or pneumothorax. HEART AND MEDIASTINUM: The cardiomediastinal silhouette is unchanged. BONES AND SOFT TISSUES: No acute osseous lesion or soft tissue finding. UPPER ABDOMEN: No free air under the diaphragm. IMPRESSION: 1. No significant interval change in radiographic appearance of the lungs with multifocal opacities. 2. Stable support lines/tubes. Signed by: Jose Alford MD on 05/02/2020 5:51 PM
[2020-05-02] MEDS ORDERED: SODIUM CHLORIDE 0.9% 250ML 250 ML ONE (20:47)
[2020-05-02] MEDS: SIMVASTATIN 40 MG TAB PO SCH (21:00)
[2020-05-02] MEDS: INSULIN GLARGINE 100 UNITS/ML VIAL SQ SCH (22:00)
[2020-05-03] VITALS (12 sets, daily range): BP systolic 102–152; BP diastolic 59–97
[2020-05-03] MEDS: PROPOFOL IV EMULSION 10MG/ML 100 ML IV PRN ×3 (00:47→23:53)
[2020-05-03] MEDS: AMPICILLIN SOD/SULBACTAM 3GM 100 ML IV SCH ×3 (04:00→20:32)
[2020-05-03 05:18] LABS: BASOPHILS # (AUTO) 0.1 (0.0-0.1); BASOPHILS % 0.5 % (0.0-1.0); EOSINOPHILS # (AUTO) 0.1 (0.0-0.4); EOSINOPHILS % 1.1 % (0.0-6.0); HEMATOCRIT 34.7 % (38.2-49.6); HEMOGLOBIN 10.9 g/dL (14.0-18.0); LYMPHOCYTES # (AUTO) 2.2 (1.0-3.2); LYMPHOCYTES % 16.8 % (18.0-39.1); MEAN CORPUSCULAR HEMOGLOBIN 27.6 pg (28-32); MEAN CORPUSCULAR HGB CONC 31.4 g/dL (31-35); MEAN CORPUSCULAR VOLUME 87.8 fL (81-99); MONOCYTES # (AUTO) 0.9 (0.2-0.8); MONOCYTES % 6.7 % (4.4-11.3); NEUTROPHILS # (AUTO) 9.8 (2.1-6.9); NEUTROPHILS % 73.4 % (38.7-80.0); PLATELET COUNT 440 x10e3/uL (140-360); RED BLOOD COUNT 3.95 x10e6/uL (4.3-5.7)
[2020-05-03] MEDS: INSULIN REGULAR, HUMAN 100 UNIT/1 ML 3ML VIAL SQ SCH ×5 (06:00→22:02)
[2020-05-03 06:08] LABS: ALANINE AMINOTRANSFERASE 39 IU/L (0-55); ALBUMIN 2.3 g/dL (3.5-5.0); ALBUMIN/GLOBULIN RATIO 0.6 (0.8-2.0); ALKALINE PHOSPHATASE 92 IU/L (40-150); ANION GAP 12.4 mmol/L (8-16); BLOOD UREA NITROGEN 17 mg/dL (7-26); BUN/CREATININE RATIO 27 (6-25); CALCIUM 8.3 mg/dL (8.4-10.2); CARBON DIOXIDE 29 mmol/L (22-29); CHLORIDE 105 mmol/L (98-107); CREATININE, SERUM 0.64 mg/dL (0.72-1.25); EST GLOMERULAR FILTRATION RATE > 60 ML/MIN (60-); GLUCOSE 121 mg/dL (74-118); POTASSIUM 4.4 mmol/L (3.5-5.1); SODIUM 142 mmol/L (136-145)
[2020-05-03] MEDS: ASCORBIC ACID 500 MG TAB PO SCH ×2 (08:28→18:30)
[2020-05-03] MEDS: ENOXAPARIN SOD INJ 40 MG/0.4 ML SYR SC SCH ×2 (08:28→22:01)
[2020-05-03] MEDS: ZINC SULFATE 220 MG CAP PO SCH (08:28)
[2020-05-03] MEDS: DEXAMETHASONE SOD PHOS INJ 4 MG/ML VIAL IV SCH (08:28)
--- NOTE | 2020-05-03 09:37 | Progress Note ---
DATE: SUBJECTIVE: The patient is now on PRVC at a rate of 24 with a tidal volume of 440 and FiO2 55% and 10 of PEEP. The patient is well sedated on 60 of propofol along with Versed at 2 mg and fentanyl at 175. The patient is receiving enteral feedings. PHYSICAL EXAMINATION: VITAL SIGNS: The blood pressure is 152/97, saturation is 100% on the above settings. Pulse is 82. HEENT: Shows no facial swelling or erythema. The patient has a nasogastric tube in place. There is an oral endotracheal tube. CARDIAC: Reveals a regular rate and rhythm with normal S1 and S2. LUNGS: Auscultation of the lungs shows crackles at the bases. There is no wheezing. ABDOMEN: Soft and nontender. There is no rebound or guarding. EXTREMITIES: Shows no leg edema or calf tenderness. There is no cyanosis or clubbing. SKIN: Shows no rashes. There is a PICC line in place. There is an arterial line in place. LABORATORY DATA: The white blood cell count is 13.2 and hemoglobin is 10.9. The platelet count is 440. The BUN to creatinine ratio is normal. The other electrolytes are within normal limits and the total protein is 6 with an albumin of 2.3. IMPRESSION: 1. Acute respiratory failure. 2. Viral pneumonia and COVID-19 infection. 3. Diabetes. 4. Hypertension. 5. Moderate protein-calorie malnutrition. PLAN: 1. Stop Versed and wean fentanyl. Continue propofol. 2. Repeat ABG and work towards spontaneous breathing trial. 3. Complete dexamethasone. 4. Enteral feedings. 5. Continue Lovenox. 6. Complete antibiotics. 7. Case discussed with nursing, Respiratory, Internal Medicine, Infectious Disease, and administration. Greater than 35 minutes in direct critical care time. MD JOSE Feliz/SERGIO /[id number]
[2020-05-03 10:27] LABS: ABG PCO2 41 mmHg (35-45); ABG PH 7.45 (7.35-7.45)
[2020-05-03 10:28] LABS: ABG HCO3 29 mmol/L (22-26); ABG PO2 68 mmHg (80-105); ABG TCO2 30
--- NOTE | 2020-05-03 12:39 | Diagnostic Imaging Report ---
EXAMINATION: CHEST SINGLE (PORTABLE) INDICATION: Respiratory failure COMPARISON: Chest radiograph 05/02/2020 FINDINGS: LINES/TUBES:Support lines and tubes unchanged. LUNGS:Lung volumes are low. Unchanged bilateral multifocal left greater than right airspace opacities. PLEURA:No pleural effusion or pneumothorax. MEDIASTINUM:The cardiomediastinal silhouette appears unchanged in size and shape. BONES/SOFT TISSUES:No acute osseous injury. ABDOMEN:No free air under the diaphragm. IMPRESSION: Unchanged bilateral multifocal left greater than right airspace opacities. Signed by: Gilberto Soto MD on 05/03/2020 12:35 PM
--- NOTE | 2020-05-03 14:22 | NUR ---
Nutrition Intervention Note RD Recommendation(s) for Physician: -In light of Propofol dosage, recommend changing TF to Vital HP with goal rate of 45 ml/hr (to provide 1080 kcal and 95 gm protein). Give 1 packet Beneprotein with TF BID to meet protein needs. Remaining kcal provided by Propofol. -Water flushes and fluid management per MD. -Bowel regimen per MD. Plan of Care: RD following, monitoring for tolerance and adequacy, tube feed recommendation Nutrition reason for involvement: follow up RD Assessment 05/03: Follow up. Pt remains intubated and sedated on high dose Propofol, pt requiring intermittent proning. TF at 35 ml/hr, additional kcal from Propofol currently. Updated TF rec's provided in light of Propofol dosage. No recent BM documented. Chart reviewed. Will continue to monitor. 04/28: Follow up. Pt remains intubated. RN reports pts tube feed rate is at 15 mL/hr at this time and that pt is in the prone position. Current recommendations remain appropriate. Will continue to monitor. (04/23/20) Pt is a 40 year old male admitted with COVID-19, hypoxemia, and viral pneumonia. Pt was intubated and tube feedings were started. Unable to obtain nutrition history at this time and there are no previous weights in chart. Tube feed recommendations provided. Will continue to monitor. Principal Problems/Diagnoses: COVID-19, hypoxemia, and viral pneumonia PMH: Depression, anxiety, ADHD, diabetes, and hyperlipidemia I/O: 1343/4150 GI: large abdomen, last recorded BM 04/20 Skin: bilateral wounds to toes, no staging Labs: 05/03: Na 142, K 4.4, BUN 17, Cr 0.64, Gluc 121, POC Gluc 115-231 (04/28) Na 143, K 4.2, BUN 19, Cr 0.67, Glu 108, Ca 7.6 (04/22) Na 145, K 4.8, BUN 39, Cr 0.90, Glu 127, Ca 7.9 Meds: insulin, decadron, zinc sulfate, vitamin C, lantus, zofran IVF/Drips: Propofol at 54 ml/hr (provides 1426 lipid kcal/day), Fentanyl drip Ht: 69 inches Wt: 233 lbs BMI: 34.4 kg/m2 IBW: 160 lbs Malnutrition Evaluation (04/23/20) Unable to assess. Will re-evaluate at follow-up as appropriate. Nutrition Prescription (Diet Order): Glucerna 1.2 @ 50 mL/hr (provides 1440 kcal, 72 g protein) infusing at 35 mL/hr (1008 kcal and 50 gm protein) Estimated Nutritional Needs: 3818-9618 calories/day (22-25 kcal/kg IBW) 109-145 g protein/day (1.5-2 g pro/kg IBW) Diet Adequacy: Exceeding calorie needs (TF and Propofol= 2434 kcal), Not meeting protein needs Tolerance: tolerating TF Diet Education Needs Assessment: Diet education not indicated, pt is intubated Nutrition Care Level: moderate Nutrition Diagnosis: Inadequate oral intake related to respiratory failure/mechanical ventilation as evidenced by pt requiring enteral nutrition. Goal: Patient will meet 75-100% of estimated needs by follow up Progress: not progressing Interventions: -Composition, Rate, Route, Recommended Modifications Monitoring/Evaluation: -Total energy intake, Total protein intake, Formula/Solution, Prescription medication, Weight change Signed: Sydnee Peraza RD, LD, [facility]
--- NOTE | 2020-05-03 15:19 | Progress Note ---
DATE: 05/03/2020 Medicine Progress Note SUBJECTIVE: The patient is still intubated and sedated, but his oxygen requirement is much improved. No overnight events. PHYSICAL EXAMINATION: VITAL SIGNS: Temperature is 98.5, pulse 83, respiratory rate is 24, blood pressure 152/97, and pulse ox is 100%. He is on 50% FiO2, PEEP of 10. GENERAL: He is intubated and sedated. PULMONARY: Intubated and sedated. CARDIOVASCULAR: Positive S1 and S2. No murmurs, rubs, or gallops appreciated. ABDOMEN: Soft, nondistended, and nontender to palpation. Bowel sounds present. MUSCULOSKELETAL: Unable to assess. NEUROLOGIC: Unable to assess. SKIN: Intact. Warm to touch. Good cap refill. PSYCHIATRIC: Unable to assess. EXTREMITIES: No edema appreciated. LABORATORY DATA: Show CBC reviewed, shows white count of 13, hemoglobin 10, hematocrit is 34, and platelets of 440. Chemistry; sodium 142, potassium 4.4, chloride 105, bicarb 29, anion gap of 12, BUN is 17, creatinine is 0.64, glucose is 121, and calcium is 8.3. MICROBIOLOGY: Sputum cultures noted Acinetobacter. Urine and blood cultures are negative. IMPRESSION: 1. Acute respiratory failure secondary to coronavirus pneumonia, intubated and sedated. 2. Type 2 diabetes. 3. Viral pneumonia secondary to coronavirus. 4. Positive sputum cultures, Acinetobacter. 5. Acute kidney injury. 6. Electrolyte abnormalities. PLAN: At this time, antibiotics have been rearranged yesterday from ID. He is on steroids, antibiotics, and vitamin supplements. He is on ampicillin for Acinetobacter per sputum culture. Continue with same plan of care. Get a.m. labs. Pulmonary Critical Care and ID are following. Lovenox for DVT prophylaxis. MD JIMMY Walls/SERGIO /[id number]
--- NOTE | 2020-05-03 16:52 | NUR ---
infectious diseased progress note seen and examined labs reviewed discussed with medical team SUBJECTIVE: The patient is still intubated and sedated, but his oxygen requirement is much improved. No overnight events. his vent settings are better PHYSICAL EXAMINATION: VITAL SIGNS: Temperature is 98.5, pulse 83, respiratory rate is 24, blood pressure 152/97, and pulse ox is 100%. He is on 50% FiO2, PEEP of 10. GENERAL: He is intubated and sedated. PULMONARY: Intubated and sedated. CARDIOVASCULAR: Positive S1 and S2. No murmurs, rubs, or gallops appreciated. ABDOMEN: Soft, nondistended, and nontender to palpation. Bowel sounds present. MUSCULOSKELETAL: Unable to assess. NEUROLOGIC: Unable to assess. SKIN: Intact. Warm to touch. Good cap refill. PSYCHIATRIC: Unable to assess. EXTREMITIES: No edema appreciated. LABORATORY DATA: Show CBC reviewed, shows white count of 13, hemoglobin 10, hematocrit is 34, and platelets of 440. Chemistry; sodium 142, potassium 4.4, chloride 105, bicarb 29, anion gap of 12, BUN is 17, creatinine is 0.64, glucose is 121, and calcium is 8.3. MICROBIOLOGY: Sputum cultures noted Acinetobacter. Urine and blood cultures are negative. IMPRESSION: 1. Acute respiratory failure secondary to coronavirus pneumonia, intubated and sedated. 2. Type 2 diabetes. 3. Viral pneumonia secondary to coronavirus. 4. Positive sputum cultures, Acinetobacter. 5. Acute kidney injury. 6. Electrolyte abnormalities. cont as ordered
--- NOTE | 2020-05-03 17:15 | NUR ---
Dr. Vizcarra notified of patient with increased secretions, increased coughing, and gagging. Versed restarted at 2mg/hr and propofol increased to 80mcg. Addendum: 05/03/20 at 1830 by Blank Romreo RN Amended: Links added.
[2020-05-03] MEDS: SIMVASTATIN 40 MG TAB PO SCH (22:01)
[2020-05-03] MEDS: INSULIN GLARGINE 100 UNITS/ML VIAL SQ SCH (22:01)
[2020-05-04] VITALS (25 sets, daily range): BP systolic 105–130; BP diastolic 50–78
[2020-05-04] MEDS: PROPOFOL IV EMULSION 10MG/ML 100 ML IV PRN ×9 (00:54→20:43)
[2020-05-04] MEDS: AMPICILLIN SOD/SULBACTAM 3GM 100 ML IV SCH ×3 (04:00→20:14)
[2020-05-04] MEDS: FENTANYL 2000MCG/NS 250 250 ML IV PRN ×2 (04:50→20:44)
[2020-05-04 05:36] LABS: BASOPHILS # (AUTO) 0.1 (0.0-0.1); BASOPHILS % 0.4 % (0.0-1.0); EOSINOPHILS # (AUTO) 0.2 (0.0-0.4); EOSINOPHILS % 1.5 % (0.0-6.0); HEMATOCRIT 32.6 % (38.2-49.6); HEMOGLOBIN 10.2 g/dL (14.0-18.0); LYMPHOCYTES # (AUTO) 1.7 (1.0-3.2); LYMPHOCYTES % 10.4 % (18.0-39.1); MEAN CORPUSCULAR HEMOGLOBIN 27.1 pg (28-32); MEAN CORPUSCULAR HGB CONC 31.3 g/dL (31-35); MEAN CORPUSCULAR VOLUME 86.7 fL (81-99); MONOCYTES # (AUTO) 1.1 (0.2-0.8); MONOCYTES % 6.7 % (4.4-11.3); NEUTROPHILS # (AUTO) 12.7 (2.1-6.9); NEUTROPHILS % 79.9 % (38.7-80.0); PLATELET COUNT 425 x10e3/uL (140-360); RED BLOOD COUNT 3.76 x10e6/uL (4.3-5.7); RED CELL DISTRIBUTION WIDTH 14.2 % (11.7-14.4)
[2020-05-04] MEDS: INSULIN REGULAR, HUMAN 100 UNIT/1 ML 3ML VIAL SQ SCH ×4 (06:59→22:00)
[2020-05-04 07:04] LABS: ALANINE AMINOTRANSFERASE 41 IU/L (0-55); ALBUMIN 2.2 g/dL (3.5-5.0); ALBUMIN/GLOBULIN RATIO 0.6 (0.8-2.0); ALKALINE PHOSPHATASE 107 IU/L (40-150); ANION GAP 14.8 mmol/L (8-16); BLOOD UREA NITROGEN 17 mg/dL (7-26); BUN/CREATININE RATIO 24 (6-25); CALCIUM 8.1 mg/dL (8.4-10.2); CARBON DIOXIDE 24 mmol/L (22-29); CHLORIDE 108 mmol/L (98-107); EST GLOMERULAR FILTRATION RATE > 60 ML/MIN (60-); GLUCOSE 140 mg/dL (74-118); POTASSIUM 3.8 mmol/L (3.5-5.1); SODIUM 143 mmol/L (136-145)
[2020-05-04] MEDS: ASCORBIC ACID 500 MG TAB PO SCH ×2 (08:08→16:18)
[2020-05-04] MEDS: DEXAMETHASONE SOD PHOS INJ 4 MG/ML VIAL IV SCH (08:08)
[2020-05-04] MEDS: ZINC SULFATE 220 MG CAP PO SCH (08:09)
[2020-05-04] MEDS: ENOXAPARIN SOD INJ 40 MG/0.4 ML SYR SC SCH ×2 (08:09→21:00)
--- NOTE | 2020-05-04 08:26 | Diagnostic Imaging Report ---
Examination: Single AP view of the chest. COMPARISON: 05/03/2020 INDICATION: Respiratory failure DISCUSSION: Endotracheal tube and enteric tube are unchanged in position. Slight interval improvement in aeration of the left upper and right lower lung zones relative to 05/03/2020. No new pleural effusion or pneumothorax. Stable cardiomediastinal contour. No acute osseous abnormalities. IMPRESSION: Stable position of support lines and tubes. Slight interval improvement in multifocal pneumonia relative to 05/03/2020. Signed by: Dr. Nicola Pickens M.D. on 05/04/2020 8:23 AM
[2020-05-04 10:02] LABS: ABG HCO3 28 mmol/L (22-26); ABG PCO2 44 mmHg (35-45); ABG PH 7.41 (7.35-7.45); ABG PO2 66 mmHg (80-105); ABG TCO2 29
--- NOTE | 2020-05-04 14:20 | NUR ---
WOUND CARE CONSULT FOR 40 YO MALE HX OF HYPOXIA, POOR TISSUE PERFUSION RELATED TO DEBILITATED STATE AND DISEASE PROCESS MABEL SCORE ON STRICT PUP STATUS AND INTERVENTIONS AND ALTERNATING PRESSURE MATTRESS RECOMMENDATIONS: NURSING TO CONTINUE TO MAINTAIN STRICT PUP STATUS AND INTERVENTIONS AND ALTERNATING PRESSURE MATTRESS AND FREQUENT TURN SCHEDULE MUCH CURRENT HEALTH DEBILITATIONS ALLOW CONTINUE SUPPORT FACIAL SURFACE MUCH POSSIBLE IF AND WHEN PRONE POSITIONING IS NECESSARY NURSING TO CONTINUE TO ASSIST PATIENT NEEDED WITH MEALS AND NUTRITIONAL SUPPLEMENTS TO ENSURE PROPER REQUIREMENTS FOR HEALING NURSING TO CONTINUE TO OFFLOAD FEET AND HEELS NEEDED WITH PILLOW SUSPENSION WHEN IN BED NURSING TO MAINTAIN PATIENT CLEAN AND DRY TO PREVENT MOISTURE INJURY NURSING TO MAINTAIN Q SHIFT AND PRN SKIN ASSESSMENT TO CONSISTENTLY DETECT AND MAINTAIN EARLY INTERVENTION OF SKIN ALTERATIONS OR PRESSURE INSULTS Addendum: 05/04/20 at 1420 by Garry Alas RN Amended: Links added.
[2020-05-04] MEDS: FUROSEMIDE INJ 10 MG/ML 4 ML VIAL IV SCH ×2 (14:55→22:39)
--- NOTE | 2020-05-04 16:54 | Progress Note ---
DATE: SUBJECTIVE: The patient remains on a mechanical ventilator. He is on a PRVC mode of ventilation at a rate of 24 and a tidal volume of 370. His PEEP is set at 10 and his FiO2 is 50%. He is currently on fentanyl and Versed. He is also on propofol. He is receiving enteral feedings. PHYSICAL EXAMINATION: VITAL SIGNS: The blood pressure is 130/70 and the saturation is 96%. He is on above-mentioned ventilator settings. HEENT: Shows no facial swelling or erythema. The patient has a nasogastric tube in place. There is an oral endotracheal tube. There is a PICC line. The patient has an arterial line. CARDIAC: Reveals regular rate and rhythm with normal S1 and S2. There are no murmurs or rubs. LUNGS: Auscultation of lungs reveals crackles at the bases. There is no wheezing. ABDOMEN: Soft and nontender. There is no rebound or guarding. EXTREMITIES: Shows no leg edema or calf tenderness. There is no cyanosis or clubbing. SKIN: Shows no rashes. NEUROLOGICAL: Shows no focal abnormalities. LABORATORY DATA: The white blood cell count is 15.9 and hemoglobin is 10.2. The platelet count is 425. BUN to creatinine ratio is normal. The other electrolytes are within normal limits. The albumin is 2.2. RADIOGRAPHIC DATA: Chest x-ray shows bilateral infiltrates. IMPRESSION: 1. Acute respiratory failure. 2. Viral pneumonia and COVID-19 infection. 3. Diabetes. 4. Hypertension. 5. Moderate protein-calorie malnutrition. PLAN: 1. Continue propofol and wean fentanyl. 2. Continue to monitor ABG. 3. Complete dexamethasone. 4. Continue Lovenox. 5. Complete antibiotics. 6. Case discussed with nursing, Respiratory, Internal Medicine, and Infectious Disease. Greater than 35 minutes in direct critical care time. Tomi Vizcarra MD LM/MODL /[id number]
--- NOTE | 2020-05-04 19:14 | Progress Note ---
DATE: SUBJECTIVE: Mr. Agrawal remains in intensive care unit, about the same today, there is really no change. PHYSICAL EXAMINATION: GENERAL: Intubated, sedated, he is on ventilator. HEENT: Not icteric. NECK: Supple. CHEST: Crackles bilateral. HEART: S1 and S2. ABDOMEN: Soft. Bowel sounds present. No tenderness. EXTREMITIES: No edema. SKIN: No rash. He remains on Unasyn and Lovenox. IMPRESSION: COVID-19 status post convalescent plasma, status post remdesivir. Continue with the same. Continue supportive care. Discussed with medical team . MD KATIE Morales/SERGIO /[id number]
[2020-05-04] MEDS: SIMVASTATIN 40 MG TAB PO SCH (21:00)
[2020-05-04] MEDS: INSULIN GLARGINE 100 UNITS/ML VIAL SQ SCH (22:00)
--- NOTE | 2020-05-04 22:23 | NUR ---
@ 2200 While turning patient Bradshaw catheter came out. New 16Fr Core Temp Bradshaw reinserted. 1500cc of clear yellow urine noted and tubing clamped. Patient tolerated procedure without complication.
--- NOTE | 2020-05-04 23:27 | NUR ---
@1915 Personal items given to mother, Oxana Maynard. ID verified with Jocelyn Louis RN and belongings confirmed with mother. Items include $42 lundberg, Dental card, Health Insurance card, [place] [employer], [employer] card, [employer] card, [place] [employer] One card, [employer] card, 2 Iphones , and a phone electronic health records specialist.
[2020-05-05] VITALS (23 sets, daily range): BP systolic 104–189; BP diastolic 51–95
--- NOTE | 2020-05-05 00:11 | Progress Note ---
DATE: 05/04/2020 Medicine Progress Note SUBJECTIVE: The patient was seen and evaluated today around 01:15 in the afternoon. The patient is currently intubated and sedated. He is still requiring 50% FiO2. PHYSICAL EXAMINATION: VITAL SIGNS: Temperature is 98.4, pulse 66, respiratory rate is 24, blood pressure 110/56, pulse ox 96% on 50% FiO2. GENERAL: Intubated and sedated. CARDIOVASCULAR: Positive S1 and S2. No murmurs, rubs, or gallops appreciated. PULMONARY: Intubated and sedated. ABDOMEN: Soft, nondistended, nontender to palpation. Bowel sounds present. MUSCULOSKELETAL: Unable to assess. He is currently intubated and sedated. NEUROLOGIC: Intubated and sedated. SKIN: Intact, warm to touch. Good cap refill. PSYCHIATRIC: Intubated and sedated. EXTREMITIES: He does have some upper extremity and lower extremity edema. LABORATORY DATA: Labs show white count 15.9, hemoglobin 10, hematocrit is 32, and platelets of 425. Chemistry; sodium 143, potassium 3.8, chloride 108, bicarb 24, anion gap of 14, BUN is 17, creatinine is 0.7, glucose is 140. MICROBIOLOGY: Nothing new. IMAGING STUDIES: Chest x-ray shows slight interval improvement in multifocal pneumonia. IMPRESSION: 1. Acute respiratory failure secondary to coronavirus pneumonia, intubated and sedated. 2. Type 2 diabetes. 3. Viral pneumonia secondary to coronavirus. 4. Positive sputum culture, Acinetobacter. 5. Acute kidney injury. 6. Electrolyte abnormalities. PLAN: At this time, we will go ahead and give him Lasix x4 doses as the patient has some evidence of edema. Get morning labs. He is on the appropriate antibiotics for the sputum culture, that is being managed by ID. Continue with steroids, antibiotics, and vitamin supplements. Follow with ID and Pulmonary Critical Care recommendations. He is on Lovenox for DVT prophylax. MD JIMMY Walls/MODL /[id number]
[2020-05-05] MEDS: PROPOFOL IV EMULSION 10MG/ML 100 ML IV PRN ×3 (01:55→08:00)
[2020-05-05] MEDS: AMPICILLIN SOD/SULBACTAM 3GM 100 ML IV SCH ×3 (04:00→21:12)
[2020-05-05 05:52] LABS: BASOPHILS # (AUTO) 0.1 (0.0-0.1); BASOPHILS % 0.4 % (0.0-1.0); EOSINOPHILS # (AUTO) 0.3 (0.0-0.4); HEMATOCRIT 33.6 % (38.2-49.6); HEMOGLOBIN 10.5 g/dL (14.0-18.0); LYMPHOCYTES # (AUTO) 1.9 (1.0-3.2); LYMPHOCYTES % 14.4 % (18.0-39.1); MEAN CORPUSCULAR HEMOGLOBIN 27.4 pg (28-32); MEAN CORPUSCULAR HGB CONC 31.3 g/dL (31-35); MEAN CORPUSCULAR VOLUME 87.7 fL (81-99); MONOCYTES # (AUTO) 0.9 (0.2-0.8); MONOCYTES % 6.9 % (4.4-11.3); NEUTROPHILS # (AUTO) 9.9 (2.1-6.9); NEUTROPHILS % 74.5 % (38.7-80.0); PLATELET COUNT 441 x10e3/uL (140-360); RED BLOOD COUNT 3.83 x10e6/uL (4.3-5.7); RED CELL DISTRIBUTION WIDTH 14.2 % (11.7-14.4)
[2020-05-05] MEDS: INSULIN REGULAR, HUMAN 100 UNIT/1 ML 3ML VIAL SQ SCH ×3 (06:00→18:00)
[2020-05-05 06:21] LABS: ALANINE AMINOTRANSFERASE 62 IU/L (0-55); ALBUMIN 2.3 g/dL (3.5-5.0); ALBUMIN/GLOBULIN RATIO 0.5 (0.8-2.0); ALKALINE PHOSPHATASE 134 IU/L (40-150); ANION GAP 12.6 mmol/L (8-16); BLOOD UREA NITROGEN 16 mg/dL (7-26); BUN/CREATININE RATIO 23 (6-25); CALCIUM 8.7 mg/dL (8.4-10.2); CARBON DIOXIDE 28 mmol/L (22-29); CHLORIDE 107 mmol/L (98-107); EST GLOMERULAR FILTRATION RATE > 60 ML/MIN (60-); GLUCOSE 102 mg/dL (74-118); POTASSIUM 3.6 mmol/L (3.5-5.1); SODIUM 144 mmol/L (136-145)
--- NOTE | 2020-05-05 08:54 | Diagnostic Imaging Report ---
EXAMINATION: CHEST SINGLE (PORTABLE) INDICATION: Respiratory failure COMPARISON: Multiple prior chest radiographs, most recently 05/04/2020 FINDINGS: LINES/TUBES:Support lines and tubes unchanged. LUNGS:Lung volumes remain low. Unchanged bilateral or focal left greater than right airspace opacities. PLEURA:No pleural effusion or pneumothorax. MEDIASTINUM:The cardiomediastinal silhouette appears normal unchanged in size and shape. BONES/SOFT TISSUES:No acute osseous injury. ABDOMEN:No free air under the diaphragm. IMPRESSION: No significant interval change. Signed by: Gilberto Soto MD on 05/05/2020 8:50 AM
[2020-05-05] MEDS: ZINC SULFATE 220 MG CAP PO SCH (09:00)
[2020-05-05] MEDS: ASCORBIC ACID 500 MG TAB PO SCH ×2 (09:00→17:19)
[2020-05-05] MEDS: ENOXAPARIN SOD INJ 40 MG/0.4 ML SYR SC SCH ×2 (09:00→21:12)
[2020-05-05 09:26] LABS: ABG PH 7.42 (7.35-7.45)
[2020-05-05 09:29] LABS: ABG PCO2 45 mmHg (35-45); ABG PO2 118 mmHg (80-105)
[2020-05-05 09:30] LABS: ABG TCO2 30
[2020-05-05 09:32] LABS: ABG HCO3 29 mmol/L (22-26)
--- NOTE | 2020-05-05 11:13 | Progress Note ---
DATE: SUBJECTIVE: The patient has diuresed liter and a half yesterday. His sedation was held this morning as were his tube feedings. He was placed on CPAP of 5 and pressure support of 10. He is tolerating this well with the respiratory rate of 24 to 26. His tidal volumes are 350-460. PHYSICAL EXAMINATION: VITAL SIGNS: The patient is afebrile. The blood pressure is 108/53 and the saturation is 99%. H in addition, he has an endotracheal tube in place. HEENT: No facial swelling or erythema. The oropharynx is normal. There is a lymphatic endotracheal tube in place. There is a PICC line. There is an arterial line. CARDIAC: Regular rate and rhythm. Normal S1, S2. There are decreased breath sounds at the bases. ABDOMEN: Soft, nontender. There is no rebound or guarding. EXTREMITIES: No leg edema or calf tenderness. There is no cyanosis or clubbing. SKIN: No rashes. NEUROLOGICAL: The patient to be sedated, but have no focal abnormalities. LABORATORY DATA: The BUN to creatinine ratio is normal. The other electrolytes are within normal limits. Albumin is 2.3. White blood cell count is 13.3 and hemoglobin is 10.5. The platelet count is 441,000. RADIOGRAPHIC DATA: Bilateral infiltrates. IMPRESSION: 1. Acute respiratory failure. 2. Viral pneumonia and COVID-19 infection. 3. Diabetes. 4. Hypertension. PLAN: 1. Continue to hold sedatives. 2. Continue to monitor repeat ABG in 4 to 5 minutes and continue to wean as tolerated. Hopefully, we can move toward extubation. 3. Continue to monitor control of blood sugars. 4. Hypertension. 5. Moderate protein-calorie malnutrition. 6. Continue Lovenox. 7. Complete antibiotics. Greater than 35 minutes in direct critical care time. MD JOSE Feliz/SERGIO /[id number]
[2020-05-05 12:18] LABS: ABG HCO3 30 mmol/L (22-26); ABG PCO2 40 mmHg (35-45); ABG PH 7.49 (7.35-7.45); ABG PO2 84 mmHg (80-105); ABG TCO2 32
--- NOTE | 2020-05-05 15:59 | Progress Note ---
DATE: SUBJECTIVE: Mr. Agrawal is slowly improving. There are no new problems today. The weaning attempt is still in progress. PHYSICAL EXAMINATION: GENERAL: Currently intubated and sedated. VITAL SIGNS: Stable. HEENT: He is not icteric. NECK: Supple. CHEST: Crackles. HEART: S1 and S2. No murmur. ABDOMEN: Soft. IMPRESSION: COVID-19, respiratory failure, and diabetes mellitus. Continue to wean as ordered. Continue supportive care as ordered. Discussed with medical team. MD KATIE Morales/SERGIO /[id number]
[2020-05-05] MEDS: DEXMEDETOMIDINE 200MCG/NS 50ML 50 ML IV PRN (16:14)
[2020-05-05] MEDS ORDERED: DEXMEDETOMIDINE 200MCG/NS 50ML 50 ML IV ONE (16:14)
[2020-05-05] MEDS ORDERED: DEXMEDETOMIDINE 200MCG/NS 50ML 50 ML IV PRN (16:15)
[2020-05-05] MEDS: SIMVASTATIN 40 MG TAB PO SCH (21:12)
[2020-05-06] VITALS (17 sets, daily range): BP systolic 102–165; BP diastolic 59–106
--- NOTE | 2020-05-06 00:05 | Progress Note ---
DATE: 05/05/2020 Medicine Progress Note SUBJECTIVE: The patient is still intubated and sedated. Still requiring oxygenation on mechanical ventilator. No overnight events. Did develop a fever. OBJECTIVE: VITAL SIGNS: Temperature 100.2, pulse 100, respiratory rate is 24, blood pressure 130/67, pulse ox 99% on mechanical ventilator, FiO2 of 50%. GENERAL: Intubated and sedated. CARDIOVASCULAR: Positive S1 and S2. No murmurs, rubs, or gallops appreciated. PULMONARY: Intubated and sedated. ABDOMEN: Soft, nondistended, and nontender to palpation. Bowel sounds present. MUSCULOSKELETAL: Unable to assess. NEUROLOGIC: Unable to assess. SKIN: Intact. Warm to touch. Good cap refill. EXTREMITIES: No edema. Good range of motion throughout. LABORATORY FINDINGS: Show white count 13, hemoglobin 10.5, hematocrit is 34, platelets of 441. Chemistry; sodium 144, potassium 3.6, chloride 107, bicarb 20, anion gap of 12, BUN 16, creatinine 0.7. MICROBIOLOGY: Noted. IMAGING STUDIES: Chest x-ray this morning shows no significant interval change. IMPRESSION: 1. Acute respiratory failure secondary to coronavirus pneumonia, intubated and sedated. 2. Type 2 diabetes. 3. Viral pneumonia secondary to coronavirus. 4. Positive sputum culture, Acinetobacter. 5. Acute kidney injury-resolved. 6. Electrolyte abnormalities. PLAN: At this time, the patient did receive some diuretics yesterday and he has much improved diuresis, approximately 2-3 L were removed. Hopefully, this will help his oxygenation state. His chemistries are stable. We will get morning labs. Continue with antibiotics, steroids, vitamins. ID and Pulmonary/Critical Care are following. Weaning off the vent will be up to Pulmonary/Critical Care. Lovenox for DVT prophylaxis. MD JIMMY Walls/MODL /[id number]
[2020-05-06] MEDS ORDERED: PROPOFOL IV EMULSION 10MG/ML 100 ML ONE ×2 (00:50→02:54)
[2020-05-06] MEDS: INSULIN GLARGINE 100 UNITS/ML VIAL SQ SCH ×2 (02:31→21:00)
[2020-05-06] MEDS: HYDRALAZINE HCL 20 MG/ML VIAL IV PRN (02:43)
[2020-05-06] MEDS: AMPICILLIN SOD/SULBACTAM 3GM 100 ML IV SCH ×2 (04:17→13:45)
[2020-05-06 05:03] LABS: BASOPHILS # (AUTO) 0.1 (0.0-0.1); BASOPHILS % 0.3 % (0.0-1.0); EOSINOPHILS # (AUTO) 0.1 (0.0-0.4); EOSINOPHILS % 0.7 % (0.0-6.0); HEMATOCRIT 36.3 % (38.2-49.6); HEMOGLOBIN 11.4 g/dL (14.0-18.0); LYMPHOCYTES # (AUTO) 1.1 (1.0-3.2); MEAN CORPUSCULAR HEMOGLOBIN 27.5 pg (28-32); MEAN CORPUSCULAR HGB CONC 31.4 g/dL (31-35); MEAN CORPUSCULAR VOLUME 87.5 fL (81-99); MONOCYTES # (AUTO) 0.9 (0.2-0.8); MONOCYTES % 5.4 % (4.4-11.3); NEUTROPHILS # (AUTO) 13.8 (2.1-6.9); PLATELET COUNT 499 x10e3/uL (140-360); RED BLOOD COUNT 4.15 x10e6/uL (4.3-5.7); RED CELL DISTRIBUTION WIDTH 13.9 % (11.7-14.4)
[2020-05-06 05:40] LABS: ALANINE AMINOTRANSFERASE 63 IU/L (0-55); ALBUMIN 2.2 g/dL (3.5-5.0); ALBUMIN/GLOBULIN RATIO 0.5 (0.8-2.0); ALKALINE PHOSPHATASE 124 IU/L (40-150); ANION GAP 13.5 mmol/L (8-16); BLOOD UREA NITROGEN 13 mg/dL (7-26); BUN/CREATININE RATIO 21 (6-25); CALCIUM 8.4 mg/dL (8.4-10.2); CARBON DIOXIDE 26 mmol/L (22-29); CHLORIDE 110 mmol/L (98-107); CREATININE, SERUM 0.62 mg/dL (0.72-1.25); EST GLOMERULAR FILTRATION RATE > 60 ML/MIN (60-); GLUCOSE 111 mg/dL (74-118); POTASSIUM 3.5 mmol/L (3.5-5.1); SODIUM 146 mmol/L (136-145)
[2020-05-06] MEDS: INSULIN REGULAR, HUMAN 100 UNIT/1 ML 3ML VIAL SQ SCH ×5 (06:00→23:00)
[2020-05-06] MEDS: DEXMEDETOMIDINE 200MCG/NS 50ML 50 ML IV PRN ×6 (08:23→20:08)
--- NOTE | 2020-05-06 08:38 | Diagnostic Imaging Report ---
EXAM: CHEST SINGLE (PORTABLE) DATE: 05/06/2020 6:10 AM INDICATION: Respiratory failure COMPARISON: 05/05/2020 FINDINGS: Endotracheal tube identified in stable position. Enteric tube noted coursing below the diaphragm. The trachea is midline. Again identified are patchy airspace opacities throughout the lungs bilaterally, similar to the prior examination. There is no evidence for pneumothorax or significant volume pleural effusion. The cardiomediastinal silhouette is stable in appearance. No acute osseous abnormality is identified. IMPRESSION: No significant interval change from 05/05/2020. Signed by: Dr. Doni Waters MD on 05/06/2020 8:34 AM
[2020-05-06] MEDS: ENOXAPARIN SOD INJ 40 MG/0.4 ML SYR SC SCH ×2 (08:55→21:00)
[2020-05-06] MEDS: ZINC SULFATE 220 MG CAP PO SCH (08:55)
[2020-05-06] MEDS: ASCORBIC ACID 500 MG TAB PO SCH ×2 (08:55→17:56)
[2020-05-06] MEDS: PROPOFOL IV EMULSION 10MG/ML 100 ML IV PRN ×5 (08:57→22:15)
[2020-05-06 09:04] LABS: ABG HCO3 28 mmol/L (22-26); ABG PCO2 36 mmHg (35-45); ABG PO2 69 mmHg (80-105); ABG TCO2 29
[2020-05-06] MEDS ORDERED: LORAZEPAM INJ 2 MG/ML VIAL IV ONE ×2 (10:30→18:30)
[2020-05-06] MEDS ORDERED: MIDAZOLAM HCL 2 MG/2 ML VIAL ONE ×2 (10:33→10:52)
[2020-05-06] MEDS ORDERED: VECURONIUM BROMIDE FOR INJ 20 MG VIAL ONE (10:34)
[2020-05-06] MEDS ORDERED: VECURONIUM BROMIDE FOR INJ 20 MG VIAL IV STA (10:57)
[2020-05-06] MEDS ORDERED: LORAZEPAM INJ 2 MG/ML VIAL IV PRN (11:15)
[2020-05-06] MEDS ORDERED: MIDAZOLAM HCL 2 MG/2 ML VIAL IV ONE (11:20)
[2020-05-06] MEDS ORDERED: VANCOMYCIN 1GM/NS 250 ML 250 ML IV ONE (11:45)
--- NOTE | 2020-05-06 11:48 | Progress Note ---
DATE: Pulmonary Critical Care Progress Note SUBJECTIVE: Apparently, his FiO2 was increased overnight. It was increased from 45% to 90% FiO2. He is also more tachypneic this morning and has a long inspiratory time. His ventilator was subsequently adjusted to decrease his inspiratory time and increase his I:E ratio. The patient also received Versed, Ativan, and vecuronium. His FiO2 has been decreased to 80%. PHYSICAL EXAMINATION: VITAL SIGNS: The T-max is 100.7 and the blood pressure is 181/86. The respiratory rate is now 28. Tidal volume is set of 400 and the FiO2 is set at 80%. The PEEP is set at 10. HEENT: No facial swelling or erythema. The patient has an oral endotracheal tube in place. There is an A line in place. CARDIAC: Regular rate and rhythm with normal S1, S2. LUNGS: Auscultation of the lungs shows decreased breath sounds at the bases. There is no wheezing. ABDOMEN: Soft, nontender. There is no rebound or guarding. LABORATORY DATA: White blood cell count is 16.2 and hemoglobin is 11.4. The platelet count is 499. The BUN to creatinine ratio is 13 to 0.62. The other electrolytes are within normal limits. Albumin is 2.2. IMPRESSION: 1. Acute respiratory failure. 2. Possible secondary bacterial pneumonia. 3. Viral pneumonia and coronavirus disease-19 infection. 4. Diabetes. 5. Hypertension. 6. Hypoalbuminemia. PLAN: 1. Continue propofol and Ativan p.r.n. 2. Repeat ABG and adjust ventilator settings. 3. CTA of the chest to rule out pulmonary embolism. 4. Panculture the patient and begin broad-spectrum antibiotics. 5. Continue albumin. 6. Place PICC line and remove central line. 7. Continue to monitor and control blood sugars. 8. Restart enteral feedings. 9. Continue Lovenox. 10. Escalate antibiotics to cover for secondary bacterial pneumonia. 11. Case discussed with nursing, Respiratory, Infectious Disease, and Internal Medicine. Greater than 35 minutes in direct critical care time. Tomi Vizcarra MD [facility]/MODL /[id number]
[2020-05-06] MEDS: ALBUMIN 25% 25GM 100ML 100 ML IV SCH ×2 (11:53→18:21)
[2020-05-06] MEDS ORDERED: ALBUMIN 25% 25GM 100ML 0.25 GM/ML BTL IV SCH (12:00)
[2020-05-06 12:04] LABS: ABG HCO3 27 mmol/L (22-26); ABG PCO2 40 mmHg (35-45); ABG PH 7.44 (7.35-7.45); ABG PO2 95 mmHg (80-105); ABG TCO2 29
--- NOTE | 2020-05-06 13:12 | NUR ---
Nutrition Intervention Note RD Recommendation(s) for Physician: -In light of Propofol dosage, recommend changing TF to Vital HP with goal rate of 45 ml/hr (to provide 1080 kcal and 95 gm protein). Give 1 packet Beneprotein with TF BID to meet protein needs. Remaining kcal provided by Propofol. -Water flushes and fluid management per MD. -Bowel regimen per MD. Plan of Care: RD following, monitoring for tolerance and adequacy, tube feed recommendation Nutrition reason for involvement: follow up RD Assessment 05/06: Follow up. Pt remains intubated and sedated on high dose Propofol. TF continues at 35 ml/hr, additional kcal from Propofol meeting estimated kcal needs- not meeting protein needs. BM documented 05/05. Chart reviewed. Current TF rec's remain appropriate. Will continue to monitor. 05/03: Follow up. Pt remains intubated and sedated on high dose Propofol, pt requiring intermittent proning. TF at 35 ml/hr, additional kcal from Propofol currently. Updated TF rec's provided in light of Propofol dosage. No recent BM documented. Chart reviewed. Will continue to monitor. 04/28: Follow up. Pt remains intubated. RN reports pts tube feed rate is at 15 mL/hr at this time and that pt is in the prone position. Current recommendations remain appropriate. Will continue to monitor. (04/23/20) Pt is a 40 year old male admitted with COVID-19, hypoxemia, and viral pneumonia. Pt was intubated and tube feedings were started. Unable to obtain nutrition history at this time and there are no previous weights in chart. Tube feed recommendations provided. Will continue to monitor. Principal Problems/Diagnoses: COVID-19, hypoxemia, and viral pneumonia PMH: Depression, anxiety, ADHD, diabetes, and hyperlipidemia GI: LBM 05/05 Skin: bilateral wounds to toes, no staging Labs: 05/06: na 146, K 3.5, BUN 13, Cr 0.62, Gluc 111, POC gluc 102-140 05/03: Na 142, K 4.4, BUN 17, Cr 0.64, Gluc 121, POC Gluc 115-231 (04/28) Na 143, K 4.2, BUN 19, Cr 0.67, Glu 108, Ca 7.6 (04/22) Na 145, K 4.8, BUN 39, Cr 0.90, Glu 127, Ca 7.9 Meds: insulin, decadron, zinc sulfate, vitamin C, lantus, zofran IVF/Drips: Propofol at 30 ml/hr (provides 792 lipid kcal/day) Ht: 69 inches Wt: 233 lbs BMI: 34.4 kg/m2 IBW: 160 lbs Malnutrition Evaluation (04/23/20) Unable to assess. Will re-evaluate at follow-up as appropriate. Nutrition Prescription (Diet Order): Glucerna 1.2 @ 50 mL/hr (provides 1440 kcal, 72 g protein) infusing at 35 mL/hr (1008 kcal and 50 gm protein) Estimated Nutritional Needs: 0345-6259 calories/day (22-25 kcal/kg IBW) 109-145 g protein/day (1.5-2 g pro/kg IBW) Diet Adequacy: Meeting calorie needs (TF and Propofol kcal), Not meeting protein needs Tolerance: tolerating TF Diet Education Needs Assessment: Diet education not indicated, pt is intubated Nutrition Care Level: moderate Nutrition Diagnosis: Inadequate oral intake related to respiratory failure/mechanical ventilation as evidenced by pt requiring enteral nutrition. Goal: Patient will meet 75-100% of estimated needs by follow up Progress: not progressing Interventions: -Composition, Rate, Route, Recommended Modifications Monitoring/Evaluation: -Total energy intake, Total protein intake, Formula/Solution, Prescription medication, Weight change Signed: Sydnee Peraza RD, [place], [facility]
--- NOTE | 2020-05-06 15:25 | Progress Note ---
DATE: SUBJECTIVE: Mr. Agrawal seems to be worse today. Discussed with the medical team. His oxygenation has worsened, so we had to go up on his ventilator settings. PHYSICAL EXAMINATION: GENERAL: The patient was intubated and sedated. VITAL SIGNS: He is having no fever. HEENT: Normocephalic. NECK: Supple. CHEST: Crackles bilaterally. HEART: S1, S2. ABDOMEN: Soft. IMPRESSION AND PLAN: Respiratory failure, concerned about aspiration pneumonia, concerned about healthcare-associated pneumonia, obesity, diabetes mellitus, status post coronavirus disease-19. We will plan CTA. We will change the antibiotic to meropenem and vancomycin. Continue Lovenox. Continue supportive care. Recheck CBC. Recheck Chem panel. Continue as ordered. We will follow. MD KATIE Morales/SERGIO /[id number]
--- NOTE | 2020-05-06 17:57 | Diagnostic Imaging Report ---
Examination: Single AP view of the chest. COMPARISON: May 06 INDICATION: Line placement DISCUSSION: Lines/tubes: Right PICC line with tip overlying the low SVC. Stable endotracheal and enteric tubes. Lungs: Low lung volumes with bilateral airspace and groundglass consolidations. Pleura: No pleural effusion or pneumothorax. Heart and mediastinum: The heart and the mediastinum are unremarkable. Bones and soft tissues: No acute bony abnormalities. IMPRESSION: 1. Right PICC line with tip overlying the low SVC Signed by: Dr. Christopher Aguilar M.D. on 05/06/2020 5:53 PM
[2020-05-06] MEDS ORDERED: LORAZEPAM INJ 2 MG/ML VIAL IV SCH (18:30)
[2020-05-06] MEDS: MEROPENEM 1GM 100 ML IV SCH (20:00)
[2020-05-06] MEDS: SIMVASTATIN 40 MG TAB PO SCH (21:00)
[2020-05-06] MEDS ORDERED: IOPAMIDOL 370 MG/ML 200 ML INFUS..BTL INJ ONE (22:44)
[2020-05-06] MEDS ORDERED: SODIUM CHLORIDE 0.9% 50ML 50 ML ONE (22:44)
[2020-05-07] VITALS (23 sets, daily range): BP systolic 128–169; BP diastolic 61–101
[2020-05-07] MEDS: ALBUMIN 25% 25GM 100ML 100 ML IV SCH
--- NOTE | 2020-05-07 00:21 | Progress Note ---
DATE: 05/06/2020 Medicine Progress Note SUBJECTIVE: The patient is still intubated and sedated. He is now requiring a little bit more oxygen on mechanical ventilator, starting to develop a fever. GENERAL: Intubated and sedated. CARDIOVASCULAR: Positive S1 and S2. No murmurs, rubs, or gallops. PULMONARY: Intubated and sedated. ABDOMEN: Soft, nondistended, and nontender to palpation. Bowel sounds present. MUSCULOSKELETAL: Unable to assess. NEUROLOGIC: Unable to assess. SKIN: Intact. Warm to touch. Good cap refill. EXTREMITIES: Has some trace edema appreciated. PHYSICAL EXAMINATION: VITAL SIGNS: Temperature is 101.4, pulse 76, respiratory rate 31, blood pressure 105/59, pulse ox 95% on mechanical ventilation, 75% FiO2. LABORATORY DATA: Show white count 16, hemoglobin 11, hematocrit 36, platelets of 499,000. Chemistry; sodium 146, potassium 3.5, chloride 110, bicarb 26, anion gap of 13, BUN is 13, creatinine is 0.62, glucose 111. LFTs, total bilirubin 0.5, AST is 56, ALT 63, alkaline phosphatase 124. MICROBIOLOGY DATA: Blood cultures repeat collected today. CT of the chest is pending for today. Chest x-ray shows no change. IMPRESSION: 1. Acute respiratory failure secondary to alegre virus pneumonia, intubated and sedated. 2. Type 2 diabetes. 3. Viral pneumonia secondary to alegre virus. 4. Positive sputum culture, Acinetobacter. 5. Acute kidney injury, resolved. 6. Electrolyte abnormalities. 7. Fever. PLAN: At this time, etiology of the fever is unknown. Repeat blood cultures were collected. CT chest with contrast has been ordered. He is still requiring significant amount of oxygenation. Continue with steroids, antibiotics and vitamins. He is on Lovenox for DVT prophylaxis. Continue following with ID and Pulmonary Critical Care recommendations. MD JIMMY Walls/JOSÉ LUISL /[id number]
[2020-05-07] MEDS: ACETAMINOPHEN 325 MG TAB PO PRN (01:30)
[2020-05-07] MEDS: DEXMEDETOMIDINE 200MCG/NS 50ML 50 ML IV PRN (02:55)
--- NOTE | 2020-05-07 03:04 | Diagnostic Imaging Report ---
EXAM: CT Chest WITH contrast 05/06/2020 10:15 PM INDICATION: ^evaluate for PE. Respiratory failure. COMPARISON: Multiple chest x-rays. TECHNIQUE: Chest was scanned utilizing a multidetector helical scanner from the lung apex through the level of the adrenal glands with administration of IV contrast. Coronal and sagittal reformations were obtained. Routine protocol was performed. IV CONTRAST: 100 mL of Omnipaque 300 COMPLICATIONS: None RADIATION DOSE: Total DLP: 533.29 mGy*cm Estimated effective dose: (DLP x 0.014 x size factor) mSv CTDIvol has been reviewed. It is below the limits set by the Radiation Protocol Committee (RPC). Dose modulation, iterative reconstruction, and/or weight based adjustment of the mA/kV was utilized to reduce the radiation dose to as low as reasonably achievable. FINDINGS: Streak artifact from arm positioning, suboptimal contrast opacification of the pulmonary arteries, and respiratory motion significantly limits evaluation for pulmonary emboli. No large central pulmonary emboli. LINES/ TUBES: Endotracheal tube is above the eulogio. Enteric tube tip in the stomach. The tip of a right PICC terminates in the distal SVC.. LUNGS AND AIRWAYS: Severe diffuse multifocal bilateral consolidative and groundglass opacities. PLEURA: No pleural effusion. No pneumothorax. HEART AND MEDIASTINUM: The thyroid gland is normal. Multiple mildly enlarged lymph nodes, likely reactive.. The heart is mildly enlarged.. There is no pericardial effusion. UPPER ABDOMEN: Unremarkable. BONES: The visualized bony thorax is within normal limits. SOFT TISSUES: Unremarkable. IMPRESSION: 1. Essentially nondiagnostic evaluation for pulmonary emboli for limitations as described above. There are likely no large central pulmonary emboli. 2. Severe diffuse airspace disease concerning for multifocal pneumonia/viral pneumonia. Signed by: Dandre Baker MD on 05/07/2020 3:01 AM
[2020-05-07] MEDS: PROPOFOL IV EMULSION 10MG/ML 100 ML IV PRN ×2 (03:30→05:35)
[2020-05-07] MEDS: MEROPENEM 1GM 100 ML IV SCH ×3 (04:35→20:00)
[2020-05-07 05:42] LABS: BASOPHILS # (AUTO) 0.1 (0.0-0.1); BASOPHILS % 0.4 % (0.0-1.0); EOSINOPHILS # (AUTO) 0.2 (0.0-0.4); EOSINOPHILS % 1.7 % (0.0-6.0); HEMATOCRIT 30.6 % (38.2-49.6); LYMPHOCYTES # (AUTO) 1.3 (1.0-3.2); LYMPHOCYTES % 9.2 % (18.0-39.1); MEAN CORPUSCULAR HEMOGLOBIN 28.6 pg (28-32); MEAN CORPUSCULAR HGB CONC 32.7 g/dL (31-35); MEAN CORPUSCULAR VOLUME 87.4 fL (81-99); MONOCYTES # (AUTO) 0.9 (0.2-0.8); MONOCYTES % 6.6 % (4.4-11.3); NEUTROPHILS # (AUTO) 11.3 (2.1-6.9); NEUTROPHILS % 81.1 % (38.7-80.0); PLATELET COUNT 419 x10e3/uL (140-360); RED CELL DISTRIBUTION WIDTH 14.1 % (11.7-14.4)
[2020-05-07] MEDS: INSULIN REGULAR, HUMAN 100 UNIT/1 ML 3ML VIAL SQ SCH ×4 (06:00→22:53)
[2020-05-07 06:10] LABS: ALANINE AMINOTRANSFERASE 42 IU/L (0-55); ALBUMIN/GLOBULIN RATIO 0.7 (0.8-2.0); ALKALINE PHOSPHATASE 100 IU/L (40-150); ANION GAP 12.6 mmol/L (8-16); BLOOD UREA NITROGEN 12 mg/dL (7-26); BUN/CREATININE RATIO 18 (6-25); CALCIUM 8.2 mg/dL (8.4-10.2); CARBON DIOXIDE 25 mmol/L (22-29); CHLORIDE 106 mmol/L (98-107); CREATININE, SERUM 0.65 mg/dL (0.72-1.25); EST GLOMERULAR FILTRATION RATE > 60 ML/MIN (60-); GLUCOSE 99 mg/dL (74-118); POTASSIUM 3.6 mmol/L (3.5-5.1); SODIUM 140 mmol/L (136-145)
[2020-05-07] MEDS: ZINC SULFATE 220 MG CAP PO SCH (08:05)
[2020-05-07] MEDS: ACETAMINOPHEN 325 MG SUPP PR PRN (08:05)
[2020-05-07] MEDS: ENOXAPARIN SOD INJ 40 MG/0.4 ML SYR SC SCH ×2 (08:05→21:03)
[2020-05-07] MEDS: ASCORBIC ACID 500 MG TAB PO SCH ×2 (08:05→17:38)
--- NOTE | 2020-05-07 08:50 | Diagnostic Imaging Report ---
EXAMINATION: CHEST SINGLE (PORTABLE) INDICATION: Viral pneumonia COMPARISON: Chest radiograph most recently 05/06/2020 FINDINGS: LINES/TUBES:The NG tube has been retracted, now terminating in the body of the stomach. Remaining support lines and tubes unchanged. EKG leads overlie the chest. LUNGS:Lung volumes remain low. Unchanged bilateral multifocal airspace opacities. PLEURA:No pleural effusion or pneumothorax. MEDIASTINUM:The cardiomediastinal silhouette appears unchanged in size and shape. BONES/SOFT TISSUES:No acute osseous injury. ABDOMEN:No free air under the diaphragm. IMPRESSION: NG tube has been pulled back, now terminating in the body of the stomach. Otherwise, no significant interval change. Signed by: Gilberto Soto MD on 05/07/2020 8:47 AM
[2020-05-07] MEDS ORDERED: MIDAZOLAM HCL 2 MG/2 ML VIAL IV STA (08:56)
--- NOTE | 2020-05-07 09:43 | Progress Note ---
DATE: SUBJECTIVE: The patient still has fevers of 101.7. He remains on a PRVC mode of ventilation with a tidal volume of 400 and a sedimentation rate of 26. His FiO2 is 70% and his PEEP is 10. The patient is on propofol as well as Precedex. PHYSICAL EXAMINATION: VITAL SIGNS: Blood pressure is 138/84 and the pulse is 99. The temperature is 101.7. Saturation is 97% on the above settings. His respiratory rate is in the mid 30s and he is breathing over the vent. HEENT: No facial swelling or erythema. The patient has an oral endotracheal tube in place. There is a PICC line in place. He has an arterial line. CARDIAC: Reveals regular rate and rhythm with normal S1 and S2. LUNGS: Auscultation of lungs reveals crackles at the bases. There is no wheezing. ABDOMEN: Soft and nontender. There is no rebound or guarding. EXTREMITIES: Shows no leg edema or calf tenderness. There is no cyanosis or clubbing. SKIN: Shows no rashes. NEUROLOGIC: Shows no focal abnormalities. LABORATORY DATA: BUN to creatinine ratio is normal. Other electrolytes are within normal limits. Albumin is 3. White blood cell count is 13.9 and hemoglobin is 10. The platelet count is 419. IMPRESSION: 1. Acute respiratory failure. 2. Viral pneumonia and COVID-19 infection. 3. Superimposed bacterial pneumonia. 4. Diabetes. 5. Hypertension. PLAN: 1. Complete current antibiotics for secondary pneumonia. 2. Hold propofol for now and restart Versed drip. 3. Continue to wean ventilator as tolerated. 4. Remove femoral line. The PICC line is in place. 5. Continue to monitor and control blood sugars. 6. Continue enteral feedings. 7. Continue Lovenox. 8. Case discussed with Respiratory, nursing, Infectious Disease, Internal Medicine, and administration. Greater than 35 minutes in direct critical care time. MD JOSE Feliz/SERGIO /[id number]
[2020-05-07 10:47] LABS: ABG PCO2 39 mmHg (35-45); ABG PH 7.46 (7.35-7.45); ABG PO2 96 mmHg (80-105)
[2020-05-07 10:48] LABS: ABG HCO3 28 mmol/L (22-26); ABG TCO2 29
[2020-05-07] MEDS: VANCOMYCIN 1GM/NS 250 ML 250 ML IV SCH ×2 (13:33)
[2020-05-07 13:43] LABS: ABG HCO3 26 mmol/L (22-26); ABG PCO2 40 mmHg (35-45); ABG PH 7.43 (7.35-7.45); ABG PO2 145 mmHg (80-105); ABG TCO2 27
[2020-05-07] MEDS: PROPOFOL IV EMULSION 10MG/ML 100 ML IV SCH ×3 (15:00→23:09)
--- NOTE | 2020-05-07 15:09 | Diagnostic Imaging Report ---
Exam: KUB - 2 views Indication: NG tube placement Comparison: None Findings/Impression: NG tube projects below the diaphragm with tip and side-port overlying the stomach bubble. Signed by: Gilberto Soto MD on 05/07/2020 3:06 PM
--- NOTE | 2020-05-07 18:16 | Progress Note ---
DATE: SUBJECTIVE: Mr. Agrawal remains in intensive care unit, slightly better today. He had fever. OBJECTIVE: HEENT: Not icteric. NECK: Supple. CHEST: Rhonchi. HEART: S1 and S2. ABDOMEN: Soft. EXTREMITIES: No edema. SKIN: No rash. IMPRESSION: Pneumonia aspiration, status post COVID-19. Await cultures as ordered. White count seems to be trending down. Continue with meropenem and vancomycin. Continue supportive care. MD KATIE Morales/SERGIO /[id number]
[2020-05-07 19:07] LABS: ABG HCO3 25 mmol/L (22-26); ABG PCO2 39 mmHg (35-45); ABG PH 7.41 (7.35-7.45); ABG PO2 102 mmHg (80-105); ABG TCO2 26
[2020-05-07] MEDS: SIMVASTATIN 40 MG TAB PO SCH (21:00)
[2020-05-07] MEDS: MIDAZOLAM HCL 5MG/ML 10ML VIAL 100 ML IV PRN (22:45)
[2020-05-07] MEDS: INSULIN GLARGINE 100 UNITS/ML VIAL SQ SCH ×2 (22:52→23:00)
[2020-05-08] VITALS (25 sets, daily range): BP systolic 134–176; BP diastolic 72–101
[2020-05-08] MEDS: VANCOMYCIN 1GM/NS 250 ML 250 ML IV SCH ×2 (00:25→12:56)
--- NOTE | 2020-05-08 01:01 | Progress Note ---
DATE: 05/07/2020 Medicine Progress Note SUBJECTIVE: The patient is still intubated. Still requiring significant amount of oxygen, FiO2 60%. Still has a fever. PHYSICAL EXAMINATION: VITAL SIGNS: Temperature during my evaluation was 101.5, pulse 84, respiratory rate is 23, blood pressure 133/70, pulse ox 99% on mechanical ventilation, FiO2 70%. GENERAL: Intubated and sedated. PULMONARY: Intubated and sedated. CARDIOVASCULAR: Positive S1 and S2. No murmurs, rubs, or gallops appreciated. ABDOMEN: Soft, nondistended, and nontender to palpation. Bowel sounds present. MUSCULOSKELETAL: He is intubated and sedated. NEUROLOGIC: Intubated and sedated. SKIN: Intact. Warm to touch. Good cap refill. EXTREMITIES: He does have trace edema appreciated. LABORATORY DATA: CBC; white count 13, hemoglobin 10, hematocrit is 31, platelets of 419. Chemistry stable. Blood cultures repeat, no growth to-date. DIAGNOSTIC STUDIES: Abdominal x-ray just shows the NG tube in the right position. IMPRESSION: 1. Acute respiratory failure secondary to coronavirus pneumonia, intubated and sedated on a mechanical ventilator. 2. Type 2 diabetes. 3. Viral pneumonia secondary to coronavirus. 4. Positive sputum culture, Acinetobacter. 5. Acute kidney injury-resolved. 6. Electrolyte abnormalities. 7. Fever. PLAN: At this time, the fever etiology is unknown. Repeat blood cultures, no growth-today. The patient is currently not on any antibiotics to see if this is a drug fever. At this time, we will continue to follow very closely. Get a.m. labs. Lovenox for DVT prophylaxis. He is on vitamins at this time. He has completed antibiotics and steroids. Pulmonary/Critical Care, and ID following. MD JIMMY Walls/JOSÉ LUISL /[id number]
[2020-05-08] MEDS ORDERED: SODIUM CHLORIDE 0.9% 250ML 250 ML ONE (01:54)
[2020-05-08] MEDS: PROPOFOL IV EMULSION 10MG/ML 100 ML IV SCH ×4 (02:06→21:17)
[2020-05-08] MEDS: MIDAZOLAM HCL 5MG/ML 10ML VIAL 100 ML IV PRN ×4 (03:41→19:35)
[2020-05-08] MEDS: MEROPENEM 1GM 100 ML IV SCH ×3 (04:08→20:42)
[2020-05-08 05:52] LABS: BASOPHILS # (AUTO) 0.1 (0.0-0.1); BASOPHILS % 0.5 % (0.0-1.0); EOSINOPHILS # (AUTO) 0.3 (0.0-0.4); EOSINOPHILS % 2.8 % (0.0-6.0); HEMATOCRIT 30.5 % (38.2-49.6); HEMOGLOBIN 9.7 g/dL (14.0-18.0); LYMPHOCYTES # (AUTO) 1.3 (1.0-3.2); LYMPHOCYTES % 12.7 % (18.0-39.1); MEAN CORPUSCULAR HEMOGLOBIN 28.4 pg (28-32); MEAN CORPUSCULAR HGB CONC 31.8 g/dL (31-35); MEAN CORPUSCULAR VOLUME 89.2 fL (81-99); MONOCYTES # (AUTO) 0.6 (0.2-0.8); MONOCYTES % 5.9 % (4.4-11.3); NEUTROPHILS % 76.8 % (38.7-80.0); PLATELET COUNT 354 x10e3/uL (140-360); RED BLOOD COUNT 3.42 x10e6/uL (4.3-5.7); RED CELL DISTRIBUTION WIDTH 13.8 % (11.7-14.4)
[2020-05-08] MEDS: INSULIN REGULAR, HUMAN 100 UNIT/1 ML 3ML VIAL SQ SCH ×4 (06:00→23:00)
[2020-05-08 06:08] LABS: ALANINE AMINOTRANSFERASE 37 IU/L (0-55); ALBUMIN 2.6 g/dL (3.5-5.0); ALBUMIN/GLOBULIN RATIO 0.6 (0.8-2.0); ALKALINE PHOSPHATASE 107 IU/L (40-150); ANION GAP 12.7 mmol/L (8-16); BLOOD UREA NITROGEN 11 mg/dL (7-26); BUN/CREATININE RATIO 19 (6-25); CALCIUM 7.9 mg/dL (8.4-10.2); CARBON DIOXIDE 25 mmol/L (22-29); CHLORIDE 107 mmol/L (98-107); CREATININE, SERUM 0.59 mg/dL (0.72-1.25); EST GLOMERULAR FILTRATION RATE > 60 ML/MIN (60-); GLUCOSE 112 mg/dL (74-118); POTASSIUM 3.7 mmol/L (3.5-5.1); SODIUM 141 mmol/L (136-145)
[2020-05-08 08:15] LABS: EOSINOPHILS % (MANUAL) 2 % (0-7); LYMPHOCYTES % (MANUAL) 10 % (19-48); METAMYELOCYTES % (MANUAL) 2 % (0-0); MONOCYTES % (MANUAL) 5 % (3.4-9.0); NEUTROPHILS % (MANUAL) 81 % (40-74); RBC MORPHOLOGY COMMENT NORMAL
[2020-05-08 08:16] LABS: PLATELET ESTIMATE ADEQUATE; PLATELET MORPHOLOGY COMMENT NORMAL
[2020-05-08] MEDS: ZINC SULFATE 220 MG CAP PO SCH (08:37)
[2020-05-08] MEDS: ENOXAPARIN SOD INJ 40 MG/0.4 ML SYR SC SCH ×2 (08:37→20:42)
[2020-05-08] MEDS: ASCORBIC ACID 500 MG TAB PO SCH ×2 (08:37→17:34)
--- NOTE | 2020-05-08 08:43 | Progress Note ---
DATE: Pulmonary Critical Care Consultation SUBJECTIVE: The patient remains on PRVC mode of ventilation. He is on a rate of 26 with a PEEP of 8 and FiO2 of 55%. His tidal volume is set at 400. The patient is currently on Versed at 10 mg an hour and propofol at 35. He is still tachypneic and breathing 28 to 30. He is arousable when the sedation is stopped. PHYSICAL EXAMINATION: VITAL SIGNS: Blood pressure is 148/87, pulse is 103, T-max is 99.7, saturation is 94%. HEENT: Shows no facial swelling or erythema. There is an oral endotracheal tube in place. The patient has a PICC line. He also has a radial arterial line. CARDIAC: Reveals regular rate and rhythm. Normal S1 and S2. LUNGS: Auscultation of lungs reveals crackles at the bases. There is no wheezing. ABDOMEN: Soft, nontender. There is no rebound or guarding. EXTREMITIES: Show no leg edema or calf tenderness. There is no cyanosis or clubbing. SKIN: Shows no rashes. LABORATORY DATA: White blood cell count is 10.4, hemoglobin is 9.7, and platelet count is 354. The BUN to creatinine ratio is normal. Other electrolytes are within normal limits and the albumin is 2.6. Blood gases; 7.35, 48, 87, and 27. IMPRESSION: 1. Acute respiratory failure. 2. Viral pneumonia and coronavirus disease 2019 infection. 3. Superimposed bacterial pneumonia. 4. Diabetes. 5. Hypertension. PLAN: 1. Continue PRVC mode of ventilation and monitor ABGs. 2. Decrease Versed as tolerated and continue propofol. 3. Complete antibiotics. 4. Continue to monitor and control blood sugars. 5. Continue enteral feedings. 6. Lovenox. Greater than 35 minutes in direct critical care time. Tomi Vizcarra MD [facility]/MOD[facility] /[id number]
[2020-05-08 10:14] LABS: ABG PCO2 50 mmHg (35-45); ABG PH 7.35 (7.35-7.45); ABG PO2 90 mmHg (80-105)
[2020-05-08 10:15] LABS: ABG HCO3 27 mmol/L (22-26); ABG TCO2 28
--- NOTE | 2020-05-08 11:15 | Diagnostic Imaging Report ---
EXAMINATION: CHEST SINGLE (PORTABLE) INDICATION: Respiratory failure. COMPARISON: Chest radiograph most recently 05/07/2020 FINDINGS: LINES/TUBES:The NG tube is unchanged in position. Endotracheal tube and right PICC are unchanged in position. EKG leads overlie the chest. LUNGS:Lung volumes remain low. Unchanged bilateral multifocal airspace opacities. PLEURA:No pleural effusion or pneumothorax. MEDIASTINUM:The cardiomediastinal silhouette appears unchanged in size and shape. BONES/SOFT TISSUES:No acute osseous injury. ABDOMEN:No free air under the diaphragm. IMPRESSION: No significant interval change. Bilateral patchy airspace disease, left greater than right. Signed by: Dr. King Austin M.D. on 05/08/2020 11:12 AM
[2020-05-08] MEDS: FAMOTIDINE 20 MG/2 ML VIAL IV SCH ×2 (11:25→17:34)
--- NOTE | 2020-05-08 16:35 | NUR ---
Infectious disease but his note Patient seen and examined chart reviewed discussed with medical team Seemed to slowly getting better toward weaning mood Hopefully No new problems Did review chart reviewed The patient remains on PRVC mode of ventilation. He is on a rate of 26 with a PEEP of 8 and FiO2 of 55%. His tidal volume is set at 400. The patient is currently on Versed at 10 mg an hour and propofol at 35. He is still tachypneic and breathing 28 to 30. He is arousable when the sedation is stopped. PHYSICAL EXAMINATION: VITAL SIGNS: Blood pressure is 148/87, pulse is 103, T-max is 99.7, saturation is 94%. HEENT: Shows no facial swelling or erythema. There is an oral endotracheal tube in place. The patient has a PICC line. He also has a radial arterial line. CARDIAC: Reveals regular rate and rhythm. Normal S1 and S2. LUNGS: Auscultation of lungs reveals crackles at the bases. There is no wheezing. ABDOMEN: Soft, nontender. There is no rebound or guarding. EXTREMITIES: Show no leg edema or calf tenderness. There is no cyanosis or clubbing. SKIN: Shows no rashes. LABORATORY DATA: White blood cell count is 10.4, hemoglobin is 9.7, and platelet count is 354. The BUN to creatinine ratio is normal. Other electrolytes are within normal limits and the albumin is 2.6. Blood gases; 7.35, 48, 87, and 27. Covid 19 present admission status post treatment pre-versus postoperative pneumonia seems to be stable.Failure continue to wean as tolerated. Aspiration pneumonia currently continue meropenem and vancomycin for 7 days.
[2020-05-08 20:28] LABS: ABG HCO3 28 mmol/L (22-26); ABG PCO2 43 mmHg (35-45); ABG PH 7.42 (7.35-7.45); ABG PO2 89 mmHg (80-105); ABG TCO2 30
[2020-05-08] MEDS: SIMVASTATIN 40 MG TAB PO SCH (20:42)
--- NOTE | 2020-05-08 23:36 | Progress Note ---
DATE: 05/08/2020 Medicine Progress Note SUBJECTIVE: The patient is currently still intubated and sedated. PHYSICAL EXAMINATION: VITAL SIGNS: Temperature was 99.2, pulse 104, respiratory rate 28, blood pressure 144/72, pulse ox 97% on mechanical ventilator. GENERAL: Intubated and sedated. PULMONARY: Intubated and sedated. CARDIOVASCULAR: Positive S1 and S2. No murmurs, rubs, or gallops appreciated. ABDOMEN: Soft, nondistended, and nontender to palpation. Bowel sounds present. MUSCULOSKELETAL: Unable to assess. He is sedated. NEUROLOGIC: Unable to assess. He is sedated. SKIN: Intact. Warm to touch. Good cap refill. EXTREMITIES: No edema. Good range of motion throughout. LABORATORY DATA: White count 10, hemoglobin 9.7, hematocrit is 31, platelets of 354. Chemistry reviewed, stable. MICROBIOLOGY: Sputum cultures pending. Blood cultures, no growth to-date. IMAGING STUDIES: Chest x-ray this morning shows no significant interval change. Bilateral patchy airspace disease, left greater than right. IMPRESSION: 1. Acute respiratory failure secondary to coronavirus pneumonia, intubated and sedated on mechanical ventilator. 2. Type 2 diabetes. 3. Viral pneumonia secondary to coronavirus. 4. Positive sputum culture, Acinetobacter. 5. Acute kidney injury-resolved. 6. Electrolyte abnormalities. 7. Fever. PLAN: At this time, the patient continues to have episodic fever, could be a drug reaction it is leading to this fever. So far, cultures have been no growth. Repeat blood cultures were no growth to-date. Antibiotic management and other treatments per ID. Pulmonary/Critical Care is following. Lovenox for DVT prophylaxis. CONSULTANTS: Pulmonary/Critical Care and ID. MD JIMMY Walls/MODL /[id number]
[2020-05-09] VITALS (26 sets, daily range): BP systolic 107–175; BP diastolic 56–102
[2020-05-09] MEDS: VANCOMYCIN 1GM/NS 250 ML 250 ML IV SCH ×2 (00:20→11:17)
[2020-05-09] MEDS: MIDAZOLAM HCL 5MG/ML 10ML VIAL 100 ML IV PRN ×2 (00:39→06:09)
[2020-05-09] MEDS: PROPOFOL IV EMULSION 10MG/ML 100 ML IV SCH ×5 (04:34→23:14)
[2020-05-09] MEDS: MEROPENEM 1GM 100 ML IV SCH ×3 (04:47→20:00)
[2020-05-09 05:32] LABS: BASOPHILS # (AUTO) 0.1 (0.0-0.1); BASOPHILS % 0.5 % (0.0-1.0); EOSINOPHILS # (AUTO) 0.4 (0.0-0.4); EOSINOPHILS % 4.3 % (0.0-6.0); HEMATOCRIT 33.3 % (38.2-49.6); HEMOGLOBIN 10.2 g/dL (14.0-18.0); LYMPHOCYTES # (AUTO) 1.3 (1.0-3.2); LYMPHOCYTES % 13.2 % (18.0-39.1); MEAN CORPUSCULAR HEMOGLOBIN 26.4 pg (28-32); MEAN CORPUSCULAR HGB CONC 30.6 g/dL (31-35); MEAN CORPUSCULAR VOLUME 86.3 fL (81-99); MONOCYTES # (AUTO) 0.6 (0.2-0.8); MONOCYTES % 5.8 % (4.4-11.3); NEUTROPHILS # (AUTO) 7.4 (2.1-6.9); NEUTROPHILS % 75.2 % (38.7-80.0); PLATELET COUNT 369 x10e3/uL (140-360); RED BLOOD COUNT 3.86 x10e6/uL (4.3-5.7); RED CELL DISTRIBUTION WIDTH 13.6 % (11.7-14.4)
[2020-05-09 06:06] LABS: ALANINE AMINOTRANSFERASE 33 IU/L (0-55); ALBUMIN 2.5 g/dL (3.5-5.0); ALBUMIN/GLOBULIN RATIO 0.6 (0.8-2.0); ALKALINE PHOSPHATASE 99 IU/L (40-150); ANION GAP 12.8 mmol/L (8-16); BLOOD UREA NITROGEN 9 mg/dL (7-26); BUN/CREATININE RATIO 15 (6-25); CALCIUM 8.4 mg/dL (8.4-10.2); CARBON DIOXIDE 28 mmol/L (22-29); CHLORIDE 107 mmol/L (98-107); CREATININE, SERUM 0.61 mg/dL (0.72-1.25); EST GLOMERULAR FILTRATION RATE > 60 ML/MIN (60-); GLUCOSE 133 mg/dL (74-118); POTASSIUM 3.8 mmol/L (3.5-5.1); SODIUM 144 mmol/L (136-145)
[2020-05-09] MEDS: INSULIN REGULAR, HUMAN 100 UNIT/1 ML 3ML VIAL SQ SCH ×4 (06:36→23:12)
[2020-05-09 07:56] LABS: ABG HCO3 30 mmol/L (22-26); ABG PCO2 44 mmHg (35-45); ABG PH 7.43 (7.35-7.45); ABG PO2 98 mmHg (80-105); ABG TCO2 31
[2020-05-09] MEDS: ZINC SULFATE 220 MG CAP PO SCH (08:06)
[2020-05-09] MEDS: ENOXAPARIN SOD INJ 40 MG/0.4 ML SYR SC SCH ×2 (08:06→20:45)
[2020-05-09] MEDS: FAMOTIDINE 20 MG/2 ML VIAL IV SCH ×2 (08:06→17:44)
[2020-05-09] MEDS: ASCORBIC ACID 500 MG TAB PO SCH ×2 (08:06→17:44)
--- NOTE | 2020-05-09 08:11 | Diagnostic Imaging Report ---
EXAMINATION: CHEST SINGLE (PORTABLE) COMPARISON: Chest x-ray 05/08/2020 INDICATION: ^resp failure ^[id number] ^[id number] DISCUSSION: HEART AND MEDIASTINUM: Stable cardiomegaly LINES: Endotracheal tube terminates at the clavicular heads. Enteric tube is looped in the proximal stomach. Right PICC line terminates in the SVC LUNGS/PLEURA: Low lung volumes. Bilateral confluent infiltrates are similar. No new pulmonary findings. Left diaphragm remains obscured. No large effusions or pneumothorax. BONES AND SOFT TISSUES: Several medical devices overlie the left shoulder. The soft tissues are normal. IMPRESSION: Support devices as described above. No change in multifocal pulmonary infiltrates. Signed by: Dr. Ramses Sharma MD on 05/09/2020 8:07 AM
[2020-05-09] MEDS ORDERED: ACETAZOLAMIDE SODIUM 500 MG/VIAL IV ONE (10:15)
--- NOTE | 2020-05-09 10:57 | Progress Note ---
DATE: SUBJECTIVE: The patient was placed on a spontaneous breathing trial this morning. He was on a pressure support of 8 with a CPAP of 5. His breathing remains in the 30 to 32 with tidal volumes of 400 to 450. His rapid shallow breathing index was 73. He is still sedated from sedation overnight. He has some increased secretions. He was placed back on an SIMV of 10 temporarily in order to be re-evaluated later. PHYSICAL EXAMINATION: VITAL SIGNS: The blood pressure is 175/86, saturation is 96%. The pulse is 107. HEENT: Shows no facial swelling or erythema. The oropharynx is normal. LYMPHATIC: Shows no submandibular, cervical or supraclavicular adenopathy. The patient has an oral endotracheal tube. There is a PICC line in place. CARDIAC: Reveals regular rate and rhythm with normal S1 and S2. LUNGS: Auscultation of lungs reveals rhonchorous breath sounds bilaterally. There is no wheezing. ABDOMEN: Soft and nontender. There is no rebound or guarding. EXTREMITIES: Shows no leg edema or calf tenderness. There is no cyanosis or clubbing. SKIN: Shows no rashes. NEUROLOGICAL: Shows the patient to be sedated. LABORATORY DATA: White blood cell count is 9.9 and hemoglobin is 10.2. The platelet count is 369. The BUN to creatinine ratio is 9 to 0.6, and the other electrolytes are within normal limits. Albumin is 2.5. IMPRESSION: 1. Acute respiratory failure. 2. Viral pneumonia and COVID-19 infection. 3. Superimposed bacterial pneumonia. 4. Diabetes. 5. Hypertension. PLAN: 1. Continue PRVC mode of ventilation and monitor ABGs. The patient is now on a SIMV with pressure regulation at a rate of 10 with a pressure support of 10. 2. Continue to hold sedation. 3. Work towards extubation. 4. Hold tube feedings and place NG to suction. 5. Complete antibiotics. 6. Diamox a day. 7. Continue Lovenox. Greater than 35 minutes in direct critical care time. Tomi Vizcarra MD [facility]/SERGIO /[id number]
[2020-05-09] MEDS ORDERED: DEXMEDETOMIDINE HCL 200 MCG in SODIUM CHLORIDE 0.9% 50ML 48 ML IV PRN (11:30)
[2020-05-09 12:21] LABS: EOSINOPHILS % (MANUAL) 1 % (0-7); LYMPHOCYTES % (MANUAL) 11 % (19-48); MONOCYTES % (MANUAL) 5 % (3.4-9.0); NEUTROPHILS % (MANUAL) 83 % (40-74)
[2020-05-09 12:22] LABS: PLATELET ESTIMATE SLIGHTLY INCREASED; PLATELET MORPHOLOGY COMMENT FEW LARGE; RBC MORPHOLOGY COMMENT NORMAL
[2020-05-09 12:35] LABS: ABG HCO3 29 mmol/L (22-26); ABG PCO2 37 mmHg (35-45); ABG PH 7.51 (7.35-7.45); ABG PO2 83 mmHg (80-105); ABG TCO2 30
[2020-05-09] MEDS: DEXMEDETOMIDINE 200MCG/NS 50ML 50 ML IV PRN ×3 (13:18→23:15)
--- NOTE | 2020-05-09 15:53 | Progress Note ---
DATE: 05/09/2020 Medicine Progress Note SUBJECTIVE: The patient is still intubated and sedated. He did have a spontaneous breathing trial today, but he got very anxious during the trial and he had to be re-sedated. PHYSICAL EXAMINATION: VITAL SIGNS: Temperature is 99.7, pulse 107, respiratory rate is 31, and blood pressure was 175/86. He is 96% on pulse ox, on mechanical ventilator, FiO2 50. GENERAL: He is intubated and sedated. PULMONARY: Intubated and sedated. CARDIOVASCULAR: Positive S1 and S2. No murmurs, rubs, or gallops appreciated. ABDOMEN: Soft, nondistended, and nontender to palpation. Bowel sounds present. MUSCULOSKELETAL: He is intubated and sedated. NEUROLOGIC: Intubated and sedated. SKIN: Intact. Warm to touch. Good cap refill. EXTREMITIES: No edema. Good range of motion throughout. LABORATORY DATA: Show white count 9.8, hemoglobin 10.2, hematocrit is 33, and platelets of 369. Chemistry; sodium 144, potassium 3.8, chloride 107, bicarb 20, anion gap of 12, BUN is 9, creatinine is 0.61, and glucose is 133. MICROBIOLOGY: Sputum culture shows gram-negative rods, but initially during admission he did have Acinetobacter. IMAGING STUDIES: Chest x-ray shows still no change in the multifocal pulmonary infiltrates. IMPRESSION: 1. Acute respiratory failure secondary to coronavirus pneumonia, intubated and sedated on mechanical ventilator. 2. Type 2 diabetes. 3. Viral pneumonia secondary to coronavirus. 4. Positive sputum culture, Acinetobacter. 5. Acute kidney injury-resolved. 6. Electrolyte abnormalities. 7. Fever. PLAN: At this time, he continues to have episodic fever. He did have a spontaneous breathing trial today, which he did not do very well. He had to go back on sedation. Repeat blood culture shows no growth. Sputum culture still shows gram-negative rods in which he is on antibiotics, being managed by ID. Pulmonary Critical Care is also following. Lovenox for DVT prophylaxis. CONSULTANTS: Pulmonary Critical Care and ID. MD JIMMY Walls/SERGIO /[id number]
[2020-05-09] MEDS: SIMVASTATIN 40 MG TAB PO SCH (20:44)
--- NOTE | 2020-05-09 21:56 | NUR ---
progress note infectious disease progress note Patient seen and examined chart reviewed Discussed with medical team Level data reviewed e patient is still intubated and sedated. He did have a spontaneous breathing trial today, but he got very anxious during the trial and he had to be re-sedated. PHYSICAL EXAMINATION: VITAL SIGNS: Temperature is 99.7, pulse 107, respiratory rate is 31, and blood pressure was 175/86. He is 96% on pulse ox, on mechanical ventilator, FiO2 50. GENERAL: He is intubated and sedated. PULMONARY: Intubated and sedated. CARDIOVASCULAR: Positive S1 and S2. No murmurs, rubs, or gallops appreciated. ABDOMEN: Soft, nondistended, and nontender to palpation. Bowel sounds present. MUSCULOSKELETAL: He is intubated and sedated. NEUROLOGIC: Intubated and sedated. SKIN: Intact. Warm to touch. Good cap refill. EXTREMITIES: No edema. Good range of motion throughout. LABORATORY DATA: Show white count 9.8, hemoglobin 10.2, hematocrit is 33, and platelets of 369. Chemistry; sodium 144, potassium 3.8, chloride 107, bicarb 20, anion gap of 12, BUN is 9, creatinine is 0.61, and glucose is 133. MICROBIOLOGY: Sputum culture shows gram-negative rods, but initially during admission he did have Acinetobacter. IMAGING STUDIES: Chest x-ray shows still no change in the multifocal pulmonary infiltrates. IMPRESSION: 1. Acute respiratory failure secondary to coronavirus pneumonia, intubated and sedated on mechanical ventilator. 2. Type 2 diabetes. 3. Viral pneumonia secondary to coronavirus. 4. Positive sputum culture, Acinetobacter. 5. Acute kidney injury-resolved. 6. Electrolyte abnormalities. 7. Patient had aspiration pneumonia But currently seems to be doing better Continue with antibiotics as ordered Continue to wean as ordered
[2020-05-09] MEDS: INSULIN GLARGINE 100 UNITS/ML VIAL SQ SCH (23:00)
[2020-05-10] VITALS (23 sets, daily range): BP systolic 96–163; BP diastolic 52–93
[2020-05-10] MEDS: VANCOMYCIN 1GM/NS 250 ML 250 ML IV SCH ×2 (00:07→14:56)
[2020-05-10] MEDS: PROPOFOL IV EMULSION 10MG/ML 100 ML IV SCH ×2 (02:41→06:15)
[2020-05-10] MEDS: DEXMEDETOMIDINE 200MCG/NS 50ML 50 ML IV PRN ×6 (02:41→21:19)
[2020-05-10] MEDS: MEROPENEM 1GM 100 ML IV SCH ×3 (04:04→20:00)
[2020-05-10 05:46] LABS: BASOPHILS # (AUTO) 0.1 (0.0-0.1); BASOPHILS % 0.6 % (0.0-1.0); EOSINOPHILS # (AUTO) 0.5 (0.0-0.4); HEMATOCRIT 31.7 % (38.2-49.6); HEMOGLOBIN 10.1 g/dL (14.0-18.0); LYMPHOCYTES # (AUTO) 1.6 (1.0-3.2); LYMPHOCYTES % 16.7 % (18.0-39.1); MEAN CORPUSCULAR HEMOGLOBIN 27.7 pg (28-32); MEAN CORPUSCULAR HGB CONC 31.9 g/dL (31-35); MEAN CORPUSCULAR VOLUME 87.1 fL (81-99); MONOCYTES # (AUTO) 0.6 (0.2-0.8); NEUTROPHILS # (AUTO) 6.9 (2.1-6.9); NEUTROPHILS % 70.6 % (38.7-80.0); PLATELET COUNT 329 x10e3/uL (140-360); RED BLOOD COUNT 3.64 x10e6/uL (4.3-5.7); RED CELL DISTRIBUTION WIDTH 13.6 % (11.7-14.4)
[2020-05-10] MEDS: INSULIN REGULAR, HUMAN 100 UNIT/1 ML 3ML VIAL SQ SCH ×2 (06:00→12:00)
[2020-05-10 06:13] LABS: ALANINE AMINOTRANSFERASE 30 IU/L (0-55); ALBUMIN 2.4 g/dL (3.5-5.0); ALBUMIN/GLOBULIN RATIO 0.6 (0.8-2.0); ALKALINE PHOSPHATASE 89 IU/L (40-150); ANION GAP 10.7 mmol/L (8-16); BLOOD UREA NITROGEN 14 mg/dL (7-26); BUN/CREATININE RATIO 23 (6-25); CALCIUM 8.4 mg/dL (8.4-10.2); CARBON DIOXIDE 23 mmol/L (22-29); CHLORIDE 111 mmol/L (98-107); CREATININE, SERUM 0.61 mg/dL (0.72-1.25); EST GLOMERULAR FILTRATION RATE > 60 ML/MIN (60-); GLUCOSE 96 mg/dL (74-118); POTASSIUM 3.7 mmol/L (3.5-5.1); SODIUM 141 mmol/L (136-145)
--- NOTE | 2020-05-10 08:49 | Diagnostic Imaging Report ---
EXAMINATION: CHEST SINGLE (PORTABLE) COMPARISON: Chest x-ray 05/09/2020 INDICATION: resp failure DISCUSSION: LINES: Endotracheal tube terminates 5.6 cm above the eulogio. Enteric tube is looped in the proximal stomach. Right arm PICC terminates in the SVC HEART AND MEDIASTINUM: Stable cardiomegaly LUNGS/PLEURA: Low lung volumes. Bilateral multifocal lower lung predominant consolidations are unchanged. Possible trace bilateral pleural effusions. No pneumothorax. BONES AND SOFT TISSUES: No acute osseous abnormality. IMPRESSION: Similar findings of multifocal pneumonia. Lines and tubes as above. No pneumothorax. Signed by: Dr. Patience Pettit MD on 05/10/2020 8:46 AM
[2020-05-10] MEDS: ENOXAPARIN SOD INJ 40 MG/0.4 ML SYR SC SCH ×2 (09:00→21:00)
[2020-05-10] MEDS: FAMOTIDINE 20 MG/2 ML VIAL IV SCH ×2 (09:00→17:00)
[2020-05-10] MEDS: ZINC SULFATE 220 MG CAP PO SCH (09:00)
[2020-05-10] MEDS: ASCORBIC ACID 500 MG TAB PO SCH ×2 (09:00→17:00)
--- NOTE | 2020-05-10 09:02 | Progress Note ---
DATE: Pulmonary Critical Care Progress Note SUBJECTIVE: The patient is currently off sedation. He is on a spontaneous breathing trial with a pressure support of 8 and a CPAP of 5. He is breathing 24 times a minute and has tidal volumes of 400 to 450 mL. PHYSICAL EXAMINATION: VITAL SIGNS: The blood pressure is 116/61, saturation is 100%. The pulse is 68. The T-max is 100.3. HEENT: Shows no facial swelling or erythema. There is an oral endotracheal tube. The patient has a PICC line in place. CARDIAC: Reveals regular rate and rhythm with normal S1 and S2. LUNGS: Auscultation of lungs reveals crackles at the bases. There is no wheezing. ABDOMEN: Soft and nontender. There is no rebound or guarding. EXTREMITIES: Shows no leg edema or calf tenderness. There is no cyanosis or clubbing. SKIN: Shows no rashes. NEUROLOGICAL: Shows no focal abnormalities. LABORATORY DATA: Potassium is 3.7, and the BUN to creatinine ratio is normal. The other electrolytes are within normal limits and the albumin is 2.4. The white blood cell count is 9.8 and hemoglobin is 10.1. The platelet count is 329. IMPRESSION: 1. Acute respiratory failure. 2. Viral pneumonia and COVID-19 infection. 3. Superimposed bacterial pneumonia. 4. Diabetes. 5. Hypertension. PLAN: 1. Continue spontaneous breathing trial and repeat ABG. 2. NG tube to suction. 3. Work towards extubation. 4. Complete antibiotics. 5. Continue Lovenox. Greater than 35 minutes in direct critical care time. MD JOSE Feliz/SERGIO /[id number]
[2020-05-10 09:39] LABS: ABG HCO3 20 mmol/L (22-26); ABG PCO2 30 mmHg (35-45); ABG PH 7.43 (7.35-7.45); ABG PO2 80 mmHg (80-105); ABG TCO2 21
[2020-05-10 11:17] LABS: EOSINOPHILS % (MANUAL) 4 % (0-7); LYMPHOCYTES % (MANUAL) 13 % (19-48); MONOCYTES % (MANUAL) 3 % (3.4-9.0); NEUTROPHILS % (MANUAL) 80 % (40-74); PLATELET ESTIMATE ADEQUATE; PLATELET MORPHOLOGY COMMENT NORMAL; RBC MORPHOLOGY COMMENT NORMAL
[2020-05-10 12:43] LABS: ABG HCO3 20 mmol/L (22-26); ABG PCO2 29 mmHg (35-45); ABG PH 7.45 (7.35-7.45); ABG PO2 218 mmHg (80-105); ABG TCO2 21
--- NOTE | 2020-05-10 14:11 | NUR ---
infectious disease progress note Patient remains intensive care unit but he was extubated This day #20 Review of system is just weak and anxious Physical examination currently alert vitals stable currently afebrile HEENT normocephalic neck supple chest crackles bilateral heart S1-S2 abdomen soft The patient is currently off sedation. He is on a spontaneous breathing trial with a pressure support of 8 and a CPAP of 5. He is breathing 24 times a minute and has tidal volumes of 400 to 450 mL. PHYSICAL EXAMINATION: VITAL SIGNS: The blood pressure is 116/61, saturation is 100%. The pulse is 68. The T-max is 100.3. HEENT: Shows no facial swelling or erythema. There is an oral endotracheal tube. The patient has a PICC line in place. CARDIAC: Reveals regular rate and rhythm with normal S1 and S2. LUNGS: Auscultation of lungs reveals crackles at the bases. There is no wheezing. ABDOMEN: Soft and nontender. There is no rebound or guarding. EXTREMITIES: Shows no leg edema or calf tenderness. There is no cyanosis or clubbing. SKIN: Shows no rashes. NEUROLOGICAL: Shows no focal abnormalities. LABORATORY DATA: Potassium is 3.7, and the BUN to creatinine ratio is normal. The other electrolytes are within normal limits and the albumin is 2.4. The white blood cell count is 9.8 and hemoglobin is 10.1. The platelet count is 329. IMPRESSION: 1. Acute respiratory failure. 2. Viral pneumonia and COVID-19 infection. 3. Superimposed bacterial pneumonia. 4. Diabetes. 5. Hypertension. Continue supportive care as ordered Discussed with medical team Can DC isolation
[2020-05-10] MEDS: SIMVASTATIN 40 MG TAB PO SCH (21:00)
[2020-05-10] MEDS: ACETAMINOPHEN 325 MG SUPP PR PRN (21:05)
[2020-05-10] MEDS: INSULIN GLARGINE 100 UNITS/ML VIAL SQ SCH (23:00)
[2020-05-11] VITALS (26 sets, daily range): BP systolic 138–179; BP diastolic 75–98
[2020-05-11] MEDS: VANCOMYCIN 1GM/NS 250 ML 250 ML IV SCH (00:15)
[2020-05-11] MEDS: DEXMEDETOMIDINE 200MCG/NS 50ML 50 ML IV PRN ×7 (00:35→23:32)
[2020-05-11] MEDS: ACETAMINOPHEN 325 MG TAB PO PRN ×3 (02:00→17:43)
--- NOTE | 2020-05-11 03:00 | Progress Note ---
DATE: 05/10/2020 Medicine Progress Note SUBJECTIVE: The patient was evaluated at approximately 1:25 p.m. with the nurse. The patient got extubated this morning. He seems to be doing relatively okay. He is on high-flow oxygen. PHYSICAL EXAMINATION: VITAL SIGNS: Temperature was 100.1, pulse 77, respiratory rate 33, blood pressure 140/74, pulse ox 100%, he is on nasal cannula high-flow. GENERAL: Not in acute distress. He was alert, but very confused. PULMONARY: He is extubated. He is on high-flow oxygen. He does have some crackles and some rhonchi. CARDIOVASCULAR: Positive S1, S2. No murmurs, rubs, or gallops appreciated. ABDOMEN: Soft, nondistended, nontender to palpation. Bowel sounds present. MUSCULOSKELETAL: The patient is very lethargic today to evaluate. NEUROLOGICAL: He is alert. He is awake, but very lethargic. SKIN: Intact. Warm to touch. Good cap refill. EXTREMITIES: No edema. Good range of motion throughout. LABORATORY DATA: White count was 9.8, hemoglobin 10, hematocrit 31.7, platelets of 329. Chemistry; sodium 141, potassium 3.7, chloride 111, bicarb 23, anion gap of 10, BUN is 14, creatinine is 0.61, glucose is 96, calcium is 8.4. IMAGING STUDIES: Chest x-ray shows similar findings of multifocal pneumonia. IMPRESSION: 1. Acute respiratory failure secondary to coronavirus pneumonia, was intubated and sedated, now extubated on 05/10/2020. 2. Type 2 diabetes. 3. Viral pneumonia secondary to coronavirus. 4. Positive sputum cultures, Acinetobacter. 5. Acute kidney injury-resolved. 6. Electrolyte abnormalities. 7. Fever. PLAN: The patient is doing well. He got extubated early this morning by Pulmonary. He still has episodic fever. He was alert. He was awake. He was not oriented, very lethargic and confused on examination. Blood culture showed no growth. Continue with IV antibiotics. ID and Pulmonary Critical Care all following. Lovenox for DVT prophylaxis. Jihan Crum MD JSGregorio/MODL /[id number]
[2020-05-11] MEDS: MEROPENEM 1GM 100 ML IV SCH (04:00)
[2020-05-11 05:57] LABS: BASOPHILS # (AUTO) 0.1 (0.0-0.1); BASOPHILS % 0.5 % (0.0-1.0); EOSINOPHILS # (AUTO) 0.2 (0.0-0.4); HEMATOCRIT 32.8 % (38.2-49.6); HEMOGLOBIN 10.7 g/dL (14.0-18.0); LYMPHOCYTES # (AUTO) 1.2 (1.0-3.2); LYMPHOCYTES % 5.3 % (18.0-39.1); MEAN CORPUSCULAR HGB CONC 32.6 g/dL (31-35); MEAN CORPUSCULAR VOLUME 85.9 fL (81-99); MONOCYTES # (AUTO) 1.2 (0.2-0.8); MONOCYTES % 5.4 % (4.4-11.3); NEUTROPHILS # (AUTO) 19.2 (2.1-6.9); NEUTROPHILS % 86.5 % (38.7-80.0); PLATELET COUNT 307 x10e3/uL (140-360); RED BLOOD COUNT 3.82 x10e6/uL (4.3-5.7); RED CELL DISTRIBUTION WIDTH 13.5 % (11.7-14.4)
[2020-05-11] MEDS: INSULIN REGULAR, HUMAN 100 UNIT/1 ML 3ML VIAL SQ SCH ×5 (06:00→22:00)
[2020-05-11 06:18] LABS: ALANINE AMINOTRANSFERASE 34 IU/L (0-55); ALBUMIN 2.6 g/dL (3.5-5.0); ALBUMIN/GLOBULIN RATIO 0.6 (0.8-2.0); ALKALINE PHOSPHATASE 96 IU/L (40-150); ANION GAP 15.3 mmol/L (8-16); BLOOD UREA NITROGEN 16 mg/dL (7-26); BUN/CREATININE RATIO 25 (6-25); CALCIUM 8.1 mg/dL (8.4-10.2); CARBON DIOXIDE 19 mmol/L (22-29); CHLORIDE 110 mmol/L (98-107); CREATININE, SERUM 0.64 mg/dL (0.72-1.25); EST GLOMERULAR FILTRATION RATE > 60 ML/MIN (60-); GLUCOSE 96 mg/dL (74-118); POTASSIUM 3.3 mmol/L (3.5-5.1); SODIUM 141 mmol/L (136-145)
--- NOTE | 2020-05-11 07:41 | NUR ---
Dr Krishnamurthy notified of patient temp 101.5 during night and wbc 22.17 waiting return call.
[2020-05-11] MEDS: ASCORBIC ACID 500 MG TAB PO SCH ×3 (09:00→17:43)
[2020-05-11] MEDS: FAMOTIDINE 20 MG/2 ML VIAL IV SCH ×3 (09:00→17:43)
[2020-05-11] MEDS: ENOXAPARIN SOD INJ 40 MG/0.4 ML SYR SC SCH ×2 (09:34→21:00)
[2020-05-11] MEDS: ZINC SULFATE 220 MG CAP PO SCH (09:34)
--- NOTE | 2020-05-11 09:37 | Diagnostic Imaging Report ---
EXAM: US ABDOMEN COMPLETE DATE: 05/11/2020 8:33 AM INDICATION: Fever COMPARISON: None TECHNIQUE: Transverse and longitudinal tate scale and color doppler sonographic images of the upper abdomen were obtained. FINDINGS: LIVER 16.3 cm in the right midclavicular line. Normal echogenicity of the liver with normal contour, no masses. SPLEEN 12.0 cm in maximum diameter. Normal echogenicity, no masses. GALLBLADDER Multiple shadowing gallstones within the gallbladder. No gallbladder distention or pericholecystic fluid. Negative sonographic Miranda's sign. Gallbladder wall measures up to 5 mm. BILE DUCTS No intra nor extra-hepatic biliary dilation. Common bile duct measures 4mm PANCREAS: Visualized portions are normal. RIGHT KIDNEY: 11.8 cm Echogenicity: Normal Collecting System: No hydronephrosis Stones: None Cyst/Mass: None LEFT KIDNEY: 12.7 cm Echogenicity: Normal Collecting System: No hydronephrosis Stones: None Cyst/Mass: None VESSELS: Aorta: Visualized portions are within normal size limits Inferior Vena Cava: Visualized portions are normal Main Portal Vein: 1.0 cm, normal size with hepatopetal flow. FREE FLUID: None IMPRESSION: Cholelithiasis without specific sonographic evidence of cholecystitis. No renal calculi or hydronephrosis. Signed by: Gilberto Soto MD on 05/11/2020 9:34 AM
[2020-05-11] MEDS ORDERED: VANCOMYCIN 250MG/5ML ORAL SOLN PO SCH (12:00)
[2020-05-11] MEDS ORDERED: METRONIDAZOLE 500MG/NS 100ML 100 ML IV SCH (12:00)
--- NOTE | 2020-05-11 14:22 | NUR ---
Infectious disease progress note Patient seen and examined chart reviewed May 11, 2020 The patient remains in intensive care unit he had fever earlier today He is currently alert apprehensive vitals stable afebrile HEENT is not pink neck supple chest few crackles bilateral cor S1-S2 abdomen soft Respiratory failure Covid 19 Obesity pneumonia aspiration recheck cbc will start unasyn and inhaled tob
[2020-05-11] MEDS ORDERED: LACTATED RINGER'S 500 ML INJ ONE (14:30)
[2020-05-11] MEDS ORDERED: POTASSIUM CHLORIDE 20MEQ/15ML UDC NG ONE (15:00)
--- NOTE | 2020-05-11 15:49 | Progress Note ---
DATE: SUBJECTIVE: The patient is now on Vapotherm. He is down to 70% but he is still on 40 L. He had fevers last night. PHYSICAL EXAMINATION: VITAL SIGNS: The blood pressure is 179/89 and the heart rate is 105 to 115. Respiratory rate is in the low-to-mid 30s. He is on Vapotherm as noted above. HEENT: Shows no facial swelling or erythema. The patient is on a Vapotherm. There is a PICC line in place. The patient also has an arterial line. CARDIAC: Reveals regular rate and rhythm with normal S1 and S2. LUNGS: Auscultation of lungs reveals crackles at the bases. There is no wheezing. ABDOMEN: Soft and nontender. There is no rebound or guarding. EXTREMITIES: Shows no leg edema or calf tenderness. There is no cyanosis or clubbing. SKIN: Shows no rashes. NEUROLOGICAL: Shows no focal abnormalities. LABORATORY DATA: White blood cell count is increased to 22.2 and the hemoglobin is 10.7. The platelet count is 307. BUN to creatinine ratio is normal. The potassium is 3.3 and the CO2 is 19. MICROBIOLOGICAL DATA: Sputum is growing out Acinetobacter. IMPRESSION: 1. Acute respiratory failure. 2. Viral pneumonia and COVID-19 infection. 3. Superimposed Acinetobacter pneumonia. 4. Diabetes. 5. Fevers. PLAN: 1. Repeat ABG. 2. Judicious use of IV fluids. 3. Speech therapy evaluation. 4. Discuss antibiotics with Infectious Disease. Tomi Vizcarra MD [facility]/JOSÉ LUISL /[id number]
[2020-05-11] MEDS ORDERED: SODIUM BICARBONATE 8.4% 100 ML in DEXTROSE 5% 1,000 ML IV ONE (16:00)
[2020-05-11 16:02] LABS: ABG HCO3 18 mmol/L (22-26); ABG PCO2 26 mmHg (35-45); ABG PH 7.45 (7.35-7.45); ABG PO2 155 mmHg (80-105); ABG TCO2 19
--- NOTE | 2020-05-11 17:00 | NUR ---
Left Karen dressing changed per protocol
--- NOTE | 2020-05-11 17:35 | NUR ---
Nutrition Intervention Note RD Recommendation(s) for Physician: -In light of Propofol dosage, recommend changing TF to Vital HP with goal rate of 45 ml/hr (to provide 1080 kcal and 95 gm protein). Give 1 packet Beneprotein with TF BID to meet protein needs. Remaining kcal provided by Propofol. -[employer] evaluation as feasible, pt deemed safe for po recommend 1800 ADA restriction. Texture per [employer]. -Water flushes and fluid management per MD. -Bowel regimen per MD. Plan of Care: RD following, monitoring for tolerance and adequacy, tube feed recommendation, diet rec's Nutrition reason for involvement: follow up RD Assessment 05/11: Follow up. Pt extubated yesterday, currently on high flow O2. Pt continues on Propofol. Pt currently on Glucerna 1.2 at 20 ml/hr. Current TF rec's remain appropriate in light of Propofol dosage. Chart reviewed. Will continue to monitor. 05/06: Follow up. Pt remains intubated and sedated on high dose Propofol. TF continues at 35 ml/hr, additional kcal from Propofol meeting estimated kcal needs- not meeting protein needs. BM documented 05/05. Chart reviewed. Current TF rec's remain appropriate. Will continue to monitor. 05/03: Follow up. Pt remains intubated and sedated on high dose Propofol, pt requiring intermittent proning. TF at 35 ml/hr, additional kcal from Propofol currently. Updated TF rec's provided in light of Propofol dosage. No recent BM documented. Chart reviewed. Will continue to monitor. 04/28: Follow up. Pt remains intubated. RN reports pts tube feed rate is at 15 mL/hr at this time and that pt is in the prone position. Current recommendations remain appropriate. Will continue to monitor. (04/23/20) Pt is a 40 year old male admitted with COVID-19, hypoxemia, and viral pneumonia. Pt was intubated and tube feedings were started. Unable to obtain nutrition history at this time and there are no previous weights in chart. Tube feed recommendations provided. Will continue to monitor. Principal Problems/Diagnoses: COVID-19, hypoxemia, and viral pneumonia PMH: Depression, anxiety, ADHD, diabetes, and hyperlipidemia GI: LBM 05/10 Skin: bilateral wounds to toes, no staging Labs: 05/11: Na 141, K 3.3, BUN 16, Cr 0.64, Gluc 96 05/06: na 146, K 3.5, BUN 13, Cr 0.62, Gluc 111, POC gluc 102-140 05/03: Na 142, K 4.4, BUN 17, Cr 0.64, Gluc 121, POC Gluc 115-231 (04/28) Na 143, K 4.2, BUN 19, Cr 0.67, Glu 108, Ca 7.6 (04/22) Na 145, K 4.8, BUN 39, Cr 0.90, Glu 127, Ca 7.9 Meds: abx, zinc sulfate, vitamin C, lantus, zofran, pepcid IVF/Drips: Propofol at 30 ml/hr (provides 792 lipid kcal/day), Precedex Ht: 69 inches Wt: 230 lb (05/11) 233 lbs (05/06) BMI: 34.4 kg/m2 IBW: 160 lbs Malnutrition Evaluation (05/11/20) Unable to assess. Will re-evaluate at follow-up as appropriate. Nutrition Prescription (Diet Order): Glucerna 1.2 @ 50 mL/hr (provides 1440 kcal, 72 g protein) infusing at 35 mL/hr (1008 kcal and 50 gm protein) Estimated Nutritional Needs: 5457-5058 calories/day (22-25 kcal/kg IBW) 109-145 g protein/day (1.5-2 g pro/kg IBW) Diet Adequacy: Meeting calorie needs (TF and Propofol kcal), Not meeting protein needs Tolerance: tolerating TF Diet Education Needs Assessment: Diet education not indicated, pt is intubated Nutrition Care Level: moderate Nutrition Diagnosis: Inadequate oral intake related to respiratory failure/mechanical ventilation as evidenced by pt requiring enteral nutrition. Goal: Patient will meet 75-100% of estimated needs by follow up Progress: not progressing Interventions: -Composition, Rate, Route, Recommended Modifications Monitoring/Evaluation: -Total energy intake, Total protein intake, Formula/Solution, Prescription medication, Weight change Signed: Sydnee Peraza RD, LD, [facility]
[2020-05-11] MEDS: AMPICILLIN SOD/SULBACTAM 3GM 100 ML IV SCH (17:46)
[2020-05-11 19:22] LABS: ABG HCO3 19 mmol/L (22-26); ABG PCO2 29 mmHg (35-45); ABG PH 7.44 (7.35-7.45); ABG PO2 97 mmHg (80-105); ABG TCO2 20
[2020-05-11] MEDS: SIMVASTATIN 40 MG TAB PO SCH (21:00)
[2020-05-11] MEDS: INSULIN GLARGINE 100 UNITS/ML VIAL SQ SCH (22:00)
[2020-05-11] MEDS: TOBRAMYCIN 40 MG/ML 2ML VIAL INH SCH (22:00)
--- NOTE | 2020-05-11 22:55 | Progress Note ---
DATE: 05/11/2020 Medicine Progress Note SUBJECTIVE: The patient is doing much better. He is on high-flow oxygen. He is alert. He is confused, still on examination. LABORATORY DATA: CBC, white count 23, hemoglobin 10.7, hematocrit 33, platelets of 307. Chemistry, sodium 141, potassium 3.3, chloride 110, bicarb 19, anion gap of 15. BUN 16, creatinine is 0.64. Right upper quadrant ultrasound was found to be negative. PHYSICAL EXAMINATION: VITAL SIGNS: Temperature is 100.9. He is still febrile. Blood pressure was 169/83, pulse ox is 98% on nasal cannula at 30% FiO2. His pulse is 109, respiratory rate is 36 GENERAL: He is awake. He is alert. He is confused on examination, lethargic, but arousable, unable to talk to us. PULMONARY: Clear to auscultation bilaterally. Has a high-flow oxygen. CARDIOVASCULAR: Positive S1 and S2. No murmurs, rubs, or gallops. GASTROINTESTINAL: Abdomen is soft, nondistended, nontender to palpation. Bowel sounds present. MUSCULOSKELETAL: He is relatively weak. NEUROLOGIC: He is alert, awake, but weak and lethargic. SKIN: Intact warm to touch. Good cap refill. EXTREMITIES: No edema. Good range of motion throughout. IMPRESSION: 1. Acute respiratory failure, secondary to coronavirus pneumonia, was intubated and sedated, now extubated on 07/02/2020. 2. Type 2 diabetes. 3. Viral pneumonia, secondary to coronavirus. 4. Positive sputum culture, Acinetobacter. 5. Acute kidney injury, resolved. 6. Electrolyte abnormalities. 7. Leukocytosis with fever. PLAN: At this time, he is on a high-flow oxygen. He is alert, awake, but confused on examination. His white count is elevated. ID has been notified. They got rid of the IV antibiotics and put him on oral vancomycin and Flagyl. Blood culture showed no growth to date. Continue with same plan of care and monitor the recommendations by the consultants. Replace electrolytes. Lovenox for DVT prophylaxis. MD JIMMY Walls/SERGIO /[id number]
[2020-05-12] VITALS (25 sets, daily range): BP systolic 147–188; BP diastolic 73–99
[2020-05-12] MEDS: AMPICILLIN SOD/SULBACTAM 3GM 100 ML IV SCH ×4 (00:24→17:18)
[2020-05-12] MEDS: DEXMEDETOMIDINE 200MCG/NS 50ML 50 ML IV PRN ×2 (03:15→19:42)
[2020-05-12 05:36] LABS: BASOPHILS # (AUTO) 0.1 (0.0-0.1); BASOPHILS % 0.4 % (0.0-1.0); EOSINOPHILS # (AUTO) 0.4 (0.0-0.4); HEMATOCRIT 32.7 % (38.2-49.6); HEMOGLOBIN 10.8 g/dL (14.0-18.0); LYMPHOCYTES # (AUTO) 1.5 (1.0-3.2); LYMPHOCYTES % 8.1 % (18.0-39.1); MEAN CORPUSCULAR HEMOGLOBIN 27.3 pg (28-32); MEAN CORPUSCULAR VOLUME 82.6 fL (81-99); MONOCYTES # (AUTO) 1.1 (0.2-0.8); MONOCYTES % 5.8 % (4.4-11.3); NEUTROPHILS # (AUTO) 15.7 (2.1-6.9); NEUTROPHILS % 82.7 % (38.7-80.0); PLATELET COUNT 322 x10e3/uL (140-360); RED BLOOD COUNT 3.96 x10e6/uL (4.3-5.7); RED CELL DISTRIBUTION WIDTH 13.6 % (11.7-14.4)
[2020-05-12 05:51] LABS: ALANINE AMINOTRANSFERASE 31 IU/L (0-55); ALBUMIN 2.5 g/dL (3.5-5.0); ALBUMIN/GLOBULIN RATIO 0.6 (0.8-2.0); ALKALINE PHOSPHATASE 98 IU/L (40-150); ANION GAP 14.4 mmol/L (8-16); BLOOD UREA NITROGEN 11 mg/dL (7-26); BUN/CREATININE RATIO 19 (6-25); CARBON DIOXIDE 22 mmol/L (22-29); CHLORIDE 105 mmol/L (98-107); CREATININE, SERUM 0.59 mg/dL (0.72-1.25); EST GLOMERULAR FILTRATION RATE > 60 ML/MIN (60-); GLUCOSE 174 mg/dL (74-118); POTASSIUM 3.4 mmol/L (3.5-5.1); SODIUM 138 mmol/L (136-145)
[2020-05-12] MEDS: TOBRAMYCIN 40 MG/ML 2ML VIAL INH SCH ×3 (06:00→22:10)
[2020-05-12] MEDS: INSULIN REGULAR, HUMAN 100 UNIT/1 ML 3ML VIAL SQ SCH ×4 (06:00→23:00)
[2020-05-12] MEDS: ENOXAPARIN SOD INJ 40 MG/0.4 ML SYR SC SCH ×2 (08:02→21:00)
[2020-05-12] MEDS: ASCORBIC ACID 500 MG TAB PO SCH ×2 (08:02→16:14)
[2020-05-12] MEDS: ZINC SULFATE 220 MG CAP PO SCH (08:02)
[2020-05-12] MEDS: FAMOTIDINE 20 MG/2 ML VIAL IV SCH ×2 (08:02→16:14)
--- NOTE | 2020-05-12 09:05 | NUR ---
Head Librarian called pt's mom, Oxana, to offer emotional/spiritual support. Pt's mom states she is "doing much better" because "he's doing better." Head Librarian reminded pt's mother of availability of survey party chief. MARIANNA De Anda Spiritual Care Department O: [phone]
[2020-05-12] MEDS ORDERED: POTASSIUM CHLORIDE 20MEQ/15ML UDC NG ONE (11:15)
[2020-05-12 11:18] LABS: ABG HCO3 25 mmol/L (22-26); ABG PCO2 31 mmHg (35-45); ABG PH 7.51 (7.35-7.45); ABG PO2 70 mmHg (80-105); ABG TCO2 25
--- NOTE | 2020-05-12 11:33 | Progress Note ---
DATE: SUBJECTIVE: The patient remains on Vapotherm. He is now on 40 L with 70%. He is receiving chest physiotherapy. He still has a feeding tube in place. He failed the swallowing evaluation yesterday. PHYSICAL EXAMINATION: VITAL SIGNS: The blood pressure is 148/73, saturation is 97% on Vapotherm of 40 L with FiO2 of 70%. HEENT: Shows no facial swelling or erythema. There is nasogastric tube in place. There is Vapotherm. CARDIAC: Reveals regular rate and rhythm with normal S1 and S2. LUNGS: Auscultation of lungs reveals crackles at the bases. There is no wheezing. ABDOMEN: Soft and nontender. There is no rebound or guarding. EXTREMITIES: Shows no leg edema or calf tenderness. There is no cyanosis or clubbing. SKIN: Shows no rashes. NEUROLOGICAL: Shows no focal abnormalities. LABORATORY DATA: The BUN to creatinine ratio is 11 to 0.59. Potassium is 3.4. The albumin is 2.5. The white blood cell count is 19 and the hemoglobin is 10.8. The platelet count is322. IMPRESSION: 1. Acute respiratory failure. 2. Viral pneumonia and COVID-19 infection. 3. Superimposed Acinetobacter pneumonia. 4. Diabetes. 5. Oropharyngeal dysphagia. PLAN: 1. Continue Vapotherm and repeat ABG. 2. Continue current antibiotics. 3. Speech therapy to re-evaluate the patient today. 4. Continue chest physiotherapy. 5. Continue Precedex. 6. Continue Lovenox. 7. Continue nebulized tobramycin and Unasyn. Tomi Vizcarra MD LM/SERGIO /[id number]
[2020-05-12] MEDS: HYDRALAZINE HCL 20 MG/ML VIAL IV PRN (14:32)
--- NOTE | 2020-05-12 17:00 | Progress Note ---
DATE: SUBJECTIVE: Mr. Agrawal remains on Vapotherm 40 with 70%. OBJECTIVE: HEENT: Normocephalic. NECK: Supple. CHEST: Crackles bilateral. HEART: S1 and S2. ABDOMEN: Soft. IMPRESSION: Respiratory failure, COVID-19, superimposed bacterial pneumonia, Acinetobacter. Currently on Unasyn and inhaled tobramycin. Recheck CBC. Recheck chem panel. Continue supportive care as ordered. MD KATIE Morales/MODL /[id number]
[2020-05-12] MEDS: SIMVASTATIN 40 MG TAB PO SCH (21:00)
[2020-05-12] MEDS: INSULIN GLARGINE 100 UNITS/ML VIAL SQ SCH (23:00)
--- NOTE | 2020-05-12 23:57 | Progress Note ---
DATE: 05/12/2020 Medicine Progress Note. SUBJECTIVE: The patient was seen and evaluated at bedside. He is still febrile at this time. He was very weak, physical therapy worked with him. Still needs aggressive physical therapy. PHYSICAL EXAMINATION: VITAL SIGNS: Temperature is 100.6, pulse 108, respiratory rate 35, blood pressure 170/86, pulse ox 97%, he is on high-flow oxygen 40% FiO2. GENERAL: Not in acute distress, he is alert, he is awake, he is oriented. He is still occasionally confused on examination. PULMONARY: He does have some fine crackles appreciated. He is on high-flow oxygen. CARDIOVASCULAR: Positive S1 and S2. No murmurs, rubs, or gallops. ABDOMEN: Soft, nondistended, nontender to palpation. Bowel sounds present. MUSCULOSKELETAL: The patient is very weak on examination. Strength dorsey, he is very weak. NEUROLOGICAL: Alert, awake, and oriented x2 occasionally with some confusion. SKIN: Intact. Warm to touch. Good cap refill. PSYCHIATRIC: Normal affect and mood. EXTREMITIES: No edema. Good range of motion throughout. LABORATORY DATA: White count 19, hemoglobin is 10.8, hematocrit was 33, platelets of 322,000. Chemistry reviewed sodium 138, potassium 3.4, chloride 105, bicarb 22, anion gap 14, BUN 11, creatinine 0.59, glucose is 174, calcium is 8. Microbiology; sputum culture showed Acinetobacter on two sputum cultures. IMAGING STUDIES: Nothing new. IMPRESSION: 1. Acute respiratory failure secondary to alegre virus pneumonia, was intubated and sedated, now extubated on 05/10/2020. 2. Type 2 diabetes. 3. Viral pneumonia secondary to alegre virus. 4. Positive sputum cultures Acinetobacter. 5. Acute kidney injury, resolved. 6. Electrolyte abnormalities. 7. Leukocytosis with fever. PLAN: The patient is very weak on exam and worked with physical therapy. He will likely need some form of inpatient rehab once he is stable. He is not stable at this time. Continue with high-flow oxygen. White count still elevated in which the patient was changed on oral vancomycin and Flagyl per ID. Blood cultures no growth. Continue follow up with pulmonary Critical Care. Replace electrolytes accordingly. Lovenox for DVT prophylaxis. The patient is not ready for discharge at this time. MD JIMMY Walls/SERGIO /[id number]
[2020-05-13] VITALS (24 sets, daily range): BP systolic 125–174; BP diastolic 67–93
[2020-05-13] MEDS: DEXMEDETOMIDINE 200MCG/NS 50ML 50 ML IV PRN ×4 (00:30→14:30)
[2020-05-13] MEDS: AMPICILLIN SOD/SULBACTAM 3GM 100 ML IV SCH ×4 (00:36→17:19)
[2020-05-13 05:48] LABS: BASOPHILS # (AUTO) 0.1 (0.0-0.1); BASOPHILS % 0.4 % (0.0-1.0); EOSINOPHILS # (AUTO) 0.6 (0.0-0.4); EOSINOPHILS % 3.7 % (0.0-6.0); HEMOGLOBIN 10.5 g/dL (14.0-18.0); LYMPHOCYTES # (AUTO) 1.7 (1.0-3.2); LYMPHOCYTES % 9.4 % (18.0-39.1); MEAN CORPUSCULAR HEMOGLOBIN 27.2 pg (28-32); MEAN CORPUSCULAR HGB CONC 31.8 g/dL (31-35); MEAN CORPUSCULAR VOLUME 85.5 fL (81-99); MONOCYTES # (AUTO) 1.1 (0.2-0.8); MONOCYTES % 6.3 % (4.4-11.3); NEUTROPHILS # (AUTO) 13.9 (2.1-6.9); NEUTROPHILS % 79.3 % (38.7-80.0); PLATELET COUNT 284 x10e3/uL (140-360); RED BLOOD COUNT 3.86 x10e6/uL (4.3-5.7); RED CELL DISTRIBUTION WIDTH 13.8 % (11.7-14.4)
[2020-05-13] MEDS ORDERED: POTASSIUM CHLORIDE 20MEQ/15ML UDC NG ONE (06:00)
[2020-05-13 06:26] LABS: ALANINE AMINOTRANSFERASE 34 IU/L (0-55); ALBUMIN 2.4 g/dL (3.5-5.0); ALBUMIN/GLOBULIN RATIO 0.5 (0.8-2.0); ALKALINE PHOSPHATASE 92 IU/L (40-150); ANION GAP 12.7 mmol/L (8-16); BLOOD UREA NITROGEN 11 mg/dL (7-26); BUN/CREATININE RATIO 19 (6-25); CALCIUM 8.3 mg/dL (8.4-10.2); CARBON DIOXIDE 26 mmol/L (22-29); CHLORIDE 105 mmol/L (98-107); CREATININE, SERUM 0.59 mg/dL (0.72-1.25); EST GLOMERULAR FILTRATION RATE > 60 ML/MIN (60-); GLUCOSE 127 mg/dL (74-118); POTASSIUM 3.7 mmol/L (3.5-5.1); SODIUM 140 mmol/L (136-145)
[2020-05-13] MEDS: INSULIN REGULAR, HUMAN 100 UNIT/1 ML 3ML VIAL SQ SCH ×3 (07:00→17:25)
[2020-05-13] MEDS: TOBRAMYCIN 40 MG/ML 2ML VIAL INH SCH ×4 (07:27→22:45)
--- NOTE | 2020-05-13 07:44 | NUR ---
0700 Critical labs (K 2.9, CO2 43, Hbg 6.8) called to Dr Rutherford. New orders received .
[2020-05-13] MEDS: ASCORBIC ACID 500 MG TAB PO SCH ×2 (08:05→16:15)
[2020-05-13] MEDS: ENOXAPARIN SOD INJ 40 MG/0.4 ML SYR SC SCH (08:05)
[2020-05-13] MEDS: ZINC SULFATE 220 MG CAP PO SCH (08:05)
[2020-05-13] MEDS: FAMOTIDINE 20 MG/2 ML VIAL IV SCH ×2 (08:05→16:15)
[2020-05-13] MEDS: ACETAMINOPHEN 325 MG TAB PO PRN ×2 (08:06→22:00)
--- NOTE | 2020-05-13 08:47 | Diagnostic Imaging Report ---
EXAMINATION: CHEST SINGLE (PORTABLE) INDICATION: Respiratory failure COMPARISON: Chest radiograph of 05/06/2020 FINDINGS: LINES/TUBES:Endotracheal tube has been removed. Enteric tube with tip and side-port in the stomach. Right PICC line terminates in the SVC. EKG leads overlie the chest. LUNGS:The lung volumes are very low. Multifocal bilateral airspace opacities. PLEURA:No definite pleural effusion. No pneumothorax. MEDIASTINUM:The cardiomediastinal silhouette appears unchanged in size and shape. BONES/SOFT TISSUES:No acute osseous injury. ABDOMEN:No free air under the diaphragm. IMPRESSION: Interval extubation. Other lines and tubes as above. Very low lung volumes. Bilateral multifocal airspace opacities. Signed by: Gilberto Soto MD on 05/13/2020 8:44 AM
[2020-05-13 10:20] LABS: ABG HCO3 26 mmol/L (22-26); ABG PCO2 34 mmHg (35-45); ABG PH 7.49 (7.35-7.45); ABG PO2 137 mmHg (80-105); ABG TCO2 27
--- NOTE | 2020-05-13 13:22 | NUR ---
this infectious disease progress note. the patient remains weak and short of breath. Discussed with the medical team medication list reviewed chart reviewed. The patient remains intensive care unit this is day #24. His physical examination his alert vitals stable afebrile HEENT is not to take neck supple Chest to crackles bilaterally heart S1-S2 abdomen soft obese extremities no edema skin no rash. Covid 19 patient is not infectious anymore this is day number 24th respiratory failure Debility We cough. Aspiration pneumonia Continue antibiotic as ordered
--- NOTE | 2020-05-13 15:50 | Progress Note ---
DATE: SUBJECTIVE: The patient is now on Vapotherm at 60% with liter flow of 37. He is receiving chest physiotherapy. His T-max last night was 101. PHYSICAL EXAMINATION: VITAL SIGNS: Blood pressure is 125/67, saturation is 99% on a Vapotherm as noted above. HEENT: Shows no facial swelling or erythema. LYMPHATIC: Shows no submandibular, cervical, supraclavicular adenopathy. CARDIAC: Reveals regular rate and rhythm. Normal S1, S2. LUNGS: Auscultation of lungs reveals rhonchorous breath sounds bilaterally. There is no wheezing. ABDOMEN: Soft, nontender. There is no rebound or guarding. EXTREMITIES: Shows no leg edema or calf tenderness. There is no cyanosis or clubbing. SKIN: Shows no rashes. NEUROLOGICAL: Shows no focal abnormalities. LABORATORY DATA: White blood cell count is 17.4 and hemoglobin is 10.5. The platelet count is 284. BUN to creatinine ratio is 11 to 0.54. Other electrolytes within normal limits and the albumin are 2.4. IMPRESSION: 1. Acute respiratory failure, that has improved. 2. Viral pneumonia and COVID-19 infection. 3. Diabetes. 4. Oropharyngeal dysphagia. PLAN: 1. Continue to wean Vapotherm. 2. Incentive spirometry and EzPAP. 3. Intensive physical therapy. 4. Re-evaluation by speech therapy. 5. Wean Precedex. 6. Continue Lovenox. 7. Continue tobramycin and Unasyn. Tomi Vizcarra MD LM/SERGIO /[id number]
--- NOTE | 2020-05-13 16:35 | Diagnostic Imaging Report ---
Exam: KUB - 2 views Indication: NG tube positioning Comparison: KUB of 05/07/2020 Findings: Enteric tube projects below the diaphragm into the stomach. Contrast material from previous modified barium swallow obscures the tip of the tube. Nonobstructive bowel gas pattern. No free air. No acute osseous injury. Impression: NG tube in the stomach. Superimposed oral contrast material from the Modified barium swallow of earlier the same day obscures the tip of the tube. Signed by: Gilberto Soto MD on 05/13/2020 4:31 PM
--- NOTE | 2020-05-13 16:51 | Consultation ---
DATE OF CONSULTATION: 05/13/2020 I thank, Dr. Crum, for asking me to see Mr. Agrawal in consultation. REASON FOR CONSULTATION: COVID-19 pneumonia, and severe debilitation following. HISTORY OF PRESENT ILLNESS: patient cannot give me any history. Chart records also with regard to H and Ps are limited as well. The patient is an unfortunate 40-year-old white male, who came in to the hospital on April 19, 2020. Diagnosed with COVID pneumonia. He had to be intubated. The patient had respiratory failure, eventually extubated recently. I am being asked to evaluate for rehab needs. Discussed with his therapist. Apparently, he was living with somebody, it sound like a friend, but was otherwise independent. Currently, he has no known drug allergies. HABITS: Unable able to obtain. FAMILY HISTORY: Unable to obtain. IMAGING: The patient's recent chest x-ray showed interval extubation. Very low lung volumes. PHYSICAL EXAMINATION: The patient is awake and alert. He has . According to the therapist, he stand up with total assist. He can do a little bit of hip flexion, but not really a whole lot of it. On my examination, unable to get him to initiate any active movement of arms or legs. IMPRESSION: COVID pneumonia, pretty much unchanged. according to staff. PLAN: At this point, not a good rehab candidate, however, we will look into to try to get into participate in therapy. Continue therapy at this level. Thank you once again, Dr. Crum, for allowing me to participate in the care of this unfortunate patient. Stephen Espinoza DO RPL/MODL /[id number]
[2020-05-13] MEDS: HYDRALAZINE HCL 20 MG/ML VIAL IV PRN (19:46)
[2020-05-13] MEDS: INSULIN GLARGINE 100 UNITS/ML VIAL SQ SCH (20:02)
[2020-05-13] MEDS: SIMVASTATIN 40 MG TAB PO SCH (20:02)
[2020-05-14] VITALS (24 sets, daily range): BP systolic 125–166; BP diastolic 65–101
--- NOTE | 2020-05-14 00:11 | Progress Note ---
DATE: 05/13/2020 Medicine Progress Note SUBJECTIVE: The patient is very weak on examination. He is working with physical therapy and still relatively weak. He is on high-flow oxygen, but he is improving daily. PHYSICAL EXAMINATION: VITAL SIGNS: Temperature 100.2, pulse 90, respiratory rate is 29, blood pressure is 113/67, pulse ox 100%. GENERAL: In no acute distress. Alert and oriented x3. Cooperative on examination. HEENT: Normocephalic and atraumatic. Eyes; pupils are reactive to light bilaterally. Extraocular movements are intact bilaterally. Throat, no evidence of any erythema or exudates in the posterior pharynx. Has poor dentition. NECK: Supple. Good range of motion. PULMONARY: Clear to auscultation bilaterally. No wheezing, rales, or rhonchi. No crackles appreciated. CARDIOVASCULAR: Positive S1 and S2. No murmurs, rubs, or gallops appreciated. ABDOMEN: Soft, nondistended, nontender to palpation. Bowel sounds present. MUSCULOSKELETAL: He is strength 3/5 throughout, very weak. NEUROLOGICAL: He is alert, awake, and oriented. LABORATORY DATA: Labs show white count 17, hemoglobin 10, hematocrit 33, and platelets of 284. Chemistry reviewed and stable. Cultures; sputum culture shows Acinetobacter. IMAGING DATA: Modified barium swallow scheduled for today. KUB, NG tube in the stomach. Chest x-ray today shows bilateral multifocal airspace opacities. IMPRESSION: 1. Acute respiratory failure secondary to coronavirus disease 2019 pneumonia, was intubated and sedated, and now extubated on 05/10/2020. 2. Type 2 diabetes. 3. Viral pneumonia secondary to coronavirus. 4. Positive sputum culture, Acinetobacter. 5. Acute kidney injury-resolved. 6. Electrolyte abnormalities. 7. Leukocytosis with fever. PLAN: The patient is very weak on examination with physical therapy. He needs aggressive therapy. Physical Medicine Rehab has been consulted. Continue with high-flow oxygen. White count still remains elevated. He is on antibiotics. Blood cultures no growth. Pulmonary Critical Care is following. Lovenox for DVT prophylaxis. MD JMIMY Walls/MODJamee /[id number]
[2020-05-14] MEDS: AMPICILLIN SOD/SULBACTAM 3GM 100 ML IV SCH ×5 (00:16→23:35)
[2020-05-14] MEDS: INSULIN REGULAR, HUMAN 100 UNIT/1 ML 3ML VIAL SQ SCH ×4 (00:21→18:05)
[2020-05-14] MEDS: DEXMEDETOMIDINE 200MCG/NS 50ML 50 ML IV PRN (04:55)
[2020-05-14 05:42] LABS: BASOPHILS # (AUTO) 0.1 (0.0-0.1); BASOPHILS % 0.6 % (0.0-1.0); EOSINOPHILS # (AUTO) 0.8 (0.0-0.4); EOSINOPHILS % 5.5 % (0.0-6.0); HEMATOCRIT 32.4 % (38.2-49.6); HEMOGLOBIN 10.1 g/dL (14.0-18.0); LYMPHOCYTES # (AUTO) 1.7 (1.0-3.2); LYMPHOCYTES % 11.8 % (18.0-39.1); MEAN CORPUSCULAR HEMOGLOBIN 26.6 pg (28-32); MEAN CORPUSCULAR HGB CONC 31.2 g/dL (31-35); MEAN CORPUSCULAR VOLUME 85.5 fL (81-99); MONOCYTES % 6.6 % (4.4-11.3); NEUTROPHILS # (AUTO) 10.8 (2.1-6.9); NEUTROPHILS % 74.6 % (38.7-80.0); PLATELET COUNT 322 x10e3/uL (140-360); RED BLOOD COUNT 3.79 x10e6/uL (4.3-5.7)
[2020-05-14] MEDS: TOBRAMYCIN 40 MG/ML 2ML VIAL INH SCH ×3 (06:00→23:30)
[2020-05-14 06:03] LABS: ALANINE AMINOTRANSFERASE 33 IU/L (0-55); ALBUMIN 2.3 g/dL (3.5-5.0); ALBUMIN/GLOBULIN RATIO 0.5 (0.8-2.0); ALKALINE PHOSPHATASE 84 IU/L (40-150); ANION GAP 12.8 mmol/L (8-16); BLOOD UREA NITROGEN 9 mg/dL (7-26); BUN/CREATININE RATIO 16 (6-25); CALCIUM 8.4 mg/dL (8.4-10.2); CARBON DIOXIDE 27 mmol/L (22-29); CHLORIDE 104 mmol/L (98-107); CREATININE, SERUM 0.56 mg/dL (0.72-1.25); EST GLOMERULAR FILTRATION RATE > 60 ML/MIN (60-); GLUCOSE 131 mg/dL (74-118); POTASSIUM 3.8 mmol/L (3.5-5.1); SODIUM 140 mmol/L (136-145)
--- NOTE | 2020-05-14 08:38 | Diagnostic Imaging Report ---
EXAM: CHEST SINGLE (PORTABLE) DATE: 05/14/2020 6:10 AM INDICATION: Viral pneumonia COMPARISON: 05/13/2020 FINDINGS: Enteric tube noted coursing below the diaphragm. Right-sided PICC line identified in stable position. Lung volumes remain low. Multifocal airspace opacities again identified throughout the lungs bilaterally, similar to the prior examination. There is no evidence for pneumothorax or significant volume pleural effusion. The cardiomediastinal silhouette is stable in appearance. No acute osseous abnormality is identified. IMPRESSION: No significant interval change from 05/13/2020. Low lung volumes and stable appearing multifocal airspace opacities again identified bilaterally. Signed by: Dr. Doni Waters MD on 05/14/2020 8:35 AM
[2020-05-14] MEDS: FAMOTIDINE 20 MG/2 ML VIAL IV SCH ×2 (09:07→18:01)
[2020-05-14] MEDS: ZINC SULFATE 220 MG CAP PO SCH (09:08)
[2020-05-14] MEDS: ASCORBIC ACID 500 MG TAB PO SCH ×2 (09:08→18:01)
[2020-05-14 09:14] LABS: ABG HCO3 31 mmol/L (22-26); ABG PCO2 37 mmHg (35-45); ABG PH 7.53 (7.35-7.45); ABG PO2 164 mmHg (80-105); ABG TCO2 32
--- NOTE | 2020-05-14 10:02 | Diagnostic Imaging Report ---
EXAM: MODIFIED BA. SWALLOW DATE: 05/13/2020 3:00 PM INDICATION: Viral pneumonia, aspiration COMPARISON: None Fluoroscopy Time: 1.9 min. Reference Air Kerma (Ka, r): 10.70 mGy. FINDINGS: Modified barium swallow was performed by the speech pathology department. The radiologist was not present for the examination. An intraprocedural vertebral report was not requested. Provided images demonstrate indwelling nasogastric tube. Oral transit time appears decreased. No subglottic tracheal aspiration is visualized on provided images. IMPRESSION: No evidence for subglottic tracheal aspiration. Please refer to speech pathology report for further details. Signed by: Dr. Doni Waters MD on 05/14/2020 9:58 AM
--- NOTE | 2020-05-14 12:45 | NUR ---
Physical Therapy frequency decreased to 3x/wk due to poor patient participation. Will increase frequency back to 5x/wk when patient can actively participate with therapeutic activities better. Addendum: 05/14/20 at 1732 by David Adler PT Amended: Links added.
[2020-05-14] MEDS: ESCITALOPRAM OXALATE 10 MG TAB NG SCH (14:32)
[2020-05-14] MEDS: FUROSEMIDE INJ 10 MG/ML 2 ML VIAL IV SCH ×2 (14:34→20:31)
--- NOTE | 2020-05-14 14:46 | Progress Note ---
DATE: SUBJECTIVE: The patient is currently on a Vapotherm. He is decreased to 30 L with 50%. He worked with physical therapy earlier today. PHYSICAL EXAMINATION: VITAL SIGNS: The blood pressure is 125/73, heart rate is 100-105. Respiratory rate is in the low to high 20s. HEENT: No facial swelling or erythema. Oropharynx is normal. LYMPHATIC: No submandibular, cervical, or supraclavicular adenopathy. CARDIAC: Regular rate and rhythm with normal S1, S2. LUNGS: Auscultation of lungs reveals rhonchorous breath sounds bilaterally. There is no wheezing. ABDOMEN: Soft, nontender. There is no rebound or guarding. EXTREMITIES: No leg edema or calf tenderness. LABORATORY DATA: BUN to creatinine ratio is normal. Other electrolytes are within normal limits. Albumin is 2.3. White blood cell count is 14.47, hemoglobin is 10.1, and platelet count is 322. IMPRESSION: 1. Acute respiratory failure, improved. 2. Viral pneumonia and coronavirus disease-19 infection. 3. Diabetes. 4. Oropharyngeal dysphagia. PLAN: 1. Aggressive physical therapy. 2. Continue incentive spirometry and EzPAP. 3. Continue to wean Vapotherm. 4. Stop Precedex. 5. Continue Lovenox. 6. Continue tobramycin and Unasyn. Tomi Vizcarra MD [facility]/MODL /[id number]
[2020-05-14] MEDS: ACETAMINOPHEN 325 MG TAB PO PRN (15:32)
[2020-05-14] MEDS ORDERED: DEXMEDETOMIDINE 200MCG/NS 50ML 50 ML IV PRN (16:30)
--- NOTE | 2020-05-14 16:53 | NUR ---
Nutrition Intervention Note RD Recommendation(s) for Physician: - Recommend modifying TF to Vital AF 1.2 @ goal rate of 65 mL/hr to better meet pt's estimated nutritional needs (provides 1872 kcal, 117 g protein) -Water flushes and fluid management per MD. -[employer] evaluation as feasible, when pt deemed safe for po recommend 1800 ADA restriction. Texture per [employer] SECRETARY. Plan of Care: RD following, monitoring for tolerance and adequacy, tube feed recommendation, diet rec's Nutrition reason for involvement: follow up RD Assessment 05/14: Follow up. Speech therapy recommended to continue NG feeding at this time and that pt is fatigured. Pt is receiving Glucerna 1.2 @ 35 mL/hr per documentation. Recommendations provided. Will continue to monitor. 05/11: Follow up. Pt extubated yesterday, currently on high flow O2. Pt continues on Propofol. Pt currently on Glucerna 1.2 at 20 ml/hr. Current TF rec's remain appropriate in light of Propofol dosage. Chart reviewed. Will continue to monitor. 05/06: Follow up. Pt remains intubated and sedated on high dose Propofol. TF continues at 35 ml/hr, additional kcal from Propofol meeting estimated kcal needs- not meeting protein needs. BM documented 05/05. Chart reviewed. Current TF rec's remain appropriate. Will continue to monitor. 05/03: Follow up. Pt remains intubated and sedated on high dose Propofol, pt requiring intermittent proning. TF at 35 ml/hr, additional kcal from Propofol currently. Updated TF rec's provided in light of Propofol dosage. No recent BM documented. Chart reviewed. Will continue to monitor. 04/28: Follow up. Pt remains intubated. RN reports pts tube feed rate is at 15 mL/hr at this time and that pt is in the prone position. Current recommendations remain appropriate. Will continue to monitor. (04/23/20) Pt is a 40 year old male admitted with COVID-19, hypoxemia, and viral pneumonia. Pt was intubated and tube feedings were started. Unable to obtain nutrition history at this time and there are no previous weights in chart. Tube feed recommendations provided. Will continue to monitor. Principal Problems/Diagnoses: COVID-19, hypoxemia, and viral pneumonia PMH: Depression, anxiety, ADHD, diabetes, and hyperlipidemia GI: LBM 05/10 Skin: stage 3 sacral pressure ulcer Labs: 05/14: Na 140, K 3.8, BUN 9, Cr 0.56, Glu 131, 05/11: Na 141, K 3.3, BUN 16, Cr 0.64, Gluc 96 05/06: na 146, K 3.5, BUN 13, Cr 0.62, Gluc 111, POC gluc 102-140 05/03: Na 142, K 4.4, BUN 17, Cr 0.64, Gluc 121, POC Gluc 115-231 (04/28) Na 143, K 4.2, BUN 19, Cr 0.67, Glu 108, Ca 7.6 (04/22) Na 145, K 4.8, BUN 39, Cr 0.90, Glu 127, Ca 7.9 Meds: insulin, antibiotic, zinc sulfate, vitamin C, insulin, simvastatin, zofran Ht: 69 inches Wt: 238 lbs (05/12) 230 lb (05/11) 233 lbs (05/06) BMI: 34.4 kg/m2 weight used 233 lbs IBW: 160 lbs Malnutrition Evaluation (05/11/20) Unable to assess. Will re-evaluate at follow-up as appropriate. Nutrition Prescription (Diet Order): Glucerna 1.2 @ 20mL/hr infusing at 35 mL/hr (1008 kcal and 50 gm protein) Estimated Nutritional Needs: 5330-0700 calories/day (22-25 kcal/kg IBW) 109-145 g protein/day (1.5-2 g pro/kg IBW) Diet Adequacy: Not meeting calorie needs, Not meeting protein needs Tolerance: tolerating TF Diet Education Needs Assessment: Diet education not indicated Nutrition Care Level: moderate Nutrition Diagnosis: Inadequate energy intake related to decreased ability to consume sufficient energy as evidenced by pt requiring enteral nutrition. Goal: Patient will meet 75-100% of estimated needs by follow up Progress: not progressing Interventions: -Composition, Rate, Route, Recommended Modifications Monitoring/Evaluation: -Total energy intake, Total protein intake, Formula/Solution, Weight change Signed: Teri Ferris, RD, LD
--- NOTE | 2020-05-14 17:47 | Progress Note ---
DATE: SUBJECTIVE: Mr. Agrawal is off the vent, weak, short of breath, seems little better. OBJECTIVE: VITAL SIGNS: Stable. Heart rate 104, respirations 28, blood pressure 153/84. HEENT: Not icteric. NECK: Supple. CHEST: Crackles. HEART: S1, S2. ABDOMEN: Soft. Bowel sounds present. EXTREMITIES: No edema. IMPRESSION: Coronavirus disease-19 respiratory failure, acute kidney injury, superimposed pneumonia. Currently on Unasyn as well as tobramycin inhaler. COVID-19 since April 21. His white count came down nicely at 14.4. Plan is to continue with the current choice of antibiotic . MD KATIE Morales/MODL /[id number]
--- NOTE | 2020-05-14 17:49 | NUR ---
WOUND CARE CONSULT FOR 40 YO MALE ADMITTED TO [facility] WITH A PRESENT HX OF COVID 19, HYPOXEMIA REQUIRING SUPPLEMENTAL OXYGEN. MABEL 12 ON STRICT PUP STATUS AND INTERVENTIONS SURFACE: ALTERNATING PRESSURE MATTRESS. LABS: WBC- 14.47 HGB- 10.1 ALBUMIN-2.3 GLUCOSE-131 MICRO: BLOOD CULTURE NO GROWTH. SPUTUM CULTURE ACINETOBACTER B. FUNGAL SPUTUM CULTURE-PENDING. MEDS: AMPICILLIN SEE E MAR FOR DOSAGE. SKIN ASSESSMENT COMPLETE, PATIENT PRESENTS WITH UNSTAGEABLE PRESSURE ULCER TO SACRUM; MEASURING 90% ESCHAR, 10% SLOUGH. MEASURING 8 CM X 10 CM X 0.1 CM. MINIMAL SEROSANGUINEOUS DRAINAGE. RECOMMENDATIONS: NURSING TO CLEAN WITH UNSTAGEABLE PRESSURE ULCER TO SACRUM WITH NORMAL SALINE, PAT DRY WITH 4X4 GAUZE, APPLY SANTYL TO NECROTIC/YELLOW SLOUGH WOUND BED AND COVER WITH ALLEVYN FOAM DAILY. NURSING TO MONITOR BILATERAL BUTTOCK AND SACRAL AREA DAILY. NURSING TO CONTINUE TO MONITOR PATIENT AND KEEP SKIN CLEAN AND FREE FROM STOOL OR IRRITATING MOISTURE AND CONTINUE TO FOLLOW CONSERVATIVE PUP INTERVENTIONS DAILY. NURSING TO CONTINUE REPOSITION PT SIDE TO SIDE EVERY TWO HOURS AND NEEDED. NURSING TO APPLY ALTERNATING PRESSURE MATTRESS. NURSING TO CONTINUE TO OFFLOAD FEET AND HEELS AT ALL TIMES WITH PILLOW SUSPENSION WHEN IN BED. NURSING TO APPLY BILATERAL HEEL PROTECTORS DAILY. NURSING TO CONTINUE TO ASSIST WITH PT NUTRITIONAL SUPPLEMENTS TO ENSURE PROPER REQUIREMENTS FOR HEALING. NURSING TO RE- CONSULT WOUND CARE NEEDED. Addendum: 05/14/20 at 1754 by Judi Anne RN Amended: Links added.
[2020-05-14] MEDS ORDERED: ALBUMIN 25% 25GM 100ML 0.25 GM/ML BTL IV SCH (18:00)
[2020-05-14] MEDS: ENOXAPARIN SOD INJ 40 MG/0.4 ML SYR SC SCH (18:01)
[2020-05-14] MEDS: ALBUMIN 25% 25GM 100ML 100 ML IV SCH ×2 (18:02→23:35)
[2020-05-14] MEDS ORDERED: MAGNESIUM HYDROXIDE 30 ML UDC PO ONE (18:55)
--- NOTE | 2020-05-14 22:03 | Progress Note ---
DATE: 05/14/2020 Medicine Progress Note SUBJECTIVE: The patient is alert awake on examination. He is still confused. He is still on high-flow oxygen. He is very weak on examination and very weak with physical therapy. PHYSICAL EXAMINATION: VITAL SIGNS: Temperature was 99.8, pulse 93, respiratory rate is 30, blood pressure 135/78, and pulse ox 96% on 35% FiO2 on high-flow oxygen. GENERAL: He is alert. He is awake. He is oriented x1. Very confused. HEENT: Head; normocephalic, atraumatic. Eyes; pupils are equal, round, and reactive to light bilaterally. Extraocular movements intact bilaterally. NECK: Supple. Good range of motion. PULMONARY: Clear to auscultation bilaterally. No wheezing, no rales, no rhonchi, no crackles appreciated. CARDIOVASCULAR: Positive S1 and S2. No murmurs, rubs, or gallops appreciated. ABDOMEN: Soft, nondistended, and nontender to palpation. Bowel sounds present. MUSCULOSKELETAL: He is very weak on exam. NEUROLOGIC: He is alert. He is awake. He is oriented x1. SKIN: Intact. Warm to touch. Good cap refill. EXTREMITIES: No edema. LABORATORY DATA: Show white count 14, hemoglobin 10, hematocrit is 32, and platelets is 322. His chemistry is 140, potassium 3.8, chloride 104, bicarb 27, anion gap of 12, BUN 9, creatinine is 0.56, glucose is 131, calcium is 8.4, and albumin 6.8. MICROBIOLOGY: Noted. IMAGING STUDIES: Modified barium swallow, no evidence of subglottic trach or aspiration. Please refer to speech pathology for further management. Chest x-ray, low lung volumes, stable appearing multifocal airspace opacity again identified bilaterally. IMPRESSION: 1. Acute respiratory failure secondary to coronavirus pneumonia, intubated, sedated, now extubated on 05/10/2020. 2. Type 2 diabetes. 3. Viral pneumonia secondary to coronavirus. 4. Positive sputum culture. 5. Acinetobacter. 6. Acute kidney injury-resolved. 7. Electrolyte abnormalities. 8. Leukocytosis with fever. PLAN: At this time, the patient is very weak. Continue with aggressive PT and OT. Physical Medicine and Rehab was consulted. He does not recommend rehab at this time due to severe weakness. Continue with high-flow oxygen. I did restart his antidepressants. Consulted with Psychiatry. On antibiotics. Lovenox for DVT prophylaxis. Consultants involved Pulmonary Critical Care, ID, and Psychiatry. MD JIMMY Walls/JOSÉ LUISL /[id number]
--- NOTE | 2020-05-14 23:12 | Diagnostic Imaging Report ---
EXAM: Abdomen 1 Views INDICATION: ^post NGT placement COMPARISON: 05/13/2020 IMPRESSION: Enteric tube in place with tip projecting over gastric fundus. Persistent adjacent small amount of contrast. Partially seen diffuse bilateral lung airspace opacities and mild gaseous distention of bowel loops. Signed by: Dr. Audie Negrete MD on 05/14/2020 11:08 PM
[2020-05-15] VITALS (28 sets, daily range): BP systolic 117–197; BP diastolic 62–106
[2020-05-15] MEDS: INSULIN GLARGINE 100 UNITS/ML VIAL SQ SCH ×2 (00:02→20:25)
[2020-05-15] MEDS: DEXMEDETOMIDINE 200MCG/NS 50ML 50 ML IV PRN ×6 (00:48→21:59)
[2020-05-15 05:10] LABS: BASOPHILS # (AUTO) 0.1 (0.0-0.1); BASOPHILS % 0.7 % (0.0-1.0); EOSINOPHILS # (AUTO) 0.7 (0.0-0.4); EOSINOPHILS % 5.1 % (0.0-6.0); HEMATOCRIT 31.3 % (38.2-49.6); HEMOGLOBIN 10.1 g/dL (14.0-18.0); LYMPHOCYTES # (AUTO) 1.7 (1.0-3.2); LYMPHOCYTES % 12.7 % (18.0-39.1); MEAN CORPUSCULAR HGB CONC 32.3 g/dL (31-35); MEAN CORPUSCULAR VOLUME 86.7 fL (81-99); MONOCYTES # (AUTO) 1.1 (0.2-0.8); MONOCYTES % 7.7 % (4.4-11.3); NEUTROPHILS % 72.8 % (38.7-80.0); PLATELET COUNT 292 x10e3/uL (140-360); RED BLOOD COUNT 3.61 x10e6/uL (4.3-5.7); RED CELL DISTRIBUTION WIDTH 13.7 % (11.7-14.4)
[2020-05-15 05:30] LABS: ALANINE AMINOTRANSFERASE 35 IU/L (0-55); ALBUMIN 3.1 g/dL (3.5-5.0); ALBUMIN/GLOBULIN RATIO 0.7 (0.8-2.0); ALKALINE PHOSPHATASE 79 IU/L (40-150); ANION GAP 15.8 mmol/L (8-16); BLOOD UREA NITROGEN 10 mg/dL (7-26); BUN/CREATININE RATIO 16 (6-25); CALCIUM 8.9 mg/dL (8.4-10.2); CARBON DIOXIDE 28 mmol/L (22-29); CHLORIDE 99 mmol/L (98-107); CREATININE, SERUM 0.64 mg/dL (0.72-1.25); EST GLOMERULAR FILTRATION RATE > 60 ML/MIN (60-); GLUCOSE 142 mg/dL (74-118); POTASSIUM 3.8 mmol/L (3.5-5.1); SODIUM 139 mmol/L (136-145)
[2020-05-15] MEDS: ALBUMIN 25% 25GM 100ML 100 ML IV SCH (05:42)
[2020-05-15] MEDS: AMPICILLIN SOD/SULBACTAM 3GM 100 ML IV SCH ×3 (05:43→18:14)
[2020-05-15] MEDS: INSULIN REGULAR, HUMAN 100 UNIT/1 ML 3ML VIAL SQ SCH ×5 (06:36→18:10)
[2020-05-15] MEDS: TOBRAMYCIN 40 MG/ML 2ML VIAL INH SCH ×2 (08:00→14:00)
[2020-05-15] MEDS: FUROSEMIDE INJ 10 MG/ML 2 ML VIAL IV SCH (08:30)
[2020-05-15] MEDS: FAMOTIDINE 20 MG/2 ML VIAL IV SCH ×2 (08:30→17:18)
[2020-05-15] MEDS: ESCITALOPRAM OXALATE 10 MG TAB NG SCH (08:30)
[2020-05-15] MEDS: ZINC SULFATE 220 MG CAP PO SCH (08:30)
[2020-05-15] MEDS: ASCORBIC ACID 500 MG TAB PO SCH ×2 (08:30→17:18)
[2020-05-15] MEDS: HYDRALAZINE HCL 20 MG/ML VIAL IV PRN (09:05)
--- NOTE | 2020-05-15 09:30 | NUR ---
Pt with panic attack. Event of tachycardia, hypertension, hyperventilation, decreased O2 sat. Stated panic attack then tearful after event. Supported through the event with no complications noted. Psych Dr Griffin's office has been notified of consult this am. And Dr Griffin notified by Dr Crum yesterday of new consult. Pt remains off of many routine medications awaiting psych eval.
[2020-05-15 11:20] LABS: ABG HCO3 31 mmol/L (22-26); ABG PCO2 45 mmHg (35-45); ABG PH 7.46 (7.35-7.45); ABG PO2 113 mmHg (80-105); ABG TCO2 33
[2020-05-15] MEDS: BALSAM PERU/CASTOR OIL 60 GM OINT...G. TP SCH ×2 (12:00→17:00)
[2020-05-15] MEDS: COLLAGENASE 5 GM TUBE TOP SCH ×2 (12:00→17:00)
--- NOTE | 2020-05-15 12:01 | NUR ---
The patient is alert awake on examination. He is still confused. He is still on high-flow oxygen. He is very weak on examination and very weak with physical therapy. PHYSICAL EXAMINATION: VITAL SIGNS: Temperature was 99.8, pulse 93, respiratory rate is 30, blood pressure 135/78, and pulse ox 96% on 35% FiO2 on high-flow oxygen. GENERAL: He is alert. He is awake. He is oriented x1. Very confused. HEENT: Head; normocephalic, atraumatic. Eyes; pupils are equal, round, and reactive to light bilaterally. Extraocular movements intact bilaterally. NECK: Supple. Good range of motion. PULMONARY: Clear to auscultation bilaterally. No wheezing, no rales, no rhonchi, no crackles appreciated. CARDIOVASCULAR: Positive S1 and S2. No murmurs, rubs, or gallops appreciated. ABDOMEN: Soft, nondistended, and nontender to palpation. Bowel sounds present. MUSCULOSKELETAL: He is very weak on exam. NEUROLOGIC: He is alert. He is awake. He is oriented x1. SKIN: Intact. Warm to touch. Good cap refill. EXTREMITIES: No edema. LABORATORY DATA: Show white count 14, hemoglobin 10, hematocrit is 32, and platelets is 322. His chemistry is 140, potassium 3.8, chloride 104, bicarb 27, anion gap of 12, BUN 9, creatinine is 0.56, glucose is 131, calcium is 8.4, and albumin 6.8. MICROBIOLOGY: Noted. IMAGING STUDIES: Modified barium swallow, no evidence of subglottic trach or aspiration. Please refer to speech pathology for further management. Chest x-ray, low lung volumes, stable appearing multifocal airspace o
[2020-05-15] MEDS: RISPERIDONE 0.5 MG TAB PO SCH ×2 (12:49→17:18)
--- NOTE | 2020-05-15 13:34 | Progress Note ---
DATE: SUBJECTIVE: Mr. Agrawal is feeling about the same. Not on the ventilator, weak, short of breath, but generally I think slow progress, and agitation is still there. PHYSICAL EXAMINATION: GENERAL: Currently alert. VITAL SIGNS: Stable, afebrile. HEENT: He is not icteric. NECK: Supple. CHEST: Crackles bilaterally. HEART: S1, S2. ABDOMEN: Soft. IMPRESSION: COVID-19, respiratory failure, aspiration pneumonia. Continue with antibiotic as ordered. Continue supportive care. Finish 14 days of Unasyn and inhaled tobramycin. Continue diabetic control. MD KATIE Morales/MODL /[id number]
[2020-05-15] MEDS: CLONAZEPAM 0.5 MG TAB PO PRN ×2 (14:42→21:40)
--- NOTE | 2020-05-15 14:45 | Progress Note ---
DATE: SUBJECTIVE: The patient's Precedex was held this morning, but he became agitated. It had to be restarted. He remains on Vapotherm at 25 L with 45% oxygen. PHYSICAL EXAMINATION: VITAL SIGNS: The patient is tachycardic with a heart rate of 120. Blood pressure is 160/85 and saturation is 97%. He is on the Vapotherm as noted above. HEENT: Shows no facial swelling or erythema. LYMPHATIC: Shows no submandibular, cervical, or supraclavicular adenopathy. CARDIAC: Reveals tachycardia with normal S1 and S2. LUNGS: Auscultation of lungs reveals crackles at the bases. There is no wheezing. ABDOMEN: Soft and nontender. There is no rebound or guarding. EXTREMITIES: Shows no leg edema or calf tenderness. There is no cyanosis or clubbing. SKIN: Shows no rashes. NEUROLOGICAL: Shows no focal abnormalities. LABORATORY DATA: White blood cell count is 13.6 and the hemoglobin is 10.1. The platelet count is 292. BUN to creatinine ratio is normal. Other electrolytes are within normal limits. Albumin is 3.1. IMPRESSION: 1. Acute respiratory failure. 2. Viral pneumonia and COVID-19 infection. 3. Diabetes. 4. Oropharyngeal dysphagia. PLAN: 1. Continue physical therapy. 2. Continue to wean Vapotherm. 3. Begin risperidone and p.r.n. clonazepam. Try and wean the patient off Precedex. 4. Complete antibiotics. 5. Continue Lovenox. Tomi Vizcarra MD [facility]/MODL /[id number]
[2020-05-15] MEDS ORDERED: CHLORDIAZEPOXIDE HCL 25 MG CAP PO NR (16:00)
[2020-05-15] MEDS: ENOXAPARIN SOD INJ 40 MG/0.4 ML SYR SC SCH (17:18)
[2020-05-15] MEDS ORDERED: ALBUMIN 25% 25GM 100ML 0.25 GM/ML BTL IV SCH (18:00)
--- NOTE | 2020-05-15 18:41 | Progress Note ---
DATE: 05/15/2020 Medicine Progress Note SUBJECTIVE: The patient is doing relatively well today. He is on high-flow oxygen. Occasionally, he gets very panicky and gets into a panic attack. He does have medications for that, which has been written by Psychiatry. No overnight events. LABORATORY DATA: Labs show white count 13, hemoglobin 10, hematocrit 31, platelets of 292. Chemistry, sodium 139, potassium 3.8, chloride 99, bicarb 20, anion gap of 15. BUN is 10, creatinine is 0.64. IMAGING STUDIES: None. MICROBIOLOGY: Nothing new. PHYSICAL EXAMINATION: VITAL SIGNS: Temperature is 99.8, pulse 122, respiratory rate is 29, blood pressure 141/76, pulse ox 98% on high-flow oxygen. FiO2 of 45%. GENERAL: Not in acute distress. He is alert, oriented x2. Occasionally, he is confused. PULMONARY: Clear to auscultation bilaterally. No wheezing, rales, or rhonchi. No crackles appreciated. He has a high-flow oxygen. He as an NG tube. CARDIOVASCULAR: Positive S1 and S2. No murmurs, rubs, or gallops appreciated. GI: Abdomen is soft, nondistended, nontender to palpation. Bowel sounds present. MUSCULOSKELETAL: He is very weak, may be 3/5 strength throughout. NEUROLOGIC: He is intact. SKIN: Intact. Warm to touch. Good cap refill. EXTREMITIES: No edema. Good range of motion. IMPRESSION: 1. Acute respiratory failure, secondary to coronavirus pneumonia, intubated, sedated, now extubated on 05/10/2020. 2. Type 2 diabetes. 3. Viral pneumonia, secondary to coronavirus. 4. Positive sputum culture. 5. Acinetobacter. 6. Acute kidney injury -- resolved. 7. Electrolyte abnormalities. 8. Leukocytosis with fever. PLAN: At this time, the patient looks very well and has improved. He is still very weak and needs aggressive PT and OT. He will need a repeat swallow evaluation hopefully on Sunday if he is much more stronger. Continue with high-flow oxygen. He is on his antidepressants as well as some occasionally antipsychotics. CONSULTANTS: In this case are Pulmonary Critical Care, ID, and Psychiatry. He is on antibiotics as well and Lovenox for DVT prophylaxis. Jiries S Dahu, MD [facility] /[id number]
[2020-05-15] MEDS ORDERED: LACTATED RINGER'S 1,000 ML INJ ONE (18:45)
[2020-05-15] MEDS ORDERED: MORPHINE SULFATE 2 MG/ML SYR 1ML ONE (18:57)
[2020-05-15] MEDS ORDERED: MORPHINE SULFATE INJ 4 MG/ML INJ 1ML IV PRN (19:00)
[2020-05-16] VITALS (25 sets, daily range): BP systolic 112–164; BP diastolic 56–94
[2020-05-16] MEDS: AMPICILLIN SOD/SULBACTAM 3GM 100 ML IV SCH ×4 (01:04→18:13)
[2020-05-16] MEDS: INSULIN REGULAR, HUMAN 100 UNIT/1 ML 3ML VIAL SQ SCH ×4 (01:39→18:16)
[2020-05-16] MEDS: DEXMEDETOMIDINE 200MCG/NS 50ML 50 ML IV PRN ×2 (03:16→10:15)
[2020-05-16] MEDS: TOBRAMYCIN 40 MG/ML 2ML VIAL INH SCH ×3 (06:00→22:55)
[2020-05-16 06:01] LABS: BASOPHILS # (AUTO) 0.1 (0.0-0.1); BASOPHILS % 0.5 % (0.0-1.0); EOSINOPHILS # (AUTO) 0.7 (0.0-0.4); EOSINOPHILS % 4.5 % (0.0-6.0); HEMATOCRIT 33.2 % (38.2-49.6); HEMOGLOBIN 10.4 g/dL (14.0-18.0); LYMPHOCYTES # (AUTO) 1.9 (1.0-3.2); LYMPHOCYTES % 12.4 % (18.0-39.1); MEAN CORPUSCULAR HEMOGLOBIN 26.7 pg (28-32); MEAN CORPUSCULAR HGB CONC 31.3 g/dL (31-35); MEAN CORPUSCULAR VOLUME 85.3 fL (81-99); MONOCYTES # (AUTO) 1.1 (0.2-0.8); MONOCYTES % 7.2 % (4.4-11.3); NEUTROPHILS # (AUTO) 11.3 (2.1-6.9); PLATELET COUNT 335 x10e3/uL (140-360); RED BLOOD COUNT 3.89 x10e6/uL (4.3-5.7)
[2020-05-16 06:20] LABS: ANION GAP 13.9 mmol/L (8-16); BLOOD UREA NITROGEN 11 mg/dL (7-26); BUN/CREATININE RATIO 16 (6-25); CALCIUM 9.3 mg/dL (8.4-10.2); CARBON DIOXIDE 29 mmol/L (22-29); CHLORIDE 100 mmol/L (98-107); CREATININE, SERUM 0.68 mg/dL (0.72-1.25); EST GLOMERULAR FILTRATION RATE > 60 ML/MIN (60-); GLUCOSE 132 mg/dL (74-118); POTASSIUM 3.9 mmol/L (3.5-5.1); SODIUM 139 mmol/L (136-145)
[2020-05-16] MEDS: FAMOTIDINE 20 MG/2 ML VIAL IV SCH ×2 (08:12→16:07)
[2020-05-16] MEDS: ZINC SULFATE 220 MG CAP PO SCH (08:12)
[2020-05-16] MEDS: RISPERIDONE 0.5 MG TAB PO SCH (08:12)
[2020-05-16] MEDS: ASCORBIC ACID 500 MG TAB PO SCH ×2 (08:12→16:07)
[2020-05-16] MEDS: ACETAMINOPHEN 325 MG TAB PO PRN ×2 (11:13→20:41)
[2020-05-16] MEDS: CLONAZEPAM 0.5 MG TAB PO PRN ×2 (11:27→20:42)
[2020-05-16] MEDS ORDERED: MORPHINE SULFATE 2 MG/ML SYR 1ML IV STA (14:09)
[2020-05-16] MEDS ORDERED: LACTATED RINGER'S 1,000 ML ONE (14:21)
[2020-05-16] MEDS ORDERED: LACTATED RINGER'S 500 ML INJ ONE (15:00)
--- NOTE | 2020-05-16 15:19 | Progress Note ---
DATE: SUBJECTIVE: The patient still has some tachycardia. He complains of pain from his sacral decubitus ulcer. The patient also is now on Vapotherm at 20 L with 45%. He is saturating 98%. PHYSICAL EXAMINATION: VITAL SIGNS: The patient is afebrile. The blood pressure is 118/56, saturations 96% on Vapotherm as mentioned above. HEENT: Shows no facial swelling or erythema. LYMPHATIC: Shows no submandibular, cervical, or supraclavicular adenopathy. CARDIAC: Reveals regular rate and rhythm with normal S1, S2. LUNGS: Auscultation of lungs reveals rhonchorous breath sounds bilaterally. There is no wheezing. ABDOMEN: Soft and nontender. There is no rebound or guarding. EXTREMITIES: Shows no leg edema or calf tenderness. There is no cyanosis or clubbing. SKIN: Shows no rashes. NEUROLOGICAL: Shows no focal abnormalities. IMPRESSION: 1. Acute respiratory failure. 2. Viral pneumonia and COVID-19 infection. 3. Diabetes. 4. Sacral decubitus ulcer. PLAN: 1. Low-dose morphine for pain. 2. Wound care. 3. Continue to wean Vapotherm. 4. Continue risperidone and p.r.n. clonazepam. 5. Complete antibiotics. Tomi Vizcarra MD [facility]L /[id number]
[2020-05-16] MEDS: ENOXAPARIN SOD INJ 40 MG/0.4 ML SYR SC SCH (16:07)
[2020-05-16] MEDS ORDERED: RISPERIDONE 0.5 MG TAB PO SCH (17:00)
[2020-05-16] MEDS: INSULIN GLARGINE 100 UNITS/ML VIAL SQ SCH (20:15)
--- NOTE | 2020-05-16 20:55 | Progress Note ---
DATE: 05/16/2020 Medicine Progress Note SUBJECTIVE: He is doing much better. He is on high-flow oxygen. No overnight events. PHYSICAL EXAMINATION: VITAL SIGNS: Temperature is 99.6, pulse 119, respiratory rate is 25, blood pressure 149/75, pulse ox 99%. He is on nasal cannula, FiO2 of 50%. GENERAL: No acute distress. Alert and oriented x2. Occasionally, he is very confused. PULMONARY: Clear to auscultation bilaterally. No wheezing, rales, or rhonchi. No crackles appreciated. CARDIOVASCULAR: Positive S1 and S2. No murmurs, rubs, or gallops appreciated. ABDOMEN: Soft, nondistended, nontender to palpation. Bowel sounds present. MUSCULOSKELETAL: He is very weak on examination. NEUROLOGICAL: Alert, awake, and oriented x2. He is very confused occasionally. SKIN: Intact, warm to touch. Good cap refill. LABORATORY DATA: Labs show white count 15, hemoglobin 10.4, hematocrit is 33, and platelets of 335. Chemistry; sodium 139, potassium 3.9, chloride 100, bicarb 29, anion gap of 13, BUN is 11, creatinine is 0.68. MICROBIOLOGY: All noted. IMAGING STUDIES: Nothing new. IMPRESSION: 1. Acute respiratory failure secondary to cardiac arrest, pneumonia, now extubated on 05/10/2020. 2. Type 2 diabetes mellitus. 3. Viral pneumonia secondary to coronavirus. 4. Positive sputum cultures for Acinetobacter. 5. Acute kidney injury-resolved. 6. Electrolyte abnormalities. 7. Leukocytosis with fever. PLAN: At this time, the patient is improving on a daily basis. Occasionally, he is very confused. He needs aggressive PT and OT, which we will continue. Swallow eval on Sunday. Continue with high-flow oxygen. He has been restarted on his antidepressants as well as some antipsychotics. He is on Lovenox and tube feeds. CONSULTANTS: Pulmonary Critical Care and Psychiatry. MD JIMMY Walls/MODL /[id number]
[2020-05-16] MEDS: METOPROLOL TARTRATE 25 MG TAB PO SCH (22:00)
[2020-05-17] VITALS (24 sets, daily range): BP systolic 129–160; BP diastolic 76–91
[2020-05-17] MEDS: INSULIN REGULAR, HUMAN 100 UNIT/1 ML 3ML VIAL SQ SCH ×4 (00:09→18:48)
[2020-05-17] MEDS: AMPICILLIN SOD/SULBACTAM 3GM 100 ML IV SCH ×5 (00:09→23:44)
[2020-05-17] MEDS: ACETAMINOPHEN 325 MG TAB PO PRN (05:03)
[2020-05-17] MEDS: CLONAZEPAM 0.5 MG TAB PO PRN ×3 (05:03→20:26)
[2020-05-17 05:38] LABS: BASOPHILS # (AUTO) 0.1 (0.0-0.1); BASOPHILS % 0.6 % (0.0-1.0); EOSINOPHILS # (AUTO) 0.8 (0.0-0.4); EOSINOPHILS % 4.8 % (0.0-6.0); HEMATOCRIT 34.1 % (38.2-49.6); HEMOGLOBIN 10.6 g/dL (14.0-18.0); LYMPHOCYTES # (AUTO) 1.7 (1.0-3.2); LYMPHOCYTES % 10.5 % (18.0-39.1); MEAN CORPUSCULAR HEMOGLOBIN 27.5 pg (28-32); MEAN CORPUSCULAR HGB CONC 31.1 g/dL (31-35); MEAN CORPUSCULAR VOLUME 88.6 fL (81-99); MONOCYTES # (AUTO) 1.1 (0.2-0.8); MONOCYTES % 6.9 % (4.4-11.3); NEUTROPHILS # (AUTO) 11.9 (2.1-6.9); NEUTROPHILS % 75.9 % (38.7-80.0); PLATELET COUNT 339 x10e3/uL (140-360); RED BLOOD COUNT 3.85 x10e6/uL (4.3-5.7); RED CELL DISTRIBUTION WIDTH 13.9 % (11.7-14.4)
[2020-05-17 06:04] LABS: ANION GAP 13.9 mmol/L (8-16); BLOOD UREA NITROGEN 8 mg/dL (7-26); BUN/CREATININE RATIO 12 (6-25); CALCIUM 8.9 mg/dL (8.4-10.2); CARBON DIOXIDE 28 mmol/L (22-29); CHLORIDE 100 mmol/L (98-107); CREATININE, SERUM 0.65 mg/dL (0.72-1.25); EST GLOMERULAR FILTRATION RATE > 60 ML/MIN (60-); GLUCOSE 162 mg/dL (74-118); POTASSIUM 3.9 mmol/L (3.5-5.1); SODIUM 138 mmol/L (136-145)
[2020-05-17] MEDS: TOBRAMYCIN 40 MG/ML 2ML VIAL INH SCH ×3 (07:00→23:05)
--- NOTE | 2020-05-17 07:52 | NUR ---
infectious disease progress note. This is late entry for May 16, 2020 patient seen and examined chart reviewed. Patient seems to be doing better. He is doing much better. He is on high-flow oxygen. No overnight events. PHYSICAL EXAMINATION: VITAL SIGNS: Temperature is 99.6, pulse 119, respiratory rate is 25, blood pressure 149/75, pulse ox 99%. He is on nasal cannula, FiO2 of 50%. GENERAL: No acute distress. Alert and oriented x2. Occasionally, he is very confused. PULMONARY: Clear to auscultation bilaterally. No wheezing, rales, or rhonchi. No crackles appreciated. CARDIOVASCULAR: Positive S1 and S2. No murmurs, rubs, or gallops appreciated. ABDOMEN: Soft, nondistended, nontender to palpation. Bowel sounds present. MUSCULOSKELETAL: He is very weak on examination. NEUROLOGICAL: Alert, awake, and oriented x2. He is very confused occasionally. SKIN: Intact, warm to touch. Good cap refill. LABORATORY DATA: Labs show white count 15, hemoglobin 10.4, hematocrit is 33, and platelets of 335. Chemistry; sodium 139, potassium 3.9, chloride 100, bicarb 29, anion gap of 13, BUN is 11, creatinine is 0.68. MICROBIOLOGY: All noted. IMAGING STUDIES: Nothing new. IMPRESSION: 1. Acute respiratory failure secondary to cardiac arrest, pneumonia, now extubated on 05/10/2020. 2. Type 2 diabetes mellitus. 3. Viral pneumonia secondary to coronavirus. 4. Positive sputum cultures for Acinetobacter. 5. Acute kidney injury-resolved. 6. Electrolyte abnormalities. 7. aspiration pneumonia Continue with antibiotics as ordered continue with local care supportive care PT OT nutritional support aspiration precautions discussed with medical team will reassess
--- NOTE | 2020-05-17 07:53 | NUR ---
this is infectious disease progress note patient seen and examined chart reviewed. The Patient seen May 17, 2020. He is doing much better. He is on high-flow oxygen. No overnight events. PHYSICAL EXAMINATION: VITAL SIGNS: Temperature is 99.6, pulse 119, respiratory rate is 25, blood pressure 149/75, pulse ox 99%. He is on nasal cannula, FiO2 of 50%. GENERAL: No acute distress. Alert and oriented x2. Occasionally, he is very confused. PULMONARY: Clear to auscultation bilaterally. No wheezing, rales, or rhonchi. No crackles appreciated. CARDIOVASCULAR: Positive S1 and S2. No murmurs, rubs, or gallops appreciated. ABDOMEN: Soft, nondistended, nontender to palpation. Bowel sounds present. MUSCULOSKELETAL: He is very weak on examination. NEUROLOGICAL: Alert, awake, and oriented x2. He is very confused occasionally. SKIN: Intact, warm to touch. Good cap refill. MICROBIOLOGY: All noted. IMAGING STUDIES: Nothing new. IMPRESSION: 1. Acute respiratory failure secondary to cardiac arrest, pneumonia, now extubated on 05/10/2020. 2. Type 2 diabetes mellitus. 3. Viral pneumonia secondary to coronavirus. 4. Positive sputum cultures for Acinetobacter. 5. Acute kidney injury-resolved. 6. Electrolyte abnormalities. 7. patient continued to improve slowly continue with PT and OT Continue with aspiration precaution Continue antibiotic as order to finish 14 days Patient is no longer infectious
--- NOTE | 2020-05-17 09:23 | NUR ---
Wound care done as ordered Sanytl and new foam dressing applied Addendum: 05/17/20 at 0924 by Vargas Martinez RN Amended: Links added.
--- NOTE | 2020-05-17 09:36 | NUR ---
Dr Griffin [facility] at bedside see new orders and and notes
--- NOTE | 2020-05-17 10:00 | NUR ---
Dr Krishnamurthy at bedside see new notes
[2020-05-17] MEDS: FAMOTIDINE 20 MG/2 ML VIAL IV SCH ×2 (10:20→17:46)
[2020-05-17] MEDS: ASCORBIC ACID 500 MG TAB PO SCH ×2 (10:21→17:46)
[2020-05-17] MEDS: ZINC SULFATE 220 MG CAP PO SCH (10:21)
[2020-05-17] MEDS: METOPROLOL TARTRATE 25 MG TAB PO SCH (10:21)
[2020-05-17] MEDS: BALSAM PERU/CASTOR OIL 60 GM OINT...G. TP SCH (10:22)
[2020-05-17] MEDS: COLLAGENASE 5 GM TUBE TOP SCH (10:22)
--- NOTE | 2020-05-17 10:30 | NUR ---
Speech therapost at bedside see recommendations.
--- NOTE | 2020-05-17 11:22 | Consultation ---
DATE OF CONSULTATION: Psychiatric Initial Evaluation REASON FOR CONSULTATION: For treatment and evaluation of patient's confusion and mood. HISTORY OF PRESENT ILLNESS: The patient is a 40-year-old male who is admitted to [facility] for multiple medical problems. Psychiatric consult is called to evaluate patient's mood and confusion during his inpatient stay. Upon evaluation today, the patient is found to be lying on his bed. He is alert, awake, oriented to situation. He has significant psychomotor retardation. His speech is very soft. He is kind of evasive. He denies feeling depress, but reports anxiety. He denies any suicidal ideations and/or any hallucinations. His stress because of his current health issues. He is not able to sleep. His appetite is fair. As per the nursing staff, the patient has been recently extubated. He is not able to sleep well and he appears to have some mood lability. He is not agitated. PAST PSYCHIATRIC HISTORY: The patient state that he has not been treated by psychiatrist in the past. He has never attempted any suicide. He denies drinking alcohol and denies abusing any recreational drugs. As per the medical record, he has history of mood, anxiety and ADHD. FAMILY HISTORY: The patient denies. SOCIAL HISTORY: The patient states that he lives alone. CURRENT LABORATORIES: WBC 15.6, hemoglobin 10.6, and platelets 339. Sodium 138, potassium 3.9, chloride 100, BUN 8, and creatinine 0.65. CURRENT MEDICATIONS: 1. Clonopin 0.5 mg p.o. q.6 p.r.n. for agitation. 2. Risperdal 0.5 mg p.o. b.i.d. MENTAL STATUS EXAMINATION: The patient is young male, who is currently lying on his bed. He has psychomotor retardation, but he is calm. His mood is "fine" with blunted affect. He denies any suicidal or homicidal ideation at present. He denies any abnormal perception at present. No dilutions are elicited. His thought process is concrete. His insight and judgment are limited. DIAGNOSES: AXIS I: 1. Adjustment disorder with mixed mood, depression, and anxiety. 2. Rule out unspecified psychosis/delirium. PLAN OF CARE: 1. Discontinue Risperdal. 2. Add Zoloft 25 mg p.o. daily. 3. Continue Klonopin 0.5 mg p.o. q.6 hours p.r.n. for agitation. 4. Add Zyprexa 2.5 mg p.o. q.6 p.r.n. for agitation. 5. Supportive therapy during his inpatient stay. 6. We will continue to follow this patient during his inpatient stay from management of psychiatric symptoms. MD MARY Larios/[facility]L /[id number]
--- NOTE | 2020-05-17 13:30 | NUR ---
Dr Crum in unit informed of patients HR 138 and Physical therapy in unit . OK to do recommendation of speech theraphy
[2020-05-17] MEDS ORDERED: METOPROLOL TARTRATE 25 MG TAB PO ONE (14:45)
[2020-05-17] MEDS ORDERED: METOPROLOL TARTRATE 25 MG TAB PO SCH (17:00)
--- NOTE | 2020-05-17 17:24 | Progress Note ---
DATE: SUBJECTIVE: The patient is now on Vapotherm at 20 L with FiO2 of 45%. He still has tachycardia. PHYSICAL EXAMINATION: VITAL SIGNS: The blood pressure is 154/90, saturation is 100% on a Vapotherm. His heart rate is 120 to 130. HEENT: Shows no facial swelling or erythema. LYMPHATIC: Shows no submandibular, cervical, or supraclavicular adenopathy. There is tachycardia with normal S1, S2. LUNGS: Auscultation of the lungs shows decreased breath sounds at the bases. There is no wheezing. ABDOMEN: Soft, nontender. There is no rebound or guarding. EXTREMITIES: Shows no leg edema or calf tenderness. LABORATORY DATA: The white blood cell count is 15.66 and hemoglobin is 10.6. The platelet count is 339. The BUN to creatinine ratio is 8 to 0.65 and the other electrolytes within normal limits. IMPRESSION: 1. Acute respiratory failure. 2. Viral pneumonia and COVID-19 infection. 3. Diabetes. 4. Sacral decubitus ulcer. 5. Tachycardia. PLAN: 1. Psychiatry has adjusting his pain medications. 2. Continue low-dose Klonopin. 3. Wean Vapotherm. 4. Repeat echocardiogram. Tomi Vizcarra MD [facility] /[id number]
[2020-05-17] MEDS: ENOXAPARIN SOD INJ 40 MG/0.4 ML SYR SC SCH (17:46)
[2020-05-17] MEDS: METOPROLOL TARTRATE 50 MG TAB PO SCH (20:24)
[2020-05-17] MEDS: TRAZODONE HCL 50 MG TAB PO PRN (20:26)
[2020-05-17] MEDS: INSULIN GLARGINE 100 UNITS/ML VIAL SQ SCH (20:29)
[2020-05-18] VITALS (24 sets, daily range): BP systolic 93–164; BP diastolic 76–90
[2020-05-18] MEDS: INSULIN REGULAR, HUMAN 100 UNIT/1 ML 3ML VIAL SQ SCH ×4 (00:04→17:50)
--- NOTE | 2020-05-18 02:06 | Progress Note ---
DATE: 05/18/2020 Medicine Progress Note SUBJECTIVE: The patient is alert, awake, and he is oriented on exam. He is very weak. Work with physical therapy. PHYSICAL EXAMINATION: VITAL SIGNS: Temperature is 100.4, pulse 134, respiratory rate is 27, blood pressure 149/86, pulse ox 100%, he is on high-flow, FiO2 50%. GENERAL: He is awake. He is alert. He is oriented. Occasionally, he is confused, very weak. PULMONARY: Clear to auscultation bilaterally. No wheezing, rales, or rhonchi. No crackles appreciated. He is on high-flow oxygen. CARDIOVASCULAR: Positive S1 and S2. No murmurs, rubs, or gallops appreciated. ABDOMEN: Soft, nondistended, and nontender to palpation. Bowel sounds present. MUSCULOSKELETAL: He is very weak on examination. NEUROLOGIC: He is alert, he is awake, but occasionally, he is confused, but he is oriented. SKIN: Intact. Warm to touch. Good cap refill. LABORATORY DATA: CBC; white count 15, hemoglobin 10.6, hematocrit 34, platelets of 339. Chemistry; sodium 138, potassium 3.9, chloride is 100, bicarb is 28, anion gap of 13, BUN is 8 and creatinine 0.65, calcium is 8.9. IMPRESSION: 1. Acute respiratory failure secondary to coronavirus pneumonia, now extubated on 05/10/2020. 2. Type 2 diabetes. 3. Viral pneumonia secondary to coronavirus. 4. Sputum cultures for Acinetobacter positive. 5. Acute kidney injury, resolved. 6. Electrolyte abnormalities and leukocytosis with fever. PLAN: At this time, the patient seems to be improving on a daily basis, but still very weak. Aggressive PT and OT are needed. He did have evidence of sinus tachycardia, which I added metoprolol 25 mg p.o. b.i.d. Continue with high-flow oxygen. He is eating, but very little. He is on Lovenox for DVT prophylaxis. He is still on tube feeds. CONSULTANTS: Involved Pulmonary Critical Care and Psychiatry. MD JIMMY Walls/MODL /[id number]
[2020-05-18 06:20] LABS: BASOPHILS # (AUTO) 0.1 (0.0-0.1); BASOPHILS % 0.7 % (0.0-1.0); EOSINOPHILS # (AUTO) 0.6 (0.0-0.4); EOSINOPHILS % 3.9 % (0.0-6.0); HEMATOCRIT 33.9 % (38.2-49.6); HEMOGLOBIN 10.7 g/dL (14.0-18.0); LYMPHOCYTES # (AUTO) 1.8 (1.0-3.2); LYMPHOCYTES % 11.9 % (18.0-39.1); MEAN CORPUSCULAR HEMOGLOBIN 27.9 pg (28-32); MEAN CORPUSCULAR HGB CONC 31.6 g/dL (31-35); MEAN CORPUSCULAR VOLUME 88.3 fL (81-99); MONOCYTES # (AUTO) 1.1 (0.2-0.8); MONOCYTES % 6.9 % (4.4-11.3); NEUTROPHILS # (AUTO) 11.6 (2.1-6.9); PLATELET COUNT 281 x10e3/uL (140-360); RED BLOOD COUNT 3.84 x10e6/uL (4.3-5.7); RED CELL DISTRIBUTION WIDTH 14.1 % (11.7-14.4)
[2020-05-18] MEDS: AMPICILLIN SOD/SULBACTAM 3GM 100 ML IV SCH ×4 (06:45→23:57)
[2020-05-18 06:49] LABS: ALANINE AMINOTRANSFERASE 26 IU/L (0-55); ALBUMIN 3.1 g/dL (3.5-5.0); ALBUMIN/GLOBULIN RATIO 0.6 (0.8-2.0); ALKALINE PHOSPHATASE 84 IU/L (40-150); ANION GAP 15.3 mmol/L (8-16); BLOOD UREA NITROGEN 9 mg/dL (7-26); BUN/CREATININE RATIO 13 (6-25); CALCIUM 9.2 mg/dL (8.4-10.2); CARBON DIOXIDE 28 mmol/L (22-29); CHLORIDE 97 mmol/L (98-107); CREATININE, SERUM 0.69 mg/dL (0.72-1.25); EST GLOMERULAR FILTRATION RATE > 60 ML/MIN (60-); GLUCOSE 160 mg/dL (74-118); POTASSIUM 4.3 mmol/L (3.5-5.1); SODIUM 136 mmol/L (136-145)
[2020-05-18] MEDS: TOBRAMYCIN 40 MG/ML 2ML VIAL INH SCH ×2 (06:55→15:00)
[2020-05-18] MEDS: ASCORBIC ACID 500 MG TAB PO SCH ×2 (08:45→17:49)
[2020-05-18] MEDS: METOPROLOL TARTRATE 50 MG TAB PO SCH ×2 (08:45→21:08)
[2020-05-18] MEDS: FAMOTIDINE 20 MG/2 ML VIAL IV SCH ×2 (08:45→17:48)
[2020-05-18] MEDS: BALSAM PERU/CASTOR OIL 60 GM OINT...G. TP SCH (08:51)
[2020-05-18] MEDS: COLLAGENASE 5 GM TUBE TOP SCH (08:51)
[2020-05-18] MEDS: SERTRALINE HCL 50 MG TAB PO SCH (08:51)
[2020-05-18] MEDS: ZINC SULFATE 220 MG CAP PO SCH (08:51)
--- NOTE | 2020-05-18 08:51 | NUR ---
infectious disease progress note May 18, 2020 Patient was in intensive care unit he is over the ventilator comfortable weak still with short of breath but overall slightly better Review of system otherwise unremarkable patient seen and examined chart reviewed events noted discussed with medical team Physical examination currently alert oriented with a stable afebrile HEENT normocephalic neck supple chest few rhonchi heart S1-S2 abdomen soft muscle present extremities no edema skin no rash Covid 19 Respiratory failure Aspiration pneumonia Diabetes mellitus Debility concern about aspiration continue PT OT continue with supportive care is ordered to continue antibiotic as ordered discuss medical team
--- NOTE | 2020-05-18 08:53 | NUR ---
Echo done . Crushed patient meds and put in applesauce without coughing and feed patient did not eat but less than 25% didn't like but ate half applesauce.
--- NOTE | 2020-05-18 09:00 | NUR ---
Done per protocol with Ely TAYLOR assist with turn Addendum: 05/18/20 at 1333 by Vargas Martinez RN Amended: Links added.
--- NOTE | 2020-05-18 10:20 | NUR ---
Patient pulled NGtube out says he don't need it anymore notified Dr Crum aware.
--- NOTE | 2020-05-18 11:15 | NUR ---
DR Vizcarra in unit asked if we could remove artline let do ABG first and did decide.
--- NOTE | 2020-05-18 11:45 | NUR ---
Placed on High flow nasal cannula by RT after Dr Vizcarra viewed ABG.
--- NOTE | 2020-05-18 12:10 | NUR ---
Physical Therapy at bedside see notes
--- NOTE | 2020-05-18 12:46 | NUR ---
Feed patient ate 1/2 meat gravy and half mash potatoes without coughing or difficulty.HOB 90
--- NOTE | 2020-05-18 14:12 | NUR ---
Dr Crum at bedside see notes
--- NOTE | 2020-05-18 14:14 | NUR ---
Dr Crum here
--- NOTE | 2020-05-18 14:35 | NUR ---
Patient resting quietly resp 24
[2020-05-18 15:32] LABS: ABG PCO2 43 mmHg (35-45); ABG PH 7.46 (7.35-7.45)
[2020-05-18 15:33] LABS: ABG HCO3 31 mmol/L (22-26); ABG PO2 79 mmHg (80-105); ABG TCO2 32
--- NOTE | 2020-05-18 15:55 | NUR ---
Dr Espinoza at bedside
--- NOTE | 2020-05-18 16:44 | NUR ---
Dr Krishnamurthy here
[2020-05-18] MEDS: ENOXAPARIN SOD INJ 40 MG/0.4 ML SYR SC SCH (17:48)
--- NOTE | 2020-05-18 18:05 | Progress Note ---
DATE: SUBJECTIVE: The patient was transitioned to nasal cannula at 5 L. He is saturating well on this. He has less agitation. PHYSICAL EXAMINATION: VITAL SIGNS: Blood pressure is 149/90. Heart rate is 110. T-max is 99.6. HEENT: Shows no facial swelling or erythema. CARDIAC: Reveals tachycardia with normal S1 and S2. LUNGS: Auscultation of lungs reveals rhonchorous breath sounds bilaterally. There is wheezing. ABDOMEN: Soft and nontender. There is no rebound or guarding. EXTREMITIES: Shows no leg edema or calf tenderness. There is no cyanosis or clubbing. SKIN: Shows no rashes. NEUROLOGIC: Shows no focal abnormalities. LABORATORY DATA: BUN, creatinine, and electrolytes are within normal limits. CBC is significant for white blood cell count of 15.4, hemoglobin of 10.7. The platelet count is 281. IMPRESSION: 1. Acute respiratory failure. 2. Viral pneumonia and coronavirus disease-2019 infection. 3. Sacral decubitus ulcer. 4. Diabetes. PLAN: 1. Continue current oxygen. 2. Adjust psychiatric medicines. 3. Physical therapy. 4. Wound care. Tomi Vizcarra MD [facility]/MODL /[id number]
--- NOTE | 2020-05-18 18:07 | NUR ---
Patient ate all his mash potatoes with gravy and half the meat, dranked only 60cc of nectar thicken water without any coughing or difficulty crushed meds.
[2020-05-18] MEDS: ACETAMINOPHEN 325 MG TAB PO PRN (19:57)
[2020-05-18] MEDS: CLONAZEPAM 0.5 MG TAB PO PRN (21:09)
[2020-05-18] MEDS: TRAZODONE HCL 50 MG TAB PO PRN (21:09)
[2020-05-18] MEDS: INSULIN GLARGINE 100 UNITS/ML VIAL SQ SCH (21:12)
[2020-05-19] VITALS (21 sets, daily range): BP systolic 106–150; BP diastolic 66–109
[2020-05-19] MEDS: INSULIN REGULAR, HUMAN 100 UNIT/1 ML 3ML VIAL SQ SCH ×4 (00:24→18:37)
--- NOTE | 2020-05-19 01:42 | Progress Note ---
DATE: 05/18/2020 Medicine Progress Note SUBJECTIVE: The patient is doing well. He is on high-flow oxygen, but he has been titrated downward. He is alert. He is awake. He is oriented x2. He seems to be improving. He is still relatively weak. PHYSICAL EXAMINATION: VITAL SIGNS: Temperature is 99.8, pulse 121, respiratory rate is 27, blood pressure 145/84, pulse ox 98% on 5 L nasal cannula recorded on high-flow. GENERAL: Not in acute distress. Alert and oriented x2. He is cooperative on examination. PULMONARY: Clear to auscultation bilaterally. No wheezing, no rales, no rhonchi, no crackles appreciated. CARDIOVASCULAR: Positive S1 and S2. No murmurs, rubs, or gallops appreciated. ABDOMEN: Soft, nondistended, and nontender to palpation. Bowel sounds present. MUSCULOSKELETAL: Strength, very weak on examination throughout. NEUROLOGIC: Very weak on examination throughout. LABORATORY DATA: Show white count was 15, hemoglobin 10, hematocrit is 33, platelets of 281. Chemistries reviewed are stable. IMAGING: None. IMPRESSION: 1. Acute respiratory failure secondary to coronavirus pneumonia, now extubated on 05/10/2020. 2. Type 2 diabetes. 3. Viral pneumonia secondary to coronavirus. 4. Sputum cultures for Acinetobacter positive. 5. Acute kidney injury, resolved. 6. Electrolyte abnormalities and leukocytosis with fever-improving. PLAN: At this time, he seems to be improving daily. Still needs aggressive PT and OT. His heart rate is still elevated, but much improved with increased dose of metoprolol. Continue with high-flow oxygen. He has down trended tremendously. Get a.m. labs. Lovenox for DVT prophylaxis. CONSULTANTS: Pulmonary Critical Care, ID, and Psychiatry. MD JIMMY Walls/MODL /[id number]
[2020-05-19 05:33] LABS: BASOPHILS # (AUTO) 0.1 (0.0-0.1); BASOPHILS % 0.6 % (0.0-1.0); EOSINOPHILS # (AUTO) 0.6 (0.0-0.4); EOSINOPHILS % 4.4 % (0.0-6.0); HEMATOCRIT 35.8 % (38.2-49.6); LYMPHOCYTES % 14.7 % (18.0-39.1); MEAN CORPUSCULAR HEMOGLOBIN 26.5 pg (28-32); MEAN CORPUSCULAR HGB CONC 30.7 g/dL (31-35); MEAN CORPUSCULAR VOLUME 86.3 fL (81-99); MONOCYTES % 7.8 % (4.4-11.3); NEUTROPHILS # (AUTO) 9.4 (2.1-6.9); NEUTROPHILS % 70.8 % (38.7-80.0); PLATELET COUNT 385 x10e3/uL (140-360); RED BLOOD COUNT 4.15 x10e6/uL (4.3-5.7); RED CELL DISTRIBUTION WIDTH 13.7 % (11.7-14.4)
[2020-05-19 05:58] LABS: ANION GAP 16.1 mmol/L (8-16); BLOOD UREA NITROGEN 10 mg/dL (7-26); BUN/CREATININE RATIO 15 (6-25); CALCIUM 9.4 mg/dL (8.4-10.2); CARBON DIOXIDE 27 mmol/L (22-29); CHLORIDE 98 mmol/L (98-107); CREATININE, SERUM 0.65 mg/dL (0.72-1.25); EST GLOMERULAR FILTRATION RATE > 60 ML/MIN (60-); GLUCOSE 105 mg/dL (74-118); POTASSIUM 4.1 mmol/L (3.5-5.1); SODIUM 137 mmol/L (136-145)
[2020-05-19] MEDS: AMPICILLIN SOD/SULBACTAM 3GM 100 ML IV SCH ×3 (06:39→17:35)
--- NOTE | 2020-05-19 08:34 | Progress Note ---
DATE: 05/18/2020 Psychiatric Progress Note SUBJECTIVE: The patient is in the ICU. He is drowsy, but opens his eyes and easily arousable. He is not answering any question. He is not agitated, combative. No report from a nursing staff regarding agitation. He is not getting any p.r.n. IM medication. ASSESSMENT: 1. Adjustment disorder with mixed mood with anxiety and depression. 2. Rule out psychosis and delirium. PLAN: 1. Continue trazodone p.r.n. 2. Continue Klonopin p.r.n. 3. Continue Zoloft 25 mg p.o. daily. 4. Continue Ativan p.o. 5. Zyprexa p.r.n. 6. Monitor for mood. 7. Monitor for agitation. Dictated by Jennie Johnson PA-C Sandra Griffin MD [facility]/MODL /[id number]
[2020-05-19] MEDS: METOPROLOL TARTRATE 50 MG TAB PO SCH ×2 (09:00→20:08)
[2020-05-19] MEDS: ASCORBIC ACID 500 MG TAB PO SCH ×2 (09:00→16:19)
[2020-05-19] MEDS: SERTRALINE HCL 50 MG TAB PO SCH (09:00)
[2020-05-19] MEDS: ZINC SULFATE 220 MG CAP PO SCH (09:00)
[2020-05-19] MEDS: FAMOTIDINE 20 MG/2 ML VIAL IV SCH ×2 (09:00→16:19)
[2020-05-19] MEDS ORDERED: SODIUM CHLORIDE 0.9% 1000ML 1,000 ML IV ONE (09:15)
--- NOTE | 2020-05-19 09:52 | Diagnostic Imaging Report ---
EXAMINATION: CHEST SINGLE (PORTABLE) INDICATION: ^virl pneumonia ^[id number] ^[id number] COMPARISON: 05/14/2020 FINDINGS: AP view TUBES and LINES: Tubes and lines are unchanged. Right upper extremity PICC. Interval removal of the nasogastric tube. LUNGS: Unchanged diffuse groundglass opacification of the left lung. Slightly improved aeration of the right lung. PLEURA: No pleural effusion or pneumothorax. HEART AND MEDIASTINUM: The cardiomediastinal silhouette is unchanged. BONES AND SOFT TISSUES: No acute osseous lesion. Soft tissues are unremarkable. UPPER ABDOMEN: No free air under the diaphragm. IMPRESSION: Slightly improved aeration of the right lung when compared to the previous study. Unchanged diffuse groundglass opacification of the left lung consistent with provided history of viral pneumonia. Signed by: Michael Gaines MD on 05/19/2020 9:49 AM
--- NOTE | 2020-05-19 09:54 | Progress Note ---
DATE: SUBJECTIVE: The patient is having some tachycardia. He is sitting comfortably. He is off Vapotherm and on nasal cannula at 5 L. PHYSICAL EXAMINATION: VITAL SIGNS: The blood pressure is 142/83, saturation is 100%. HEENT: Shows no facial swelling or erythema. LYMPHATIC: Shows no submandibular, cervical, or supraclavicular adenopathy. CARDIAC: Reveals a regular rate and rhythm. Normal S1 and S2. LUNGS: Auscultation of lungs reveals rhonchorous breath sounds bilaterally. There is no wheezing. ABDOMEN: Soft, nontender. There is no rebound or guarding. EXTREMITIES: Shows no leg edema or calf tenderness. There is no cyanosis or clubbing. SKIN: Shows no rashes. NEUROLOGICAL: Shows no focal abnormalities. LABORATORY DATA: BUN to creatinine ratio is normal. Other electrolytes are within normal limits. White blood cell count is 13.2 and hemoglobin is 11. The platelet count is 385. IMPRESSION: 1. Acute respiratory failure. 2. Viral pneumonia and coronavirus disease-2019 infection. 3. Sacral decubitus ulcer. 4. Diabetes. 5. Tachycardia. PLAN: 1. Continue to wean oxygen. 2. Judicious use of IV fluids. 3. Encourage physical therapy. 4. Wound care. 5. Remove arterial line. 6. Possible transfer out of Intensive Care Unit. Tomi Vizcarra MD [facility]/MOD[facility] /[id number]
[2020-05-19] MEDS: COLLAGENASE 5 GM TUBE TOP SCH (10:36)
[2020-05-19] MEDS: BALSAM PERU/CASTOR OIL 60 GM OINT...G. TP SCH (10:36)
--- NOTE | 2020-05-19 14:43 | NUR ---
this infectious disease progress note Patient seen and examined chart reviewed patient remains intensive care unit per day of the event he is still weak with no new complaints still get easily short of breath but no new complaints. Discussed with medical team events noted chart noted he patient is having some tachycardia. He is sitting comfortably. He is off Vapotherm and on nasal cannula at 5 L. PHYSICAL EXAMINATION: VITAL SIGNS: The blood pressure is 142/83, saturation is 100%. HEENT: Shows no facial swelling or erythema. LYMPHATIC: Shows no submandibular, cervical, or supraclavicular adenopathy. CARDIAC: Reveals a regular rate and rhythm. Normal S1 and S2. LUNGS: Auscultation of lungs reveals rhonchorous breath sounds bilaterally. There is no wheezing. ABDOMEN: Soft, nontender. There is no rebound or guarding. EXTREMITIES: Shows no leg edema or calf tenderness. There is no cyanosis or clubbing. SKIN: Shows no rashes. NEUROLOGICAL: Shows no focal abnormalities. LABORATORY DATA: BUN to creatinine ratio is normal. Other electrolytes are within normal limits. White blood cell count is 13.2 and hemoglobin is 11. The platelet count is 385. IMPRESSION: 1. Acute respiratory failure. 2. Viral pneumonia and coronavirus disease-2019 infection. 3. Sacral decubitus ulcer. 4. Diabetes. 5. Tachycardia. Continue antibiotic as ordered continue with physical therapy local care to wean oxygen as tolerated can leave ICU from infectious disease point of view
[2020-05-19] MEDS: CLONAZEPAM 0.5 MG TAB PO PRN (15:37)
[2020-05-19] MEDS: ENOXAPARIN SOD INJ 40 MG/0.4 ML SYR SC SCH (16:19)
--- NOTE | 2020-05-19 17:47 | NUR ---
Nutrition Intervention Note RD Recommendation(s) for Physician: -Continue current diet, texutre per [employer] SUPERVISOR -Recommend Azar 1 packet BID to promote wound healing Plan of Care: RD following, monitoring for tolerance and adequacy, diet and ONS rec's Nutrition reason for involvement: follow up RD Assessment 05/19: Follow up. [employer] SUPERVISOR evaluation completed and diet advanced to pureed with nectar thick liquids, pt requires to be fed. Pt tolerating diet and intake improving. Pt sitting up in chair and on O2 per nasal canula. No GI distress. Chart reviewed. Will continue to monitor. 05/14: Follow up. Speech therapy recommended to continue NG feeding at this time and that pt is fatigured. Pt is receiving Glucerna 1.2 @ 35 mL/hr per documentation. Recommendations provided. Will continue to monitor. 05/11: Follow up. Pt extubated yesterday, currently on high flow O2. Pt continues on Propofol. Pt currently on Glucerna 1.2 at 20 ml/hr. Current TF rec's remain appropriate in light of Propofol dosage. Chart reviewed. Will continue to monitor. 05/06: Follow up. Pt remains intubated and sedated on high dose Propofol. TF continues at 35 ml/hr, additional kcal from Propofol meeting estimated kcal needs- not meeting protein needs. BM documented 05/05. Chart reviewed. Current TF rec's remain appropriate. Will continue to monitor. 05/03: Follow up. Pt remains intubated and sedated on high dose Propofol, pt requiring intermittent proning. TF at 35 ml/hr, additional kcal from Propofol currently. Updated TF rec's provided in light of Propofol dosage. No recent BM documented. Chart reviewed. Will continue to monitor. 04/28: Follow up. Pt remains intubated. RN reports pts tube feed rate is at 15 mL/hr at this time and that pt is in the prone position. Current recommendations remain appropriate. Will continue to monitor. (04/23/20) Pt is a 40 year old male admitted with COVID-19, hypoxemia, and viral pneumonia. Pt was intubated and tube feedings were started. Unable to obtain nutrition history at this time and there are no previous weights in chart. Tube feed recommendations provided. Will continue to monitor. Principal Problems/Diagnoses: COVID-19, hypoxemia, and viral pneumonia PMH: Depression, anxiety, ADHD, diabetes, and hyperlipidemia GI: LBM 05/19 Skin: stage 3 sacral pressure ulcer Labs: 05/19: Na 137, K 4.1, BUN 10, Cr 0.65, Gluc 105, POC Gluc 142-166 05/14: Na 140, K 3.8, BUN 9, Cr 0.56, Glu 131, 05/11: Na 141, K 3.3, BUN 16, Cr 0.64, Gluc 96 05/06: na 146, K 3.5, BUN 13, Cr 0.62, Gluc 111, POC gluc 102-140 05/03: Na 142, K 4.4, BUN 17, Cr 0.64, Gluc 121, POC Gluc 115-231 (04/28) Na 143, K 4.2, BUN 19, Cr 0.67, Glu 108, Ca 7.6 (04/22) Na 145, K 4.8, BUN 39, Cr 0.90, Glu 127, Ca 7.9 Meds: insulin, pepcid, antibiotic, zinc sulfate, vitamin C, insulin, zofran Ht: 69 inches Wt: 223 lbs (05/19) 238 lbs (05/12) 230 lb (05/11) 233 lbs (05/06) 233 lbs (04/23) BMI: 34.4 kg/m2 weight used 233 lbs IBW: 160 lbs Malnutrition Evaluation (05/19/20) Pt does not meet criteria for malnutrition at this time. Will re-evaluate at follow-up as appropriate. Adequacy/intake: acute moderate- pt meeting <75% of needs >7 days wt loss: does not meet criteria, pt with wt fluctuations since admission fat loss: none, budging eye pads upon observation on 05/18 muscle loss: none, shoulder round upon observation on 05/18 edema: none functional status: TIFFANY Nutrition Prescription (Diet Order): 1800 ADA, Pureed, [place] thick liquids Estimated Nutritional Needs: 1424-5840 calories/day (22-25 kcal/kg IBW) 109-145 g protein/day (1.5-2 g pro/kg IBW) Diet Adequacy: Not meeting calorie needs, Not meeting protein needs - intake improving Tolerance: tolerating po Diet Education Needs Assessment: Diet education not indicated Nutrition Care Level: moderate Nutrition Diagnosis: Inadequate energy intake related to decreased ability to consume sufficient energy as evidenced by pt requiring enteral nutrition. (resolved) Goal: Patient will meet 75-100% of estimated needs by follow up Progress: progressing Interventions: -Texture, CHO modified diet, collaboration with other providers, recommend modifications Monitoring/Evaluation: -Total energy intake, Total protein intake, modified diet, Weight change Signed: Sydnee Peraza RD, LD, [facility]
[2020-05-19] MEDS: TRAZODONE HCL 50 MG TAB PO PRN (20:08)
[2020-05-19] MEDS: OLANZAPINE 5 MG TAB PO PRN (20:08)
[2020-05-19] MEDS: INSULIN GLARGINE 100 UNITS/ML VIAL SQ SCH (20:11)
[2020-05-20] VITALS (24 sets, daily range): BP systolic 108–142; BP diastolic 76–100
[2020-05-20] MEDS: CLONAZEPAM 0.5 MG TAB PO PRN ×2 (00:01→21:07)
[2020-05-20] MEDS: AMPICILLIN SOD/SULBACTAM 3GM 100 ML IV SCH ×4 (00:01→17:31)
[2020-05-20] MEDS: INSULIN REGULAR, HUMAN 100 UNIT/1 ML 3ML VIAL SQ SCH ×4 (00:19→18:02)
--- NOTE | 2020-05-20 02:24 | Progress Note ---
DATE: 05/19/2020 Medicine Progress Note SUBJECTIVE: The patient was seen and evaluated in the ICU, approximately at 1:30 p.m. He is currently doing well. He is awake, but very weak when he worked with physical therapy. OBJECTIVE: VITAL SIGNS: Afebrile, normotensive. Respiratory rate is good. He is on 5 L nasal cannula. GENERAL: Not in acute distress. Alert and oriented x3. Cooperative on examination. PULMONARY: Clear to auscultation bilaterally. No wheezing, no rales, no rhonchi, no crackles appreciated. CARDIOVASCULAR: Positive S1 and S2. No murmurs, rubs, or gallops appreciated. ABDOMEN: Soft, nondistended, and nontender to palpation. Bowel sounds present. MUSCULOSKELETAL: He is very weak on examination. NEUROLOGICAL: Very weak on exam. SKIN: Intact. Warm to touch. Good cap refill. LABORATORY DATA: White count 13, hemoglobin 11, hematocrit 35.8, and platelets of 385. Chemistry; reviewed, stable. IMPRESSION: 1. Acute respiratory distress, secondary to Coronavirus pneumonia, now extubated on 05/10/2020. 2. Type 2 diabetes. 3. Viral pneumonia secondary to coronavirus. 4. Acinetobacter, sputum culture. 5. Acute kidney injury-resolved. 6. Electrolyte abnormalities. PLAN: The patient is afebrile, white count still elevated. He is doing well. He needs aggressive PT and OT. Heart rate has much improved. Continue with metoprolol. He is on nasal cannula now. Get a.m. labs. Lovenox for DVT prophylaxis. MD JIMMY Walls/MODL /[id number]
[2020-05-20 06:11] LABS: ALANINE AMINOTRANSFERASE 28 IU/L (0-55); ALBUMIN 3.1 g/dL (3.5-5.0); ALBUMIN/GLOBULIN RATIO 0.6 (0.8-2.0); ALKALINE PHOSPHATASE 81 IU/L (40-150); BLOOD UREA NITROGEN 11 mg/dL (7-26); BUN/CREATININE RATIO 16 (6-25); CALCIUM 9.2 mg/dL (8.4-10.2); CARBON DIOXIDE 27 mmol/L (22-29); CHLORIDE 100 mmol/L (98-107); CREATININE, SERUM 0.67 mg/dL (0.72-1.25); EST GLOMERULAR FILTRATION RATE > 60 ML/MIN (60-); GLUCOSE 99 mg/dL (74-118); SODIUM 139 mmol/L (136-145)
[2020-05-20 06:19] LABS: BASOPHILS # (AUTO) 0.1 (0.0-0.1); BASOPHILS % 0.8 % (0.0-1.0); EOSINOPHILS # (AUTO) 0.4 (0.0-0.4); EOSINOPHILS % 3.1 % (0.0-6.0); HEMATOCRIT 35.8 % (38.2-49.6); HEMOGLOBIN 11.1 g/dL (14.0-18.0); LYMPHOCYTES % 16.7 % (18.0-39.1); MEAN CORPUSCULAR HEMOGLOBIN 26.6 pg (28-32); MEAN CORPUSCULAR VOLUME 85.6 fL (81-99); MONOCYTES % 8.4 % (4.4-11.3); NEUTROPHILS # (AUTO) 8.3 (2.1-6.9); NEUTROPHILS % 69.2 % (38.7-80.0); PLATELET COUNT 344 x10e3/uL (140-360); RED BLOOD COUNT 4.18 x10e6/uL (4.3-5.7); RED CELL DISTRIBUTION WIDTH 13.7 % (11.7-14.4)
[2020-05-20 07:41] LABS: PLATELET ESTIMATE ADEQUATE
[2020-05-20 07:42] LABS: LARGE PLATELETS FEW; PLATELET MORPHOLOGY COMMENT FEW EDTA CLUMPING; RBC MORPHOLOGY COMMENT NORMAL
[2020-05-20] MEDS: COLLAGENASE 5 GM TUBE TOP SCH (09:14)
[2020-05-20] MEDS: FAMOTIDINE 20 MG/2 ML VIAL IV SCH ×2 (09:14→16:25)
[2020-05-20] MEDS: SERTRALINE HCL 50 MG TAB PO SCH (09:14)
[2020-05-20] MEDS: BALSAM PERU/CASTOR OIL 60 GM OINT...G. TP SCH (09:14)
[2020-05-20] MEDS: METOPROLOL TARTRATE 50 MG TAB PO SCH ×2 (09:14→21:06)
[2020-05-20] MEDS: ASCORBIC ACID 500 MG TAB PO SCH (09:14)
[2020-05-20] MEDS: ZINC SULFATE 220 MG CAP PO SCH (09:14)
--- NOTE | 2020-05-20 12:02 | Progress Note ---
DATE: SUBJECTIVE: The patient is now on nasal cannula. He still has some profound weakness and has difficulty standing. He has some increased weakness in his left arm. PHYSICAL EXAMINATION: VITAL SIGNS: Blood pressure is 115/85, saturation is 95% on 5 L and the respiratory rate is 20. HEENT: Shows no facial swelling or erythema. LYMPHATIC: Shows no submandibular, cervical, or supraclavicular adenopathy. CARDIAC: Reveals regular rate and rhythm. Normal S1, S2. LUNGS: Auscultation of lungs reveals crackles at the bases. There is no wheezing. ABDOMEN: Soft, nontender. There is no rebound or guarding. EXTREMITIES: Shows no leg edema or calf tenderness. There is no cyanosis or clubbing. SKIN: Shows no rashes. NEUROLOGIC: Shows no focal abnormalities. LABORATORY DATA: White blood cell count is 11.95, hemoglobin is 11.1, platelet count is 344. The BUN to creatinine ratio is normal. The albumin is 3.1. Other electrolytes are within normal limits. RADIOGRAPHIC DATA: Chest x-ray shows slight improvement in ground-glass infiltrates bilaterally. IMPRESSION: 1. Acute respiratory failure. 2. Viral pneumonia and COVID-19 infection. 3. Sacral decubitus ulcer. 4. Diabetes. 5. Tachycardia. PLAN: 1. Continue to wean oxygen. 2. Encourage physical therapy. 3. Wound care. 4. Discussed disposition with Dr. Crum and family and Case Management. Tomi Vizcarra MD [facility]/MODL /[id number]
--- NOTE | 2020-05-20 12:56 | NUR ---
called pt's mother, Oxana, to follow up. Pt's mom states she "is doing better knowing he is better." Pt's mother states she saw him working with PT through window. Library Circulation Assistant reminded pt's mother of availability of life claims examiner. Pt's mom expressed appreciation for call. No need to follow at this time. MARIANNA De Anda Spiritual Care Department O: [phone]
--- NOTE | 2020-05-20 13:31 | NUR ---
ST NOTE: Spoke with RN re: diet upgrade. Pt tolerating mechanical soft with added gravy and thin liquids. Pt/staff following swallow precautions, pt continues to be fed due to weakness. Speech Therapy to continue to follow pt status. Handoff to CLAUDIA Solis
[2020-05-20] MEDS ORDERED: ACETAMINOPHEN 325 MG TAB ONE (14:18)
--- NOTE | 2020-05-20 14:23 | Diagnostic Imaging Report ---
Exam: Left humerus, 2 views, left shoulder, 2 views History: Weakness Comparison: Abdominal radiograph 05/14/2020 Findings: Shoulder: No acute, displaced fracture or dislocation. All humeral head projects appropriately over the glenoid. Acromioclavicular and glenohumeral joint spaces are well-maintained. Soft tissues unremarkable. Humerus: No acute, displaced fracture or dislocation. No osseous destructive lesion. Soft tissues are unremarkable. Incidental note is made of contrast material projecting over the upper abdomen, presumably within the stomach as shown on prior abdominal radiographs. Impression: No acute osseous abnormality. Signed by: Dr. Nicola Pickens M.D. on 05/20/2020 2:19 PM
--- NOTE | 2020-05-20 14:28 | NUR ---
WOUND CARE CONSULT FOR FOLLOW UP AND REVIEW OF SACRAL WOUND DEVELOPMENT EVIDENCE BY PATIENT MEDICAL STATUS INCLUDING OCCURRENCES OF LOW MEAN ARTERIAL PRESSURES ,VASOPRESSOR USAGE AND MULTISYSTEM ORGAN FAILURE SUPPORT THE CONDITION OF ACUTE SKIN FAILURE BEING MAIN CAUSATIVE FACTOR IN DEVELOPMENT OF SKIN INJURY MANIFESTATION OF UNGRADEABLE SACRAL ULCERATION Addendum: 05/20/20 at 1458 by Garry Alas RN Amended: Links added.
[2020-05-20] MEDS: ACETAMINOPHEN 325 MG TAB PO PRN ×2 (14:38→21:07)
[2020-05-20] MEDS: ENOXAPARIN SOD INJ 40 MG/0.4 ML SYR SC SCH (16:25)
--- NOTE | 2020-05-20 18:40 | Progress Note ---
DATE: SUBJECTIVE: Mr. Agrawal is feeling better, off the vent. We are weaning his oxygen down slowly. He is weak, but overall seems to be better. PHYSICAL EXAMINATION: GENERAL: He is currently alert. VITAL SIGNS: Stable, currently afebrile. HEENT: He is not icteric. NECK: Supple. CHEST: Crackles. HEART: S1 and S2. ABDOMEN: Soft. Bowel sounds present. EXTREMITIES: No edema. IMPRESSION: Respiratory failure, pneumonia. He is currently on Unasyn as well as on inhaled tobramycin. PLAN: Plan is to continue Unasyn for 14 days. The patient can leave ICU. Continue PT/OT. COVID-19 admission and respiratory failure, day #31. MD KATIE Morales/MODL /[id number]
[2020-05-20] MEDS: ATORVASTATIN 40 MG TAB PO SCH (21:05)
[2020-05-20] MEDS: INSULIN GLARGINE 100 UNITS/ML VIAL SQ SCH (21:10)
[2020-05-21] VITALS (14 sets, daily range): BP systolic 118–141; BP diastolic 79–99
--- NOTE | 2020-05-21 | Consultation ---
DATE OF CONSULTATION: Neurology Consultation REASON FOR CONSULTATION: I am seeing him for left hemiparesis, mild. HISTORY OF PRESENT ILLNESS: The patient is a 40-year-old male comes to my attention after having a bout of coronavirus with respiratory dysfunction and currently on high-flow oxygen in the ICU, but being downgraded. He is awake, alert, and oriented x2. He initially presented with pneumonia and respiratory dysfunction and would require intubation. He has been hospitalized now for about 7 days and currently showing some improvement and doing better. PHYSICAL EXAMINATION: GENERAL: He is responsive, but does not recall when the weakness started because he was so severely ill. He is not sure exactly the time the weakness started. VITAL SIGNS: Today show a temperature of 99, heart rate 109, blood pressure 131/89. NEUROLOGIC: Extraocular muscles are intact. His face appears symmetric. His speech is clear. No nuchal rigidity. His strength on the left side is 3/5 to 4/5, on right side, 5/5. Reflexes symmetrically diminished throughout. Sensory is grossly intact. There is no ataxia on exam. REVIEW OF SYSTEMS: He endorses though hemiparesis and shortness of breath. He does complain of mild myalgias and weakness throughout. Denies abdominal pain, nausea, or vomiting. Denies headache, double vision, or diplopia. ASSESSMENT AND PLAN: The patient comes to my attention for hemiparesis on the left. He get MRI of the brain. There is a risk of COVID thrombophilia, which the patient may be experiencing. We will initiate him on aspirin, statin, get MRI, get carotid duplexes and echocardiogram and lipid panel. JAMISON SALINAS MD [facility]/MODL /[id number]
[2020-05-21] MEDS: TRAZODONE HCL 50 MG TAB PO PRN ×2 (00:19→21:22)
[2020-05-21] MEDS: AMPICILLIN SOD/SULBACTAM 3GM 100 ML IV SCH ×3 (00:19→14:27)
[2020-05-21] MEDS: INSULIN REGULAR, HUMAN 100 UNIT/1 ML 3ML VIAL SQ SCH ×4 (00:19→18:39)
--- NOTE | 2020-05-21 02:26 | Progress Note ---
DATE: 05/20/2020 Medicine Progress Note SUBJECTIVE: The patient is much more alert, awake, and oriented on examination. He is working much more aggressively with physical therapy now. PHYSICAL EXAMINATION: VITAL SIGNS: He is afebrile, normotensive. Respiratory rate is good. He is on nasal cannula. GENERAL: Not in acute distress. Alert and oriented x3. Cooperative on exam. HEENT: Head; normocephalic, atraumatic. Eyes; pupils are equal, round, and reactive to light bilaterally. Extraocular movements intact bilaterally. Throat; no evidence of erythema or exudates in the posterior pharynx. Has poor dentition. NECK: Supple. Good range of motion. PULMONARY: Clear to auscultation bilaterally. No wheezing, no rales, no rhonchi, no crackles appreciated. CARDIOVASCULAR: Positive S1 and S2. No murmurs, rubs, or gallops appreciated. GI: Abdomen is soft, nondistended, and nontender to palpation. Bowel sounds present. MUSCULOSKELETAL: He is still relatively weak on exam. NEUROLOGIC: Alert and oriented x3. LABORATORY DATA: CBC reviewed. Chemistries reviewed. Microbiology, noted. IMAGING STUDIES: Humerus x-ray was negative. Shoulder x-ray was negative. IMPRESSION: 1. Acute respiratory distress secondary to coronavirus pneumonia, now extubated on 05/10/2020. 2. Type 2 diabetes mellitus. 3. Viral pneumonia secondary to coronavirus. 4. Acinetobacter with sputum cultures. 5. Acute kidney injury. 6. Electrolyte abnormalities. 7. There is some concern for left-sided hemiparesis. PLAN: The patient has improved tremendously. There is some concern for left-sided hemiparesis in which Neurology was consulted. MRI of the brain has been ordered, but pending. Carotid ultrasound has been ordered as well. He is on aspirin and statin. Continue with same plan of care and monitor very closely. MD JIMMY Walls/SERGIO /[id number]
[2020-05-21 08:23] LABS: CHOL/HDL RATIO 7.9 (3.9-4.7)
[2020-05-21 08:44] LABS: THYROID STIMULATING HORMONE 1.967 uIU/mL (0.350-4.940)
[2020-05-21] MEDS: COLLAGENASE 5 GM TUBE TOP SCH (10:14)
[2020-05-21] MEDS: ASPIRIN 325 MG TAB EC PO SCH (10:14)
[2020-05-21] MEDS: METOPROLOL TARTRATE 50 MG TAB PO SCH ×2 (10:14→21:18)
[2020-05-21] MEDS: BALSAM PERU/CASTOR OIL 60 GM OINT...G. TP SCH (10:14)
[2020-05-21] MEDS: SERTRALINE HCL 50 MG TAB PO SCH (10:14)
[2020-05-21] MEDS: FAMOTIDINE 20 MG/2 ML VIAL IV SCH ×2 (10:14→17:21)
[2020-05-21] MEDS: CLONAZEPAM 0.5 MG TAB PO PRN (10:41)
--- NOTE | 2020-05-21 11:17 | Progress Note ---
DATE: 05/21/2020 Psychiatric Progress Note SUBJECTIVE: The patient evaluated and events noted. The patient is in the room, in the ICU. He is doing well. He is intermittently getting p.o. medication, but not combative or agitated. He denies any depression. Denies any anxiety. He denies any hallucination. He denies any side effects to medications. ASSESSMENT: Adjustment disorder with mixed mood with anxiety and depression. PLAN: 1. To continue with trazodone and Klonopin p.r.n. 2. Continue with Zoloft 25 mg p.o. daily. 3. Continue Zyprexa p.r.n. 4. Monitor for mood. Dictated by Jennie Johnson PA-C Sandra Griffin MD [facility]/MODL /[id number]
--- NOTE | 2020-05-21 11:43 | NUR ---
ST Note: Spoke with CLAUDIA Parson. Pt tolerating mech soft diet well. Will f/u as indicated.
--- NOTE | 2020-05-21 13:34 | Progress Note ---
DATE: SUBJECTIVE: The patient is afebrile. He complains of pain from his decubitus ulcer. He still has some tachycardia, but has improved. His pulse is down to 95%. He is now on nasal cannula at 3 L and saturating 100%. PHYSICAL EXAMINATION: VITAL SIGNS: Blood pressure is 128/90 and the pulse is 95. HEENT: Shows no facial swelling or erythema. LYMPHATIC: Shows no submandibular, cervical, or supraclavicular adenopathy. CARDIAC: Reveals a regular rhythm with normal S1 and S2. LUNGS: Auscultation of lungs reveals crackles at the bases. There is no wheezing. ABDOMEN: Soft and nontender. There is no rebound or guarding. EXTREMITIES: Shows no leg edema or calf tenderness. There is no cyanosis or clubbing. SKIN: Shows no rashes. NEUROLOGICAL: Shows no focal abnormalities. LABORATORY DATA: White blood cell count is 11.95 and the hemoglobin is 11.1. The platelet count is 344. The BUN to creatinine ratio is normal. The other electrolytes are within normal limits and the albumin is 3.1. RADIOGRAPHIC DATA: Shoulder x-ray shows no abnormalities. IMPRESSION: 1. Acute respiratory failure. 2. Viral pneumonia and COVID-19 infection. 3. Sacral decubitus ulcer. 4. Diabetes. 5. Tachycardia. PLAN: 1. Transfer out of intensive care unit. 2. Intensive physical therapy. 3. Wound care. 4. Continue SSRIs and low-dose benzodiazepines. 5. Continue to monitor and control blood sugars. Tomi Vizcarra MD [facility]/MODL /[id number]
--- NOTE | 2020-05-21 13:36 | Diagnostic Imaging Report ---
MRI BRAIN WO HISTORY: Left-sided weakness, hypoxemia COMPARISON: None. TECHNIQUE: Sagittal T2, axial T2, axial T1, axial T2/FLAIR, axial gradient echo (or susceptibility weighted), coronal T2/FLAIR, and axial diffusion weighted MR images of the brain were obtained without contrast. Motion artifacts obscure some details. DISCUSSION: Scalp/bone marrow: Unremarkable. Brain sulci: Appropriate for patient's age. Ventricles: Normal in size and configuration. No hydrocephalus. Extra-axial spaces: No masses or fluid collections. Parenchyma: Mild focal diffusion restriction in the left occipital periventricular white matter (bright on DWI, isointense on ADC) is compatible with subacute ischemia. No other definite diffusion restricting abnormalities are seen. Subtle small areas of encephalomalacia are seen along the right parieto-occipital convexity. Otherwise, no mass or hemorrhage. Vessels: Normal flow voids in major arteries and veins. Sellar/Suprasellar region: No abnormalities. Craniocervical junction: No abnormalities. Incidental findings: Small bilateral mastoid effusions, right greater than left. IMPRESSION: 1. Focal subacute ischemia in the left occipital periventricular white matter. 2. Subtle small areas of right parieto-occipital convexity encephalomalacia may be from remote/chronic infarct. 3. No other intracranial abnormalities. Signed by: Dr. Harmeet Huynh M.D. on 05/21/2020 1:33 PM
--- NOTE | 2020-05-21 13:53 | NUR ---
infectious disease progress note Patient seen and examined chart reviewed Patient remains of the vent tachycardic no complaints there is concern he may have right-sided weakness he patient is afebrile. He complains of pain from his decubitus ulcer. He still has some tachycardia, but has improved. His pulse is down to 95%. He is now on nasal cannula at 3 L and saturating 100%. PHYSICAL EXAMINATION: VITAL SIGNS: Blood pressure is 128/90 and the pulse is 95. HEENT: Shows no facial swelling or erythema. LYMPHATIC: Shows no submandibular, cervical, or supraclavicular adenopathy. CARDIAC: Reveals a regular rhythm with normal S1 and S2. LUNGS: Auscultation of lungs reveals crackles at the bases. There is no wheezing. ABDOMEN: Soft and nontender. There is no rebound or guarding. EXTREMITIES: Shows no leg edema or calf tenderness. There is no cyanosis or clubbing. SKIN: Shows no rashes. NEUROLOGICAL: Shows no focal abnormalities. LABORATORY DATA: White blood cell count is 11.95 and the hemoglobin is 11.1. The platelet count is 344. The BUN to creatinine ratio is normal. The other electrolytes are within normal limits and the albumin is 3.1. RADIOGRAPHIC DATA: Shoulder x-ray shows no abnormalities. IMPRESSION: 1. Acute respiratory failure. 2. Viral pneumonia and COVID-19 infection. 3. Sacral decubitus ulcer. 4. Diabetes. 5. Tachycardia. cope with 19 improving respiratory failure improving concerned about stroke agree with MRI of the brain debility will need PT OT or rehab evaluation discussed with medical team and phone number aspiration pneumonia to finish 14 days of the credentials antibiotic of Madhu
--- NOTE | 2020-05-21 16:05 | NUR ---
awake calm 99 124/89 99.1 vs GENERAL: He is responsive, but does not recall when the weakness started because he was so severely ill. He is not sure exactly the time the weakness started. VITAL SIGNS: Today show a temperature of 99, heart rate 109, blood pressure 131/89. NEUROLOGIC: Extraocular muscles are intact. His face appears symmetric. His speech is clear. No nuchal rigidity. His strength on the left side is 3/5 to 4/5, on right side, 5/5. Reflexes symmetrically diminished throughout. Sensory is grossly intact. There is no ataxia on exam. REVIEW OF SYSTEMS: He endorses though hemiparesis and shortness of breath. He does complain of mild myalgias and weakness throughout. Denies abdominal pain, nausea, or vomiting. Denies headache, double vision, or diplopia. ASSESSMENT AND PLAN: The patient comes to my attention for hemiparesis on the left. He get MRI of the brain. There is a risk of COVID thrombophilia, which the patient may be experiencing. We will initiate him on aspirin, statin, get MRI, get carotid duplexes and echocardiogram and lipid panel. ischemic stroke noted on mri continue ASA and statin may need anticoagulation pending clinical response will requrie pt or rehab eval
[2020-05-21] MEDS: ENOXAPARIN SOD INJ 40 MG/0.4 ML SYR SC SCH (17:21)
[2020-05-21] MEDS: ATORVASTATIN 40 MG TAB PO SCH (21:17)
[2020-05-21] MEDS: INSULIN GLARGINE 100 UNITS/ML VIAL SQ SCH (21:22)
--- NOTE | 2020-05-21 22:44 | NUR ---
RN report given to CLAUDIA Ybarra for patient transfer to bed 299, telemetry medical surgical
[2020-05-22] VITALS (8 sets, daily range): BP systolic 119–152; BP diastolic 83–94
[2020-05-22] MEDS: INSULIN REGULAR, HUMAN 100 UNIT/1 ML 3ML VIAL SQ SCH ×4 (01:33→18:36)
--- NOTE | 2020-05-22 03:16 | Progress Note ---
DATE: 05/21/2020 Medicine Progress Note SUBJECTIVE: The patient was seen and evaluated approximately around 1:10 p.m. in the afternoon. He is currently doing well. Being downgraded and transferred to the medical tele floor. No overnight events. PHYSICAL EXAMINATION: VITAL SIGNS: He is afebrile, normotensive. Respiratory rate is good. In fact he is on 2 L nasal cannula. GENERAL: In no acute distress. Alert and oriented x3. Cooperative on examination. HEENT: Head; normocephalic, atraumatic. Eyes; pupils are equal, round, and reactive to light bilaterally. Extraocular movements intact bilaterally. Throat; no evidence of erythema or exudates in the posterior pharynx. Has poor dentition. NECK: Supple. Good range of motion throughout. PULMONARY: Clear to auscultation bilaterally. No wheezing, no rales, no rhonchi, no crackles appreciated. CARDIOVASCULAR: Positive S1 and S2. No murmurs, rubs, or gallops appreciated. ABDOMEN: Soft, nondistended, and nontender to palpation. Bowel sounds present. MUSCULOSKELETAL: This patient is still very weak on examination that favors on the left side. SKIN: Intact. Warm to touch. Good cap refill. LABORATORY DATA: Show white count 11.9, hemoglobin 11, hematocrit 35, platelets of 344. Chemistry, reviewed, stable. Microbiology, nothing new. IMAGING STUDIES: Nothing new. Brain MRI shows focal subacute ischemia in the left occipital periventricular white matter, subtle small areas of right periarticular convexity, encephalomalacia, maybe remote chronic infarcts. No other intracranial abnormality. IMPRESSION: 1. Acute respiratory distress secondary to coronavirus pneumonia extubated on 05/10/2020. 2. Acute cerebrovascular accident, likely secondary to COVID-19 stroke. 3. Type 2 diabetes. 4. Viral pneumonia secondary to coronavirus. 5. Acinetobacter with sputum cultures. 6. Acute kidney injury. 7. Electrolyte abnormalities. PLAN: At this time, the patient is on nasal cannula. He has improved tremendously. Continue with insulin sliding scale. Continue with IV antibiotics for Acinetobacter. Renal function electrolytes are stable. As for his acute CVA seen on MRI of the brain, he will continue with aspirin and statin. He will need aggressive physical therapy. Continue with Lovenox for DVT prophylaxis. Consultants: Pulmonary Critical Care, ID, Neurology, Psychiatric. MD JIMMY Walls/SERGIO /[id number]
[2020-05-22] MEDS: ASPIRIN 325 MG TAB EC PO SCH (08:33)
[2020-05-22] MEDS: COLLAGENASE 5 GM TUBE TOP SCH (08:33)
[2020-05-22] MEDS: FAMOTIDINE 20 MG/2 ML VIAL IV SCH ×2 (08:33→16:37)
[2020-05-22] MEDS: SERTRALINE HCL 50 MG TAB PO SCH (08:33)
[2020-05-22] MEDS: METOPROLOL TARTRATE 50 MG TAB PO SCH ×2 (08:33→21:00)
[2020-05-22] MEDS: BALSAM PERU/CASTOR OIL 60 GM OINT...G. TP SCH (08:33)
--- NOTE | 2020-05-22 08:33 | NUR ---
PATIENT IS AWAKE, ALERT, AND IN STABLE CONDITION WITH NO S/S OF RESPIRATORY DISTRESS. NO PAIN VOICED. TELEMETRY APPLIED. MUNROE INTACT AND DRAINING- URINE IS YELLOW. CALL LIGHT IS WITHIN REACH, PATIENT INSTRUCTED TO CALL FOR ASSISTANCE NEEDED.
[2020-05-22] MEDS: ENOXAPARIN SOD INJ 40 MG/0.4 ML SYR SC SCH (16:37)
[2020-05-22] MEDS: ACETAMINOPHEN 325 MG TAB PO PRN (16:38)
--- NOTE | 2020-05-22 17:44 | Progress Note ---
DATE: SUBJECTIVE: The patient is still weak. He was transferred out of the Intensive Care Unit. PHYSICAL EXAMINATION: VITAL SIGNS: Blood pressure is 152/89, pulse is 106. HEENT: Shows no facial swelling or erythema. LYMPHATIC: Shows no submandibular, cervical or supraclavicular adenopathy. CARDIAC: Reveals regular rate and rhythm with normal S1 and S2. LUNGS: Auscultation of the lungs shows crackles at the bases. There is no wheezing. ABDOMEN: Soft and nontender. There is no rebound or guarding. EXTREMITIES: Shows no leg edema or calf tenderness. There is no cyanosis or clubbing. SKIN: Shows no rashes. NEUROLOGICAL: Shows no focal abnormalities. LABORATORY DATA: White blood cell count is 11.9, hemoglobin is 11.1, and the platelet count is 344. IMPRESSION: 1. Acute respiratory failure. 2. Viral pneumonia and COVID-19 infection. 3. Sacral decubitus ulcer. 4. Diabetes. PLAN: 1. Continue wound care. 2. Physical therapy. 3. Continue to monitor and control of blood sugars. Tomi Vizcarra MD [facility]/MODL /[id number]
--- NOTE | 2020-05-22 17:59 | Progress Note ---
DATE: SUBJECTIVE: The patient was seen and evaluated. Available labs and notes reviewed. The patient partially seen with the acute care/Pulmonology in the room. Overall feels better. The patient is seeking more rehab. Appetite is good. Moves all extremities. No complaints besides the fact he want to get more rehabilitation. PHYSICAL EXAMINATION: VITAL SIGNS: Temperature 98.5, pulse 106, respirations 18, blood pressure 152/89. GENERAL: Alert and oriented, very pleasant. CV: S1, S2. CHEST: Equal expansion. Decreased breath sounds. No acute distress. The patient is on room air. ABDOMEN: Soft, nontender. No distention. HEENT: Moist. No pallor. No JVD. EXTREMITIES: Moves all extremities. Sacral wound noted. MEDICATIONS: Reviewed. From ID point of view, status post Unasyn. LABORATORY STUDIES: White count of 11.95, improved from 15.66, hemoglobin 11.1, platelet 344. Creatinine of 0.67. MICROBIOLOGY: No new microbiology studies available. RADIOLOGY STUDIES: MRI of the brain from 05/21/2020 showed focal subacute ischemia in the left occipital periventricular white matter with subtotal small area of right parieto/occipital convexity. Encephalomalacia may be from remote/chronic infarct. No other intracranial abnormalities were reported on MRI. Serology; coronavirus PCR detected on 04/19/2020 and 04/20/2020. HIV nonreactive on 04/20/2020. ASSESSMENT AND PLAN: 1. Acute respiratory failure, resolved. 2. Viral pneumonia and coronavirus infection. 3. Sacral decubitus ulcer. 4. Diabetes. 5. Tachycardia. 6. Abnormal MRI of the brain as above. 7. Debility. 8. Aspiration pneumonia. The patient was seen and evaluated. Moves all extremities, benefit from PT. Unasyn started on 05/02/2020, status post Unasyn. The patient also had received vancomycin IV, Flagyl, Scott nebulizer in the past. We will continue to monitor the patient. Monitor off antibiotics. Further management of this patient is based on daily findings on laboratory and physical examination. Dictated by Stone Crowley PA-C (Al) Mayda Krishnamurthy MD /MODL /[id number]
--- NOTE | 2020-05-22 18:42 | NUR ---
MUNROE REMOVED AT 1840- PATIENT PROVIDED WITH A URINAL. DIAPER APPLIED.
--- NOTE | 2020-05-22 18:49 | Progress Note ---
DATE: 05/22/2020 Medicine Progress Note SUBJECTIVE: The patient is doing well. He is alert. He is awake. He is oriented on examination. He still favors the left upper extremity. His MRI was consistent with an acute CVA. I mentioned that to him and discussed with the imaging findings with him. He verbalized understanding. Nurse was present throughout the entire conversation. PHYSICAL EXAMINATION: VITAL SIGNS: Temperature is 98.5, pulse 106, respiratory rate is 18, blood pressure 152/89, pulse ox 96% on 2 L nasal cannula. GENERAL: Not in acute distress. Alert and oriented x3. Cooperative on exam. HEENT: Head; normocephalic, atraumatic. Eyes; pupils are equal, round, and reactive to light bilaterally. Extraocular movements intact bilaterally. Throat; no evidence of erythema or exudates in the posterior pharynx. Has poor dentition. NECK: Supple. Good range of motion. PULMONARY: Clear to auscultation bilaterally. No wheezing, no rales, no rhonchi, no crackles appreciated. CARDIOVASCULAR: Positive S1 and S2. No murmurs, rubs, or gallops appreciated. GI: Abdomen is soft, nondistended, and nontender to palpation. Bowel sounds present. MUSCULOSKELETAL: Strength is 5/5 throughout. No evidence of any muscle deficits on examination. No weakness appreciated. NEUROLOGIC: Cranial nerves 2 through 12 grossly intact. No evidence of any neurological deficit on exam. SKIN: Intact. Warm to touch. Good cap refill. PSYCHIATRIC: Normal affect and mood. EXTREMITIES: No edema. Good range of motion throughout. LABORATORY FINDINGS: Show white count 11.9, hemoglobin 11, hematocrit 35, platelets of 344. Chemistry none today. We will get chemistry tomorrow. MICROBIOLOGY: None. IMAGING STUDIES: Carotid Doppler shows no evidence of any hemodynamically significant stenosis in the right and left internal carotid. MRI of the brain shows acute CVA, subacute ischemia, focal in left occipital periventricular white matter. Subtle small areas of right parietal convexity encephalomalacia, may be remote chronic infarct. IMPRESSION: 1. Acute respiratory distress secondary Coronavirus pneumonia extubated on 05/10/2020. 2. Acute cerebrovascular accident seen on MRI of the brain, likely secondary to coronavirus disease-2019 stroke. 3. Type 2 diabetes. 4. Viral pneumonia secondary to coronavirus. 5. Acinetobacter with sputum cultures. 6. Acute kidney injury. 7. Electrolyte abnormalities. PLAN: At this time, he is doing very well. He is alert, awake, and oriented on examination. He is working with physical therapy and probably needs inpatient rehab. We will continue with aspirin and statin for his underlying acute CVA. From coronavirus perspective, he is doing very well. Continue with insulin sliding scale, diabetic diet. Antibiotics were discontinued by ID for the Acinetobacter. Continue with aggressive PT and OT. Lovenox for DVT prophylaxis. CONSULTANTS: Pulmonary Critical Care, ID, Neurology, Psychiatry and Physical Medicine Rehab. MD JIMMY Walls/MODJamee /[id number]
--- NOTE | 2020-05-22 19:21 | NUR ---
PATIENT IN STABLE CONDITION WITH NO S/S OF RESPIRATORY DISTRESS. NO PAIN VOICED. TELEMETRY APPLIED. MUNROE REMOVED- PATIENT IS DUE TO VOID. CALL LIGHT IS WITHIN REACH, PATIENT INSTRUCTED TO CALL FOR ASSISTANCE NEEDED. REPORT GIVEN TO ONCOMING NURSE.
[2020-05-22] MEDS: INSULIN GLARGINE 100 UNITS/ML VIAL SQ SCH (21:00)
[2020-05-22] MEDS: ATORVASTATIN 40 MG TAB PO SCH (21:00)
--- NOTE | 2020-05-22 21:00 | NUR ---
PATIENT IS RESTING IN BED AOX3 IN STABLE CONDITION, NO SIGNS OF DISTRESS NOTED. PATIENT PRESENTS AGITATION AND WAS MEDICATED ORDERED. PATIENT IS DUE TO VOID AFTER MUNROE REMOVAL, WOUND TO SACRUM NOTED DRESSING PAD IS CLEAN, DRY, AND INTACT, NO DRAINAGE NOTED. PATIENT INFORMED TO USE CALL LIGHT FOR ASSISTANCE. BED IS IN LOW POSITION, SIDE RAILS ARE UP, CALL LIGHT WITHIN REACH, WILL CONTINUE TO MONITOR.
[2020-05-22] MEDS: TRAZODONE HCL 50 MG TAB PO PRN (21:20)
[2020-05-22] MEDS: CLONAZEPAM 0.5 MG TAB PO PRN ×2 (21:20)
[2020-05-23] VITALS (7 sets, daily range): BP systolic 104–134; BP diastolic 68–98
[2020-05-23] MEDS: OLANZAPINE 5 MG TAB PO PRN (02:18)
[2020-05-23] MEDS: INSULIN REGULAR, HUMAN 100 UNIT/1 ML 3ML VIAL SQ SCH ×5 (05:42→23:20)
[2020-05-23] MEDS: ASPIRIN 325 MG TAB EC PO SCH (08:52)
[2020-05-23] MEDS: FAMOTIDINE 20 MG/2 ML VIAL IV SCH ×2 (08:52→17:17)
[2020-05-23] MEDS: SERTRALINE HCL 50 MG TAB PO SCH (08:52)
[2020-05-23] MEDS: METOPROLOL TARTRATE 50 MG TAB PO SCH ×2 (08:54→21:30)
[2020-05-23] MEDS: COLLAGENASE 5 GM TUBE TOP SCH (08:54)
[2020-05-23] MEDS: BALSAM PERU/CASTOR OIL 60 GM OINT...G. TP SCH (08:54)
--- NOTE | 2020-05-23 10:39 | NUR ---
PATIENT IS AWAKE, ALERT, AND IN STABLE CONDITION WITH NO S/S OF RESPIRATORY DISTRESS. NO PAIN INDICATED. TELEMETRY APPLIED. PATIENT HAD BM THIS MORNING- DIAPER CHANGE AND WOUND DRESSING CHANGED. ALLEVYN APPLIED TO SACRUM AREA. CALL LIGHT IS WITHIN REACH, PATIENT INSTRUCTED TO CALL FOR ASSISTANCE NEEDED.
--- NOTE | 2020-05-23 11:56 | Progress Note ---
DATE: 05/23/2020 SUBJECTIVE: Mr. Agrawal was seen on rounds today, events noted. Appreciate Dr. Krishnamurthy's evaluation. Recently diagnosed with COVID stroke. Appears to be a subacute ischemia. The patient had some subtle small areas of right parieto-occipital encephalomalacia from an old stroke. OBJECTIVE: GENERAL: The patient is awake, alert, in no apparent distress at this time. VITAL SIGNS: Temperature 98.8, respirations 20, heart rate of 115, and blood pressure from 118/81. LABORATORY DATA: White cell count of 11.9, hemoglobin 11.1, hematocrit 35.8, and platelets of 344. IMAGING: His brain MRI which was done showed subacute ischemia in the left occipital periventricular white matter region, subtle small areas of right parieto-occipital convexity/encephalomalacia which may be remote or chronic. Therapy dorsey, [id number] minimal assist. Transfers have improved. Weak left side, essentially unchanged compared to before, but only recently he has been able to fully resist. Does have some left-sided weakness and history of left foot weakness. Also, the left shoulder weakness, which was present even before he got COVID. IMPRESSION: 1. Probably coronavirus disease cerebrovascular accident and old cerebrovascular accident with left-sided weakness. The patient had been having weakness in the left upper extremity even before this admission for quite some time. 2. Left leg weakness. 3. Coronavirus disease pneumonia. 4. Diabetes. PLAN: The patient would like to go to an inpatient rehab facility, his cousin works in a facility in [place] and will be directed towards that facility per his request. Discussed with patient at length. Unfortunately, we do not have any Occupational Therapy here. PT services will see him and Speech services as well. Stephen Espinoza DO [facility]/MODL /[id number]
--- NOTE | 2020-05-23 15:07 | Progress Note ---
DATE: SUBJECTIVE: The patient underwent physical therapy yesterday. He has less dyspnea. He is not complaining of cough. He still has some weakness. PHYSICAL EXAMINATION: VITAL SIGNS: The patient is afebrile. The blood pressure is 119/78 and the saturation is 95%. Pulse is 91. The patient is afebrile. HEENT: Shows no facial swelling or erythema. LYMPHATIC: Shows no submandibular cervical or supraclavicular adenopathy. CARDIAC: Reveals regular rate and rhythm. Normal S1, S2. LUNGS: Auscultation of lungs reveals rhonchorous breath sounds bilaterally. There is no wheezing. ABDOMEN: Soft, nontender. There is no rebound or guarding. EXTREMITIES: Shows no leg edema or calf tenderness. IMPRESSION: 1. Viral pneumonia and coronavirus disease - 19 infection. 2. Sacral decubitus ulcer. 3. Diabetes. PLAN: 1. Physical therapy. 2. Wound care. 3. Continue to monitor and control blood sugars. 4. Discussed disposition with Case Management and Dr. Crum. MD JOSE Feliz/SERGIO /[id number]
--- NOTE | 2020-05-23 15:09 | NUR ---
awake calm doing better out of icu 112 99.0 124/83 NEUROLOGIC: Extraocular muscles are intact. His face appears symmetric. His speech is clear. No nuchal rigidity. His strength on the left side is 3/5 to 4/5, on right side, 5/5. Reflexes symmetrically diminished throughout. Sensory is grossly intact. There is no ataxia on exam. REVIEW OF SYSTEMS: He endorses though hemiparesis and shortness of breath. He does complain of mild myalgias and weakness throughout. Denies abdominal pain, nausea, or vomiting. Denies headache, double vision, or diplopia. ASSESSMENT AND PLAN: The patient comes to my attention for hemiparesis on the left. He get MRI of the brain. There is a risk of COVID thrombophilia, which the patient may be experiencing. We will initiate him on aspirin, statin, get MRI, get carotid duplexes and echocardiogram and lipid panel. ischemic stroke noted on mri continue ASA and statin may need anticoagulation pending clinical response will require pt or rehab eval inpt rehab is appropriate clinically
--- NOTE | 2020-05-23 15:17 | Progress Note ---
DATE: SUBJECTIVE: The patient is seen and evaluated with the Pulmonology again in the room today as well. REVIEW OF SYSTEMS: No nausea, vomiting, fever, chills, chest pain, shortness of breath, cough, rash, or sweats. The patient is still weak with a sacral wound, unstageable, on local care. PHYSICAL EXAMINATION: VITAL SIGNS: Temperature 98.8, pulse 91, respiration 21, and blood pressure 119/78. GENERAL: Alert and oriented, very pleasant, no acute distress. CV: S1 and S2. CHEST: Equal expansion. Clear to auscultation. No acute distress. ABDOMEN: Soft and nontender. No distention. HEENT: Moist. No pallor. No JVD. EXTREMITIES: Sacral wound, white slough tissue unstageable, on local care. Weak overall in general. MEDICATIONS: Reviewed and from ID point of view, the patient is off antibiotics. LABORATORY STUDIES: No new CBC or BMP from today. MICROBIOLOGY: No new microbiology. RADIOLOGY: No new radiology studies. ASSESSMENT AND PLAN: 1. Acute respiratory failure, resolved. 2. Viral pneumonia with COVID-19 infection, resolved. 3. Diabetes. 4. Sacral decubitus ulcer. 5. Tachycardia. 6. Abnormal MRI of the brain. 7. Aspiration pneumonia. 8. The patient completed IV antibiotics, Unasyn. Continue to monitor the patient clinically. The patient needs aggressive PT/OT. Rehab opportunities discussed with the patient and the patient has a family members working at [facility] in [facility] and he prefers to go there for his rehabilitation. Discussed with Dr. Krishnamurthy. Dictated by Stone Crowley PA-C (Al) Mayda Krishnamurthy MD /MODL /[id number]
--- NOTE | 2020-05-23 17:12 | Progress Note ---
DATE: 05/23/2020 Medicine Progress Note SUBJECTIVE: The patient is doing well, alert, and oriented, eating well with no complaints. He is eager to go to [facility] rehab. PHYSICAL EXAMINATION: VITAL SIGNS: Temperature is 97.7, pulse 94, respiratory rate is 20, blood pressure 133/89, and pulse ox 99% on room air. GENERAL: Not in acute distress. Alert and oriented x3. Cooperative on examination. HEENT: Head; normocephalic, atraumatic. Eyes; pupils are equal, round, and reactive to light bilaterally. Extraocular movements intact bilaterally. Throat; no evidence of erythema or exudates in the posterior pharynx. Has poor dentition. NECK: Supple. Good range of motion. PULMONARY: Clear to auscultation bilaterally. No wheezing, no rales, no rhonchi, no crackles appreciated. CARDIOVASCULAR: Positive S1 and S2. No murmurs, rubs, or gallops appreciated. ABDOMEN: Soft, nondistended, and nontender to palpation. Bowel sounds present. MUSCULOSKELETAL: Strength is 5/5 throughout. No evidence of any muscle deficits on examination. No weakness appreciated. NEUROLOGIC: Cranial nerves 2 through 12 grossly intact. No evidence of any neurological deficits on exam. SKIN: Intact. Warm to touch. Good cap refill. PSYCHIATRIC: Normal affect and mood. EXTREMITIES: No edema. Good range of motion throughout. LABORATORY FINDINGS: Today none. MICROBIOLOGY: Noted. IMAGING STUDIES: Nothing new. IMPRESSION: 1. Acute respiratory distress secondary to coronavirus pneumonia, extubated on 05/10/2020. 2. Acute cerebrovascular accident, seen on MRI secondary to coronavirus-19 stroke. 3. Type 2 diabetes. 4. Viral pneumonia secondary to coronavirus. 5. Acinetobacter on sputum culture. 6. Acute kidney injury. 7. Electrolyte abnormalities. PLAN: At this time, the patient is alert, awake, and oriented on exam. He is actually doing very well. He is on aspirin and statin for his underlying acute CVA. From a coronavirus perspective, he is doing well. Continue with insulin sliding scale and diabetic diet. Antibiotics were discontinued by ID. Continue with aggressive PT. Lovenox for DVT prophylaxis. Case management consulted for physical therapy. MD JIMMY Walls/MODL /[id number]
[2020-05-23] MEDS: ENOXAPARIN SOD INJ 40 MG/0.4 ML SYR SC SCH (17:17)
--- NOTE | 2020-05-23 19:16 | NUR ---
PATIENT IN STABLE CONDITION WITH NO S/S OF RESPIRATORY DISTRESS. NO PAIN VOICED. TELEMETRY APPLIED. URINAL PROVIDED TO PATIENT- DIAPER APPLIED. CALL LIGHT IS WITHIN REACH, PATIENT INSTRUCTED TO CALL FOR ASSISTANCE NEEDED. REPORT GIVEN TO ONCOMING NURSE.
[2020-05-23] MEDS: ATORVASTATIN 40 MG TAB PO SCH (21:30)
[2020-05-23] MEDS: INSULIN GLARGINE 100 UNITS/ML VIAL SQ SCH (21:30)
--- NOTE | 2020-05-23 21:30 | NUR ---
PATIENT IS RESTING IN BED AOX3 IN STABLE CONDITION, NO SIGNS OF DISTRESS NOTED. WOUND TO SACRUM NOTED DRESSING PAD IS CLEAN, DRY, AND INTACT, NO DRAINAGE NOTED. PATIENT INFORMED TO USE CALL LIGHT FOR ASSISTANCE. BED IS IN LOW POSITION, SIDE RAILS ARE UP, CALL LIGHT WITHIN REACH, WILL CONTINUE TO MONITOR.
[2020-05-24] VITALS (7 sets, daily range): BP systolic 104–132; BP diastolic 67–92
[2020-05-24] MEDS: INSULIN REGULAR, HUMAN 100 UNIT/1 ML 3ML VIAL SQ SCH ×3 (05:15→18:27)
[2020-05-24 05:27] LABS: BASOPHILS # (AUTO) 0.1 (0.0-0.1); BASOPHILS % 0.8 % (0.0-1.0); EOSINOPHILS # (AUTO) 0.2 (0.0-0.4); EOSINOPHILS % 1.5 % (0.0-6.0); HEMATOCRIT 37.4 % (38.2-49.6); HEMOGLOBIN 11.8 g/dL (14.0-18.0); LYMPHOCYTES # (AUTO) 2.2 (1.0-3.2); LYMPHOCYTES % 15.3 % (18.0-39.1); MEAN CORPUSCULAR HEMOGLOBIN 26.3 pg (28-32); MEAN CORPUSCULAR HGB CONC 31.6 g/dL (31-35); MEAN CORPUSCULAR VOLUME 83.3 fL (81-99); NEUTROPHILS # (AUTO) 10.6 (2.1-6.9); NEUTROPHILS % 74.1 % (38.7-80.0); PLATELET COUNT 448 x10e3/uL (140-360); RED BLOOD COUNT 4.49 x10e6/uL (4.3-5.7); RED CELL DISTRIBUTION WIDTH 13.8 % (11.7-14.4)
[2020-05-24 05:56] LABS: ANION GAP 15.1 mmol/L (8-16); BLOOD UREA NITROGEN 15 mg/dL (7-26); BUN/CREATININE RATIO 20 (6-25); CALCIUM 9.4 mg/dL (8.4-10.2); CARBON DIOXIDE 24 mmol/L (22-29); CHLORIDE 101 mmol/L (98-107); CREATININE, SERUM 0.75 mg/dL (0.72-1.25); EST GLOMERULAR FILTRATION RATE > 60 ML/MIN (60-); GLUCOSE 125 mg/dL (74-118); POTASSIUM 4.1 mmol/L (3.5-5.1); SODIUM 136 mmol/L (136-145)
--- NOTE | 2020-05-24 07:00 | NUR ---
received bedside report. pt is sleeping in bed, no s/s of distress, respiration are even and non-labored. call light within reach and bed safety in place
[2020-05-24] MEDS: FAMOTIDINE 20 MG/2 ML VIAL IV SCH ×2 (10:03→18:27)
[2020-05-24] MEDS: ASPIRIN 325 MG TAB EC PO SCH (10:03)
--- NOTE | 2020-05-24 10:19 | NUR ---
awake calm doing better stable 97.7 109 131/85 awake calm eomi face symmetric no nuchal rigidity tachycardic cta NEUROLOGIC: Extraocular muscles are intact. His face appears symmetric. His speech is clear. No nuchal rigidity. His strength on the left side is 3/5 to 4/5, on right side, 5/5. Reflexes symmetrically diminished throughout. Sensory is grossly intact. There is no ataxia on exam. ASSESSMENT AND PLAN: The patient comes to my attention for hemiparesis on the left. ischemic stroke noted on mri continue ASA and statin may need anticoagulation pending clinical response will require pt or rehab eval inpt rehab is appropriate clinically
--- NOTE | 2020-05-24 11:46 | NUR ---
ORDER RECEIVED FOR REHAB. CALL TO PT'S MOTHER; JOSE MARINA @ [phone]. STATES PT HAD TOLD HER ABOUT GOING TO [facility]. 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 STATES THE PT IS ABLE TO MAKE HIS OWN DECISIONS MOST OF THE TIME NOW. CM CALLED TO THE PT'S ROOM. NO ANSWER. CALL TO [phone]; VM FULL. PT RETURNED MY CALL. STATES HE WOULD LIKE TO GO TO [facility]. DISCUSSED INSURANCE AUTH AND CM WILL UPDATE ONCE AUTH GIVEN. PT VERBALIZED UNDERSTANDING. MOT WAS INITIATED.
[2020-05-24] MEDS: METOPROLOL TARTRATE 50 MG TAB PO SCH ×2 (13:03→21:27)
[2020-05-24] MEDS: BALSAM PERU/CASTOR OIL 60 GM OINT...G. TP SCH (14:06)
[2020-05-24] MEDS: COLLAGENASE 5 GM TUBE TOP SCH (14:06)
--- NOTE | 2020-05-24 16:53 | NUR ---
Nutrition Intervention Note RD Recommendation(s) for Physician: -Continue current diet, texture per HOT BOX OPERATOR -Continue Glucerna nutrition supplement -Recommend Azar 1 packet BID to promote wound healing Plan of Care: RD following, monitoring for tolerance and adequacy, diet and ONS rec's Nutrition reason for involvement: follow up RD Assessment 05/24: Follow up. Chart reviewed. Attempted to call pt over the phone, but RD was unable to reach pt. Spoke to RN who stated pt did not eat breakfast this morning. Last recorded intake was 0% of breakfast and 75% of dinner meal on 05/21. Recommend Glucerna nutrition supplement. Will continue to monitor. 05/19: Follow up. HOT BOX OPERATOR evaluation completed and diet advanced to pureed with nectar thick liquids, pt requires to be fed. Pt tolerating diet and intake improving. Pt sitting up in chair and on O2 per nasal canula. No GI distress. Chart reviewed. Will continue to monitor. 05/14: Follow up. Speech therapy recommended to continue NG feeding at this time and that pt is fatigured. Pt is receiving Glucerna 1.2 @ 35 mL/hr per documentation. Recommendations provided. Will continue to monitor. 05/11: Follow up. Pt extubated yesterday, currently on high flow O2. Pt continues on Propofol. Pt currently on Glucerna 1.2 at 20 ml/hr. Current TF rec's remain appropriate in light of Propofol dosage. Chart reviewed. Will continue to monitor. 05/06: Follow up. Pt remains intubated and sedated on high dose Propofol. TF continues at 35 ml/hr, additional kcal from Propofol meeting estimated kcal needs- not meeting protein needs. BM documented 05/05. Chart reviewed. Current TF rec's remain appropriate. Will continue to monitor. 05/03: Follow up. Pt remains intubated and sedated on high dose Propofol, pt requiring intermittent proning. TF at 35 ml/hr, additional kcal from Propofol currently. Updated TF rec's provided in light of Propofol dosage. No recent BM documented. Chart reviewed. Will continue to monitor. 04/28: Follow up. Pt remains intubated. RN reports pts tube feed rate is at 15 mL/hr at this time and that pt is in the prone position. Current recommendations remain appropriate. Will continue to monitor. (04/23/20) Pt is a 40 year old male admitted with COVID-19, hypoxemia, and viral pneumonia. Pt was intubated and tube feedings were started. Unable to obtain nutrition history at this time and there are no previous weights in chart. Tube feed recommendations provided. Will continue to monitor. Principal Problems/Diagnoses: COVID-19, hypoxemia, and viral pneumonia PMH: Depression, anxiety, ADHD, diabetes, and hyperlipidemia GI: LBM 05/24 Skin: unstageable posterior sacral pressure ulcer Labs: 05/24: Na 136, K 4.1, BUN 15, Cr 0.75, Glu 125 05/19: Na 137, K 4.1, BUN 10, Cr 0.65, Gluc 105, POC Gluc 142-166 05/14: Na 140, K 3.8, BUN 9, Cr 0.56, Glu 131, 05/11: Na 141, K 3.3, BUN 16, Cr 0.64, Gluc 96 05/06: na 146, K 3.5, BUN 13, Cr 0.62, Gluc 111, POC gluc 102-140 05/03: Na 142, K 4.4, BUN 17, Cr 0.64, Gluc 121, POC Gluc 115-231 (04/28) Na 143, K 4.2, BUN 19, Cr 0.67, Glu 108, Ca 7.6 (04/22) Na 145, K 4.8, BUN 39, Cr 0.90, Glu 127, Ca 7.9 Meds: metoprolol, pepcid, Lipitor, insulin Ht: 69 inches Wt: 219 lbs (05/21) 223 lbs (05/19) 238 lbs (05/12) 230 lb (05/11) 233 lbs (05/06) 233 lbs (04/23) - weight fluctuations BMI: 34.4 kg/m2 weight used 233 lbs IBW: 160 lbs Malnutrition Evaluation (05/24/20) Pt does not meet criteria for malnutrition at this time. Will re-evaluate at follow-up as appropriate. Adequacy/intake: acute moderate- pt meeting <75% of needs >7 days wt loss: does not meet criteria, pt with wt fluctuations since admission fat loss: none, budging eye pads upon observation on 05/18 muscle loss: none, shoulder round upon observation on 05/18 edema: none functional status: TIFFANY Nutrition Prescription (Diet Order): 1800 ADA, mechanical soft, [place] thick liquids Estimated Nutritional Needs: 5405-0528 calories/day (22-25 kcal/kg IBW) 109-145 g protein/day (1.5-2 g pro/kg IBW) Diet Adequacy: Not meeting calorie needs, Not meeting protein needs Tolerance: RN stated pt did not eat breakfast this morning Diet Education Needs Assessment: Diet education not indicated Nutrition Care Level: moderate Nutrition Diagnosis: Inadequate energy intake related to decreased ability to consume sufficient energy as evidenced by insufficient energy intake from diet compared to needs. Goal: Patient will meet 75-100% of estimated needs by follow up Progress: progressing Interventions: -Texture, CHO modified diet, commercial beverage, collaboration with other providers Monitoring/Evaluation: -Total energy intake, Total protein intake, modified diet, Weight change Signed: Teri Ferris RD, LD
--- NOTE | 2020-05-24 18:14 | Progress Note ---
DATE: SUBJECTIVE: The patient is seen and evaluated. Available labs and notes reviewed. Discussed with the nurse. No new events. REVIEW OF SYSTEMS: No nausea, vomiting, fever, chills, chest pain, shortness of breath, headache, rash, or dysuria. Feels better overall. Still complained of discomfort in the sacral area when the ulceration has occurred. PHYSICAL EXAMINATION: VITAL SIGNS: Temperature is 98.2, pulse 90, respirations 16, and blood pressure 121/85. GENERAL: Awake and alert. No acute distress. Comfortable in bed, lying on his left side taking pressure off his sacral decubitus. CV: S1 and S2. CHEST: Equal expansion. Clear to auscultation. No acute distress. ABDOMEN: Soft and nontender. No distention. HEENT: Moist. No pallor. No JVD. EXTREMITIES: Moves all. Sacral decubitus ulcer, on local care. It is unstageable. MEDICATIONS: Reviewed and ID point of view, the patient is off antibiotics. LABORATORY STUDIES: White count of 14.33, hemoglobin 11.8, and platelet 448. Sodium 136, potassium 4.1, and creatinine 0.75. MICROBIOLOGY: No new microbiology studies available. RADIOLOGY STUDIES: No new radiology studies available. ASSESSMENT AND PLAN: 1. Acute respiratory failure, resolved. 2. Viral pneumonia with COVID-19 infection, resolved. 3. Diabetes. 4. Sacral decubitus ulcer. 5. Ischemic stroke on MRI. 6. Anticoagulation per others. 7. Can to monitor the patient off antibiotics. The patient has voiced his preference to go to [facility] [place] since he knows somebody, who works there and is family related. White counts went up today, but, however, per my discussion with the patient and the staff, there are no new complaints. No diarrhea. No shortness of breath. No cough. We will recheck CBC for tomorrow. Further management of this patient is based on daily findings on laboratory and physical examination. Dictated by Stone Crowley PA-C (Al) Mayda Krishnamurthy MD /MODL /[id number]
[2020-05-24] MEDS: ENOXAPARIN SOD INJ 40 MG/0.4 ML SYR SC SCH (18:27)
--- NOTE | 2020-05-24 20:10 | NUR ---
Received the pt in report.aaox3.bed bound.repositioned.bed locked and in lowest position.call light within reach.instructed to call for assistance as needed.
[2020-05-24] MEDS ORDERED: SERTRALINE HCL 50 MG TAB PO SCH (21:00)
[2020-05-24] MEDS: ATORVASTATIN 40 MG TAB PO SCH (21:27)
[2020-05-24] MEDS: INSULIN GLARGINE 100 UNITS/ML VIAL SQ SCH (21:40)
--- NOTE | 2020-05-24 23:00 | NUR ---
Had a bowel movement.cleansed and diaper changed.left arm pain voiced.medicated with tylenol 650 mg po.keep monitor the pt.
[2020-05-24] MEDS: ACETAMINOPHEN 325 MG TAB PO PRN (23:45)
[2020-05-25] VITALS (9 sets, daily range): BP systolic 110–143; BP diastolic 66–89
[2020-05-25] MEDS: INSULIN REGULAR, HUMAN 100 UNIT/1 ML 3ML VIAL SQ SCH ×5 (00:27→23:54)
[2020-05-25] MEDS: TRAZODONE HCL 50 MG TAB PO PRN (00:40)
--- NOTE | 2020-05-25 02:12 | Progress Note ---
DATE: 05/25/2020 Medicine Progress Note SUBJECTIVE: The patient is doing very well today with no complaints. He is ready for rehab. PHYSICAL EXAMINATION: VITAL SIGNS: Afebrile, normotensive, respiratory rate is good. GENERAL: Not in acute distress. Alert and oriented x3. Cooperative on examination. HEENT: Head; normocephalic, atraumatic. Eyes; pupils are equal, round, and reactive to light bilaterally. Extraocular movements intact bilaterally. Throat; no evidence of erythema or exudates in the posterior pharynx. Has poor dentition. NECK: Supple. Good range of motion. PULMONARY: Clear to auscultation bilaterally. No wheezing, no rales, no rhonchi, no crackles appreciated. CARDIOVASCULAR: Positive S1 and S2. No murmurs, rubs, or gallops appreciated. ABDOMEN: Soft, nondistended, and nontender to palpation. Bowel sounds present. MUSCULOSKELETAL: Strength is 5/5 throughout. No evidence of any muscle deficits on examination. No weakness appreciated. NEUROLOGIC: Cranial nerve II through XII grossly intact. No evidence of any neurological deficits on exam. SKIN: Intact. Warm to touch. Good cap refill. PSYCHIATRIC: Normal affect and mood. EXTREMITIES: No edema. Good range of motion throughout. LABORATORY DATA: Labs show white count was 14, hemoglobin of 14, hematocrit 37, platelets of 448. Chemistry, reviewed, stable. MICROBIOLOGY: Nothing new. IMAGING STUDIES: Nothing new. IMPRESSION: 1. Acute respiratory distress secondary to coronavirus pneumonia, extubated on 05/10/2020. 2. Acute cerebrovascular accident, seen on MRI, could be due to coronavirus stroke. 3. Type 2 diabetes. 4. Viral pneumonia secondary to coronavirus. 5. As needed back on sputum culture-completed all antibiotic therapy. 6. Acute kidney injury. 7. Electrolyte abnormalities. PLAN: At this time, the patient is doing very well. We are waiting acceptance to inpatient rehab to [facility] rehab. He is otherwise doing well. He is not anymore antibiotics per ID. Continue with Lovenox for DVT prophylaxis. Potential discharge tomorrow once approved. MD JIMMY Walls/SERGIO /[id number]
--- NOTE | 2020-05-25 06:00 | NUR ---
Blood billy and sent to the lab .
[2020-05-25 06:22] LABS: BASOPHILS # (AUTO) 0.2 (0.0-0.1); BASOPHILS % 0.6 % (0.0-1.0); EOSINOPHILS # (AUTO) 0.1 (0.0-0.4); EOSINOPHILS % 0.3 % (0.0-6.0); HEMATOCRIT 35.7 % (38.2-49.6); HEMOGLOBIN 11.4 g/dL (14.0-18.0); LYMPHOCYTES # (AUTO) 1.9 (1.0-3.2); LYMPHOCYTES % 6.9 % (18.0-39.1); MEAN CORPUSCULAR HEMOGLOBIN 26.8 pg (28-32); MEAN CORPUSCULAR HGB CONC 31.9 g/dL (31-35); MONOCYTES # (AUTO) 1.5 (0.2-0.8); MONOCYTES % 5.4 % (4.4-11.3); NEUTROPHILS # (AUTO) 23.8 (2.1-6.9); NEUTROPHILS % 85.9 % (38.7-80.0); PLATELET COUNT 442 x10e3/uL (140-360); RED BLOOD COUNT 4.25 x10e6/uL (4.3-5.7)
[2020-05-25 06:47] LABS: ALANINE AMINOTRANSFERASE 25 IU/L (0-55); ALBUMIN 3.3 g/dL (3.5-5.0); ALBUMIN/GLOBULIN RATIO 0.7 (0.8-2.0); ALKALINE PHOSPHATASE 82 IU/L (40-150); ANION GAP 17.1 mmol/L (8-16); BLOOD UREA NITROGEN 14 mg/dL (7-26); BUN/CREATININE RATIO 18 (6-25); CALCIUM 9.3 mg/dL (8.4-10.2); CARBON DIOXIDE 23 mmol/L (22-29); CHLORIDE 99 mmol/L (98-107); CREATININE, SERUM 0.77 mg/dL (0.72-1.25); EST GLOMERULAR FILTRATION RATE > 60 ML/MIN (60-); GLUCOSE 157 mg/dL (74-118); POTASSIUM 4.1 mmol/L (3.5-5.1); SODIUM 135 mmol/L (136-145)
--- NOTE | 2020-05-25 07:01 | NUR ---
ABD KUB & CHEST X RAY TAKEN .REPORT GIVEN TO ONCOMING RN.STABLE CONDITION.
[2020-05-25] MEDS: OLANZAPINE 5 MG TAB PO PRN (08:37)
[2020-05-25] MEDS: METOPROLOL TARTRATE 50 MG TAB PO SCH ×2 (08:37→21:47)
[2020-05-25] MEDS: FAMOTIDINE 20 MG/2 ML VIAL IV SCH (08:37)
[2020-05-25] MEDS: ASPIRIN 325 MG TAB EC PO SCH (08:37)
--- NOTE | 2020-05-25 08:58 | Diagnostic Imaging Report ---
EXAMINATION: ABDOMEN-1VIEW (KUB), CHEST SINGLE (PORTABLE) INDICATION: Abdominal pain, shortness of breath COMPARISON: Chest radiograph 05/19/2020 FINDINGS: LINES/TUBES:Right PICC line terminates at the superior cavoatrial junction. EKG leads overlie the chest. LUNGS:Left lung is moderately inflated. Right lung is well-inflated. Mild bibasilar subsegmental atelectasis. No focal consolidation or pulmonary edema. PLEURA:No pleural effusion or pneumothorax. MEDIASTINUM:The cardiomediastinal silhouette appears normal in size and shape. BONES/SOFT TISSUES:No acute osseous injury. ABDOMEN:Residual oral contrast material throughout the colon. Nonobstructive bowel gas pattern. No free air. No abnormal calcifications. IMPRESSION: Bibasilar subsegmental atelectasis. No focal consolidation or pulmonary edema. Nonobstructive bowel gas pattern. No free air. Residual oral contrast material in the colon. Signed by: Gilberto Soto MD on 05/25/2020 8:54 AM
--- NOTE | 2020-05-25 09:24 | NUR ---
patient stable , showing excellent recovery 99.4 113 143/89 awake calm eomi face symmetric no nuchal rigidity tachycardic cta NEUROLOGIC: Extraocular muscles are intact. His face appears symmetric. His speech is clear. No nuchal rigidity. His strength on the left side is 3/5 to 4/5, on right side, 5/5. Reflexes symmetrically diminished throughout. Sensory is grossly intact. There is no ataxia on exam. ASSESSMENT AND PLAN: The patient comes to my attention for hemiparesis on the left. ischemic stroke noted on mri continue ASA and statin may need anticoagulation pending clinical response will require pt or rehab eval inpt rehab is appropriate clinically
[2020-05-25 10:47] LABS: EOSINOPHILS % (MANUAL) 1 % (0-7); LYMPHOCYTES % (MANUAL) 8 % (19-48); MONOCYTES % (MANUAL) 2 % (3.4-9.0); NEUTROPHILS % (MANUAL) 88 % (40-74)
[2020-05-25 10:48] LABS: PLATELET ESTIMATE SLIGHTLY INCREASED; PLATELET MORPHOLOGY COMMENT NORMAL; RBC MORPHOLOGY COMMENT NORMAL
--- NOTE | 2020-05-25 10:51 | NUR ---
CALL RECEIVED FROM ANA Walker [facility]. STATES IF THE PT IS READY, MOT CAN BE PROVIDED. PT'S WBC UP TO 27.73. NOTIFIED DR. WALKER OF MOT READY AND WBC. STATES HE WILL SPEAK W DR. PATTERSON FIRST TO ASSESS WHY WBC TRENDING UP. CM CALL BACK TO ANA TO HOLD MOT FOR NOW. WILL F/U WHEN READY.
[2020-05-25 13:42] LABS: BASOPHILS # (AUTO) 0.1 (0.0-0.1); BASOPHILS % 0.5 % (0.0-1.0); EOSINOPHILS # (AUTO) 0.1 (0.0-0.4); EOSINOPHILS % 0.3 % (0.0-6.0); HEMATOCRIT 34.5 % (38.2-49.6); HEMOGLOBIN 11.1 g/dL (14.0-18.0); LYMPHOCYTES # (AUTO) 1.7 (1.0-3.2); LYMPHOCYTES % 6.4 % (18.0-39.1); MEAN CORPUSCULAR HGB CONC 32.2 g/dL (31-35); MEAN CORPUSCULAR VOLUME 83.9 fL (81-99); MONOCYTES # (AUTO) 1.6 (0.2-0.8); MONOCYTES % 5.9 % (4.4-11.3); NEUTROPHILS # (AUTO) 22.7 (2.1-6.9); NEUTROPHILS % 85.8 % (38.7-80.0); PLATELET COUNT 417 x10e3/uL (140-360); RED BLOOD COUNT 4.11 x10e6/uL (4.3-5.7); RED CELL DISTRIBUTION WIDTH 14.1 % (11.7-14.4)
[2020-05-25] MEDS ORDERED: FAMOTIDINE 20 MG TAB PO NR (14:00)
--- NOTE | 2020-05-25 14:08 | NUR ---
infectious disease progress note the patient is feeling better she is weak still still have some shortness of breath with exertion but overall doing well. This is May 25, laboratory to review chart reviewed. he patient is doing very well today with no complaints. He is ready for rehab. PHYSICAL EXAMINATION: VITAL SIGNS: Afebrile, normotensive, respiratory rate is good. GENERAL: Not in acute distress. Alert and oriented x3. Cooperative on examination. HEENT: Head; normocephalic, atraumatic. Eyes; pupils are equal, round, and reactive to light bilaterally. Extraocular movements intact bilaterally. Throat; no evidence of erythema or exudates in the posterior pharynx. Has poor dentition. NECK: Supple. Good range of motion. PULMONARY: Clear to auscultation bilaterally. No wheezing, no rales, no rhonchi, no crackles appreciated. CARDIOVASCULAR: Positive S1 and S2. No murmurs, rubs, or gallops appreciated. ABDOMEN: Soft, nondistended, and nontender to palpation. Bowel sounds present. MUSCULOSKELETAL: Strength is 5/5 throughout. No evidence of any muscle deficits on examination. No weakness appreciated. NEUROLOGIC: Cranial nerve II through XII grossly intact. No evidence of any neurological deficits on exam. SKIN: Intact. Warm to touch. Good cap refill. PSYCHIATRIC: Normal affect and mood. EXTREMITIES: No edema. Good range of motion throughout. LABORATORY DATA: Labs show white count was 14, hemoglobin of 14, hematocrit 37, platelets of 448. Chemistry, reviewed, stable. MICROBIOLOGY: Nothing new. IMAGING STUDIES: Nothing new. IMPRESSION: leukocytosis clinically better he is off antibiotic continue PT OT remove the PICC line will check CBC with differential and recheck her amylase lipase and liver enzyme 1. Acute respiratory distress secondary to coronavirus pneumonia, extubated on 05/10/2020. Continue oxygen as needed 2. Acute cerebrovascular accident, seen on MRI, could be due to coronavirus stroke. 3. Type 2 diabetes. 4. Viral pneumonia secondary to coronavirus. 5. As needed back on sputum culture-completed all antibiotic therapy. 6. Acute kidney injury. 7. Electrolyte abnormalities.
[2020-05-25 14:47] LABS: AMYLASE 66 U/L (25-125); LIPASE 61 U/L (8-78)
--- NOTE | 2020-05-25 15:55 | Progress Note ---
DATE: SUBJECTIVE: The patient is afebrile. He did have an elevated white blood cell count this morning. He does note some pain from his decubitus ulcer. PHYSICAL EXAMINATION: VITAL SIGNS: Blood pressure is 129/79, saturation is 99%. HEENT: No facial swelling or erythema. LYMPHATIC: No submandibular, cervical, or supraclavicular adenopathy. CARDIAC: Regular rate and rhythm with normal S1, S2. LUNGS: Auscultation of lungs reveals crackles and rhonchi on the bases. There is no wheezing. ABDOMEN: Soft, nontender. There is no rebound or guarding. EXTREMITIES: No leg edema or calf tenderness. There is no cyanosis or clubbing. SKIN: No rashes. LABORATORY DATA: White blood cell count is 27.7 and hemoglobin is 11.4. Platelet count is 442. BUN to creatinine ratio is normal. Other electrolytes are within normal limits. IMPRESSION: 1. Leukocytosis. 2. Viral pneumonia and coronavirus disease-19 infection. 3. Decubitus ulcer. 4. Diabetes. PLAN: 1. Remove PICC line and place peripheral line. 2. Panculture the patient and consider antibiotics. 3. Continue to monitor and control blood sugars. 4. Physical therapy. 5. Wound care. Tomi Vizcarra MD [facility]/JOSÉ LUISL /[id number]
[2020-05-25] MEDS: ENOXAPARIN SOD INJ 40 MG/0.4 ML SYR SC SCH (17:28)
[2020-05-25] MEDS: BALSAM PERU/CASTOR OIL 60 GM OINT...G. TP SCH (17:42)
[2020-05-25] MEDS: COLLAGENASE 5 GM TUBE TOP SCH (17:42)
--- NOTE | 2020-05-25 17:45 | Progress Note ---
DATE: 05/25/2020 Psychiatric Progress Note SUBJECTIVE: The patient evaluated and events noted. The patient is in the room. He is calm and cooperative. He is not confused and agitated. He reports not sleeping much and having some anxiety. He denies any hallucination or suicidal ideation. He denies any side effects from medication. ASSESSMENT: Adjustment disorder with mixed mood. PLAN: 1. To change trazodone to schedule. 2. Increase Zoloft. 3. Continue Zyprexa p.r.n. 4. Supportive therapy. Dictated by Jennie Johnson PA-C Sandra Griffin MD [facility]/MODL /[id number]
[2020-05-25] MEDS ORDERED: TRAZODONE HCL 50 MG TAB PO SCH (21:00)
[2020-05-25] MEDS ORDERED: SERTRALINE HCL 50 MG TAB PO SCH (21:00)
--- NOTE | 2020-05-25 21:31 | Progress Note ---
DATE: 05/25/2020 Medicine Progress Note SUBJECTIVE: The patient's white count is elevated. He is doing well. He is afebrile. No complaints at this time. PHYSICAL EXAMINATION: VITAL SIGNS: Temperature is 98.5, pulse is 107, respiratory rate is 18, blood pressure 129/79, and pulse ox 97% on room air. GENERAL: Not in acute distress. Alert and oriented x3. Cooperative on examination. HEENT: Head; normocephalic, atraumatic. Eyes; pupils are equal, round, and reactive to light bilaterally. Extraocular movements intact bilaterally. Throat; no evidence of erythema or exudates in the posterior pharynx. Has poor dentition. NECK: Supple. Good range of motion. PULMONARY: Clear to auscultation bilaterally. No wheezing, no rales, no rhonchi, no crackles appreciated. CARDIOVASCULAR: Positive S1 and S2. No murmurs, rubs, or gallops appreciated. ABDOMEN: Soft, nondistended, and nontender to palpation. Bowel sounds present. MUSCULOSKELETAL: Strength is 5/5 throughout. No evidence of any muscle deficits on examination. No weakness appreciated. NEUROLOGIC: Cranial nerves 2 through 12 grossly intact. No evidence of any neurological deficits on exam. SKIN: Intact. Warm to touch. Good cap refill. PSYCHIATRIC: Normal affect and mood. EXTREMITIES: No edema. Good range of motion throughout. LABORATORY DATA: Show white count was 26 after a repeat was 27, hemoglobin 11, hematocrit is 34.5, and platelets of 417. Chemistry; sodium 135, potassium 4.1, chloride 99, bicarb 23, anion gap of 17, BUN is 14, creatinine is 0.77, and glucose is 157. MICROBIOLOGY: Nothing new. IMPRESSION: 1. Acute respiratory failure secondary to coronavirus, extubated on 05/10/2020, now improved. 2. Acute cerebrovascular accident seen on MRI secondary to coronavirus stroke. 3. Type 2 diabetes. 4. Viral pneumonia secondary to coronavirus. 5. Acinetobacter with sputum culture-completed all antibiotic therapy. 6. Acute kidney injury. 7. Electrolyte abnormalities. 8. Leukocytosis of unknown etiology. PLAN: At this time, the patient is doing very well. In fact, he is afebrile and normotensive. His white count is elevated unexplanatory at this time. He is not on any steroids. I did remove the PICC line. He is on a peripheral line now. Discussed with ID about the white count. Pulmonary Critical Care is following. Lovenox for DVT prophylaxis. He has been accepted to [facility], but because of his white count, we would like to wait until his white count improved and see if he has any kind of symptoms. Currently, he is doing very well. MD JIMMY Walls/JOSÉ LUISL /[id number]
[2020-05-25] MEDS: INSULIN GLARGINE 100 UNITS/ML VIAL SQ SCH (21:40)
[2020-05-25] MEDS: ATORVASTATIN 40 MG TAB PO SCH (21:46)
[2020-05-26 06:39] LABS: BASOPHILS # (AUTO) 0.1 (0.0-0.1); BASOPHILS % 0.5 % (0.0-1.0); EOSINOPHILS % 0.2 % (0.0-6.0); HEMATOCRIT 37.3 % (38.2-49.6); HEMOGLOBIN 11.7 g/dL (14.0-18.0); MEAN CORPUSCULAR HEMOGLOBIN 26.5 pg (28-32); MEAN CORPUSCULAR HGB CONC 31.4 g/dL (31-35); MEAN CORPUSCULAR VOLUME 84.6 fL (81-99); MONOCYTES # (AUTO) 1.3 (0.2-0.8); MONOCYTES % 6.6 % (4.4-11.3); NEUTROPHILS # (AUTO) 17.5 (2.1-6.9); NEUTROPHILS % 86.9 % (38.7-80.0); PLATELET COUNT 410 x10e3/uL (140-360); RED BLOOD COUNT 4.41 x10e6/uL (4.3-5.7); RED CELL DISTRIBUTION WIDTH 14.2 % (11.7-14.4)
[2020-05-26 07:03] LABS: ANION GAP 19.2 mmol/L (8-16); BLOOD UREA NITROGEN 12 mg/dL (7-26); BUN/CREATININE RATIO 16 (6-25); CALCIUM 9.7 mg/dL (8.4-10.2); CARBON DIOXIDE 20 mmol/L (22-29); CHLORIDE 100 mmol/L (98-107); CREATININE, SERUM 0.75 mg/dL (0.72-1.25); EST GLOMERULAR FILTRATION RATE > 60 ML/MIN (60-); GLUCOSE 148 mg/dL (74-118); POTASSIUM 4.2 mmol/L (3.5-5.1); SODIUM 135 mmol/L (136-145)
[2020-05-26 07:41] VITALS: BP 106/68
[2020-05-26] MEDS: INSULIN REGULAR, HUMAN 100 UNIT/1 ML 3ML VIAL SQ SCH ×2 (08:00→12:48)
[2020-05-26 08:15] VITALS: BP 106/68
[2020-05-26] MEDS: COLLAGENASE 5 GM TUBE TOP SCH (09:26)
[2020-05-26] MEDS: METOPROLOL TARTRATE 50 MG TAB PO SCH (09:26)
[2020-05-26] MEDS: ASPIRIN 325 MG TAB EC PO SCH (09:26)
[2020-05-26] MEDS: BALSAM PERU/CASTOR OIL 60 GM OINT...G. TP SCH (09:27)
[2020-05-26 11:35] VITALS: BP 122/66
[2020-05-26 13:40] LABS: BASOPHILS # (AUTO) 0.1 (0.0-0.1); BASOPHILS % 0.5 % (0.0-1.0); EOSINOPHILS # (AUTO) 0.1 (0.0-0.4); EOSINOPHILS % 0.5 % (0.0-6.0); HEMATOCRIT 36.6 % (38.2-49.6); HEMOGLOBIN 11.5 g/dL (14.0-18.0); LYMPHOCYTES # (AUTO) 1.5 (1.0-3.2); LYMPHOCYTES % 7.7 % (18.0-39.1); MEAN CORPUSCULAR HEMOGLOBIN 26.6 pg (28-32); MEAN CORPUSCULAR HGB CONC 31.4 g/dL (31-35); MEAN CORPUSCULAR VOLUME 84.7 fL (81-99); MONOCYTES # (AUTO) 1.3 (0.2-0.8); MONOCYTES % 6.5 % (4.4-11.3); NEUTROPHILS # (AUTO) 16.5 (2.1-6.9); PLATELET COUNT 406 x10e3/uL (140-360); RED BLOOD COUNT 4.32 x10e6/uL (4.3-5.7); RED CELL DISTRIBUTION WIDTH 14.1 % (11.7-14.4)
--- NOTE | 2020-05-26 13:40 | NUR ---
awake and doing well 98.6 109-91 122/66 awake calm eomi face symmetric no nuchal rigidity tachycardic cta NEUROLOGIC: Extraocular muscles are intact. His face appears symmetric. His speech is clear. No nuchal rigidity. His strength on the left side is 3/5 to 4/5, on right side, 5/5. Reflexes symmetrically diminished throughout. Sensory is grossly intact. There is no ataxia on exam. ASSESSMENT AND PLAN: The patient comes to my attention for hemiparesis on the left. ischemic stroke noted on mri continue ASA and statin may need anticoagulation pending clinical response will require pt or rehab eval inpt rehab is appropriate clinically
--- NOTE | 2020-05-26 14:02 | NUR ---
infectious disease progress note patient seen and examined chart reviewed discussed with medical team patient with no complaints whatsoever he is eager to go for rehab his review of system otherwise unremarkable his physical examination currently alert oriented does not seem to be in acute distress his vitals are stable afebrile HEENT normocephalic neck supple chest few crackles corresponds to a soft lots of present extremities no edema skin there is no rash free perforation leukocytosis probably reactive with recommended to observe the patient clinically the patient can go to rehab. Cough and 18 patient is not infectious anymore
--- NOTE | 2020-05-26 14:36 | NUR ---
RECEIVED CALL FROM DR. WALKER REGARDING MOVING THE PT TO [facility]. REQUESTED DR. WAYNE BE HIS MED DOC WHILE THERE. CALL TO ANA TO VERIFY; STATES SHE CAN MAKE ROSANA A MED CONSULT. MOT: [facility] [address] [place] [id number] ACCEPTING MD: MARIA INES ADAMS ADMIN: MARCIA BEAVER, IT RECRUITER CALL REPORT TO [phone]. RM # WILL BE GIVEN AT THAT TIME. CALL TO NOTIFY PT. CONSENT GIVEN FOR AMBULANCE TRANSPORT AND RECORDS TO ACCOMPANY WHEN TRANSFERRED.
[2020-05-26 15:27] VITALS: BP 121/72
--- NOTE | 2020-05-26 16:30 | NUR ---
Pt discharge to [facility] rehab at this time. Pt is aox3 at time of discharge. 0 s/s of acute distress noted at time of discharge. Reports called to Josseline at [facility].
--- NOTE | 2020-05-27 01:54 | Discharge Summary ---
FINAL DISCHARGE DIAGNOSES: 1. Acute respiratory failure secondary to coronavirus pneumonia-resolved. 2. Acute cerebrovascular accident secondary to coronavirus stroke. 3. Type 2 diabetes mellitus. 4. Viral pneumonia secondary to coronavirus. 5. Acinetobacter found on sputum culture-completed all antibiotic therapy. 6. Acute kidney injury. 7. Electrolyte abnormalities. 8. Leukocytosis, presumed to be secondary to leukemoid reaction. CONSULTANTS: We had ID, Pulmonary Critical Care, Psychiatry, and Physical Medicine and Rehab. VITAL SIGNS: Temperature is 97.4, pulse 91, respiratory rate is 18, blood pressure 121/70, pulse ox 96% on room air. LABORATORY FINDINGS: Show white count was 19.6, hemoglobin 11.5, hematocrit is 36.6, and platelets of 406. Coagulation; PT 15, INR 1.1, PTT 28. Chemistry; sodium 135, potassium 4.2, chloride 98, bicarb 20, anion gap of 19, BUN 12, creatinine is 0.75, glucose is 148, calcium is 9.7. LFTs within normal range. Urinalysis is negative. Immunology; DARÍO was negative. Coronavirus x2 was positive. Nonreactive HIV panel. MICROBIOLOGY: Blood cultures were all negative. Urine cultures were negative. Sputum culture showed Acinetobacter baumannii on 2 occasions, was treated accordingly with antibiotic. IMAGING STUDIES: Chest x-ray on admission shows peribronchiolar hazy opacity, more diffuse hazy opacity in the bilateral lungs, worrisome for multifocal pneumonia. He has had several chest x-rays while here. He had a PICC line inserted. He had a modified barium swallow. He had abdominal x-ray for positioning of the NGT. He had a humerus x-ray, which was found to be negative. He had a shoulder x-ray, which was found to be negative. Carotid ultrasound, which was found to be currently negative. MRI of the brain shows a focus of subacute ischemia in the left occipital periventricular white matter. Subtle small areas of right parietal convexity encephalomalacia, may be from remote chronic infarct. No other acute intracranial abnormality. HOSPITAL COURSE: This gentleman is a 40-year-old male, who came into the ED with cough, congestion, fever, and shortness of breath, found to have coronavirus 2019. The patient was sent to the ICU, was being managed accordingly by Pulmonary Critical Care and ID. The patient maintained on broad-spectrum IV antibiotics, steroids, neb treatments, and inhalers. The patient was treated for coronavirus for significant period of time. Initially, he was on high-flow, but decompensated requiring intubation. He was on sedation and intubated for significant period of time. Eventually, the patient improved and was eventually extubated. Upon extubation, the patient had some concerns for left upper and lower extremity weakness and prompting a Neurology consultation. MRI of the brain was consistent with acute CVA. The patient was on aspirin and statin. Carotid ultrasound was found to be negative. The patient worked aggressively with physical therapy and occupational therapy. Physical Medicine and Rehab was consulted. Recommended inpatient rehab, in which he was sent to [facility]. As for his elevated white count, I spoke with ID today on discharge. He reports that the patient's white count is likely secondary to leukemoid reaction. The patient was treated aggressively with antibiotics. His vital signs were stable. He was afebrile. He was alert, awake, and oriented prior to being discharged. He has been cleared for discharge by all consultants. I spoke with ID and once again, he recommends just repeat CBC in 2 to 3 days. I spoke with the primary attending Dr. Vargas at [facility] and he will repeat a white count in 2 to 3 days to see if any downtrending. All lines were removed. There is no evidence of any source of infection at this time and it was felt to be from leukemoid reaction from underlying multiple infection. The patient was cleared for discharge by all consultants. He is back to normal baseline. On the day of discharge, vital signs were stable, labs reviewed and stable. The patient was seen evaluated and examined thoroughly on the day of discharge with no other complaints. The patient verbalized understanding and agrees to plan of care to follow up accordingly as an outpatient with primary care physician in 1 week and the rest of the consultants as described above in 2 weeks' time. MEDICATIONS: See med reconciliation form. DISPOSITION: [facility]. CONDITION: Stable. DIET: Heart healthy. In the event of worsening symptoms, the patient was advised to come back to the ED for further evaluation. Discharge summary took greater than 35 minutes. MD JIMMY Walls/SERGIO /[id number]
== END 2020-05-26 16:35 | DRG 870 ==
LOC: ER 18:48 → ERHOLD 20:25 → ICU 21:30 → MED/SURG3 05-21 23:33
PROVIDERS: ADMIT Internal Medicine; ATTEND Internal Medicine
PROC: 8E0ZXY6 Isolation (ICD-10-PCS; 2020-04-19)
PROC: 03HY32Z Insertion of Monitoring Device into Upper Artery, Percutaneous Approach (ICD-10-PCS; 2020-04-19)
PROC: 30243K1 Transfusion of Nonautologous Frozen Plasma into Central Vein, Percutaneous Approach (ICD-10-PCS; 2020-04-22)
PROC: 5A1955Z Respiratory Ventilation, Greater than 96 Consecutive Hours (ICD-10-PCS; principal; 2020-04-27)
PROC: 0BH17EZ Insertion of Endotracheal Airway into Trachea, Via Natural or Artificial Opening (ICD-10-PCS; 2020-04-27)
PROC: 02HV33Z Insertion of Infusion Device into Superior Vena Cava, Percutaneous Approach (ICD-10-PCS; 2020-05-06)
DX: A41.9 Sepsis, unspecified organism (principal); U07.1 COVID-19; J12.9 Viral pneumonia, unspecified; I63.9 Cerebral infarction, unspecified; J96.01 Acute respiratory failure with hypoxia; J69.0 Pneumonitis due to inhalation of food and vomit; J15.8 Pneumonia due to other specified bacteria; N17.9 Acute kidney failure, unspecified; E44.0 Moderate protein-calorie malnutrition; G81.94 Hemiplegia, unspecified affecting left nondominant side; E87.2 Acidosis; E11.9 Type 2 diabetes mellitus without complications; E87.5 Hyperkalemia; F41.9 Anxiety disorder, unspecified; F43.23 Adjustment disorder with mixed anxiety and depressed mood; E87.8 Other disorders of electrolyte and fluid balance, not elsewhere classified; E83.51 Hypocalcemia; E88.09 Other disorders of plasma-protein metabolism, not elsewhere classified; E87.70 Fluid overload, unspecified; L89.150 Pressure ulcer of sacral region, unstageable; I69.391 Dysphagia following cerebral infarction; R13.12 Dysphagia, oropharyngeal phase; Z68.32 Body mass index [BMI] 32.0-32.9, adult
CPT/HCPCS: 31500; 36415; 36569; 36600; 70551; 71045; 71260; 74018; 74230; 76700; 80048; 80053; 80061; 80202; 81001; 82150; 82550; 82553; 82607; 82805; 82948; 83036; 83090; 83690; 83735; 83874; 84100; 84443; 84478; 84484; 85025; 85610; 85730; 86039; 86361; 86900; 87040; 87070; 87086; 87102; 87186; 87205; 87206; 87390; 93005; 93306; 93880; 94002; 94003; 94640; 94667; 94668; 94669; 96365; 96372; 97139; 99284; G0433; G0435; J0171; J0295; J0330; J0360; J0456; J0610; J0696; J1100; J1650; J1815; J1817; J1940; J2001; J2060; J2250; J2270; J3260; J3370; J7030; J7050; J7070; J7121; P9017; P9047; Q9967; U0002